=== PATIENT | female | born 1955 | race Caucasian/White ===

== ENCOUNTER → 2017-03-06 | Outpatient (CLI) | payer OTHER ==
--- NOTE | 2017-03-06 10:24 | CT ---
EXAMINATION TYPE: CT abdomen w con DATE OF EXAM: 03/06/2017 HISTORY: elevated liver enzymes CT DLP: 1562.2mGycm Automated Exposure Control for Dose Reduction was Utilized. CONTRAST: CT scan of the abdomen is performed with oral and with IV Contrast, patient injected with 100 mL of V isipaque 320. COMPARISON: CT urogram January 30, 2013. FINDINGS: LUNG BASES: There is right sided pacemaker wire redemonstrated. LIVER/GB: Liver is stable in size and felt within normal limits. Cholecystectomy clips are redemonstr ated. There is subcentimeter low dense lesion anteriorly hepatic dome on axial image 12 that is too s mall to further characterize but stable and presumed benign. No worrisome solid or cystic intrahepati c mass is seen. No suspicious intrahepatic or extrahepatic biliary dilatation is noted. PANCREAS: No significant abnormality is seen. SPLEEN: Scattered calcifications throughout the spleen are redemonstrated. ADRENALS: No significant abnormality is seen. KIDNEYS: No significant abnormality is seen. BOWEL: No significant abnormality is seen. LYMPH NODES: No greater than 1cm abdominal lymph nodes are appreciated. OSSEOUS STRUCTURES: There is multilevel facet arthropathy in the lower lumbar spine. OTHER: There is moderate calcified atherosclerotic change of aorta. IMPRESSION: Liver is normal in size, no worrisome intrahepatic mass or ductal dilatation is seen.
== END | disposition home or self-care (01) ==
LOC: RADCTMAIN 08:14
PROVIDERS: ATTEND Family Medicine
DX: R74.8 Abnormal levels of other serum enzymes (principal)
CPT/HCPCS: 82565; 84520; 74160; 36415; Q9967

== ENCOUNTER → 2017-03-09 | Outpatient (CLI) | payer OTHER ==
--- NOTE | 2017-03-09 11:53 | MM ---
Reason for exam: additional evaluation requested from abnormal screening. Last mammogram was performed less than 1 month ago. History: Family history of breast cancer in grandmother. Benign excisional biopsy of the left breast. Physical Findings: Nurse did not find any significant physical abnormalities on exam. MG Work Up Mamm w CAD LT CC and MLO view(s) were taken of the left breast. Prior study comparison: March 05, 2017, bilateral MG screening mammo w CAD. July 28, 2013, CAD bilateral diagnostic mammogram. The breast tissue is heterogeneously dense. This may lower the sensitivity of mammography. There are grouped pleomorphic calcifications in the upper outer quadrant on left breast spanning over 2.2cm at middle depth in a linear orientation. These results were verbally communicated with the patient and result sheet given to the patient on 03/09/17. ASSESSMENT: Highly suggestive of malignancy, BI-RAD 5 RECOMMENDATION: Stereotactic core biopsy of the left breast. Called Dr. Hanks with mammographic findings and has scheduled an appointment for the patient for 04/04/17 at 3:[address] Garza. Biopsy scheduled for 03/13/17 at 8:00/ PRELIMINARY REPORT CALLED AND FAXED TO DR. GARZA ON 03/09/17.
== END | disposition home or self-care (01) ==
LOC: RADMAMWWP 07:51
PROVIDERS: ATTEND Family Medicine
DX: R92.8 Other abnormal and inconclusive findings on diagnostic imaging of breast (principal)

== ENCOUNTER → 2017-03-13 | Day surgery (SDC) | payer OTHER ==
[2017-03-13 07:51] VITALS: RESP 16; BMI 43.1
--- NOTE | 2017-03-13 09:58 | MM ---
EXAMINATION TYPE: MG stereo VAD BX LT DATE OF EXAM: 03/13/2017 COMPARISON: NONE CLINICAL HISTORY: Left breast calcification TECHNIQUE: Stereotactic guided core biopsy of left breast. FINDINGS: The procedure of stereotactic guided core biopsy was explained to the patient. Benefits, alternatives, and risks were discussed. An informed consent was then obtained. The shortness pathway for biopsy was chosen. Shortness pathway was lateral approach. CT performed by the radiologist. A vacuum assisted biopsy gun was used to obtain multiple core samples. The patient tolerated the procedure well without any immediate complication. The patient was kept in the radiology department for short stay after the procedure and then discharged home in stable condition. Targeted calcifications are identified in specimen mammogram. Post biopsy mammogram shows the clip to appear in satisfactory position relative to the targeted area of concern on the preprocedure images. IMPRESSION: SUCCESSFUL, UNCOMPLICATED STEREOTACTIC GUIDED CORE BIOPSY OF AREA OF CONCERN IN THE left BREAST, FULL PATHOLOGY RESULTS TO FOLLOW. Pathology Results: Malignant BREAST, LEFT, STEREOTACTIC CORE BIOPSY: DUCTAL CARCINOMA, FAVOR DUCT CARCINOMA IN SITU - PENDING IMMUNOHISTOCHEMICAL STAINS. CALCIFICATIONS IDENTIFIED. Recommendation Surgical consult of the left breast. GEENA
[2017-03-13 10:12] VITALS: BP 117/67; PULSE 56; TEMP 97.9
== END ==
LOC: RADMAMWWP 07:32
PROVIDERS: ATTEND Surgery
DX: D05.12 Intraductal carcinoma in situ of left breast (principal); R92.1 Mammographic calcification found on diagnostic imaging of breast
CPT/HCPCS: 19081; 88305; 88342; 88341; A4648; J2001

== ENCOUNTER → 2017-03-19 | Outpatient (CLI) | payer OTHER ==
[2017-03-19 15:48] LABS: Basophils # (A) 0.1 k/uL (0-0.2); Basophils % (A) 1 %; CH 34.3; CHCM 33.7; Eosinophils # (A) 0.5 k/uL (0-0.7); Eosinophils % (A) 7 %; HCT 43.5 % (34.0-46.0); HDW 2.57; HGB 14.3 gm/dL (11.4-16.0); Luc # (Auto) 0.13; Luc % (Auto) 2; Lymphocytes % (A) 29 %; MCH 33.6 pg (25.0-35.0); MCV 102.1 fL (80.0-100.0); Macrocytosis Slight; Mean Platelet Volume 8.7; Monocytes # (A) 0.5 k/uL (0-1.0); Monocytes % (A) 8 %; Neutrophils # (A) 3.8 k/uL (1.3-7.7); Neutrophils % (A) 54 %; RBC 4.26 m/uL (3.80-5.40); RDW 15.2 % (11.5-15.5); WBC 7.1 k/uL (3.8-10.6); WBC (Perox) 6.75
[2017-03-19 15:52] LABS: Appearance,Urine Clear (Clear); Bilirubin,Urine Negative (Negative); Glucose,Urine (UA) Negative (Negative); Ketones,Urine Negative (Negative); Leukocyte Esterase,Urine Negative (Negative); Nitrite,Urine Negative (Negative); Protein,Urine Negative (Negative); Specific Gravity,Urine 1.004 (1.001-1.035); UA Billing (MACRO vs. MICRO) CHEM; Urobilinogen,Urine <2.0 mg/dL (<2.0)
[2017-03-19 16:14] LABS: Anion Gap 6 mmol/L; Blood Urea Nitrogen 11 mg/dL (7-17); Calcium 9.4 mg/dL (8.4-10.2); Carbon Dioxide 37 mmol/L (22-30); Chloride 96 mmol/L (98-107); Glucose 110 mg/dL (74-99); Magnesium 1.7 mg/dL (1.6-2.3); Non-African American GFR(MDRD) 54 (>60 ml/min/1.73 sqM); Phosphorus 3.4 mg/dL (2.5-4.5); Potassium 4.4 mmol/L (3.5-5.1); Sodium 139 mmol/L (137-145); Uric Acid 2.1 mg/dL (3.7-7.4)
[2017-03-20 01:15] LABS: Iron Saturation 36.71 (12.00-45.00)
== END | disposition home or self-care (01) ==
LOC: LABWHC1 15:09
PROVIDERS: ATTEND Nurse Practitioner Family
DX: D64.9 Anemia, unspecified (principal); N18.3 Chronic kidney disease, stage 3 (moderate); R82.71 Bacteriuria; N39.0 Urinary tract infection, site not specified; D50.9 Iron deficiency anemia, unspecified; N25.81 Secondary hyperparathyroidism of renal origin; M10.9 Gout, unspecified; E55.9 Vitamin D deficiency, unspecified; E61.1 Iron deficiency
CPT/HCPCS: 36415; 80048; 81003; 82040; 82306; 82728; 83540; 83550; 83735; 83970; 84100; 84550; 85025; 87086

== ENCOUNTER 2017-05-17 10:20 | Day surgery (SDC) | payer OTHER ==
[~2017-05-17 10:20] MED LIST: HYDROmorphone 0.5 MG/0.5 ML SYRINGE IVP PRN; MIDAZOLAM 2 MG/2 ML VIAL IV PRN; Pre Op ABX Message 1 EACH MISC MISCELLANE ONE; SCOPOLAMINE 1.5MG/72HR PATCH TRANSDERM ONE
--- NOTE | 2017-05-17 10:35 | HP ---
HISTORY AND PHYSICAL CHIEF COMPLAINT: Patient is a 61-year-old female who was seen in March of this year. The patient had a recent mammogram performed showing a group of calcifications in the left breast. These were present in the upper outer quadrants spanning an area of 2.2 cm. The biopsies were performed showing ductal carcinoma in situ, high grade with comedonecrosis. She is ER negative, HI positive. She has a family history of breast cancer in her grandmother. She is otherwise asymptomatic. She has a history of previous left-sided pacemaker placement. She has extensive emphysema and is on home oxygen. She has been seen by Pulmonary, Cardiology, Radiation Oncology. Mastectomy was advised as the most ideal surgical option because of the risk of radiation injury to the patient's pacemaker. PAST MEDICAL HISTORY: Anxiety, asthma, left breast cancer, depression, diabetes, obesity, emphysema, GERD, coronary artery disease, hypercholesteremia, hypertension, arthritis, and arrhythmia. PAST SURGICAL HISTORY: Breast biopsy, cholecystectomy. MEDICATIONS: See list. ALLERGIES: PENICILLIN, ASPIRIN. PHYSICAL EXAM: HEENT is normocephalic. Sclerae nonicteric. RIGHT BREAST: Without mass or adenopathy. LEFT BREAST: Without masses or adenopathy. Pacemaker present. ABDOMEN: Soft, nontender, nondistended. No masses. EXTREMITIES: Without edema. IMPRESSION: A 61-year-old female with newly diagnosed left breast cancer. PLAN: After a long discussion with the patient regarding the surgical options, we decided to proceed with a left breast simple mastectomy with sentinel lymph node biopsy. Fluoroscopy will be utilized to identify the location of the pacemaker leads. Reconstruction was offered but the patient declined. Risks of bleeding, infection, ischemia, seroma formation, nerve injury, potential need for additional surgery, scarring, numbness, and recurrence. She understands and wishes to proceed. MMODL / IJN: [id number] /
[2017-05-17] MEDS ORDERED: LIDOCAINE 1% 20 ML VIAL (10MG/ML) FOR IV START INTRADERMA ONE (11:05)
[2017-05-17] MEDS ORDERED: DEXTROSE 50%-WATER 50 ML SYRINGE IVP ONE (11:13)
[2017-05-17] MEDS ORDERED: LACTATED RINGERS 1,000 ML IV ONE (11:27)
[2017-05-17 11:42] LABS: Glucose,Whole Blood 128 mg/dL (75-99)
[2017-05-17 11:42] LABS: Glucose,Whole Blood 46 mg/dL (75-99)
[2017-05-17 11:53] LABS: Anion Gap 5 mmol/L; Blood Urea Nitrogen 13 mg/dL (7-17); Calcium 9.4 mg/dL (8.4-10.2); Carbon Dioxide 29 mmol/L (22-30); Chloride 102 mmol/L (98-107); Potassium 4.5 mmol/L (3.5-5.1); Sodium 136 mmol/L (137-145)
[2017-05-17 12:05] LABS: Glucose 49 mg/dL (74-99)
[2017-05-17] MEDS: ONDANSETRON 4 MG/2 ML VIAL IVP ONE ×2 (12:10→18:08)
[2017-05-17] MEDS: DEXAMETHASONE SOD PHOSPHATE 10 MG/ML 1 ML VIAL IV ONE ×2 (12:10→18:08)
[2017-05-17] MEDS: HEPARIN SODIUM,PORCINE 5,000 UNIT/ML 1 ML VIAL SQ ONE ×2 (12:10→18:08)
--- NOTE | 2017-05-17 12:31 | NM ---
EXAMINATION TYPE: NM sentinel node injection DATE OF EXAM: 05/17/2017 COMPARISON: Stereotactic biopsy dated 03/13/2017 HISTORY: Left-sided breast ductal carcinoma with pathology favoring ductal carcinoma in situ. Request for sentinel node injection. TECHNIQUE AND FINDINGS: The procedure of sentinel lymph node injection was explained to the patient. The benefits, alternatives, and risks were discussed. An informed consent was then obtained. Overlying skin is cleaned with sterile alcohol. Lidocaine buffered with bicarbonate was used as anes thetic into the skin and subcutaneous tissue surrounding the nipple. Following this, 550 uCi Tc 99m Filtered Sulfur Colloid was injected into 4 equivalent doses at 12, 3, 6, and 9:00 position surroundi ng the left nipple intradermally. The injection sites were massaged by nuclear physician for 10 minutes after injection. T he patient tolerated the procedure well without any immediate complication. The patient was kept in the radiology department for short stay after the procedure and then taken to surgery for surgical pr ocedure what is presumed intraoperative gamma probe will be used for sentinel lymph node detection. IMPRESSION: Left breast radiotracer injection for sentinel node localization as above.
[2017-05-17] MEDS ORDERED: ceFAZolin 2,000 MG in DEXTROSE/WATER 1 50ML.BAG IVPB STA (12:45)
[2017-05-17] MEDS ORDERED: CLINDAMYCIN 900 MG in DEXTROSE 5% IN WATER 50 ML IVPB STA ×2 (12:52)
[2017-05-17] MEDS ORDERED: fentaNYL (PF) 50 MCG/ML 2 ML AMP ONE (13:05)
[2017-05-17] MEDS ORDERED: PROPOFOL 10 MG/ML 20 ML VIAL IV ONE (13:05)
[2017-05-17] MEDS ORDERED: LIDOCAINE 1% INJ 10MG/ML (20 ML MDV) ONE (13:05)
[2017-05-17] MEDS ORDERED: DEXTROSE 5% IN WATER 500 ML BAG ONE (13:05)
[2017-05-17] MEDS ORDERED: ePHEDrine SULFATE/0.9% NACL/PF 50 MG/5 ML SYRINGE IV ONE (13:05)
[2017-05-17] MEDS ORDERED: SUCCINYLCHOLINE CHLORIDE 100 MG/5 ML SYR IV ONE (13:05)
[2017-05-17] MEDS ORDERED: PHENYLEPHRINE-0.9% NACL SYG 1 MG/10 ML SYRINGE ONE (13:05)
[2017-05-17] MEDS ORDERED: KETAMINE 10 MG/ML 20 ML VIAL ONE (13:05)
[2017-05-17] MEDS ORDERED: METHYLENE BLUE 10 MG/ML (10 ML VIAL) INJ ONE (13:36)
[2017-05-17] MEDS: DEXTROSE 50%-WATER 50 ML SYRINGE IVP STA ×2 (13:38→18:09)
[2017-05-17 13:59] LABS: Glucose,Whole Blood 49 mg/dL (75-99)
[2017-05-17 14:25] LABS: Glucose,Whole Blood 97 mg/dL (75-99)
[2017-05-17 15:18] LABS: Glucose,Whole Blood 69 mg/dL (75-99)
[2017-05-17] MEDS ORDERED: NALOXONE 0.4 MG/ML 1 ML VIAL IV PRN (15:18)
[2017-05-17] MEDS ORDERED: ONDANSETRON 4 MG/2 ML VIAL IVP PRN (15:31)
[2017-05-17] MEDS ORDERED: HYDROcodone/APAP 5-325MG 1 EACH TAB PO PRN (15:31)
[2017-05-17] MEDS ORDERED: METOCLOPRAMIDE 5 MG/ML 2 ML VIAL IVP PRN (15:31)
[2017-05-17] MEDS ORDERED: HYDROmorphone 1 MG/ML 1 ML SYRINGE IVP PRN (15:31)
[2017-05-17 15:41] LABS: Glucose,Whole Blood 106 mg/dL (75-99)
--- NOTE | 2017-05-17 15:41 | P.OP ---
Date of Procedure: 05/17/17 Procedure(s) Performed: PREOPERATIVE DIAGNOSIS: Left breast cancer POSTOPERATIVE DIAGNOSIS: Same PROCEDURE: Left breast mastectomy with sentinel lymph node biopsy SURGEON: Olivia EBL: Minimal ANESTHESIA: General COMPLICATIONS: None OPERATIVE PROCEDURE: Patient was placed on the operating room table in the supine position. 2 mL of methylene blue was injected into the subareolar space. The breast was then massaged for 5 minutes. Using the skin marker the proposed incision sites were drawn out on the chest wall. The superior incision was first created. The incision was elliptical in nature encompassing the nipple areolar complex. Flaps were raised superiorly until the chest wall was reached. The axilla was then addressed. Blunt dissection surprisingly did reveal immediately 2 hot and blue lymph nodes along with the feeding blue colored lymphatic vessel. Both of these lymph nodes were removed and sent to pathology for close examination labeled sentinel lymph node 1 and 2. Both nodes thankfully were negative for metastatic disease by frozen section. The mastectomy incision was then created inferiorly and flaps were again raised until the chest wall was reached. The breast was removed from the chest wall using electrocautery. Multiple vessels were divided using either electrocautery or the clip public health microbiologist. Harmonic scalpel was also utilized to control portions of our dissection that appeared vascular. The area was irrigated. No bleeding was seen. A drain was placed beneath the flaps of the mastectomy incision. The subcutaneous tissues were then closed using 3-0 Vicryl sutures and the skin was closed using shaylee. Sterile dressing was used along the entire length of the incision with Dermabond. The drain was sutured in place using a 3-0 silk stitch. DISPOSITION: Stable to recovery room
--- NOTE | 2017-05-17 15:55 | FL ---
EXAMINATION TYPE: FL guidance operating room DATE OF EXAM: 05/17/2017 CLINICAL HISTORY: Left-sided breast cancer TECHNIQUE: Fluoroscopy. COMPARISON: None. FINDINGS: Fluoroscopic guidance was provided during treatment for left breast cancer probable lumpec lucille performed by Dr. Baker. A total of 17 seconds of fluoroscopic time was utilized during the proc edure and one spot image is acquired. Image acquired shows left pacemaker to help in surgical plannin g. IMPRESSION: As Above.
[2017-05-17] MEDS ORDERED: HYDROmorphone 1 MG/ML 1 ML SYRINGE IVP ONE (16:15)
[2017-05-17 17:26] LABS: Glucose,Whole Blood 102 mg/dL (75-99)
[2017-05-17] MEDS: LACTATED RINGERS 1,000 ML IV SCH (18:09)
[2017-05-17] MEDS: D5-0.45% NACL WITH KCL 20MEQ/L 1,000 ML IV SCH (20:08)
[2017-05-17 21:01] LABS: Glucose,Whole Blood 97 mg/dL (75-99)
[2017-05-17] MEDS: HEPARIN SODIUM,PORCINE 5,000 UNIT/ML 1 ML VIAL SQ SCH (22:24)
[2017-05-18] MEDS: LACTATED RINGERS 1,000 ML IV SCH (04:40)
[2017-05-18] MEDS: D5-0.45% NACL WITH KCL 20MEQ/L 1,000 ML IV SCH ×2 (05:40→11:00)
[2017-05-18 05:41] LABS: Glucose,Whole Blood 86 mg/dL (75-99)
[2017-05-18 05:58] LABS: Basophils % (A) 0 %; Eosinophils % (A) 0 %; HCT 36.3 % (34.0-46.0); HGB 11.8 gm/dL (11.4-16.0); Lymphocytes # (A) 1.3 k/uL (1.0-4.8); Lymphocytes % (A) 12 %; MCH 32.2 pg (25.0-35.0); MCHC 32.4 g/dL (31.0-37.0); MCV 99.3 fL (80.0-100.0); Mean Platelet Volume 8.3; Monocytes # (A) 0.8 k/uL (0-1.0); Monocytes % (A) 8 %; Neutrophils # (A) 8.8 k/uL (1.3-7.7); Neutrophils % (A) 79 %; Platelet Count 141 k/uL (150-450); RBC 3.66 m/uL (3.80-5.40); RDW 14.1 % (11.5-15.5); WBC 11.1 k/uL (3.8-10.6)
[2017-05-18 06:12] LABS: Anion Gap 6 mmol/L; Blood Urea Nitrogen 10 mg/dL (7-17); Carbon Dioxide 31 mmol/L (22-30); Chloride 102 mmol/L (98-107); Glucose 86 mg/dL (74-99); Magnesium 1.7 mg/dL (1.6-2.3); Phosphorus 4.6 mg/dL (2.5-4.5); Potassium 4.6 mmol/L (3.5-5.1); Sodium 139 mmol/L (137-145)
[2017-05-18] MEDS: HEPARIN SODIUM,PORCINE 5,000 UNIT/ML 1 ML VIAL SQ SCH ×3 (08:22→22:54)
[2017-05-18] MEDS: PANTOPRAZOLE 40 MG/10 ML VIAL IV SCH (08:22)
--- NOTE | 2017-05-18 11:35 | P.CRDCN ---
History of Present Illness History of present illness: Patient interviewed and examined. Please see full dictation by nurse practitioner. She underwent mastectomy yesterday. She has complete heart block as a permanent pacemaker implanted in the past. Pacemaker was interrogated today and impedances are stable thresholds are stable. Plan is to resume home medications and she may get discharged home when okay with surgery. She will follow-up with me as scheduled. I recently performed a stress test which did not show any evidence for ischemia Past Medical History Past Medical History: Coronary Artery Disease (CAD), Heart Failure, COPD, Diabetes Mellitus, Hyperlipidemia, Hypertension, Sleep Apnea/CPAP/BIPAP, Thyroid Disorder Additional Past Medical History / Comment(s): PATIENT HAS NO LEFTDiverticulitis. CPAP. O2 @ 2 L. GOUT. History of Any Multi-Drug Resistant Organisms: None Reported Past Surgical History: Breast Surgery, Cholecystectomy, Hysterectomy, Pacemaker Additional Past Surgical History / Comment(s): Benign excisional biopsy left breast. Past Anesthesia/Blood Transfusion Reactions: Previous Problems w/ Anesthesia Additional Past Anesthesia/Blood Transfusion Reaction / Comment(s): Hard time coming out of general Type of Cardiac Device: Permanent Pacemaker Device Placement Date:: Smoking Status: Former smoker - Past Family History Mother Family Medical History: Cancer Medications and Allergies Home Medications Medication Instructions Recorded Confirmed Type Albuterol Inhaler [Ventolin Hfa 1 - 2 puff INHALATION RT-QID PRN 09/15/15 History Inhaler] Allopurinol [Zyloprim] 300 mg PO QAM 09/15/15 05/17/17 History Biotin 5 mg PO DAILY 09/15/15 05/17/17 History Carvedilol [Coreg] 1.56 mg PO BID 09/15/15 05/17/17 History Colchicine 0.6 mg PO TID 09/15/15 05/17/17 History Docusate Sodium [Dok] 100 mg PO DAILY PRN 09/15/15 05/17/17 History Furosemide [Lasix] 80 mg PO QAM 09/15/15 05/17/17 History Indomethacin [Indocin] 50 mg PO TID PRN 09/15/15 05/17/17 History LORazepam [Ativan] 0.5 mg PO BID 09/15/15 05/17/17 History Levothyroxine Sodium [Synthroid] 25 mcg PO QAM 09/15/15 05/17/17 History Lisinopril [Zestril] 2.5 mg PO PC-LUNCH 09/15/15 05/17/17 History Ranitidine HCl [Zantac] 150 mg PO BID 09/15/15 05/17/17 History Sertraline [Zoloft] 50 mg PO QAM 09/15/15 05/17/17 History traZODone HCL [Desyrel] 100 mg PO HS PRN 09/15/15 05/17/17 History Beclomethasone Dipropionate [Qvar 1 inhalation PO RT-BID 09/16/15 05/17/17 History 80 mcg/puff] Ipratropium [place] 0.2 mg INHALATION RT-QID 09/16/15 05/17/17 History Albuterol Nebulized [Ventolin 1 inhalation INHALATION QID 03/09/17 05/17/17 History Nebulized] Atorvastatin Calcium [Lipitor] 20 mg PO HS 03/09/17 05/17/17 History Febuxostat [Uloric] 80 mg PO QAM 03/09/17 05/17/17 History Ferrous Sulfate [Iron] 325 mg PO HS 03/09/17 05/17/17 History HYDROcodone/APAP 5-325MG [[place] 1 tab PO Q6HR PRN 03/09/17 05/17/17 History 5-325] Insulin Lispro Protamin/Lispro 80 unit SQ QA 03/09/17 05/17/17 History [Humalog Mix 75-25 Kwikpen] Montelukast [Singulair] 10 mg PO QAM 03/09/17 05/17/17 History Perphenazine [Trilafon] 4 mg PO HS 03/09/17 05/17/17 History Fluocinonide 0.05% [Lidex 0.05% 1 applic TOPICAL HS 05/15/17 05/17/17 History cream] Insulin NPL/Insulin Lispro 40 unit SQ HS 05/15/17 05/17/17 History [humaLOG MIX 75-25 VIAL] Allergies Allergy/AdvReac Type Severity Reaction Status Date / Time aspirin Allergy Nausea & Verified 05/17/17 11:04 Vomiting Penicillins Allergy Rash/Hives Verified 05/17/17 11:04 Physical Exam Vitals: Vital Signs Temp Pulse Resp BP Pulse Ox 05/18/17 04:00 97.1 F L 53 L 16 115/55 97 05/18/17 00:00 98.5 F 53 L 16 109/55 97 05/17/17 20:36 98.3 F 50 L 16 113/55 96 05/17/17 19:48 97.2 F L 50 L 16 126/57 95 05/17/17 18:40 53 L 20 129/60 97 05/17/17 18:10 50 L 20 132/59 95 05/17/17 17:40 51 L 20 132/65 96 05/17/17 17:25 50 L 20 123/62 95 05/17/17 17:10 50 L 20 128/67 95 05/17/17 16:55 96.8 F L 51 L 20 126/58 95 05/17/17 16:30 49 L 16 134/65 99 05/17/17 16:15 49 L 18 146/65 99 05/17/17 16:00 49 L 16 129/60 98 05/17/17 15:45 52 L 16 126/61 97 05/17/17 15:30 97.3 F L 60 12 117/59 95 Intake and Output 05/17/17 05/18/17 05/18/17 22:59 06:59 14:59 Intake Total 840 600 Output Total 120 50 Balance 720 550 Intake: IV 600 600 D5-0.45% NaCl with KCl 600 600 20Meq/l 1,000 ml @ 75 mls /hr IV .[id number] [facility] Rx#: [id number] Oral 240 Output: Drainage 70 50 Left Breast 70 50 Estimated Blood Loss 50 Other: Voiding Method Toilet # Voids 0 1 1 Weight 123.5 kg Results 05/18/17 05:36 05/18/17 05:36 CBC 05/18/17 Range/Units 05:36 WBC 11.1 H (3.8-10.6) k/uL RBC 3.66 L (3.80-5.40) m/uL Hgb 11.8 (11.4-16.0) gm/dL Hct 36.3 (34.0-46.0) % Plt Count 141 L (150-450) k/uL Comprehensive Metabolic Panel 05/17/17 05/18/17 Range/Units 11:10 05:36 Sodium 136 L 139 (137-145) mmol/L Potassium 4.5 4.6 (3.5-5.1) mmol/L Chloride 102 102 (98-107) mmol/L Carbon Dioxide 29 31 H (22-30) mmol/L BUN 13 10 (7-17) mg/dL Creatinine 0.80 0.84 (0.52-1.04) mg/dL Glucose 49 L* 86 (74-99) mg/dL Calcium 9.4 9.0 (8.4-10.2) mg/dL Current Medications Generic Name Dose Route Start Last Admin Trade Name Freq PRN Reason Stop Dose Admin Hydrocodone Bitart/Acetaminophen 1 each 05/17/17 15:31 [place] 5-325 PO Q4HR PRN Mild Pain Heparin Sodium (Porcine) 5,000 unit 05/18/17 00:00 05/18/17 08:22 Heparin SQ 5,000 unit Q8HR JAMES Administration Hydromorphone HCl 0.5 mg 05/17/17 15:31 05/18/17 08:20 Dilaudid IVP 0.5 mg Q3HR PRN Administration Moderate to Severe Pain Lactated Ringer's 1,000 mls @ 20 mls/hr 05/17/17 06:05 05/18/17 04:40 Lactated Ringers IV Not Given .Q24H JAMES Potassium Chloride/Dextrose/Sod Cl 1,000 mls @ 75 mls/hr 05/17/17 15:45 05/18 05:40 D5%-1/2ns-Kcl 20 Meq/L Iv Solution IV 75 mls/hr .[id number] JAMES Administration Metoclopramide HCl 10 mg 05/17/17 15:31 Reglan IVP Q6H PRN Nausea And Vomiting Naloxone HCl 0.2 mg 05/17/17 15:18 Narcan IV Q2M PRN Opioid Reversal Ondansetron HCl 4 mg 05/17/17 15:31 Zofran IVP Q8HR PRN Nausea And Vomiting Pantoprazole Sodium 40 mg 05/18/17 09:00 05/18/17 08:22 Protonix IV 40 mg DAILY JAMES Administration Intake and Output 05/17/17 05/18/17 05/18/17 22:59 06:59 14:59 Intake Total 840 600 Output Total 120 50 Balance 720 550 Intake: IV 600 600 D5-0.45% NaCl with KCl 600 600 20Meq/l 1,000 ml @ 75 mls /hr IV .[id number] [facility] Rx#: [id number] Oral 240 Output: Drainage 70 50 Left Breast 70 50 Estimated Blood Loss 50 Other: Voiding Method Toilet # Voids 0 1 1 Weight 123.5 kg 05/18/17 05:36 05/18/17 05:36
[2017-05-18 11:39] VITALS: RESP 18
[2017-05-18 11:55] LABS: Glucose,Whole Blood 93 mg/dL (75-99)
--- NOTE | 2017-05-18 14:14 | P.CRDCN ---
History of Present Illness Consult date: 05/18/17 Requesting physician: Sim Baker Reason for Consult (text): Street of Pacemaker Chief complaint: Status post left breast mastectomy History of present illness: His is a 61-year-old female who follows with Dr. Stack in the office. She has known history of diabetes, hyperlipidemia, COPD with home O2 use, hypothyroidism, hypertension, prior pacemaker implantation. Patient was admitted to the hospital and underwent left breast mastectomy with sentinel lymph node biopsy by Dr. More. Cardiology consultation was requested because of history of a permanent pacemaker. Blood pressure 118/50 heart rate in the 50s, respirations 18. Device was interrogated this morning and is functioning appropriately. White blood cell count 11.1, hemoglobin 11.8, platelet count 141. Sodium 139, potassium 4.6, BUN 10, creatinine 0.8. Magnesium 1.7. Patient's home medications include Lipitor 20 mg daily, Coreg 3.125 mg twice a day, Lasix 80 mg daily, lisinopril 5 mg daily, Aldactone 50 mg daily which we will resume. Past Medical History Past Medical History: Coronary Artery Disease (CAD), Heart Failure, COPD, Diabetes Mellitus, Hyperlipidemia, Hypertension, Sleep Apnea/CPAP/BIPAP, Thyroid Disorder Additional Past Medical History / Comment(s): PATIENT HAS NO LEFTDiverticulitis. CPAP. O2 @ 2 L. GOUT. History of Any Multi-Drug Resistant Organisms: None Reported Past Surgical History: Breast Surgery, Cholecystectomy, Hysterectomy, Pacemaker Additional Past Surgical History / Comment(s): Benign excisional biopsy left breast. Past Anesthesia/Blood Transfusion Reactions: Previous Problems w/ Anesthesia Additional Past Anesthesia/Blood Transfusion Reaction / Comment(s): Hard time coming out of general Type of Cardiac Device: Permanent Pacemaker Device Placement Date:: Smoking Status: Former smoker - Past Family History Mother Family Medical History: Cancer Medications and Allergies Home Medications Medication Instructions Recorded Confirmed Type Albuterol Inhaler [Ventolin Hfa 1 - 2 puff INHALATION RT-QID PRN 09/15/15 History Inhaler] Allopurinol [Zyloprim] 300 mg PO QAM 09/15/15 05/17/17 History Biotin 5 mg PO DAILY 09/15/15 05/17/17 History Carvedilol [Coreg] 1.56 mg PO BID 09/15/15 05/17/17 History Colchicine 0.6 mg PO TID 09/15/15 05/17/17 History Docusate Sodium [Dok] 100 mg PO DAILY PRN 09/15/15 05/17/17 History Furosemide [Lasix] 80 mg PO QAM 09/15/15 05/17/17 History Indomethacin [Indocin] 50 mg PO TID PRN 09/15/15 05/17/17 History LORazepam [Ativan] 0.5 mg PO BID 09/15/15 05/17/17 History Levothyroxine Sodium [Synthroid] 25 mcg PO QAM 09/15/15 05/17/17 History Lisinopril [Zestril] 2.5 mg PO PC-LUNCH 09/15/15 05/17/17 History Ranitidine HCl [Zantac] 150 mg PO BID 09/15/15 05/17/17 History Sertraline [Zoloft] 50 mg PO QAM 09/15/15 05/17/17 History traZODone HCL [Desyrel] 100 mg PO HS PRN 09/15/15 05/17/17 History Beclomethasone Dipropionate [Qvar 1 inhalation PO RT-BID 09/16/15 05/17/17 History 80 mcg/puff] Ipratropium [place] 0.2 mg INHALATION RT-QID 09/16/15 05/17/17 History Albuterol Nebulized [Ventolin 1 inhalation INHALATION QID 03/09/17 05/17/17 History Nebulized] Atorvastatin Calcium [Lipitor] 20 mg PO HS 03/09/17 05/17/17 History Febuxostat [Uloric] 80 mg PO QAM 03/09/17 05/17/17 History Ferrous Sulfate [Iron] 325 mg PO HS 03/09/17 05/17/17 History HYDROcodone/APAP 5-325MG [[place] 1 tab PO Q6HR PRN 03/09/17 05/17/17 History 5-325] Insulin Lispro Protamin/Lispro 80 unit SQ QAM 03/09/17 05/17/17 History [Humalog Mix 75-25 Kwikpen] Montelukast [Singulair] 10 mg PO QAM 03/09/17 05/17/17 History Perphenazine [Trilafon] 4 mg PO HS 03/09/17 05/17/17 History Fluocinonide 0.05% [Lidex 0.05% 1 applic TOPICAL HS 05/15/17 05/17/17 History cream] Insulin NPL/Insulin Lispro 40 unit SQ HS 05/15/17 05/17/17 History [humaLOG MIX 75-25 VIAL] Allergies Allergy/AdvReac Type Severity Reaction Status Date / Time aspirin Allergy Nausea & Verified 05/17/17 11:04 Vomiting Penicillins Allergy Rash/Hives Verified 05/17/17 11:04 Physical Exam Vitals: Vital Signs Temp Pulse Resp BP Pulse Ox 05/18/17 08:00 96.6 F L 50 L 18 118/54 96 05/18/17 04:00 97.1 F L 53 L 16 115/55 97 05/18/17 00:00 98.5 F 53 L 16 109/55 97 05/17/17 20:36 98.3 F 50 L 16 113/55 96 05/17/17 19:48 97.2 F L 50 L 16 126/57 95 05/17/17 18:40 53 L 20 129/60 97 05/17/17 18:10 50 L 20 132/59 95 05/17/17 17:40 51 L 20 132/65 96 05/17/17 17:25 50 L 20 123/62 95 05/17/17 17:10 50 L 20 128/67 95 05/17/17 16:55 96.8 F L 51 L 20 126/58 95 05/17/17 16:30 49 L 16 134/65 99 05/17/17 16:15 49 L 18 146/65 99 05/17/17 16:00 49 L 16 129/60 98 05/17/17 15:45 52 L 16 126/61 97 05/17/17 15:30 97.3 F L 60 12 117/59 95 Intake and Output 05/17/17 05/18/17 05/18/17 22:59 06:59 14:59 Intake Total 840 600 Output Total 120 50 30 Balance 720 550 -30 Intake: IV 600 600 D5-0.45% NaCl with KCl 600 600 20Meq/l 1,000 ml @ 75 mls /hr IV .[id number] [facility] Rx#: [id number] Oral 240 Output: Drainage 70 50 30 Left Breast 70 50 30 Estimated Blood Loss 50 Other: Voiding Method Toilet Toilet # Voids 0 1 1 Weight 123.5 kg PHYSICAL EXAMINATION: HEENT: Head is atraumatic, normocephalic. Pupils equal, round. Neck is supple. There is no elevated jugular venous pressure. HEART EXAMINATION: Heart S1, S2 normal. No murmur or gallop heard.] CHEST EXAMINATION:[ Lungs are clear to auscultation and precussion. No chest wall tenderness is noted on palpation or with deep breathing.] ABDOMEN: [ Soft, nontender. Bowel sounds are heard. No organomegaly noted]. EXTREMITIES:[ 2+ peripheral pulses with no evidence of peripheral edema and no calf tenderness noted]. NEUROLOGIC [patient is awake, alert and oriented -3.] . Results 05/18/17 05:36 05/18/17 05:36 CBC 05/18/17 Range/Units 05:36 WBC 11.1 H (3.8-10.6) k/uL RBC 3.66 L (3.80-5.40) m/uL Hgb 11.8 (11.4-16.0) gm/dL Hct 36.3 (34.0-46.0) % Plt Count 141 L (150-450) k/uL Comprehensive Metabolic Panel 05/18/17 Range/Units 05:36 Sodium 139 (137-145) mmol/L Potassium 4.6 (3.5-5.1) mmol/L Chloride 102 (98-107) mmol/L Carbon Dioxide 31 H (22-30) mmol/L BUN 10 (7-17) mg/dL Creatinine 0.84 (0.52-1.04) mg/dL Glucose 86 (74-99) mg/dL Calcium 9.0 (8.4-10.2) mg/dL Current Medications Generic Name Dose Route Start Last Admin Trade Name Freq PRN Reason Stop Dose Admin Hydrocodone Bitart/Acetaminophen 1 each 05/17/17 15:31 [place] 5-325 PO Q4HR PRN Mild Pain Heparin Sodium (Porcine) 5,000 unit 05/18/17 00:00 05/18/17 08:22 Heparin SQ 5,000 unit Q8HR JAMES Administration Hydromorphone HCl 0.5 mg 05/17/17 15:31 05/18/17 08:20 Dilaudid IVP 0.5 mg Q3HR PRN Administration Moderate to Severe Pain Lactated Ringer's 1,000 mls @ 20 mls/hr 05/17/17 06:05 05/18/17 04:40 Lactated Ringers IV Not Given .Q24H JAMES Potassium Chloride/Dextrose/Sod Cl 1,000 mls @ 75 mls/hr 05/17/17 15:45 05/18 11:00 D5%-1/2ns-Kcl 20 Meq/L Iv Solution IV Not Given .[id number] JAMES Metoclopramide HCl 10 mg 05/17/17 15:31 Reglan IVP Q6H PRN Nausea And Vomiting Naloxone HCl 0.2 mg 05/17/17 15:18 Narcan IV Q2M PRN Opioid Reversal Ondansetron HCl 4 mg 05/17/17 15:31 Zofran IVP Q8HR PRN Nausea And Vomiting Pantoprazole Sodium 40 mg 05/18/17 09:00 05/18/17 08:22 Protonix IV 40 mg DAILY JAMES Administration Intake and Output 05/17/17 05/18/17 05/18/17 22:59 06:59 14:59 Intake Total 840 600 Output Total 120 50 30 Balance 720 550 -30 Intake: IV 600 600 D5-0.45% NaCl with KCl 600 600 20Meq/l 1,000 ml @ 75 mls /hr IV .[id number] [facility] Rx#: [id number] Oral 240 Output: Drainage 70 50 30 Left Breast 70 50 30 Estimated Blood Loss 50 Other: Voiding Method Toilet Toilet # Voids 0 1 1 Weight 123.5 kg 05/18/17 05:36 05/18/17 05:36 EKG Interpretations (text) Rythm strips show paced rhythm. Assessment and Plan Plan: Assessment and plan #1 status post left breast mastectomy with sentinel lymph node biopsy #2 history of pacemaker implantation for complete heart #3 hyperlipidemia #4 hypertension #5 diabetes #6 COPD #7 history of smoking Plan Pacemaker was interrogated and is functioning appropriately. The patient's home cardiac medications. From cardiology's perspective she may be discharged to follow-up in the office. DNP note has been reviewed, I agree with a documented findings and plan of care. Patient was seen and examined.
[2017-05-18] MEDS ORDERED: DOCUSATE 100 MG CAP PO PRN (16:27)
[2017-05-18 16:34] LABS: Glucose,Whole Blood 100 mg/dL (75-99)
[2017-05-18] MEDS: CARVEDILOL 1.563 MG TAB PO SCH (16:56)
--- NOTE | 2017-05-18 17:05 | P.PN ---
Subjective Progress Note Date: 05/18/17 Principal diagnosis: Left breast cancer Patient doing well today. Only mild discomfort. Drainage appropriate. Hemodynamically stable. Objective - Vital Signs Vital signs: Vital Signs Temp 97.2 F L 05/18/17 12:00 Pulse 69 05/18/17 12:00 Resp 18 05/18/17 12:00 BP 118/54 05/18/17 08:00 Pulse Ox 97 05/18/17 12:00 Intake & Output 05/17/17 05/18/17 05/18/17 18:59 06:59 18:59 Intake Total 1040 1200 500 Output Total 120 50 90 Balance 920 1150 410 Weight 123.5 kg Intake: IV 800 1200 D5-0.45% NaCl with KCl 1200 20Meq/l 1,000 ml @ 75 mls /hr IV .[id number] [facility] Rx#: [id number] Oral 240 500 Output: Drainage 70 50 90 Left Breast 70 50 90 Estimated Blood Loss 50 Other: Voiding Method Toilet Toilet # Voids 0 1 1 - Exam Left chest wall incision clean and dry without ischemia or significant tenderness, no hematoma palpable - Labs CBC & Chem 7: 05/18/17 05:36 05/18/17 05:36 Labs: Abnormal Lab Results - Last 24 Hours (Table) 05/17/17 05/18/17 05/18/17 Range/Units 17:22 05:36 05:36 WBC 11.1 H (3.8-10.6) k/uL RBC 3.66 L (3.80-5.40) m/uL Plt Count 141 L (150-450) k/uL Neutrophils # 8.8 H (1.3-7.7) k/uL Carbon Dioxide 31 H (22-30) mmol/L POC Glucose (mg/dL) 102 H (75-99) mg/dL Phosphorus 4.6 H (2.5-4.5) mg/dL 05/18/17 Range/Units 16:33 WBC (3.8-10.6) k/uL RBC (3.80-5.40) m/uL Plt Count (150-450) k/uL Neutrophils # (1.3-7.7) k/uL Carbon Dioxide (22-30) mmol/L POC Glucose (mg/dL) 100 H (75-99) mg/dL Phosphorus (2.5-4.5) mg/dL Assessment and Plan (1) Cancer of left breast Narrative/Plan: Patient doing well today. Anticipate discharge tomorrow. Follow-up in the office 1 week. Current Visit: Yes Status: Acute Code(s): C50.912 - MALIGNANT NEOPLASM OF UNSPECIFIED SITE OF LEFT FEMALE BREAST SNOMED Code(s): 042567939
[2017-05-18] MEDS ORDERED: HYDROmorphone 4 MG/ML 1 ML SYRINGE IVP PRN (20:12)
[2017-05-18] MEDS: ALBUTEROL NEBULIZED 2.5 MG/3 ML INHALATION SCH (20:28)
[2017-05-18] MEDS: BUDESONIDE 1 MG/2 ML NEBU INHALATION SCH (20:28)
[2017-05-18] MEDS ORDERED: traZODone HCL 100 MG TAB PO PRN (21:00)
[2017-05-18] MEDS ORDERED: FERROUS SULFATE 325 MG TAB PO SCH (21:00)
[2017-05-18] MEDS ORDERED: PERPHENAZINE 4 MG TAB PO SCH (21:00)
[2017-05-18] MEDS ORDERED: ATORVASTATIN 20 MG TAB PO SCH (21:00)
[2017-05-18] MEDS ORDERED: INSULN ASP PRT/INSULIN ASPART 100 UNIT/ML 10 ML VIAL SQ SCH (21:00)
[2017-05-18 21:09] LABS: Glucose,Whole Blood 130 mg/dL (75-99)
[2017-05-18] MEDS: COLCHICINE 0.6 MG TAB PO SCH (21:35)
[2017-05-18] MEDS: FAMOTIDINE 20 MG TAB PO SCH (21:35)
[2017-05-19] MEDS ORDERED: LEVOTHYROXINE 25 MCG TAB PO SCH (06:30)
[2017-05-19 06:56] LABS: Glucose,Whole Blood 85 mg/dL (75-99)
[2017-05-19] MEDS: CARVEDILOL 1.563 MG TAB PO SCH (06:59)
[2017-05-19] MEDS ORDERED: IPRATROPIUM 0.5 MG/2.5 ML NEBU INHALATION SCH (08:00)
[2017-05-19] MEDS: FAMOTIDINE 20 MG TAB PO SCH (08:08)
[2017-05-19] MEDS: COLCHICINE 0.6 MG TAB PO SCH (08:08)
[2017-05-19] MEDS: HEPARIN SODIUM,PORCINE 5,000 UNIT/ML 1 ML VIAL SQ SCH (08:09)
[2017-05-19] MEDS: PANTOPRAZOLE 40 MG/10 ML VIAL IV SCH (08:12)
[2017-05-19 08:22] VITALS: BP 131/60; PULSE 57; TEMP 96.7
[2017-05-19] MEDS ORDERED: ALLOPURINOL 300 MG TAB PO SCH (09:00)
[2017-05-19] MEDS ORDERED: MONTELUKAST 10 MG TAB PO SCH (09:00)
[2017-05-19] MEDS ORDERED: INSULN ASP PRT/INSULIN ASPART 100 UNIT/ML 10 ML VIAL SQ SCH (09:00)
[2017-05-19] MEDS ORDERED: SERTRALINE 50 MG TAB PO SCH (09:00)
[2017-05-19] MEDS ORDERED: FUROSEMIDE 80 MG TAB PO SCH (09:00)
[2017-05-19] MEDS ORDERED: NON-FORMULARY DRUG (Biotin [Biotin] 5 MG) PO SCH (09:00)
--- NOTE | 2017-05-19 09:21 | P.PN ---
Progress Note - Text Progress Note Date: 05/19/17 A she feels well. She has minimal postoperative pain. She's been cleared by cardiology. Her incision site is clean and intact. Her BRI drain is functioning. Patient will be discharged home today. She'll follow-up Dr. Baker next week
--- NOTE | 2017-05-19 10:03 | P.PN ---
Subjective Progress Note Date: 05/19/17 Principal diagnosis: Status post left mastectomy This is a 61-year-old female who follows with Dr. Low in the office. She has known history of diabetes, hyperlipidemia, COPD with home O2 use, hypothyroidism, hypertension, prior pacemaker implantation. Patient was admitted to the hospital and underwent left breast mastectomy with sentinel lymph node biopsy by Dr. More. Cardiology consultation was requested because of history of a permanent pacemaker. Blood pressure 118/50 heart rate in the 50s, respirations 18. Device was interrogated this morning and is functioning appropriately. White blood cell count 11.1, hemoglobin 11.8, platelet count 141. Sodium 139, potassium 4.6, BUN 10, creatinine 0.8. Magnesium 1.7. Patient's home medications include Lipitor 20 mg daily, Coreg 3.125 mg twice a day, Lasix 80 mg daily, lisinopril 5 mg daily, Aldactone 50 mg daily which we will resume. 05/19/2017 Patient seen and examined this morning, pacemaker continues to function appropriately. Blood pressure 130/60 with a heart rate 58, 98% on 2 L of oxygen. Once the patient is cleared from a surgical perspective, she may be able to be discharged home from our standpoint as well. She does have a follow- up appointment with Dr. Low in the office post discharge. Objective - Vital Signs Vital signs: Vital Signs Temp 96.7 F L 05/19/17 08:00 Pulse 57 L 05/19/17 08:00 Resp 18 05/19/17 08:00 BP 131/60 05/19/17 08:00 Pulse Ox 98 05/19/17 08:00 Intake & Output 05/18/17 05/19/17 05/19/17 18:59 06:59 18:59 Intake Total 740 50 Output Total 130 720 Balance 610 -670 Weight 123.2 kg Intake: Oral 740 50 Output: Drainage 130 20 Left Breast 130 20 Urine 700 Other: Voiding Method Toilet Toilet # Voids 2 1 - Exam PHYSICAL EXAMINATION: HEENT: Head is atraumatic, normocephalic. Pupils equal, round. Neck is supple. There is no elevated jugular venous pressure. HEART EXAMINATION: Heart S1, S2 normal. No murmur or gallop heard. CHEST EXAMINATION: Lungs are clear to auscultation and precussion. No chest wall tenderness is noted on palpation or with deep breathing. Left chest incision clean and intact, BRI drain functioning. ABDOMEN: Soft, nontender. Bowel sounds are heard. No organomegaly noted. EXTREMITIES: 2+ peripheral pulses with no evidence of peripheral edema and no calf tenderness noted. NEUROLOGIC patient is awake, alert and oriented -3. . - Labs CBC & Chem 7: 05/18/17 05:36 05/18/17 05:36 Labs: Abnormal Lab Results - Last 24 Hours (Table) 05/18/17 05/18/17 Range/Units 16:33 20:59 POC Glucose (mg/dL) 100 H 130 H (75-99) mg/dL Assessment and Plan Plan: Assessment and plan #1 status post left breast mastectomy with sentinel lymph node biopsy #2 history of pacemaker implantation for complete heart #3 hyperlipidemia #4 hypertension #5 diabetes #6 COPD #7 history of smoking Plan Pacemaker was interrogated and is functioning appropriately. The patient's home cardiac medications have been resumed. From cardiology's perspective she may be discharged to follow-up in the office. DNP note has been reviewed, I agree with a documented findings and plan of care. Patient was seen and examined.
[2017-05-19] MEDS: ALBUTEROL NEBULIZED 2.5 MG/3 ML INHALATION SCH (12:16)
[2017-05-19] MEDS: BUDESONIDE 1 MG/2 ML NEBU INHALATION SCH (12:16)
[2017-05-19] MEDS ORDERED: LISINOPRIL 2.5 MG TAB PO SCH (13:30)
--- NOTE | 2017-05-19 14:22 | PN ---
PROGRESS NOTE DATE OF SERVICE: 05/18/17 CHIEF COMPLAINT: Status post mastectomy. HISTORY OF PRESENT ILLNESS: This lady is doing fairly well. She is not having a lot of discomfort. PHYSICAL EXAM: Drains in place. Cardiac exam is normal. Chest is clear. IMPRESSION: Status post left mastectomy. PLAN: Increase activity and probably home tomorrow. MMODL / IJN: [id number] /
--- NOTE | 2017-05-19 14:30 | PN ---
PROGRESS NOTE DATE OF SERVICE: 05/19/17 CHIEF COMPLAINT: Status post left mastectomy. HISTORY OF PRESENT ILLNESS: This lady is doing well. Expects to go home today. PHYSICAL EXAM: CHEST: Clear. Cardiac exam is normal. IMPRESSION: Status post left mastectomy. PLAN: Home today. MMODL / IJN: [id number] /
--- NOTE | 2017-05-19 14:37 | CONS ---
CONSULTATION CHIEF COMPLAINT: CA left breast. HISTORY OF PRESENT ILLNESS: This lady is admitted for an elective left simple mastectomy. She has a history of COPD and hypertension. REVIEW OF SYSTEMS: She denies any headaches, change in vision or hearing. She is blind in left eye. She has had no chest pain, cough, hemoptysis, abdominal pain, vomiting, diarrhea, urinary complaints, etc. Past medical history, family history, personal and social histories can all be found in her admitting note. PHYSICAL EXAMINATION: Blood pressure 143/87 with a pulse of 70, respirations of 32 and she is afebrile. In general, she appeared to be slightly overweight and in no acute distress. Skin color is normal. Skin is warm, dry. Lymph nodes not enlarged. Head, ears, eyes, nose, mouth, and throat normal except for the absence of the left eye. Neck veins not distended. Chest is clear. Cardiac exam is normal. The abdomen is soft, nontender. EXTREMITIES: Normal. IMPRESSION: 1. Carcinoma of the breast. 2. Chronic obstructive pulmonary disease. 3. Hypertension. PLAN: Proceed with surgical procedure and management. MMODL / IJN: [id number] /
--- NOTE | 2017-05-24 04:56 | CDI ---
Date: 06/13/17 CDS/Adjunct Business Instructor Name: Ashley Pedor Phone: If you have question, contact Eunice Daniel, Golf Cart Repairer at [phone] M-F 8:30 am to 6pm. Patient Name: Olga Berumen Admit Date: 05/17/17 Discharge Date: 05/19/17 ATTENTION: The Clinical Documentation Specialists (CDI) and [facility] Coding Staff appreciate your assistance in clarifying documentation. Please respond to the clarification below the line at the bottom and electronically sign. The CDI & [facility] Coding staff will review the response and follow-up if needed. Please note: Queries are made part of the Legal Health Record. If you have any questions, please contact the author of this message via ITS or call the Golf Cart Repairer. Dr. Baker, Please provide clarification as to whether the lymph node dissection performed was deep or superficial. Thank you for your assistance, Location for sentinel lymph node is deep. GEENA
--- NOTE | 2017-07-17 09:28 | CDI ---
Date: 07/17/17 CDS/Call Center Support Consultant Name: Ashley Pedro Phone: If you have question, contact Eunice Daniel Telegrapher Agent at M-F 8:30 am to 6pm. Patient Name: Olga Berumen Admit Date: 05/17/17 Discharge Date: 05/17/17 ATTENTION: The Clinical Documentation Specialists (CDI) and [facility] Coding Staff appreciate your assistance in clarifying documentation. Please respond to the clarification below the line at the bottom and electronically sign. The CDI & [facility] Coding staff will review the response and follow-up if needed. Please note: Queries are made part of the Legal Health Record. If you have any questions, please contact the author of this message via ITS or call the Telegrapher Agent. Dr. Baker Please provide clarificaiton on the lymph node biopsy performed. Please See below To assist in ascertaining which lymph node excision code to report, the axillary lymph nodes are divided into Levels I through III. Levels II and III would always be deep (code 75896). Level I may be deep (code 82811) or superficial (code 58679), depending on the patient's body habitus. Superficial nodes at most sites would be easily palpable. Since Level I axillary lymph nodes may be deep or superficial, it is important that the depth (ie, deep or superficial) be documented in the medical record to ensure correct coding. Thank you for your assistance. MTDD
== END 2017-05-19 12:26 | disposition home or self-care (01) ==
LOC: OR 10:20 → 6SEL 15:15 → OR 05-19 12:26
PROVIDERS: ATTEND Surgery
DX: D05.12 Intraductal carcinoma in situ of left breast (principal); I25.10 Atherosclerotic heart disease of native coronary artery without angina pectoris; I11.0 Hypertensive heart disease with heart failure; I50.9 Heart failure, unspecified; Z87.891 Personal history of nicotine dependence; E11.9 Type 2 diabetes mellitus without complications; Z79.4 Long term (current) use of insulin; E78.00 Pure hypercholesterolemia, unspecified; J44.9 Chronic obstructive pulmonary disease, unspecified; G47.33 Obstructive sleep apnea (adult) (pediatric); Z99.89 Dependence on other enabling machines and devices; Z95.0 Presence of cardiac pacemaker; E03.9 Hypothyroidism, unspecified; E66.9 Obesity, unspecified; Z68.42 Body mass index [BMI] 45.0-49.9, adult; K21.9 Gastro-esophageal reflux disease without esophagitis; F90.9 Attention-deficit hyperactivity disorder, unspecified type; F31.9 Bipolar disorder, unspecified; Z99.81 Dependence on supplemental oxygen; Z79.891 Long term (current) use of opiate analgesic; Z79.899 Other long term (current) drug therapy; Z79.52 Long term (current) use of systemic steroids; Z88.6 Allergy status to analgesic agent; Z88.0 Allergy status to penicillin
CPT/HCPCS: 19303; 94640; 80048 ×2; 83735; 84100; 85025; 88342; 88331; 88307; 88309; 88341; 38792; 38525; A9541; Q0175; J1644 ×3; J1100; J2405; J2001; Q9968; J3010; J1170 ×2; J0690; J2370; J0330; J2704; C9113

== ENCOUNTER → 2017-08-02 | Outpatient (CLI) | payer OTHER ==
[2017-08-02 15:18] LABS: Blood Urea Nitrogen 18 mg/dL (7-17)
--- NOTE | 2017-08-02 16:00 | CT ---
EXAMINATION TYPE: CT abdomen pelvis w con DATE OF EXAM: 08/02/2017 COMPARISON: 03/06/2017 INDICATION: Elevated liver laboratory results DLP: 2447.9 mGycm, Automated exposure control for dose reduction was used. CONTRAST: 100 mL of Omnipaque 300. Study performed with Oral Contrast TECHNIQUE: Axial images were obtained from above the diaphragm to the pubic rami in the axial plane a t 5 mm thick sections. Reconstructed images are reviewed on the computer in the coronal plane. FINDINGS: Limited CT sections are obtained the lung bases. The lung bases are clear. CT ABDOMEN: Liver: There is mild fatty infiltration liver. There is a small hypodensity in the superior right lob e liver measuring 0.8 cm may be a tiny hepatic cyst. Spleen: Couple of calcified granuloma are within the spleen. Pancreas: There is some fatty infiltration of the pancreas Adrenal glands: The adrenal glands are normal. Gallbladder: Surgically absent Kidneys: No masses are evident. No hydronephrosis is present. No cysts are present. Delayed images were obtained through the kidneys, which remain unremarkable. Aorta: Vascular calcification is within the aorta. Inferior vena cava: Normal. CT PELVIS: Loops of bowel within the abdomen and pelvis are normal. There are loops of bowel which are incom pletely distended or lack oral contrast limiting their evaluation. Appendix: Not identified Urinary bladder: Normal. Genitourinary structures: Uterus and ovaries are not identified. Osseous structures: No suspicious lytic or sclerotic lesions. IMPRESSIONS: 1. Mild fatty infiltration of the liver.
== END | disposition home or self-care (01) ==
LOC: RADCTMAIN 14:43
PROVIDERS: ATTEND Internal Medicine Hematology & Oncology
DX: K76.0 Fatty (change of) liver, not elsewhere classified (principal)
CPT/HCPCS: 82565; 84520; 74177; 36415; Q9967

== ENCOUNTER → 2017-08-09 | Outpatient (CLI) | payer OTHER ==
[2017-08-09 18:00] LABS: HCT 49.5 % (34.0-46.0); HGB 16.1 gm/dL (11.4-16.0); MCH 31.7 pg (25.0-35.0); MCHC 32.5 g/dL (31.0-37.0); MCV 97.6 fL (80.0-100.0); Mean Platelet Volume 9.4; Platelet Count 191 k/uL (150-450); Potassium 3.7 mmol/L (3.5-5.1); RBC 5.08 m/uL (3.80-5.40); RDW 14.2 % (11.5-15.5)
[2017-08-09 18:03] LABS: WBC 31.7 k/uL (3.8-10.6)
[2017-08-09 18:10] LABS: Band Neutrophils % 13 %; Monocytes # (M) 0.32 k/uL (0-1.0); Neutrophils % (M) 80 %; Nucleated Red Blood Cells 0 /100 WBC (0-0); Total Cells Counted 100
== END | disposition home or self-care (01) ==
LOC: LABPAT 17:06
PROVIDERS: ATTEND Surgery
DX: Z01.812 Encounter for preprocedural laboratory examination (principal)
CPT/HCPCS: 36415; 80051; 85025

== ENCOUNTER 2017-08-10 07:26 | Day surgery (SDC) | payer OTHER ==
[2017-08-08 11:48] VITALS: BMI 42.2
--- NOTE | 2017-08-10 07:10 | P.GSHP ---
History of Present Illness H&P Date: 08/10/17 Chief Complaint: Left breast cancer Patient presents today for Port-A-Cath placement. He has a diagnosis of left breast cancer underwent left modified simple mastectomy. Postoperatively she developed a area of skin ischemia medially and the wound is healing nicely. She actually already initiated her chemotherapy. She has very poor IV access. Her white blood cell count was noted be significantly elevated on yesterday's labs. She apparently was provided Neulasta during her last chemo treatment. I spoke with oncology who cleared her for the procedure. Past Medical History Past Medical History: Cancer, Heart Failure, COPD, Diabetes Mellitus, Hyperlipidemia, Hypertension, Myocardial Infarction ([place]), Osteoarthritis (OA), Pneumonia, Renal Disease, Skin Disorder, Sleep Apnea/CPAP/BIPAP, Thyroid Disorder Additional Past Medical History / Comment(s): O2 @ 2 L. ,gout, edema lower legs, varicose veins, psoriasis, anemia, stage III kidney disease, breast cancer - currently getting chemo Last Myocardial Infarction Date:: 03/2012 History of Any Multi-Drug Resistant Organisms: None Reported Past Surgical History: Breast Surgery, Cholecystectomy, Hysterectomy, Pacemaker Additional Past Surgical History / Comment(s): left breast biopsy, left mastectomy, rt cataract, Past Anesthesia/Blood Transfusion Reactions: Motion Sickness Additional Past Anesthesia/Blood Transfusion Reaction / Comment(s): denies problems with anesthesia Type of Cardiac Device: Permanent Pacemaker Device Placement Date:: Smoking Status: Former smoker - Past Family History Mother Family Medical History: Cancer Additional Family Medical History / Comment(s): stomach Medications and Allergies Home Medications Medication Instructions Recorded Confirmed Type Albuterol Inhaler [Ventolin Hfa 1 - 2 puff INHALATION QID PRN 09/15/15 08/08/17 History Inhaler] Allopurinol [Zyloprim] 300 mg PO QAM 09/15/15 08/08/17 History Biotin 5 mg PO DAILY 09/15/15 08/08/17 History Carvedilol [Coreg] 3.125 mg PO BID 09/15/15 08/08/17 History Colchicine 0.6 mg PO TID 09/15/15 08/08/17 History Docusate Sodium [Dok] 100 mg PO DAILY PRN 09/15/15 08/08/17 History Furosemide [Lasix] 80 mg PO QAM 09/15/15 08/08/17 History Indomethacin [Indocin] 50 mg PO TID PRN 09/15/15 08/08/17 History LORazepam [Ativan] 0.5 mg PO BID 09/15/15 08/08/17 History Levothyroxine Sodium [Synthroid] 25 mcg PO QAM 09/15/15 08/08/17 History Lisinopril [Zestril] 2.5 mg PO PC-LUNCH 09/15/15 08/08/17 History Ranitidine HCl [Zantac] 150 mg PO BID 09/15/15 08/08/17 History Sertraline [Zoloft] 50 mg PO QAM 09/15/15 08/08/17 History traZODone HCL [Desyrel] 100 mg PO HS 09/15/15 08/08/17 History Beclomethasone Dipropionate [Qvar 1 inhalation PO BID 09/16/15 08/08/17 History 80 mcg/puff] Ipratropium [place] 0.2 mg INHALATION QID 09/16/15 08/08/17 History Albuterol Nebulized [Ventolin 2.5 mg INHALATION QID PRN 03/09/17 08/08/17 History Nebulized] Atorvastatin Calcium [Lipitor] 20 mg PO HS 03/09/17 08/08/17 History Febuxostat [Uloric] 80 mg PO QAM 03/09/17 08/08/17 History Ferrous Sulfate [Iron] 325 mg PO HS 03/09/17 08/08/17 History Insulin Lispro Protamin/Lispro 80 unit SQ QAM 03/09/17 08/08/17 History [Humalog Mix 75-25 Kwikpen] Montelukast [Singulair] 10 mg PO HS 03/09/17 08/08/17 History Perphenazine [Trilafon] 4 mg PO HS 03/09/17 08/08/17 History Fluocinonide 0.05% [Lidex 0.05% 1 applic TOPICAL HS 05/15/17 08/08/17 History cream] Insulin NPL/Insulin Lispro 40 unit SQ HS 05/15/17 08/08/17 History [humaLOG MIX 75-25 VIAL] Hydrocodone/Acetaminophen [[place] 1 - 2 each PO Q4HR PRN #30 tab 05/18/17 Rx 5-325] Allergies Allergy/AdvReac Type Severity Reaction Status Date / Time aspirin Allergy Nausea & Verified 08/08/17 11:29 Vomiting Penicillins Allergy Rash/Hives Verified 08/08/17 11:29 Surgical - Exam Physical exam: General: Well-developed, well-nourished HEENT: Normocephalic, sclerae nonicteric Abdomen: Nontender, nondistended Extremities: No edema Neuro: Alert and oriented Assessment and Plan (1) Cancer of left breast Narrative/Plan: Will proceed with Port-A-Cath placement today. Risks of bleeding, infection, DVT , pneumothorax, catheter malfunction, anesthesia related complications were discussed. The patient understands and wishes to proceed. Status: Acute Code(s): C50.912 - MALIGNANT NEOPLASM OF UNSPECIFIED SITE OF LEFT FEMALE BREAST SNOMED Code(s): 355850450
[~2017-08-10 07:26] MED LIST changes: +DEXAMETHASONE SOD PHOSPHATE 10 MG/ML 1 ML VIAL IV ONE; +HEPARIN SODIUM,PORCINE 5,000 UNIT/ML 1 ML VIAL SQ ONE; -HYDROmorphone 0.5 MG/0.5 ML SYRINGE IVP PRN; +LACTATED RINGERS 1,000 ML IV SCH; +LIDOCAINE 1% 20 ML VIAL (10MG/ML) FOR IV START INTRADERMA PRN; -MIDAZOLAM 2 MG/2 ML VIAL IV PRN; -SCOPOLAMINE 1.5MG/72HR PATCH TRANSDERM ONE
[2017-08-10 11:24] LABS: Glucose,Whole Blood 161 mg/dL (75-99)
[2017-08-10] MEDS ORDERED: LIDOCAINE 1% INJ 10MG/ML (20 ML MDV) ONE (13:38)
[2017-08-10] MEDS ORDERED: PROPOFOL 10 MG/ML 20 ML VIAL IV ONE (13:38)
[2017-08-10] MEDS ORDERED: fentaNYL (PF) 50 MCG/ML 2 ML AMP ONE (13:38)
[2017-08-10] MEDS ORDERED: ePHEDrine SULFATE/0.9% NACL/PF 50 MG/5 ML SYRINGE IV ONE (13:38)
[2017-08-10] MEDS ORDERED: MIDAZOLAM 2 MG/2 ML VIAL ONE (13:38)
[2017-08-10] MEDS ORDERED: SUCCINYLCHOLINE CHLORIDE 100 MG/5 ML SYR IV ONE (13:38)
[2017-08-10] MEDS ORDERED: KETAMINE 10 MG/ML 20 ML VIAL ONE (13:38)
[2017-08-10] MEDS ORDERED: LIDOCAINE 1% INJ 10MG/ML (10 ML MDV) SQ ONE (13:38)
[2017-08-10] MEDS ORDERED: SODIUM CHLORIDE 0.9% 100 ML with CLINDAMYCIN 900 MG IV ONE ×2 (14:04)
[2017-08-10] MEDS ORDERED: NALOXONE 0.4 MG/ML 1 ML VIAL IV PRN (14:27)
[2017-08-10] MEDS ORDERED: HYDROcodone/APAP 5-325MG 1 EACH TAB PO PRN (14:27)
[2017-08-10 15:07] VITALS: TEMP 98
[2017-08-10 15:18] LABS: Glucose,Whole Blood 183 mg/dL (75-99)
--- NOTE | 2017-08-10 15:19 | XR ---
EXAMINATION TYPE: XR chest 1V confirm line [facility] DATE OF EXAM: 08/10/2017 COMPARISON: 09/15/2015 INDICATION: Line placement check TECHNIQUE: Single frontal view of the chest is obtained. FINDINGS: The heart size is prominent. The pulmonary vasculature is normal. Mild infiltrate may be present at the right base. There is a catheter which is been placed on the right. The tip is in the distal superior vena cava re gion. No pneumothorax is evident. Pacemaker overlies left chest. Surgical clips are in the left upper quadrant abdomen region. IMPRESSION: 1. No pneumothorax post line placement. Tip is in the superior vena cava region.
[2017-08-10 15:57] VITALS: RESP 16
[2017-08-10 16:10] VITALS: BP 115/58; PULSE 57
--- NOTE | 2017-08-11 08:26 | FL ---
Fluoroscopy INDICATION: Pain FINDINGS: Fluoroscopy time: 5 seconds. Images obtained: 1. IMPRESSIONS: 1. Documentation of fluoroscopy.
--- NOTE | 2017-08-21 06:09 | P.OP ---
Date of Procedure: 08/21/17 Procedure(s) Performed: PREOPERATIVE DIAGNOSIS: Breast cancer POSTOPERATIVE DIAGNOSIS: Same PROCEDURE: Port-A-Cath placement SURGEON: Olivia EBL: Minimal ANESTHESIA: Sedation COMPLICATIONS: None OPERATIVE PROCEDURE: Patient was brought and placed on the operative table in the supine position. The patient was sedated per anesthesia that time. The chest and neck were prepped and draped in usual sterile fashion. The ultrasound probe was used to identify the location of the right internal jugular vein. The skin was localized with lidocaine. The Seldinger needle was advanced into the IJ under ultrasound guidance. The wire was advanced through the needle under fluoroscopic guidance into the superior vena cava. A port pocket was created in the right infraclavicular location. The catheter was tunneled from the wire entrance site to the port pocket. The port was then connected to the catheter. The dilator introducer was threaded over the guidewire. The guidewire and dilator were then removed. The catheter was advanced through the introducer and introducer was then removed. The tip was seen to be in the right atrial junction. Port was flushed with both saline and a Hep-Lock solution. There was good flow both in and out of the port. The port was sutured in underlying tissues using 3-0 silk sutures. The subcutaneous tissues were reapproximated using 3-0 Vicryl sutures and the skin at both locations using 4-0 Monocryl sutures. Steri-Strips and sterile dressings then applied. DISPOSITION: Stable to recovery room
== END 2017-08-10 16:17 | disposition home or self-care (01) ==
LOC: OR 07:26
PROVIDERS: ATTEND Surgery
DX: C50.912 Malignant neoplasm of unspecified site of left female breast (principal); J44.9 Chronic obstructive pulmonary disease, unspecified; E78.5 Hyperlipidemia, unspecified; I25.2 Old myocardial infarction; M19.90 Unspecified osteoarthritis, unspecified site; L40.9 Psoriasis, unspecified; E07.9 Disorder of thyroid, unspecified; M10.9 Gout, unspecified; E11.22 Type 2 diabetes mellitus with diabetic chronic kidney disease; I50.9 Heart failure, unspecified; I13.0 Hypertensive heart and chronic kidney disease with heart failure and stage 1 through stage 4 chronic kidney disease, or unspecified chronic kidney disease; N18.3 Chronic kidney disease, stage 3 (moderate); K21.9 Gastro-esophageal reflux disease without esophagitis; F98.8 Other specified behavioral and emotional disorders with onset usually occurring in childhood and adolescence; F31.9 Bipolar disorder, unspecified; Z90.12 Acquired absence of left breast and nipple; Z95.0 Presence of cardiac pacemaker; Z99.81 Dependence on supplemental oxygen; Z90.49 Acquired absence of other specified parts of digestive tract; Z79.4 Long term (current) use of insulin; Z88.6 Allergy status to analgesic agent; Z87.891 Personal history of nicotine dependence; Z88.0 Allergy status to penicillin; Z87.01 Personal history of pneumonia (recurrent); Z79.899 Other long term (current) drug therapy; Z79.891 Long term (current) use of opiate analgesic; Z91.14 Patient's other noncompliance with medication regimen
CPT/HCPCS: 36561; 77001; C1788; J2250; J1644; J1100; J2001 ×2; J3010; J1642; J0330; J2704

== ENCOUNTER 2017-12-10 18:40 | Inpatient (IN) | payer OTHER ==
[2017-12-10] MEDS ORDERED: SODIUM CHLORIDE 0.9% 500 ML IV STA (19:01)
--- NOTE | 2017-12-10 19:14 | ED ---
General Adult HPI - General Chief complaint: Nausea/Vomiting/Diarrhea Stated complaint: Diarrhea Time Seen by Provider: 12/10/17 18:45 Source: patient, EMS, RN notes reviewed, old records reviewed Mode of arrival: EMS Limitations: physical limitation - History of Present Illness Initial comments: 62-year-old female presents for evaluation of diarrhea and generalized weakness. Patient states that she has had intermittent diarrhea over the past 3 weeks. Patient has history of breast cancer, she completed chemotherapy approximately one month ago. She has had worsening diarrhea over this time. Describes it as watery. She also complains of some mild periumbilical abdominal pain. She's had several episodes of vomiting but none in the past several days. No fever or chills. She does have generalized weakness. She is unable to ambulate secondary to this weakness. She is uncertain if she's been on recent antibiotics. - Related Data Home Medications Medication Instructions Recorded Confirmed Allopurinol [Zyloprim] 300 mg PO QAM 09/15/15 12/10/17 Biotin 5 mg PO DAILY 09/15/15 12/10/17 Carvedilol [Coreg] 1.5625 mg PO BID 09/15/15 12/10/17 Colchicine 0.6 mg PO TID 09/15/15 12/10/17 LORazepam [Ativan] 0.5 mg PO BID PRN 09/15/15 12/10/17 Levothyroxine Sodium [Synthroid] 25 mcg PO QAM 09/15/15 12/10/17 Lisinopril [Zestril] 2.5 mg PO DAILY 09/15/15 12/10/17 Ranitidine HCl [Zantac] 150 mg PO BID 09/15/15 12/10/17 Sertraline [Zoloft] 50 mg PO QAM 09/15/15 12/10/17 Insulin Lispro Protamin/Lispro 80 unit SQ QAM 03/09/17 12/10/17 [Humalog Mix 75-25 Kwikpen] Atorvastatin [Lipitor] 80 mg PO DAILY 12/10/17 12/10/17 Colchicine [Colcrys] 0.6 mg PO TID 12/10/17 12/10/17 Diphenox-Atrop 2.5-0.025 mg 1 tab PO QID PRN 12/10/17 12/10/17 [Lomotil] Ergocalciferol [Vitamin D2] 50,000 unit PO Q30D 12/10/17 12/10/17 Febuxostat [Uloric] 80 mg PO DAILY 12/10/17 12/10/17 Furosemide [Lasix] 80 mg PO DAILY 12/10/17 12/10/17 Indomethacin [Indocin] 50 mg PO TID PRN 12/10/17 12/10/17 Insulin Lispro Protamin/Lispro 40 unit SQ HS 12/10/17 12/10/17 [Humalog Mix 75-25 Kwikpen] Ipratropium-Albuterol Nebulize 3 ml INHALATION RT-QID 12/10/17 12/10/17 [Duoneb 0.5 mg-3 mg/3 ml Soln] Montelukast [Singulair] 10 mg PO DAILY 12/10/17 12/10/17 Perphenazine [Trilafon] 8 mg PO HS 12/10/17 12/10/17 Vitamin A 8,000 unit PO DAILY 12/10/17 12/10/17 Allergies Allergy/AdvReac Type Severity Reaction Status Date / Time aspirin Allergy Nausea & Verified 12/10/17 19:10 Vomiting oxybutynin Allergy Rash/Hives Verified 12/10/17 19:10 Penicillins Allergy Rash/Hives Verified 12/10/17 19:10 Review of Systems ROS Statement: Those systems with pertinent positive or pertinent negative responses have been documented in the HPI. ROS Other: All systems not noted in ROS Statement are negative. Past Medical History Past Medical History: Cancer, Heart Failure, COPD, Diabetes Mellitus, Hyperlipidemia, Hypertension, Myocardial Infarction (MD), Osteoarthritis (OA), Pneumonia, Renal Disease, Skin Disorder, Sleep Apnea/CPAP/BIPAP, Thyroid Disorder Additional Past Medical History / Comment(s): O2 @ 2 L. ,gout, edema lower legs, varicose veins, psoriasis, anemia, stage III kidney disease, breast cancer - currently getting chemo Last Myocardial Infarction Date:: 03/2012 History of Any Multi-Drug Resistant Organisms: None Reported Past Surgical History: Breast Surgery, Cholecystectomy, Hysterectomy, Pacemaker Additional Past Surgical History / Comment(s): left breast biopsy, left mastectomy, rt cataract, Past Anesthesia/Blood Transfusion Reactions: Motion Sickness Additional Past Anesthesia/Blood Transfusion Reaction / Comment(s): denies problems with anesthesia Type of Cardiac Device: Permanent Pacemaker Device Placement Date:: Past Psychological History: ADD/ADHD, Bipolar, Depression Smoking Status: Former smoker Past Alcohol Use History: None Reported Past Drug Use History: None Reported - Past Family History Mother Family Medical History: Cancer Additional Family Medical History / Comment(s): stomach General Exam Limitations: physical limitation General appearance: alert, in no apparent distress Head exam: Present: atraumatic, normocephalic ENT exam: Present: mucous membranes dry Neck exam: Present: normal inspection. Absent: tenderness, meningismus Respiratory exam: Present: normal lung sounds bilaterally. Absent: respiratory distress, wheezes Cardiovascular Exam: Present: normal rhythm, bradycardia GI/Abdominal exam: Present: soft, tenderness (Mild periumbilical tenderness). Absent: distended Extremities exam: Present: normal inspection. Absent: tenderness Back exam: Present: normal inspection, full ROM Neurological exam: Present: alert, oriented X3. Absent: motor sensory deficit Psychiatric exam: Present: normal affect, normal mood Skin exam: Present: warm, dry Course Vital Signs 12/10/17 12/10/17 12/10/17 18:42 19:14 19:21 Temperature 97.4 F L 97.9 F 97.3 F L Pulse Rate 53 L 57 L 51 L Respiratory 20 16 16 Rate Blood Pressure 145/58 135/69 119/61 O2 Sat by Pulse 97 95 98 Oximetry 12/10/17 21:00 Temperature Pulse Rate 53 L Respiratory 16 Rate Blood Pressure 106/53 O2 Sat by Pulse 100 Oximetry Medical Decision Making - Medical Decision Making 60-year-old female with 3 weeks of diarrhea. Patient is one month status post her last treatment of chemotherapy. Patient appears dehydrated on exam. Laboratory studies obtained, mild leukocytosis 11.8, hemoglobin 11.5, sodium is low 132, creatinine and BUN are significantly elevated with acute kidney injury. Creatinine is 3.5 from baseline of 0.9. C. difficile toxin is ordered as patient has had persistent diarrhea for 3 weeks. This is negative. Abdominal x-ray is negative for any acute process. Patient will be admitted for IV hydration, repeat laboratory studies obtained in the morning. Case discussed with Dr. Hanks who will accepted admission - Lab Data Result diagrams: 12/10/17 18:50 12/10/17 18:50 Lab Results 12/10/17 12/10/17 12/10/17 Range/Units 18:50 18:50 20:55 WBC 11.8 H (3.8-10.6) k/uL RBC 3.36 L (3.80-5.40) m/uL Hgb 11.5 (11.4-16.0) gm/dL Hct 34.1 (34.0-46.0) % MCV 101.4 H (80.0-100.0) fL MCH 34.2 (25.0-35.0) pg MCHC 33.7 (31.0-37.0) g/dL RDW 16.8 H (11.5-15.5) % Plt Count 152 (150-450) k/uL Neutrophils % (Manual) 80 % Lymphocytes % (Manual) 10 % Monocytes % (Manual) 9 % Eosinophils % (Manual) 1 % Neutrophils # (Manual) 9.44 H (1.3-7.7) k/uL Lymphocytes # (Manual) 1.18 (1.0-4.8) k/uL Monocytes # (Manual) 1.06 H (0-1.0) k/uL Eosinophils # (Manual) 0.12 (0-0.7) k/uL Nucleated RBCs 0 (0-0) /100 WBC Manual Slide Review Performed Toxic Vacuolation Present Large Platelets Present Polychromasia Present Poikilocytosis (manual Present Anisocytosis Slight Macrocytosis Slight Sodium 132 L (137-145) mmol/L Potassium 3.8 (3.5-5.1) mmol/L Chloride 100 (98-107) mmol/L Carbon Dioxide 17 L (22-30) mmol/L Anion Gap 15 mmol/L BUN 75 H (7-17) mg/dL Creatinine 3.55 H (0.52-1.04) mg/dL Est GFR (CKD-EPI)AfAm 15 (>60 ml/min/1.73 sqM) Est GFR (CKD-EPI)NonAf 13 (>60 ml/min/1.73 sqM) Glucose 105 H (74-99) mg/dL Calcium 7.6 L (8.4-10.2) mg/dL Total Bilirubin 0.7 (0.2-1.3) mg/dL AST 83 H (14-36) U/L ALT 50 (9-52) U/L Alkaline Phosphatase 252 H (38-126) U/L Total Protein 5.9 L (6.3-8.2) g/dL Albumin 2.5 L (3.5-5.0) g/dL Lipase 342 H (23-300) U/L Urine Color Urine Appearance (Clear) Urine pH (5.0-8.0) Ur Specific [place] (1.001-1.035) Urine Protein (Negative) Urine Glucose (UA) (Negative) Urine Ketones (Negative) Urine Blood (Negative) Urine Nitrite (Negative) Urine Bilirubin (Negative) Urine Urobilinogen (<2.0) mg/dL Ur Leukocyte Esterase (Negative) Ur Squamous Epith Cells (0-4) /hpf Hyaline Casts (0-2) /lpf Urine Mucus (None) /hpf C. difficile (EIA) Intrp Negative (Negative) 12/10/17 Range/Units 21:27 WBC (3.8-10.6) k/uL RBC (3.80-5.40) m/uL Hgb (11.4-16.0) gm/dL Hct (34.0-46.0) % MCV (80.0-100.0) fL MCH (25.0-35.0) pg MCHC (31.0-37.0) g/dL RDW (11.5-15.5) % Plt Count (150-450) k/uL Neutrophils % (Manual) % Lymphocytes % (Manual) % Monocytes % (Manual) % Eosinophils % (Manual) % Neutrophils # (Manual) (1.3-7.7) k/uL Lymphocytes # (Manual) (1.0-4.8) k/uL Monocytes # (Manual) (0-1.0) k/uL Eosinophils # (Manual) (0-0.7) k/uL Nucleated RBCs (0-0) /100 WBC Manual Slide Review Toxic Vacuolation Large Platelets Polychromasia Poikilocytosis (manual Anisocytosis Macrocytosis Sodium (137-145) mmol/L Potassium (3.5-5.1) mmol/L Chloride (98-107) mmol/L Carbon Dioxide (22-30) mmol/L Anion Gap mmol/L BUN (7-17) mg/dL Creatinine (0.52-1.04) mg/dL Est GFR (CKD-EPI)AfAm (>60 ml/min/1.73 sqM) Est GFR (CKD-EPI)NonAf (>60 ml/min/1.73 sqM) Glucose (74-99) mg/dL Calcium (8.4-10.2) mg/dL Total Bilirubin (0.2-1.3) mg/dL AST (14-36) U/L ALT (9-52) U/L Alkaline Phosphatase (38-126) U/L Total Protein (6.3-8.2) g/dL Albumin (3.5-5.0) g/dL Lipase (23-300) U/L Urine Color Yellow Urine Appearance Clear (Clear) Urine pH 5.0 (5.0-8.0) Ur Specific [place] 1.008 (1.001-1.035) Urine Protein Negative (Negative) Urine Glucose (UA) Negative (Negative) Urine Ketones Negative (Negative) Urine Blood Trace H (Negative) Urine Nitrite Negative (Negative) Urine Bilirubin Negative (Negative) Urine Urobilinogen <2.0 (<2.0) mg/dL Ur Leukocyte Esterase Negative (Negative) Ur Squamous Epith Cells <1 (0-4) /hpf Hyaline Casts 8 H (0-2) /lpf Urine Mucus Rare H (None) /hpf C. difficile (EIA) Intrp (Negative) Disposition Clinical Impression: Dehydration, CARLOS (acute kidney injury) Disposition: ADMITTED IP TO THIS HOSP Condition: Stable Is patient prescribed a controlled substance at d/c from ED?: No Referrals: Paul Hanks MD [Primary Care Provider] - 1-2 days Time of Disposition: 22:20 Decision to Admit Reason: Admit from EC Decision Date: 12/10/17 Decision Time: 22:20
[2017-12-10 19:21] LABS: Anisocytosis Slight; HCT 34.1 % (34.0-46.0); HGB 11.5 gm/dL (11.4-16.0); MCH 34.2 pg (25.0-35.0); MCHC 33.7 g/dL (31.0-37.0); MCV 101.4 fL (80.0-100.0); Macrocytosis Slight; Mean Platelet Volume 8.6; Platelet Count 152 k/uL (150-450); RBC 3.36 m/uL (3.80-5.40); RDW 16.8 % (11.5-15.5); WBC 11.8 k/uL (3.8-10.6)
[2017-12-10 19:27] LABS: Albumin 2.5 g/dL (3.5-5.0); Calcium 7.6 mg/dL (8.4-10.2); Potassium 3.8 mmol/L (3.5-5.1); Total Bilirubin 0.7 mg/dL (0.2-1.3); Total Protein 5.9 g/dL (6.3-8.2)
[2017-12-10 19:55] LABS: Eosinophils # (M) 0.12 k/uL (0-0.7); Lymphocytes # (M) 1.18 k/uL (1.0-4.8); Monocytes # (M) 1.06 k/uL (0-1.0); Neutrophils # (M) 9.44 k/uL (1.3-7.7); Neutrophils % (M) 80 %; Nucleated Red Blood Cells 0 /100 WBC (0-0); Poikilocytosis (M) Present; Polychromasia Present; Total Cells Counted 100; Toxic Vacuolation Present
[2017-12-10 19:56] LABS: Large Platelets Present
--- NOTE | 2017-12-10 21:20 | XR ---
EXAMINATION TYPE: XR KUB DATE OF EXAM: 12/10/2017 COMPARISON: NONE HISTORY: Nausea and vomiting TECHNIQUE: 2 views FINDINGS: 2 supine views were obtained and show no sign of intestinal obstruction or pneumoperitoneum . Fecal pattern is normal. There is no evidence of a mass. There are no pathologic calcifications ove r the kidneys. There are clips from cholecystectomy. Lung bases are clear. IMPRESSION: Nonacute abdomen.
[2017-12-10 21:50] LABS: Appearance,Urine Clear (Clear); Bilirubin,Urine Negative (Negative); Blood,Urine Trace (Negative); Color,Urine Yellow; Glucose,Urine (UA) Negative (Negative); Hyaline Casts,Urine 8 /lpf (0-2); Ketones,Urine Negative (Negative); Leukocyte Esterase,Urine Negative (Negative); Mucus,Urine Rare /hpf; Nitrite,Urine Negative (Negative); Protein,Urine Negative (Negative); Specific Gravity,Urine 1.008 (1.001-1.035); Squamous Epithelial Cell,Urine <1 /hpf (0-4); Urobilinogen,Urine <2.0 mg/dL (<2.0)
[2017-12-10] MEDS ORDERED: NALOXONE 0.4 MG/ML 1 ML VIAL IV PRN (22:17)
[2017-12-10] MEDS ORDERED: LORazepam 0.5 MG TAB PO PRN (22:18)
[2017-12-10] MEDS: SODIUM CHLORIDE 0.9% 1,000 ML IV SCH (23:30)
[2017-12-11 03:40] VITALS: BMI 43.9
[2017-12-11] MEDS: LEVOTHYROXINE 25 MCG TAB PO SCH (05:56)
[2017-12-11 07:55] LABS: Albumin 2.2 g/dL (3.5-5.0); Calcium 7.5 mg/dL (8.4-10.2); Magnesium 1.1 mg/dL (1.6-2.3); Potassium 3.4 mmol/L (3.5-5.1); Total Bilirubin 0.5 mg/dL (0.2-1.3); Total Protein 5.1 g/dL (6.3-8.2)
[2017-12-11 08:21] LABS: Anisocytosis Slight; HCT 30.7 % (34.0-46.0); HGB 10.1 gm/dL (11.4-16.0); MCH 33.6 pg (25.0-35.0); MCV 101.9 fL (80.0-100.0); Macrocytosis Moderate; Platelet Count 125 k/uL (150-450); RBC 3.01 m/uL (3.80-5.40); RDW 16.8 % (11.5-15.5)
[2017-12-11] MEDS: CARVEDILOL 3.125 MG TAB PO SCH ×2 (08:37→21:17)
[2017-12-11 11:42] LABS: Eosinophils # (M) 0.27 k/uL (0-0.7); Lymphocytes # (M) 1.35 k/uL (1.0-4.8); Monocytes # (M) 0.54 k/uL (0-1.0); Neutrophils # (M) 6.84 k/uL (1.3-7.7); Neutrophils % (M) 76 %; Nucleated Red Blood Cells 0 /100 WBC (0-0); Total Cells Counted 100
[2017-12-11] MEDS: SODIUM CHLORIDE 0.9% 1,000 ML IV SCH ×3 (12:22→20:32)
[2017-12-11] MEDS ORDERED: DIPHENOX-ATROP 2.5-0.025 MG 1 EACH TAB PO PRN (14:24)
[2017-12-11] MEDS ORDERED: FEBUXOSTAT 80 MG PO SCH (14:30)
[2017-12-11] MEDS ORDERED: SODIUM CHLORIDE 0.9% 500 ML IV ONE (14:30)
[2017-12-11] MEDS: ALLOPURINOL 300 MG TAB PO SCH (18:53)
[2017-12-11] MEDS: SERTRALINE 50 MG TAB PO SCH (18:53)
[2017-12-11] MEDS: COLCHICINE 0.6 MG EACH PO SCH ×2 (18:54→21:18)
[2017-12-11 20:29] LABS: Glucose,Whole Blood 153 mg/dL (75-99)
[2017-12-11] MEDS: IPRATROPIUM-ALBUTEROL 3 ML NEB INHALATION SCH ×2 (20:38→20:41)
[2017-12-11] MEDS ORDERED: INSULN ASP PRT/INSULIN ASPART 100 UNIT/ML 10 ML VIAL SQ SCH (21:00)
[2017-12-11] MEDS: FAMOTIDINE 20 MG TAB PO SCH (21:17)
[2017-12-11] MEDS: PERPHENAZINE 4 MG TAB PO SCH (21:18)
[2017-12-12 01:19] LABS: Hemoglobin A1C 5.3 % (4.0-6.0)
[2017-12-12] MEDS: SODIUM CHLORIDE 0.9% 1,000 ML IV SCH ×5 (01:19→21:34)
[2017-12-12] MEDS: LEVOTHYROXINE 25 MCG TAB PO SCH (05:55)
[2017-12-12 07:09] LABS: Glucose,Whole Blood 101 mg/dL (75-99)
[2017-12-12 07:26] LABS: Calcium 7.8 mg/dL (8.4-10.2); Potassium 3.4 mmol/L (3.5-5.1)
[2017-12-12] MEDS: FAMOTIDINE 20 MG TAB PO SCH ×2 (08:23→21:31)
[2017-12-12] MEDS: ALLOPURINOL 300 MG TAB PO SCH (08:24)
[2017-12-12] MEDS: COLCHICINE 0.6 MG EACH PO SCH ×3 (08:24→21:31)
[2017-12-12] MEDS: MONTELUKAST 10 MG TAB PO SCH (08:25)
[2017-12-12] MEDS: SERTRALINE 50 MG TAB PO SCH (08:25)
[2017-12-12] MEDS: CARVEDILOL 3.125 MG TAB PO SCH ×2 (08:25→21:30)
[2017-12-12] MEDS ORDERED: INSULN ASP PRT/INSULIN ASPART 100 UNIT/ML 10 ML VIAL SQ SCH (09:00)
[2017-12-12] MEDS: IPRATROPIUM-ALBUTEROL 3 ML NEB INHALATION SCH ×4 (09:24→20:49)
--- NOTE | 2017-12-12 10:28 | PN ---
PROGRESS NOTE DATE OF SERVICE: 12/11/2017 CHIEF COMPLAINT: Renal failure. HISTORY OF PRESENT ILLNESS: This lady is feeling a little bit better. C diff was negative. PHYSICAL EXAM: Chest is clear. Cardiac exam is normal. Abdomen is soft, nontender. IMPRESSION: 1. Chronic renal failure. 2. Acute prerenal azotemia. 3. Dehydration. 4. Carcinoma of the breast. 5. Diarrhea. PLAN: Increase IV fluids and continue to monitor renal function. MMODL / IJN: [id number] /
--- NOTE | 2017-12-12 10:31 | HP ---
HISTORY AND PHYSICAL CHIEF COMPLAINT: Diarrhea, dehydration and prerenal azotemia. HISTORY OF PRESENT ILLNESS: This is another recent admission for this 62-year-old white female who is receiving chemotherapy for carcinoma of the breast. She has had persistent diarrhea for 2 or 3 weeks and became progressively more weak. She presented to the emergency room where she was dehydrated and BUN and creatinine were markedly elevated over her baseline. She is admitted for IV fluids, control of diarrhea and management of her renal failure. REVIEW OF SYSTEMS: She has had no headaches, seizures, or syncope, change in vision in her right eye, chest pain, shortness of breath, abdominal pain, nausea, vomiting, melena, hematochezia, dysuria, frequency, urgency, etc. PAST MEDICAL HISTORY, FAMILY HISTORY, PERSONAL AND SOCIAL HISTORIES: Reveal that she also has COPD and diabetes mellitus. Surgically she had hysterectomy, cholecystectomy, pacemaker and a left mastectomy. She used to smoke but does no longer. ALLERGIES: She is ALLERGIC TO OXYBUTYNIN, PENICILLIN AND ASPIRIN. CURRENT MEDICATIONS: Allopurinol 300 mg once a day, Atorvastatin 80 mg at bedtime, levothyroxine 0.025 mg a day, Uloric 80 mg once a day, furosemide 80 mg once a day, colchicine 0.6 three times a day, vitamin D 50,000 units a month, lisinopril 2.5 mg once a day, Humalog 75/25 80 units in the morning and 40 at night, trazodone 100 mg 1 or 2 at bedtime, perphenazine 4 mg 2 tablets at night, sertraline 50 mg once a day, Ativan 0.5 twice a day p.r.n., 325 mg of iron once a day, Indocin 50 mg t.i.d. p.r.n. gout attack, Vicodin 5/3.25 q.8h p.r.n., carvedilol 3.125 mg once a day, stool softener, Ventolin HFA, QVAR 81 puff twice a day, updrafts with ipratropium bromide and albuterol. PHYSICAL EXAM: Blood pressure is 106/62 with a pulse of 60, respirations of 18. She is afebrile. She is afebrile. In general, she appeared to be pale and dehydrated. Head, ears, eyes, nose, mouth and throat were unchanged. Left eye is absent. Neck veins are not distended. Chest is clear. Cardiac exam demonstrates sinus rhythm and the abdomen is soft, nontender. Extremities are normal and neurologically she is intact. IMPRESSION: 1. Diarrhea, probably secondary to chemotherapy. 2. History of breast cancer with left mastectomy. 3. Type 2 insulin dependent diabetes mellitus. 4. Dehydration. 5. Prerenal azotemia. 6. Renal failure. 7. Chronic obstructive pulmonary disease. PLAN: 1. Bed rest. 2. IV fluids. 3. Control diarrhea. 4. Monitor renal function. MMODL / IJN: [id number] /
[2017-12-12 11:58] LABS: Glucose,Whole Blood 129 mg/dL (75-99)
[2017-12-12 17:11] LABS: Glucose,Whole Blood 114 mg/dL (75-99)
[2017-12-12] MEDS: INSULIN ASPART 100 UNIT/ML 1 ML 10 ML VIAL SQ SCH ×2 (17:17→21:31)
--- NOTE | 2017-12-12 18:34 | PN ---
PROGRESS NOTE DATE OF SERVICE: 12/12/2017 CHIEF COMPLAINT: Dehydration, prerenal azotemia, CA of the breast. HISTORY OF PRESENT ILLNESS: This lady is doing much better. She is much more awake and alert and stronger. BUN and creatinine are coming down. The diarrhea is slowing. PHYSICAL EXAM: Hydration is better. Chest is clear. The cardiac is normal. Abdomen is soft and nontender. IMPRESSION: 1. Diarrhea secondary to chemotherapy. 2. Carcinoma of the breast. 3. Renal failure. 4. Prerenal azotemia. PLAN: Hold insulin for now and use sliding scale because sugars are low and the amount of insulin that she is supposed to be taking at home is way too high. MMODL / IJN: [id number] /
[2017-12-12 20:32] LABS: Glucose,Whole Blood 133 mg/dL (75-99)
[2017-12-12] MEDS: PERPHENAZINE 4 MG TAB PO SCH (21:31)
[2017-12-13] MEDS: SODIUM CHLORIDE 0.9% 1,000 ML IV SCH ×4 (04:45→12:22)
[2017-12-13] MEDS: LEVOTHYROXINE 25 MCG TAB PO SCH (06:15)
[2017-12-13 07:37] LABS: Glucose,Whole Blood 82 mg/dL (75-99)
[2017-12-13] MEDS: IPRATROPIUM-ALBUTEROL 3 ML NEB INHALATION SCH ×4 (08:33→19:17)
[2017-12-13] MEDS: INSULIN ASPART 100 UNIT/ML 1 ML 10 ML VIAL SQ SCH ×4 (08:36→21:17)
[2017-12-13] MEDS: CARVEDILOL 3.125 MG TAB PO SCH ×2 (08:52→21:23)
[2017-12-13] MEDS: MONTELUKAST 10 MG TAB PO SCH (08:53)
[2017-12-13] MEDS: ALLOPURINOL 300 MG TAB PO SCH (08:53)
[2017-12-13] MEDS: FAMOTIDINE 20 MG TAB PO SCH (08:53)
[2017-12-13] MEDS: SERTRALINE 50 MG TAB PO SCH (08:54)
[2017-12-13 10:46] LABS: Calcium 7.5 mg/dL (8.4-10.2); Potassium 3.2 mmol/L (3.5-5.1); Total Bilirubin 0.2 mg/dL (0.2-1.3); Total Protein 4.9 g/dL (6.3-8.2)
[2017-12-13] MEDS ORDERED: Potassium Replacement Protocol 1 EACH MISC MISCELLANE PRN ×2 (11:00→13:07)
[2017-12-13] MEDS ORDERED: CALCIUM CARBONATE 500 MG CHEWABLE PO PRN (11:02)
[2017-12-13 11:14] LABS: Anisocytosis Slight; Basophils % (A) 1 %; Eosinophils # (A) 0.2 k/uL (0-0.7); Eosinophils % (A) 2 %; HCT 32.1 % (34.0-46.0); Hypochromasia Slight; Lymphocytes # (A) 0.8 k/uL (1.0-4.8); Lymphocytes % (A) 11 %; MCH 33.5 pg (25.0-35.0); MCHC 31.2 g/dL (31.0-37.0); Macrocytosis Marked; Mean Platelet Volume 8.9; Monocytes # (A) 0.3 k/uL (0-1.0); Monocytes % (A) 4 %; Neutrophils # (A) 6.2 k/uL (1.3-7.7); Neutrophils % (A) 82 %; Platelet Count 102 k/uL (150-450); RBC 2.99 m/uL (3.80-5.40); RDW 17.2 % (11.5-15.5); WBC 7.6 k/uL (3.8-10.6)
[2017-12-13 11:17] LABS: MCV 107.3 fL (80.0-100.0)
[2017-12-13 11:35] LABS: Glucose,Whole Blood 103 mg/dL (75-99)
[2017-12-13] MEDS: COLCHICINE 0.6 MG EACH PO SCH ×3 (12:20→21:23)
[2017-12-13] MEDS: POTASSIUM CHLORIDE ER 20 MEQ TAB.ER PO SCH ×2 (14:32→15:31)
[2017-12-13 17:18] LABS: Glucose,Whole Blood 119 mg/dL (75-99)
[2017-12-13 21:16] LABS: Glucose,Whole Blood 99 mg/dL (75-99)
[2017-12-13] MEDS: PERPHENAZINE 4 MG TAB PO SCH (21:23)
[2017-12-13 23:45] VITALS: TEMP 97.8
[2017-12-14] MEDS: SODIUM CHLORIDE 0.9% 1,000 ML IV SCH ×2 (04:00→07:54)
[2017-12-14] MEDS: LEVOTHYROXINE 25 MCG TAB PO SCH (06:14)
[2017-12-14 07:41] LABS: Glucose,Whole Blood 74 mg/dL (75-99)
[2017-12-14] MEDS: INSULIN ASPART 100 UNIT/ML 1 ML 10 ML VIAL SQ SCH ×2 (07:54→12:11)
[2017-12-14 08:00] VITALS: BP 112/56; RESP 18
[2017-12-14] MEDS ORDERED: FAMOTIDINE 20 MG TAB PO SCH (09:00)
[2017-12-14] MEDS: IPRATROPIUM-ALBUTEROL 3 ML NEB INHALATION SCH ×3 (09:11→14:55)
[2017-12-14] MEDS: MONTELUKAST 10 MG TAB PO SCH (09:55)
[2017-12-14] MEDS: SERTRALINE 50 MG TAB PO SCH (09:55)
[2017-12-14] MEDS: COLCHICINE 0.6 MG EACH PO SCH (09:56)
[2017-12-14] MEDS: ALLOPURINOL 300 MG TAB PO SCH (09:56)
[2017-12-14] MEDS: CARVEDILOL 3.125 MG TAB PO SCH (09:56)
[2017-12-14 11:38] LABS: Glucose,Whole Blood 105 mg/dL (75-99)
[2017-12-14 12:31] VITALS: PULSE 52
--- NOTE | 2017-12-14 15:12 | PN ---
PROGRESS NOTE DATE OF SERVICE: 12/13/2016 . CHIEF COMPLAINT: Renal failure and prerenal azotemia. HISTORY OF PRESENT ILLNESS: This lady is doing better. She is much more awake and alert, and much stronger. BUN and creatinine are falling toward normal. PHYSICAL EXAM: She is sitting up, eating and doing well. Dehydration is improved. Chest is clear. Cardiac exam is normal. Abdomen is soft, nontender. IMPRESSION: 1. Azotemia with acute renal failure. 2. Chronic renal failure. 3. Diabetes. 4. Carcinoma of the breast. 5. Iatrogenic diarrhea. PLAN: Continue on current management and probably home tomorrow if numbers continue to improve. MMODL / IJN: [id number] /
--- NOTE | 2017-12-14 15:30 | DS ---
DISCHARGE SUMMARY CHIEF COMPLAINT: Chronic diarrhea, dehydration and renal failure. HISTORY OF PRESENT ILLNESS AND PHYSICAL EXAM: Details of this lady's history and physical can be found in the initial workup. LABORATORY STUDIES: While she was in a hospital she had laboratory studies, details which can be found laboratory section of chart. COURSE IN HOSPITAL: After admission she was placed on bedrest, started on intravenous fluids and rehydrated. Renal function came down quickly and returned almost near normal. Diarrhea stopped. She is doing well enough it was felt she could go home on the sixth and she will follow up in the office. She will go home without any insulin. We will watch blood sugars at home. FINAL DIAGNOSES: 1. 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 2. Carcinoma of the breast. 3. Dehydration. 4. Prerenal azotemia. 5. Diabetes mellitus. OPERATIONS: None. CONSULTATION: None. She is improved. MMSUNGL / ADELA: [id number] /
--- NOTE | 2017-12-20 17:22 | CDI ---
Last Revision, May 2017 Documentation Clarification Form Date: 12/20/17 From: Caroline Zamora Phone: If you have a question regarding this query, please contact Zane Daniel at [phone] between 8am and 5pm. Admit Date: 12/10/2017 10:18:00 PM Patient Name: Olga Berumen Visit Number: [id number] Discharge Date: 12/19/17 ATTENTION: The Clinical Documentation Specialists (CDI) and [facility] Coding Staff appreciate your assistance in clarifying documentation. Please respond to the clarification below the line at the bottom and electronically sign. The CDI & [facility] Coding staff will review the response and follow-up if needed. Please note: Queries are made part of the Legal Health Record. If you have any questions, please contact the author of this message via ITS. Dr. Paul Hanks Patient has been described as obese in the nutritional assessment.. History/Risk Factors: Patient was admitted for acute renal failure and also has CKD stage 3, hypertension, hypothyroidism, CHF, COPD and sleep apnea. Clinical Indicators: elevated BMI Patients weight is 108.862 kg Patients height is 5 ft. 2 in. Calculated BMI is 43.9 In order to capture the severity of condition associated with patient BMI of 43.9, a clinical diagnoses needs to be documented by the physician. Please clarify: Obese Morbidly obese Other, please specify ____ Unable to determine MTDD
--- NOTE | 2017-12-20 17:36 | CDI ---
Last Revision, May 2017 Documentation Clarification Form Date: 12/20/17 From: Caroline Zamora Phone: If you have a question regarding this query, please contact Zane Daniel at [phone] between 8am and 5pm. Admit Date: 12/10/2017 10:18:00 PM Patient Name: Olga Berumen Visit Number: [id number] Discharge Date: 12/19/17 ATTENTION: The Clinical Documentation Specialists (CDI) and [facility] Coding Staff appreciate your assistance in clarifying documentation. Please respond to the clarification below the line at the bottom and electronically sign. The CDI & [facility] Coding staff will review the response and follow-up if needed. Please note: Queries are made part of the Legal Health Record. If you have any questions, please contact the author of this message via ITS. Dr. Paul Hanks Multiple areas of open sores of the right and left hip and the coccyx is documented in the nursing documentation.. History/Risk Factors: Patient was admitted for acute renal failure and also has CKD stage 3, hypertension, hypothyroidism, CHF, COPD and sleep apnea Location: Right medial thigh, left medial thigh, right hip and coccyx Wound description: Distinct wound margins, tenderness to palpation and no drainage Treatment: The right hip and coccyx were teated with foam with border. In your professional opinion, can you please clarify the diagnosis, location, laterality and whether present on admission (POA): Stage 1 Pressure/Decubitus Ulcer (intact skin, non-blanching redness of local area) Stage 2 Pressure/Decubitus Ulcer (Partial thickness, loss of dermis, pink wound bed) Stage 3 Pressure/Decubitus Ulcer (Full thickness tissue loss) Stage 4 Pressure/Decubitus Ulcer (Full thickness tissue loss with exposed bone , tendon, or muscle. May have slough or eschar present) Unstageable Diabetic ulcer Ulcer due to peripheral vascular disease Other condition, please specify Unable to determine MTDD
--- NOTE | 2017-12-24 17:01 | MISC ---
MISCELLANOUS REPORT QUERY: Regarding ulcers; unable to determine. MMODL / IJN: [id number] /
--- NOTE | 2018-01-01 09:52 | CDI ---
Last Revision, May 2017 Documentation Clarification Form Date: 01/01/18 From: Caroline Zamora Phone: If you have a question regarding this query, please contact Eunice Daniel at [phone] between 8am and 5pm. Admit Date: 12/10/2017 10:18:00 PM Patient Name: Olga Berumen Visit Number: [id number] Discharge Date: 12/14/17 ATTENTION: The Clinical Documentation Specialists (CDI) and [facility] Coding Staff appreciate your assistance in clarifying documentation. Please respond to the clarification below the line at the bottom and electronically sign. The CDI & [facility] Coding staff will review the response and follow-up if needed. Please note: Queries are made part of the Legal Health Record. If you have any questions, please contact the author of this message via ITS. Dr. Paul Hanks Thank you for signing your previous query. Please document a response before signing this query. Patient has been described as obese in the nutritional assessment. History/Risk Factors: Patient was admitted for acute renal failure and also has CKD stage 3, hypertension, hypothyroidism, CHF, COPD and sleep apnea. Clinical Indicators: elevated BMI Patients weight is 108.862 kg Patients height is 5 ft. 2 in. Calculated BMI is 43.9 In order to capture the severity of condition associated with patient BMI of 43.9, a clinical diagnoses needs to be documented by the physician. Please clarify: Obese Morbidly obese Other, please specify ____ Unable to determine MTDD
--- NOTE | 2018-01-01 11:46 | MISC ---
MISCELLANOUS REPORT Aortic severity condition, BMI 43.9 and this would be morbidly obese. MMODL / IJN: [id number] /
== END 2017-12-14 15:00 | disposition home health service (06) | DRG 683 ==
LOC: EC 18:40 → 5ONC 22:18
PROVIDERS: ADMIT Family Medicine; ATTEND Family Medicine
DX: N17.9 Acute kidney failure, unspecified (principal); I13.0 Hypertensive heart and chronic kidney disease with heart failure and stage 1 through stage 4 chronic kidney disease, or unspecified chronic kidney disease; K52.1 Toxic gastroenteritis and colitis; Z68.41 Body mass index [BMI] 40.0-44.9, adult; E66.01 Morbid (severe) obesity due to excess calories; E11.22 Type 2 diabetes mellitus with diabetic chronic kidney disease; E78.5 Hyperlipidemia, unspecified; E86.0 Dehydration; F90.9 Attention-deficit hyperactivity disorder, unspecified type; G47.30 Sleep apnea, unspecified; I25.2 Old myocardial infarction; J44.9 Chronic obstructive pulmonary disease, unspecified; T45.1X5A Adverse effect of antineoplastic and immunosuppressive drugs, initial encounter; M10.9 Gout, unspecified; F32.9 Major depressive disorder, single episode, unspecified; I83.90 Asymptomatic varicose veins of unspecified lower extremity; L40.9 Psoriasis, unspecified; M19.90 Unspecified osteoarthritis, unspecified site; R79.89 Other specified abnormal findings of blood chemistry; N18.3 Chronic kidney disease, stage 3 (moderate); E07.9 Disorder of thyroid, unspecified; Z79.890 Hormone replacement therapy; Z79.4 Long term (current) use of insulin; Z79.899 Other long term (current) drug therapy; Z85.3 Personal history of malignant neoplasm of breast; Z87.891 Personal history of nicotine dependence; Z90.12 Acquired absence of left breast and nipple; Z90.710 Acquired absence of both cervix and uterus; Z92.21 Personal history of antineoplastic chemotherapy; Z87.01 Personal history of pneumonia (recurrent); Z88.6 Allergy status to analgesic agent; Z88.0 Allergy status to penicillin; Z88.8 Allergy status to other drugs, medicaments and biological substances; Z98.41 Cataract extraction status, right eye; Z96.1 Presence of intraocular lens; Z95.0 Presence of cardiac pacemaker; Z80.9 Family history of malignant neoplasm, unspecified; I50.9 Heart failure, unspecified; Y92.9 Unspecified place or not applicable
CPT/HCPCS: 36415; 74018; 80048; 80053; 81001; 83036; 83690; 83735; 84132; 85025; 87324; 94640; 94760; 99285

== ENCOUNTER 2018-04-08 06:53 | Day surgery (SDC) | payer OTHER ==
[2018-03-28 14:44] VITALS: BMI 34.4
[~2018-04-08 06:53] MED LIST changes: -DEXAMETHASONE SOD PHOSPHATE 10 MG/ML 1 ML VIAL IV ONE; -HEPARIN SODIUM,PORCINE 5,000 UNIT/ML 1 ML VIAL SQ ONE; -LACTATED RINGERS 1,000 ML IV SCH; -LIDOCAINE 1% 20 ML VIAL (10MG/ML) FOR IV START INTRADERMA PRN; -Pre Op ABX Message 1 EACH MISC MISCELLANE ONE; +SODIUM CHLORIDE 0.9% 1,000 ML IV SCH
[2018-04-08] MEDS ORDERED: SODIUM CHLORIDE 0.9% 500 ML 500 ML IV ONE (07:30)
[2018-04-08 07:32] VITALS: RESP 16; TEMP 98
[2018-04-08 07:59] VITALS: BP 142/64; PULSE 63
--- NOTE | 2018-04-08 08:36 | P.PCN ---
Preoperative Diagnosis: 60-year-old female with complete heart block with 100% RV pacing complaining of shortness of breath Left upper extremity venogram 15 mL of dye was injected in the left upper extremity and she is a patent left subclavian as well as an axillary vein that drains into the subclavian vein rather than the axillary vein Cinefluoroscopy of the leads shows a single ventricular lead in stable position without any fractures or breaks Plan Upgrade to a biventricular device Reassessment of LV function prior to that She will need a dual-chamber device since she is in sinus rhythm
== END 2018-04-08 08:42 | disposition home or self-care (01) ==
LOC: CATHEP 06:53
PROVIDERS: ATTEND Internal Medicine Clinical Cardiac Electrophysiology
DX: I44.2 Atrioventricular block, complete (principal); R06.02 Shortness of breath
CPT/HCPCS: 36005; 75820; 76000

== ENCOUNTER → 2018-04-18 | Outpatient (CLI) | payer OTHER ==
--- NOTE | 2018-04-19 09:48 | MM ---
Reason for exam: additional evaluation requested from prior study. Last mammogram was performed 1 year and 1 month ago. History: Patient has history of breast cancer at age 61. Family history of breast cancer in grandmother. Mastectomy of the left breast, May 17, 2017. Malignant MG stereo VAD BX LT of the left breast, March 13, 2017. Chemotherapy, 2017. Benign excisional biopsy of the left breast. Physical Findings: Nurse did not find any significant physical abnormalities on exam. MG Diagnostic Mammo RT w CAD CC and MLO view(s) were taken of the right breast. Prior study comparison: March 09, 2017, left breast MG work up mamm w CAD LT. March 05, 2017, bilateral MG screening mammo w CAD. The breast tissue is heterogeneously dense. This may lower the sensitivity of mammography. Finding #1: There is a 17 mm circumscribed oval mass in the middle position of the right breast, does not go away on additional views. Finding #2: There are typically benign vascular, round calcifications in the right breast. These results were verbally communicated with the patient and result sheet given to the patient on 04/18/18. ASSESSMENT: Incomplete: need additional imaging evaluation, BI-RAD 0 RECOMMENDATION: Ultrasound of the right breast.
--- NOTE | 2018-04-19 09:52 | USB ---
Reason for exam: additional evaluation requested from abnormal screening. History: Patient has history of breast cancer at age 61. Family history of breast cancer in grandmother. Mastectomy of the left breast, May 17, 2017. Malignant MG stereo VAD BX LT of the left breast, March 13, 2017. Chemotherapy, 2017. Benign excisional biopsy of the left breast. US Breast Limited RT Right limited breast ultrasound including focal area of concern, retroareolar and axilla demonstrates no cystic or solid lesion seen. These results were verbally communicated with the patient and result sheet given to the patient on 04/18/18. ASSESSMENT: Probably benign, BI-RAD 3 RECOMMENDATION: Follow-up diagnostic mammogram of the right breast in 6 months.
== END | disposition home or self-care (01) ==
LOC: RADMAMWWP 14:04
PROVIDERS: ATTEND Family Medicine
DX: R92.8 Other abnormal and inconclusive findings on diagnostic imaging of breast (principal); Z85.3 Personal history of malignant neoplasm of breast; Z90.12 Acquired absence of left breast and nipple
CPT/HCPCS: 77065

== ENCOUNTER → 2018-10-17 | Outpatient (CLI) | payer OTHER ==
--- NOTE | 2018-10-17 11:57 | MM ---
Reason for exam: follow-up at short interval from prior study. Last mammogram was performed 6 months ago. History: Patient has history of breast cancer at age 61. Family history of breast cancer in grandmother. Mastectomy of the left breast, May 17, 2017. Malignant MG stereo VAD BX LT of the left breast, March 13, 2017. Chemotherapy, 2017. Benign excisional biopsy of the left breast. Physical Findings: Nurse did not find any significant physical abnormalities on exam. MG Diagnostic Mammo RT w CAD CC, MLO, and XCCL view(s) were taken of the right breast. Prior study comparison: April 18, 2018, right breast MG diagnostic mammo RT w CAD. March 09, 2017, left breast MG work up mamm w CAD LT. The breast tissue is heterogeneously dense. This may lower the sensitivity of mammography. Finding: There are typically benign dystrophic, round calcifications in the right breast. There is a chronic nodularity in the right axilla. There is no discrete abnormality. These results were verbally communicated with the patient and result sheet given to the patient on 10/17/18. ASSESSMENT: Benign, BI-RAD 2 RECOMMENDATION: Follow-up diagnostic mammogram of the right breast in 1 year.
== END | disposition home or self-care (01) ==
LOC: RADMAMWWP 10:46
PROVIDERS: ATTEND Family Medicine
DX: R92.8 Other abnormal and inconclusive findings on diagnostic imaging of breast (principal); Z85.3 Personal history of malignant neoplasm of breast
CPT/HCPCS: 77065

== ENCOUNTER → 2018-12-27 | Outpatient (CLI) | payer OTHER | END | disposition home or self-care (01) | LOC: LABWHC1 10:29 | PROVIDERS: ATTEND Physician Assistant | DX: A49.02 Methicillin resistant Staphylococcus aureus infection, unspecified site (principal) | CPT/HCPCS: 87070 ==

== ENCOUNTER → 2018-12-27 | Outpatient (CLI) | payer OTHER ==
--- NOTE | 2018-12-27 11:14 | CT ---
EXAMINATION TYPE: CT abdomen w con DATE OF EXAM: 12/27/2018 COMPARISON: 08/02/2017 HISTORY: Elevated LFTs CT DLP: 1294.7 mGycm Automated exposure control for dose reduction was used. TECHNIQUE: Helical acquisition of images was performed from the lung bases through the top of iliac crest to include entire abdomen. CONTRAST: Performed with Oral Contrast and with IV Contrast, patient injected with 100 mL of Isovue 300. FINDINGS: LUNG BASES: No significant abnormality is appreciated. LIVER/GB: There is evidence of hepatic steatosis. Stable cyst dome of the liver. Cholecystectomy clip s noted. PANCREAS: No significant abnormality is seen. SPLEEN: No significant abnormality is seen. ADRENALS: No significant abnormality is seen. KIDNEYS: No significant abnormality is seen. BOWEL: There is a wall thickening involving the region of the hepatic colonic flexure. This may refl ect underlying colitis. Correlate clinically. Remainder of the colon is of normal caliber as visualiz ed. No evidence for free air or abscess. Small bowel is of normal caliber. LYMPH NODES: No significant abnormality is seen. OSSEOUS STRUCTURES: No significant abnormality is seen. FREE AIR: No free air is visualized. OTHER: IMPRESSION: 1. Hepatomegaly with underlying hepatic steatosis. 2. Correlate for colitis involving the hepatic flexure.
== END | disposition home or self-care (01) ==
LOC: RADCTMAIN 08:27
PROVIDERS: ATTEND Family Medicine
DX: K76.0 Fatty (change of) liver, not elsewhere classified (principal); R94.5 Abnormal results of liver function studies; Z88.0 Allergy status to penicillin; Z88.6 Allergy status to analgesic agent; Z88.8 Allergy status to other drugs, medicaments and biological substances
CPT/HCPCS: 82565; 84520; 74160; J1642; Q9967

== ENCOUNTER 2019-01-07 18:04 | Emergency (ER) | payer OTHER ==
[2019-01-07 18:13] VITALS: RESP 18
[2019-01-07] MEDS ORDERED: SODIUM CHLORIDE 0.9% 1,000 ML IV STA (18:48)
--- NOTE | 2019-01-07 19:11 | XR ---
EXAMINATION TYPE: XR KUB DATE OF EXAM: 01/07/2019 COMPARISON: NONE HISTORY: Pain and diarrhea TECHNIQUE: One view abdominal series FINDINGS: The osseous structures are intact. The bowel gas pattern is nonspecific. There are dilated small bow el loops in the mid and left abdomen. Calcifications the pelvis are likely vascular. Arthropathy of t he hips and degenerative change the spine. Surgical clips in the abdomen. IMPRESSION: 1. Nonspecific abdomen. Dilated small bowel loops in the abdomen particularly on the lower left abdo men. Differential diagnosis includes enteritis or ileus. Partial obstruction not excluded.
--- NOTE | 2019-01-07 19:16 | ED ---
General Adult HPI - General Chief complaint: Weakness Stated complaint: unable to walk Time Seen by Provider: 01/07/19 18:48 Source: patient Mode of arrival: EMS Limitations: no limitations - History of Present Illness Initial comments: Dictation was produced using [employer] dictation software. please excuse any grammatical, word or spelling errors. Chief Complaint: 63-year-old female with multiple comorbidities presents with chief complaint of diarrhea. History of Present Illness: 23-year-old female she has multiple comorbidities including heart failure COPD diabetes coronary artery disease, chronic lower extremity wounds. She states she's been having diarrhea for the last 1-2 weeks. Patient states her diarrhea was initially watery however return to black may be red. Patient states she does not have any abdominal pain. No nausea or vomiting. Denies any fever, chills or night sweats. No changes in medications recently. Recently she had a CT of her abdomen pelvis is performed showing colitis involving the hepatic flexure. Patient reports that she takes care of herself and her . The ROS documented in this emergency department record has been reviewed and confirmed by me. Those systems with pertinent positive or negative responses have been documented in the HPI. All other systems are other negative and/or noncontributory. 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, crusting at the right eyelashes Cardiovascular: Heart regular rate and rhythm, S1&S2 audible, no murmurs, rubs or gallops Chest: Lungs clear to auscultation bilaterally, no rhonchi, no wheeze, no rales Abdomen: Bowel sounds present, abdomen soft, non-tender, non-distended, no organomegaly Musculoskeletal: Pulses present and equal in all extremities, no peripheral edema Motor: no focal deficits noted Neurological: CN II-XII grossly intact, no focal motor or sensory deficits noted Skin: Hyperpigmentation scaling to bilateral lower extremities Psych: Normal affect and mood ED course: 63-year-old female presents chief complaint diarrhea. She appears very unkempt. She is extremely soiled with dried stool about both lower extremities. She has a chronic wound to the right anterior breast. Vital signs upon arrival shows blood pressure 90/84, rest of vital signs within acceptable limits. She is very malodorous.Laboratory evaluation obtained. CBC, metabolic panel is unremarkable. She is positive for stool occult blood. She however has a normal hemoglobin. KUB x-ray was obtained showing enteritis. Patient observed in emergency department. She is given intravenous fluids. Patient has no complaints at this time. She has not had any diarrhea episodes while in the emergency department today. No consent for C. diff at this time given patient's clinical presentation. Since given antidiarrheal medications. She is asked if she feels like she has a safe living situation at home. She reports that yesterday she believes she can take care of it. She is told that she is very malodorous and is soiled from her knees down. She states that she will go home and take a shower. Patient does have follow-up with primary care physician. She has these chronic wounds that are being addressed by PCP. Patient is clear for discharge. Return parameters discussed. EKG interpretation: Ventricular rate 51, paced rhythm, QS 150, QTc 494. No TN prolongation, no QTC prolongation, no ST or T-wave changes noted Overall, this EKG is unremarkable - Related Data Home Medications Medication Instructions Recorded Confirmed Levothyroxine Sodium [Synthroid] 25 mcg PO QAM 09/15/15 01/07/19 Ranitidine HCl [Zantac] 150 mg PO BID 09/15/15 01/07/19 Sertraline [Zoloft] 50 mg PO QAM 09/15/15 01/07/19 Atorvastatin [Lipitor] 80 mg PO DAILY 12/10/17 01/07/19 Febuxostat [Uloric] 80 mg PO DAILY 12/10/17 01/07/19 Montelukast [Singulair] 10 mg PO DAILY 12/10/17 01/07/19 Perphenazine [Trilafon] 8 mg PO HS 12/10/17 01/07/19 Colchicine [Colcrys] 0.6 mg PO TID 01/07/19 01/07/19 Furosemide [Lasix] 30 mg PO BID 01/07/19 01/07/19 Lisinopril [Zestril] 2.5 mg PO DAILY 01/07/19 01/07/19 Nystatin 100,000 Unit/gm Powd 1 applic TOPICAL QID PRN 01/07/19 01/07/19 [Mycostatin Powder] Previous Rx's Medication Instructions Recorded Loperamide HCl [Loperamide] 2 mg PO TID PRN #20 capsule 01/07/19 Allergies Allergy/AdvReac Type Severity Reaction Status Date / Time aspirin Allergy Nausea & Verified 01/07/19 18:33 Vomiting oxybutynin Allergy Rash/Hives Verified 01/07/19 18:33 Penicillins Allergy Rash/Hives Verified 01/07/19 18:33 Review of Systems ROS Statement: Those systems with pertinent positive or pertinent negative responses have been documented in the HPI. ROS Other: All systems not noted in ROS Statement are negative. Past Medical History Past Medical History: Cancer, Heart Failure, COPD, Diabetes Mellitus, Hyp erlipidemia, Hypertension, Myocardial Infarction ([place]), Osteoarthritis (OA), Pneumonia, Renal Disease, Skin Disorder, Sleep Apnea/CPAP/BIPAP, Thyroid Disorder Additional Past Medical History / Comment(s): O2 @ 2 L., gout, edema lower legs, varicose veins, psoriasis, anemia, stage III kidney disease, breast cancer- last chemo Feb 2018. Last Myocardial Infarction Date:: 03/2012 History of Any Multi-Drug Resistant Organisms: None Reported Past Surgical History: Breast Surgery, Cholecystectomy, Hysterectomy, Pacemaker Additional Past Surgical History / Comment(s): Left breast biopsy, left mastectomy, right cataract removed. Past Anesthesia/Blood Transfusion Reactions: Motion Sickness Additional Past Anesthesia/Blood Transfusion Reaction / Comment(s): denies problems with anesthesia Type of Cardiac Device: Permanent Pacemaker Device Placement Date:: Past Psychological History: ADD/ADHD, Bipolar, Depression Smoking Status: Former smoker Past Alcohol Use History: None Reported Past Drug Use History: None Reported - Past Family History Mother Family Medical History: Cancer Additional Family Medical History / Comment(s): stomach General Exam Limitations: no limitations Course Vital Signs 01/07/19 18:08 Temperature 98.2 F Pulse Rate 54 L Respiratory 18 Rate Blood Pressure 98/84 O2 Sat by Pulse 95 Oximetry Medical Decision Making - Lab Data Result diagrams: 01/07/19 20:20 01/07/19 20:20 Lab Results 01/07/19 01/07/19 01/07/19 Range/Units 20:20 20:20 20:20 WBC 8.8 (3.8-10.6) k/uL RBC 4.15 (3.80-5.40) m/uL Hgb 13.6 (11.4-16.0) gm/dL Hct 41.6 (34.0-46.0) % MCV 100.1 H (80.0-100.0) fL MCH 32.8 (25.0-35.0) pg MCHC 32.8 (31.0-37.0) g/dL RDW 15.1 (11.5-15.5) % Plt Count 154 (150-450) k/uL Neutrophils % 81 % Lymphocytes % 9 % Monocytes % 6 % Eosinophils % 2 % Basophils % 0 % Neutrophils # 7.2 (1.3-7.7) k/uL Lymphocytes # 0.8 L (1.0-4.8) k/uL Monocytes # 0.5 (0-1.0) k/uL Eosinophils # 0.2 (0-0.7) k/uL Basophils # 0.0 (0-0.2) k/uL Macrocytosis Slight Sodium 138 (137-145) mmol/L Potassium 3.7 (3.5-5.1) mmol/L Chloride 104 (98-107) mmol/L Carbon Dioxide 27 (22-30) mmol/L Anion Gap 7 mmol/L BUN 17 (7-17) mg/dL Creatinine 1.09 H (0.52-1.04) mg/dL Est GFR (CKD-EPI)AfAm 63 (>60 ml/min/1.73 sqM) Est GFR (CKD-EPI)NonAf 54 (>60 ml/min/1.73 sqM) Glucose 90 (74-99) mg/dL Plasma Lactic Acid Gaudencio 1.7 (0.7-2.0) mmol/L Calcium 8.4 (8.4-10.2) mg/dL Magnesium 2.0 (1.6-2.3) mg/dL Total Bilirubin 0.8 (0.2-1.3) mg/dL AST 57 H (14-36) U/L ALT 26 (9-52) U/L Alkaline Phosphatase 349 H (38-126) U/L Total Protein 6.6 (6.3-8.2) g/dL Albumin 2.8 L (3.5-5.0) g/dL Stool Occult Blood (Negative) 01/07/19 Range/Units 20:55 WBC (3.8-10.6) k/uL RBC (3.80-5.40) m/uL Hgb (11.4-16.0) gm/dL Hct (34.0-46.0) % MCV (80.0-100.0) fL MCH (25.0-35.0) pg MCHC (31.0-37.0) g/dL RDW (11.5-15.5) % Plt Count (150-450) k/uL Neutrophils % % Lymphocytes % % Monocytes % % Eosinophils % % Basophils % % Neutrophils # (1.3-7.7) k/uL Lymphocytes # (1.0-4.8) k/uL Monocytes # (0-1.0) k/uL Eosinophils # (0-0.7) k/uL Basophils # (0-0.2) k/uL Macrocytosis Sodium (137-145) mmol/L Potassium (3.5-5.1) mmol/L Chloride (98-107) mmol/L Carbon Dioxide (22-30) mmol/L Anion Gap mmol/L BUN (7-17) mg/dL Creatinine (0.52-1.04) mg/dL Est GFR (CKD-EPI)AfAm (>60 ml/min/1.73 sqM) Est GFR (CKD-EPI)NonAf (>60 ml/min/1.73 sqM) Glucose (74-99) mg/dL Plasma Lactic Acid Gaudencio (0.7-2.0) mmol/L Calcium (8.4-10.2) mg/dL Magnesium (1.6-2.3) mg/dL Total Bilirubin (0.2-1.3) mg/dL AST (14-36) U/L ALT (9-52) U/L Alkaline Phosphatase (38-126) U/L Total Protein (6.3-8.2) g/dL Albumin (3.5-5.0) g/dL Stool Occult Blood Positive H (Negative) Disposition Clinical Impression: Diarrhea Disposition: HOME SELF-CARE Condition: Good Instructions (If sedation given, give patient instructions): Loperamide (By mouth) Prescriptions: Loperamide HCl [Loperamide] 2 mg PO TID PRN #20 capsule PRN Reason: Diarrhea Is patient prescribed a controlled substance at d/c from ED?: No Referrals: Paul Hanks MD [Primary Care Provider] - 1-2 days Time of Disposition: 22:00
[2019-01-07 20:50] LABS: Basophils % (A) 0 %; Eosinophils # (A) 0.2 k/uL (0-0.7); Eosinophils % (A) 2 %; HCT 41.6 % (34.0-46.0); HGB 13.6 gm/dL (11.4-16.0); Lymphocytes # (A) 0.8 k/uL (1.0-4.8); Lymphocytes % (A) 9 %; MCH 32.8 pg (25.0-35.0); MCHC 32.8 g/dL (31.0-37.0); MCV 100.1 fL (80.0-100.0); Macrocytosis Slight; Mean Platelet Volume 7.6; Monocytes # (A) 0.5 k/uL (0-1.0); Monocytes % (A) 6 %; Neutrophils # (A) 7.2 k/uL (1.3-7.7); Neutrophils % (A) 81 %; Platelet Count 154 k/uL (150-450); RBC 4.15 m/uL (3.80-5.40); RDW 15.1 % (11.5-15.5); WBC 8.8 k/uL (3.8-10.6)
[2019-01-07 21:10] LABS: Albumin 2.8 g/dL (3.5-5.0); Calcium 8.4 mg/dL (8.4-10.2); Potassium 3.7 mmol/L (3.5-5.1); Total Bilirubin 0.8 mg/dL (0.2-1.3); Total Protein 6.6 g/dL (6.3-8.2)
[2019-01-07 23:23] VITALS: BP 103/48; PULSE 56; TEMP 98.7
== END 2019-01-08 00:52 | disposition home or self-care (01) ==
LOC: EC 18:04
DX: R19.7 Diarrhea, unspecified (principal); I11.0 Hypertensive heart disease with heart failure; I50.9 Heart failure, unspecified; I25.2 Old myocardial infarction; G47.30 Sleep apnea, unspecified; J44.9 Chronic obstructive pulmonary disease, unspecified; E78.5 Hyperlipidemia, unspecified; F31.9 Bipolar disorder, unspecified; E07.9 Disorder of thyroid, unspecified; Z79.890 Hormone replacement therapy; Z79.899 Other long term (current) drug therapy; Z88.0 Allergy status to penicillin; Z88.6 Allergy status to analgesic agent; Z88.8 Allergy status to other drugs, medicaments and biological substances; Z95.0 Presence of cardiac pacemaker; Z87.891 Personal history of nicotine dependence; Z85.3 Personal history of malignant neoplasm of breast; Z90.12 Acquired absence of left breast and nipple
CPT/HCPCS: 36415; 74018; 80053; 82272; 83605; 83735; 85025; 93005; 96360; 96361; 99284

== ENCOUNTER 2019-01-23 01:12 | Inpatient (IN) | payer OTHER ==
[2019-01-23 03:15] LABS: Anisocytosis Slight; Basophils % (A) 0 %; Eosinophils # (A) 0.1 k/uL (0-0.7); Eosinophils % (A) 1 %; HCT 38.6 % (34.0-46.0); HGB 12.9 gm/dL (11.4-16.0); Lymphocytes # (A) 0.8 k/uL (1.0-4.8); Lymphocytes % (A) 6 %; MCH 32.4 pg (25.0-35.0); MCHC 33.5 g/dL (31.0-37.0); MCV 96.5 fL (80.0-100.0); Mean Platelet Volume 7.9; Monocytes # (A) 0.7 k/uL (0-1.0); Monocytes % (A) 5 %; Neutrophils # (A) 11.9 k/uL (1.3-7.7); Neutrophils % (A) 88 %; Platelet Count 120 k/uL (150-450); RDW 16.2 % (11.5-15.5); WBC 13.6 k/uL (3.8-10.6)
--- NOTE | 2019-01-23 03:39 | CT ---
EXAM: CT Head Without Intravenous Contrast CLINICAL HISTORY: ITS.REASON CT Reason: fall TECHNIQUE: Axial computed tomography images of the head/brain without intravenous contrast. This CT exam was performed using one or more of the following dose reduction techniques: automated exposure control, adjustment of the mA and/or kV according to patient size, and/or use of iterative reconstruction technique. COMPARISON: No relevant prior studies available. FINDINGS: Brain: No hemorrhage. No edema. Ventricles: Unremarkable. No ventriculomegaly. Bones/joints: No acute fracture. Soft tissues: Right-sided soft tissue injury. Sinuses: No fluid levels. Mastoid air cells: Unremarkable as visualized. No mastoid effusion. Orbits: Shrunken left globe IMPRESSION: Right-sided soft tissue injury. EXAM: CT Cervical Spine Without Intravenous Contrast CLINICAL HISTORY: ITS.REASON CT Reason: fall TECHNIQUE: Axial computed tomography images of the cervical spine without intravenous contrast. This CT exam was performed using one or more of the following dose reduction techniques: automated exposure control, adjustment of the mA and/or kV according to patient size, and/or use of iterative reconstruction technique. COMPARISON: No relevant prior studies available. FINDINGS: Vertebrae: No acute fracture. Discs/spinal canal/neural foramina: No suspicious findings. Soft tissues: Unremarkable. IMPRESSION: No acute findings.
[2019-01-23 03:42] LABS: ALT 26 U/L (9-52); AST 45 U/L (14-36); African American GFR (CKD) >90 (>60 ml/min/1.73 sqM); Albumin 2.6 g/dL (3.5-5.0); Alkaline Phosphatase 383 U/L (38-126); Anion Gap 2 mmol/L; Blood Urea Nitrogen 23 mg/dL (7-17); Calcium 8.2 mg/dL (8.4-10.2); Carbon Dioxide 30 mmol/L (22-30); Chloride 101 mmol/L (98-107); Glucose 116 mg/dL (74-99); Magnesium 1.8 mg/dL (1.6-2.3); Potassium 3.7 mmol/L (3.5-5.1); Sodium 133 mmol/L (137-145); Total Bilirubin 0.6 mg/dL (0.2-1.3); Total Protein 6.4 g/dL (6.3-8.2)
[2019-01-23 03:44] LABS: Appearance,Urine Cloudy (Clear); Bilirubin,Urine Negative (Negative); Blood,Urine Negative (Negative); Color,Urine Yellow; Glucose,Urine (UA) Negative (Negative); Ketones,Urine Negative (Negative); Leukocyte Esterase,Urine Negative (Negative); Mucus,Urine Rare /hpf; Nitrite,Urine Negative (Negative); PH, Urine 5.5 (5.0-8.0); Protein,Urine Trace (Negative); RBC,Urine 1 /hpf (0-5); Specific Gravity,Urine 1.019 (1.001-1.035); Squamous Epithelial Cell,Urine 4 /hpf (0-4); WBC,Urine 1 /hpf (0-5)
[2019-01-23] MEDS ORDERED: SODIUM CHLORIDE 0.9% 1,000 ML IV ONE ×2 (05:00→07:10)
[2019-01-23] MEDS ORDERED: NALOXONE 0.4 MG/ML 1 ML VIAL IV PRN (05:49)
[2019-01-23] MEDS ORDERED: ONDANSETRON 4 MG/2 ML VIAL IVP PRN (06:24)
--- NOTE | 2019-01-23 06:28 | ED ---
General Adult HPI - General Chief complaint: Extremity Problem,Nontraumatic Stated complaint: Weakness Time Seen by Provider: 01/23/19 01:21 Source: family, EMS Mode of arrival: EMS Limitations: no limitations - History of Present Illness Initial comments: This patient is 63-year-old woman who is brought for evaluation after she had a fall last night and was then not able to get up and ambulate. The patient also has had a couple of preceding falls over the week, becoming more more fatigued and having generalized weakness. Family also notes that her oral intake has been very poor. In tonight's fall she did strike the right side of her head. There is no loss consciousness. She complains of some localized scalp tenderness. No neck, back, chest pain. The patient does complain of some aching bilateral hip area. -: days(s) Location: head Quality: aching Consistency: constant Improves with: none Worsens with: none Associated Symptoms: loss of appetite, malaise, weakness - Related Data Home Medications Medication Instructions Recorded Confirmed Levothyroxine Sodium [Synthroid] 25 mcg PO QAM 09/15/15 01/07/19 Ranitidine HCl [Zantac] 150 mg PO BID 09/15/15 01/07/19 Sertraline [Zoloft] 50 mg PO QAM 09/15/15 01/07/19 Atorvastatin [Lipitor] 80 mg PO DAILY 12/10/17 01/07/19 Febuxostat [Uloric] 80 mg PO DAILY 12/10/17 01/07/19 Montelukast [Singulair] 10 mg PO DAILY 12/10/17 01/07/19 Perphenazine [Trilafon] 8 mg PO HS 12/10/17 01/07/19 Colchicine [Colcrys] 0.6 mg PO TID 01/07/19 01/07/19 Furosemide [Lasix] 30 mg PO BID 01/07/19 01/07/19 Lisinopril [Zestril] 2.5 mg PO DAILY 01/07/19 01/07/19 Nystatin 100,000 Unit/gm Powd 1 applic TOPICAL QID PRN 01/07/19 01/07/19 [Mycostatin Powder] Previous Rx's Medication Instructions Recorded Loperamide HCl [Loperamide] 2 mg PO TID PRN #20 capsule 01/07/19 Allergies Allergy/AdvReac Type Severity Reaction Status Date / Time aspirin Allergy Nausea & Verified 01/23/19 01:20 Vomiting oxybutynin Allergy Rash/Hives Verified 01/23/19 01:20 Penicillins Allergy Rash/Hives Verified 01/23/19 01:20 Review of Systems ROS Statement: Those systems with pertinent positive or pertinent negative responses have been documented in the HPI. ROS Other: All systems not noted in ROS Statement are negative. Constitutional: Reports: weakness. Denies: fever, chills Respiratory: Denies: cough, dyspnea Cardiovascular: Denies: chest pain, palpitations, edema, syncope Gastrointestinal: Denies: abdominal pain, nausea, vomiting Genitourinary: Denies: dysuria, hematuria Musculoskeletal: Reports: arthralgia. Denies: back pain Skin: Denies: rash Neurological: Reports: as per HPI, headache. Denies: weakness, numbness, paresthesias Past Medical History Past Medical History: Cancer, Heart Failure, COPD, Diabetes Mellitus, Hyperlipidemia, Hypertension, Myocardial Infarction ([place]), Osteoarthritis (OA), Pneumonia, Renal Disease, Skin Disorder, Sleep Apnea/CPAP/BIPAP, Thyroid Disorder Additional Past Medical History / Comment(s): O2 @ 2 L., gout, edema lower le gs, varicose veins, psoriasis, anemia, stage III kidney disease, breast cancer- last chemo Feb 2018. Last Myocardial Infarction Date:: 03/2012 History of Any Multi-Drug Resistant Organisms: None Reported Past Surgical History: Breast Surgery, Cholecystectomy, Hysterectomy, Pacemaker Additional Past Surgical History / Comment(s): Left breast biopsy, left mastectomy, right cataract removed. Past Anesthesia/Blood Transfusion Reactions: Motion Sickness Additional Past Anesthesia/Blood Transfusion Reaction / Comment(s): denies problems with anesthesia Type of Cardiac Device: Permanent Pacemaker Device Placement Date:: Past Psychological History: ADD/ADHD, Bipolar, Depression Smoking Status: Former smoker Past Alcohol Use History: None Reported Past Drug Use History: None Reported - Past Family History Mother Family Medical History: Cancer Additional Family Medical History / Comment(s): stomach General Exam Limitations: no limitations General appearance: alert, in no apparent distress Head exam: Present: normocephalic, other (Patient does have approximately 3 cm diameter hematoma to the right parietal scalp) Eye exam: Present: normal appearance, other (Left eye enucleation) ENT exam: Present: mucous membranes dry Neck exam: Present: normal inspection, full ROM Respiratory exam: Present: normal lung sounds bilaterally. Absent: respiratory distress, wheezes, rales, rhonchi, stridor Cardiovascular Exam: Present: normal rhythm, bradycardia, normal heart sounds. Absent: systolic murmur, diastolic murmur, rubs, gallop GI/Abdominal exam: Present: soft. Absent: distended, tenderness, guarding, rebound, rigid, mass Extremities exam: Present: normal inspection, normal capillary refill. Absent: pedal edema, calf tenderness Back exam: Present: normal inspection Neurological exam: Present: alert Skin exam: Present: warm, dry, intact. Absent: rash Course Vital Signs 01/23/19 01/23/19 04:08 06:30 Temperature 97.5 F L 97.9 F Pulse Rate 53 L 53 L Respiratory 20 20 Rate Blood Pressure 103/56 102/50 O2 Sat by Pulse 95 97 Oximetry Medical Decision Making - Lab Data Result diagrams: 01/23/19 02:59 01/23/19 02:59 Lab Results 01/23/19 01/23/19 01/23/19 Range/Units 02:59 02:59 02:59 WBC 13.6 H (3.8-10.6) k/uL RBC 4.00 (3.80-5.40) m/uL Hgb 12.9 (11.4-16.0) gm/dL Hct 38.6 (34.0-46.0) % MCV 96.5 (80.0-100.0) fL MCH 32.4 (25.0-35.0) pg MCHC 33.5 (31.0-37.0) g/dL RDW 16.2 H (11.5-15.5) % Plt Count 120 L (150-450) k/uL Neutrophils % 88 % Lymphocytes % 6 % Monocytes % 5 % Eosinophils % 1 % Basophils % 0 % Neutrophils # 11.9 H (1.3-7.7) k/uL Lymphocytes # 0.8 L (1.0-4.8) k/uL Monocytes # 0.7 (0-1.0) k/uL Eosinophils # 0.1 (0-0.7) k/uL Basophils # 0.0 (0-0.2) k/uL Anisocytosis Slight Sodium 133 L (137-145) mmol/L Potassium 3.7 (3.5-5.1) mmol/L Chloride 101 (98-107) mmol/L Carbon Dioxide 30 (22-30) mmol/L Anion Gap 2 mmol/L BUN 23 H (7-17) mg/dL Creatinine 0.74 (0.52-1.04) mg/dL Est GFR (CKD-EPI)AfAm >90 (>60 ml/min/1.73 sqM) Est GFR (CKD-EPI)NonAf 87 (>60 ml/min/1.73 sqM) Glucose 116 H (74-99) mg/dL Lactic Ac Sepsis Rflx Plasma Lactic Acid Gaudencio 2.8 H* (0.7-2.0) mmol/L Calcium 8.2 L (8.4-10.2) mg/dL Magnesium 1.8 (1.6-2.3) mg/dL Total Bilirubin 0.6 (0.2-1.3) mg/dL AST 45 H (14-36) U/L ALT 26 (9-52) U/L Alkaline Phosphatase 383 H (38-126) U/L Troponin I (0.000-0.034) ng/mL Total Protein 6.4 (6.3-8.2) g/dL Albumin 2.6 L (3.5-5.0) g/dL Urine Color Urine Appearance (Clear) Urine pH (5.0-8.0) Ur Specific [place] (1.001-1.035) Urine Protein (Negative) Urine Glucose (UA) (Negative) Urine Ketones (Negative) Urine Blood (Negative) Urine Nitrite (Negative) Urine Bilirubin (Negative) Urine Urobilinogen (<2.0) mg/dL Ur Leukocyte Esterase (Negative) Urine RBC (0-5) /hpf Urine WBC (0-5) /hpf Ur Squamous Epith Cells (0-4) /hpf Urine Mucus (None) /hpf 01/23/19 01/23/19 01/23/19 Range/Units 02:59 03:22 03:52 WBC (3.8-10.6) k/uL RBC (3.80-5.40) m/uL Hgb (11.4-16.0) gm/dL Hct (34.0-46.0) % MCV (80.0-100.0) fL MCH (25.0-35.0) pg MCHC (31.0-37.0) g/dL RDW (11.5-15.5) % Plt Count (150-450) k/uL Neutrophils % % Lymphocytes % % Monocytes % % Eosinophils % % Basophils % % Neutrophils # (1.3-7.7) k/uL Lymphocytes # (1.0-4.8) k/uL Monocytes # (0-1.0) k/uL Eosinophils # (0-0.7) k/uL Basophils # (0-0.2) k/uL Anisocytosis Sodium (137-145) mmol/L Potassium (3.5-5.1) mmol/L Chloride (98-107) mmol/L Carbon Dioxide (22-30) mmol/L Anion Gap mmol/L BUN (7-17) mg/dL Creatinine (0.52-1.04) mg/dL Est GFR (CKD-EPI)AfAm (>60 ml/min/1.73 sqM) Est GFR (CKD-EPI)NonAf (>60 ml/min/1.73 sqM) Glucose (74-99) mg/dL Lactic Ac Sepsis Rflx Y Plasma Lactic Acid Gaudencio (0.7-2.0) mmol/L Calcium (8.4-10.2) mg/dL Magnesium (1.6-2.3) mg/dL Total Bilirubin (0.2-1.3) mg/dL AST (14-36) U/L ALT (9-52) U/L Alkaline Phosphatase (38-126) U/L Troponin I <0.012 (0.000-0.034) ng/mL Total Protein (6.3-8.2) g/dL Albumin (3.5-5.0) g/dL Urine Color Yellow Urine Appearance Cloudy H (Clear) Urine pH 5.5 (5.0-8.0) Ur Specific [place] 1.019 (1.001-1.035) Urine Protein Trace H (Negative) Urine Glucose (UA) Negative (Negative) Urine Ketones Negative (Negative) Urine Blood Negative (Negative) Urine Nitrite Negative (Negative) Urine Bilirubin Negative (Negative) Urine Urobilinogen 3.0 (<2.0) mg/dL Ur Leukocyte Esterase Negative (Negative) Urine RBC 1 (0-5) /hpf Urine WBC 1 (0-5) /hpf Ur Squamous Epith Cells 4 (0-4) /hpf Urine Mucus Rare H (None) /hpf Disposition Clinical Impression: Dehydration, Head injury, Unable to ambulate, Lactic acidosis Disposition: ADMITTED IP TO THIS HOSP Condition: Poor Is patient prescribed a controlled substance at d/c from ED?: No
[2019-01-23] MEDS: SODIUM CHLORIDE 0.9% 1,000 ML IV SCH ×2 (06:44→20:58)
[2019-01-23] MEDS ORDERED: NYSTATIN 100,000 UNIT/GM POWD 15 GM TOPICAL PRN (07:11)
[2019-01-23] MEDS ORDERED: LOPERAMIDE 2 MG CAP PO PRN (07:11)
--- NOTE | 2019-01-23 07:26 | XR ---
EXAMINATION TYPE: XR chest 1V portable DATE OF EXAM: 01/23/2019 COMPARISON: 08/10/2017 HISTORY: Weakness and headache TECHNIQUE: Single frontal view of the chest is obtained. FINDINGS: There is an enlarged cardiomediastinal silhouette with single lead left-sided cardiac regan ce. Surgical clips overlie the lower left hemithorax. MediPort is stable. Strand-like bibasilar airsp lane disease is seen, likely atelectasis. No focal consolidation, pleural effusion or pneumothorax. Th ere is diffuse osseous demineralization seen. IMPRESSION: Strand-like bibasilar atelectasis, right greater than left, likely relates to atelectasi s.
--- NOTE | 2019-01-23 07:26 | XR ---
EXAMINATION TYPE: XR pelvis AP view DATE OF EXAM: 01/23/2019 CLINICAL HISTORY: Pelvic pain. No stated trauma. TECHNIQUE: A single AP view of the pelvis is obtained. COMPARISON: None. FINDINGS: Diffuse osseous demineralization is seen. There is no acute fracture/dislocation evident in the pelvis. The hip and sacroiliac joints appear symmetric and display mild degenerative change. T he overlying soft tissue appears unremarkable. IMPRESSION: There is no acute fracture or dislocation in the pelvis.
[2019-01-23] MEDS ORDERED: PERMETHRIN 1% CREME RINSE 59 ML LIQUID TOPICAL ONE (08:45)
[2019-01-23] MEDS ORDERED: LISINOPRIL 2.5 MG TAB PO SCH (09:00)
[2019-01-23] MEDS ORDERED: COLCHICINE 0.6 MG EACH PO SCH (09:00)
[2019-01-23] MEDS: ATORVASTATIN 80 MG TAB PO SCH (10:14)
[2019-01-23] MEDS: MONTELUKAST 10 MG TAB PO SCH (10:14)
[2019-01-23] MEDS: ALLOPURINOL 100 MG TAB PO SCH (10:14)
[2019-01-23] MEDS: FAMOTIDINE 20 MG TAB PO SCH ×2 (10:15→20:58)
[2019-01-23] MEDS: SERTRALINE 50 MG TAB PO SCH (10:15)
[2019-01-23] MEDS: LEVOTHYROXINE 25 MCG TAB PO SCH (12:31)
--- NOTE | 2019-01-23 16:03 | P.HPIM ---
History of Present Illness 63-year-old the female came in after a fall. Patient doesn't look like is being taken care of very well. Patient lives with her does have bed bugs and lice. Patient is found to have saline does of the left lower extremity patient has not been eating well when questioned about it patient cannot really answer my although patient is alert oriented 3 patient lives with her her daughter takes care of her patient has significant intertrigo may be cellulitis under the breast area extremely poorly cared for. Adult Protective Services were made aware because of her breast situation. Patient does have acute renal failure dehydration and intravascular volume depletion. Patient has generalized weakness denied any back pain and radicular symptoms but does have significant pain in both legs unable to ambulate take care of herself at home patient did didn't shower for many days and her daughter goes to her place and clean set up. Patient has bilateral lower leg weakness which appears to be chronic although she states it's been going on for 2 weeks as there is some my muscle atrophy physical therapy and occupational therapy was consulted. Review of Systems REVIEW OF SYSTEMS: CONSTITUTIONAL: No fever, no malaise, no fatigue. HEENT: No recent visual problems or hearing problems. Denied any sore throat. CARDIOVASCULAR: No chest pain, orthopnea, PND, no palpitations, no syncope. PULMONARY: No shortness of breath, no cough, no hemoptysis. GASTROINTESTINAL: No diarrhea, no nausea, no vomiting, no abdominal pain. NEUROLOGICAL: As mentioned in HPI HEMATOLOGICAL: Denies any bleeding or petechiae. GENITOURINARY: Denies any burning micturition, frequency, or urgency. MUSCULOSKELETAL/RHEUMATOLOGICAL: Denies any joint pain, swelling, or any muscle pain. ENDOCRINE: Denies any polyuria or polydipsia. The rest of the 14-point review of systems is negative. Past Medical History Past Medical History: Cancer, Heart Failure, COPD, Diabetes Mellitus, Hyperlipidemia, Hypertension, Myocardial Infarction ([place]), Osteoarthritis ([place]), Pneumonia, Renal Disease, Skin Disorder, Sleep Apnea/CPAP/BIPAP, Thyroid Disorder Additional Past Medical History / Comment(s): O2 @ 2 L., gout, edema lower legs, varicose veins, psoriasis, anemia, stage III kidney disease, breast cancer- last chemo Feb 2018. Last Myocardial Infarction Date:: 03/2012 History of Any Multi-Drug Resistant Organisms: None Reported Past Surgical History: Breast Surgery, Cholecystectomy, Hysterectomy, Pacemaker Additional Past Surgical History / Comment(s): Left breast biopsy, left mastectomy, right cataract removed. Past Anesthesia/Blood Transfusion Reactions: Motion Sickness Additional Past Anesthesia/Blood Transfusion Reaction / Comment(s): denies problems with anesthesia Type of Cardiac Device: Permanent Pacemaker Device Placement Date:: Past Psychological History: ADD/ADHD, Bipolar, Depression Smoking Status: Former smoker Past Alcohol Use History: None Reported Past Drug Use History: None Reported - Past Family History Mother Family Medical History: Cancer Additional Family Medical History / Comment(s): stomach Medications and Allergies Home Medications Medication Instructions Recorded Confirmed Type Levothyroxine Sodium [Synthroid] 25 mcg PO QAM 09/15/15 01/23/19 History Ranitidine HCl [Zantac] 150 mg PO BID 09/15/15 01/23/19 History Sertraline [Zoloft] 50 mg PO QAM 09/15/15 01/23/19 History Atorvastatin [Lipitor] 80 mg PO DAILY 12/10/17 01/23/19 History Montelukast [Singulair] 10 mg PO DAILY 12/10/17 01/23/19 History Perphenazine [Trilafon] 8 mg PO HS 12/10/17 01/23/19 History Colchicine [Colcrys] 0.6 mg PO TID 01/07/19 01/23/19 History Lisinopril [Zestril] 2.5 mg PO DAILY 01/07/19 01/23/19 History Nystatin 100,000 Unit/gm Powd 1 applic TOPICAL QID PRN 01/07/19 01/23/19 History [Mycostatin Powder] Carvedilol [Coreg] 3.125 mg PO BID 01/23/19 01/23/19 History Ergocalciferol [Vitamin D2] 50,000 unit PO QMONTH 01/23/19 01/23/19 History Febuxostat [Uloric] 80 mg PO DAILY 01/23/19 01/23/19 History Furosemide [Lasix] 80 mg PO DAILY 01/23/19 01/23/19 History Loperamide [Imodium] 2 mg PO TID PRN 01/23/19 01/23/19 History Allergies Allergy/AdvReac Type Severity Reaction Status Date / Time aspirin Allergy Nausea & Verified 01/23/19 09:09 Vomiting oxybutynin Allergy Rash/Hives Verified 01/23/19 09:09 Penicillins Allergy Rash/Hives Verified 01/23/19 09:09 Physical Exam Vitals: Vital Signs Temp Pulse Pulse Resp BP BP Pulse Ox 01/23/19 11:05 97.1 F L 54 L 16 120/54 97 01/23/19 07:08 97.7 F 50 L 20 96/50 98 01/23/19 06:30 97.9 F 53 L 20 102/50 97 01/23/19 04:08 97.5 F L 53 L 20 103/56 95 Intake and Output 01/23/19 01/23/19 01/23/19 06:59 14:59 22:59 Other: Weight 90.718 kg PHYSICAL EXAMINATION: GENERAL: The patient is alert and oriented x3, not in any acute distress. Well developed, well nourished. HEENT: Pupils are round and equally reacting to light. EOMI. No scleral icterus. No conjunctival pallor. Normocephalic, atraumatic. No pharyngeal erythema. No thyromegaly. Patient appears to have visual loss in the left eye along with muscle weakness in the left eye CARDIOVASCULAR: S1 and S2 present. No murmurs, rubs, or gallops. PULMONARY: Chest is clear to auscultation, no wheezing or crackles. ABDOMEN: Soft, nontender, nondistended, normoactive bowel sounds. No palpable organomegaly. MUSCULOSKELETAL: No joint swelling or deformity. EXTREMITIES: No cyanosis, clubbing, or pedal edema. NEUROLOGICAL: Patient has weakness in both legs. SKIN: Patient does have significant intertrigo still probably secondary cellulitis patient has cellulitis in the right leg circumferential before below the knee in the midshin area. Results CBC & Chem 7: 01/23/19 02:59 01/23/19 02:59 Labs: Abnormal Lab Results - Last 24 Hours (Table) 01/23/19 01/23/19 01/23/19 Range/Units 02:59 02:59 02:59 WBC 13.6 H (3.8-10.6) k/uL RDW 16.2 H (11.5-15.5) % Plt Count 120 L (150-450) k/uL Neutrophils # 11.9 H (1.3-7.7) k/uL Lymphocytes # 0.8 L (1.0-4.8) k/uL Sodium 133 L (137-145) mmol/L BUN 23 H (7-17) mg/dL Glucose 116 H (74-99) mg/dL Plasma Lactic Acid Gaudencio 2.8 H* (0.7-2.0) mmol/L Calcium 8.2 L (8.4-10.2) mg/dL AST 45 H (14-36) U/L Alkaline Phosphatase 383 H (38-126) U/L Albumin 2.6 L (3.5-5.0) g/dL Urine Appearance (Clear) Urine Protein (Negative) Urine Mucus (None) /hpf 01/23/19 Range/Units 03:22 WBC (3.8-10.6) k/uL RDW (11.5-15.5) % Plt Count (150-450) k/uL Neutrophils # (1.3-7.7) k/uL Lymphocytes # (1.0-4.8) k/uL Sodium (137-145) mmol/L BUN (7-17) mg/dL Glucose (74-99) mg/dL Plasma Lactic Acid Gaudencio (0.7-2.0) mmol/L Calcium (8.4-10.2) mg/dL AST (14-36) U/L Alkaline Phosphatase (38-126) U/L Albumin (3.5-5.0) g/dL Urine Appearance Cloudy H (Clear) Urine Protein Trace H (Negative) Urine Mucus Rare H (None) /hpf Thrombosis Risk Factor Assmnt - Choose All That Apply Any of the Below Risk Factors Present?: Yes Each Factor Represents 1 point: Medical pt on bed rest Other Risk Factors: Yes Each Risk Factor Represents 2 Points: Age 61-74 years Thrombosis Risk Factor Assessment Total Risk Factor Score: 3 Thrombosis Risk Factor Assessment Level: Moderate Risk Assessment and Plan Plan: Possible sepsis from cellulitis under the breast as well as right leg: Patient will be started on ceftezole infectious disease was consulted -lactic acidosis secondary to above -Generalized deconditioning and poorly well cared of patient may need placement PT and OT was consulted -Dehydration: IV fluids -I hyponatremia hypovolemic hyponatremia, lisinopril will be held and patient will be continued on IV fluids -Bilateral lower limb weakness secondary to generalized deconditioning no evidence of radicular pain and radiculopathy. No clinical evidence of stroke --Hyperlipidemia -Hypertension holding of antidepressant medications actually patient is hypotensive but --COPD without any acute exacerbation patient denied any other drug use -Hypothyroidism -History of gout patient is on very high-dose of maintenance colchicine which we'll cut down daily patient doesn't have any acute gout -Intertrigo fungal infection of the skin folds, nystatin powder -Depression DVT prophylaxis with subcutaneous heparin
[2019-01-23] MEDS: PERPHENAZINE 4 MG TAB PO SCH (21:33)
[2019-01-23] MEDS: HEPARIN SODIUM,PORCINE 5,000 UNIT/ML 1 ML VIAL SQ SCH (23:49)
[2019-01-24] MEDS: LEVOTHYROXINE 25 MCG TAB PO SCH (05:30)
--- NOTE | 2019-01-24 05:52 | CONS ---
CONSULTATION DATE OF SERVICE: 01/23/2019 REASON FOR CONSULTATION: Multiple wounds and cellulitis. HISTORY OF PRESENT ILLNESS: The patient is a 63-year-old female who has been brought into the ER at [facility] right after midnight for a fall last night and the patient was not able to get up and ambulate. Apparently the patient did have a couple of preceding falls over the week and the patient becoming more fatigued and having generalized weakness. Oral intake has been very poor as well. With these symptoms, the patient has been evaluated by the ER physician. On presentation, the patient did have a head and cervical spine CT which did not show any bleed or any acute fracture. The patient did have a chest x-ray showed some strand-like bibasilar atelectasis. The patient has been afebrile. White count was slightly elevated at 13.6. Lactic acid was elevated to 2.8. UA was negative. The patient noticed to have multiple wounds to the sacrum as well as to the right breast and some scratch duncan for which I was asked to see the patient for further recommendation and concern for possible cellulitis of the lower extremity. The patient is currently sleepy, lethargic though responds to her name, but when asked for any specific questions she did answer any making the history to be limited at this point. REVIEW OF SYSTEMS: Could not be reliably obtained, but the positive points have been mentioned in HPI. PAST MEDICAL HISTORY: Diabetes mellitus, hypertension, hyperlipidemia, [place], osteoarthritis, pneumonia, hypothyroidism, and history of breast cancer, last chemo February of 2018. PAST SURGICAL HISTORY: Back surgery, cholecystectomy, hysterectomy, pacemaker placement, left breast biopsy and left mastectomy. PAST PSYCHOLOGICAL HISTORY: ADHD, bipolar, depression. SOCIAL HISTORY: Remote history of smoking. No drinking or drug use. FAMILY HISTORY: Mother with history of stomach cancer. ALLERGIES: Allergies to PENICILLIN, OXYBUTYNIN and ASPIRIN. MEDICATIONS: Medications currently Include the patient is on Zyloprim, Lipitor, cefazolin 2 grams q.8 hours. She is on colchicine, Pepcid, heparin, Synthroid, Singulair, Narcan, nystatin powder, Zofran, Trilafon, Zoloft. PHYSICAL EXAMINATION: On examination, her blood pressure is 120/54 with a pulse of 54, temperature 97.1. She is 97% on room air. General description is a middle-aged female lying in bed in no distress. No tachypnea or accessory muscle of respiration use. HEENT examination shows no pallor or scleral icterus. Oral mucous membrane is dry. NECK: Trachea central. No thyromegaly. LUNGS: Unlabored breathing, clear to auscultation anteriorly. No wheeze or crackle. HEART: S1, S2. Regular rate and rhythm. ABDOMEN: Soft, no tenderness. No guarding or rigidity. EXTREMITIES: Some chronic swelling in the legs with some minimal erythema on the left leg, slightly warm to touch. No skin breakdown. EXAMINATION OF THE SACRAL AREA: The patient did have an unstageable ulcer on the left gluteal area with a black eschar and a stage III on the right gluteal area with some slough tissue. EXAMINATION OF THE BREAST: In the presence of an RN did show wound on the lateral side with minimal slough tissue, some surrounding erythema. No foul smelling drainage. NEUROLOGIC: The patient is currently sleepy, would not answer any questions. Orientation could not be determined. LABS: Hemoglobin is 12.9, white count 13.6, BUN of 23, creatinine 0.74. Lactic acid 2.8; repeat is 1.4. Urine is negative. DIAGNOSTIC IMPRESSION AND PLAN: 1. Patient with wounds to the bilateral gluteal area. The patient did have significant slough and necrotic tissue that will need surgical debridement. No definite evidence of cellulitis on the sacral wound area. 2. Bilateral leg swelling and a component of cellulitis of left leg likely from gram- positive skin dayanna. 3. Right breast wound possible traumatic however in view of her history of left breast cancer, underlying malignant lesion need to be ruled out and may benefit from biopsy. 4. Patient with PENICILLIN allergy limits the number of antibiotics safe to use. PLAN: 1. Cefazolin 2 g q.8 hours to continue. 2. We will apply Aquacel Silver dressing to the right breast wound area to be changed daily. 3. Put a dressing to the sacral wound and recommend surgical evaluation for surgical debridement. 4. We will follow on clinical condition and culture to further adjust medication if needed. Thank you for this consultation. Will follow this patient along with you. MMODL / IJN: [id number] /
[2019-01-24] MEDS: SODIUM CHLORIDE 0.9% 1,000 ML IV SCH (09:23)
[2019-01-24] MEDS: FAMOTIDINE 20 MG TAB PO SCH ×2 (09:24→23:13)
[2019-01-24] MEDS: SERTRALINE 50 MG TAB PO SCH (09:24)
[2019-01-24] MEDS: ATORVASTATIN 80 MG TAB PO SCH (09:24)
[2019-01-24] MEDS: ALLOPURINOL 100 MG TAB PO SCH (09:24)
[2019-01-24] MEDS: MONTELUKAST 10 MG TAB PO SCH (09:24)
[2019-01-24] MEDS: HEPARIN SODIUM,PORCINE 5,000 UNIT/ML 1 ML VIAL SQ SCH ×3 (09:24→23:13)
[2019-01-24] MEDS: COLCHICINE 0.6 MG EACH PO SCH (09:24)
--- NOTE | 2019-01-24 14:20 | PN ---
PROGRESS NOTE DATE OF SERVICE: 01/24/2019 REASON FOR FOLLOWUP: 1. Bilateral extremity cellulitis. 2. Bilateral gluteal pressure ulcer and right breast wound. INTERVAL HISTORY: The patient is currently afebrile. Patient is more awake, alert. Her main symptom has been pain in the bilateral gluteal wound area. No chest pain, shortness of breath or cough. No abdominal pain and no diarrhea. PHYSICAL EXAMINATION: On examination, blood pressure 98/50 with a pulse of 50, temperature 97.9. She is 95% on room air. General description is a middle aged female lying in bed in no distress. RESPIRATORY SYSTEM: Unlabored breathing, clear to auscultation anteriorly. HEART: S1, S2. Regular rate and rhythm. ABDOMEN: Soft, no tenderness. Lower extremity swelling and redness slightly decreased. LABS: No new labs have been obtained today. DIAGNOSTIC IMPRESSION AND PLAN: 1. Patient with bilateral gluteal pressure ulcer with necrotic on the left side that will need surgical debridement for which Surgery has been consulted. 2. Right breast wound. Local wound care to continue with Aquacel silver dressing. However, will benefit from possible biopsy with history of breast cancer on the left side. 3. Bilateral lower extremity cellulitis responding to cefazolin, to be continued. Monitor clinical course closely. MMODL / IJN: [id number] /
--- NOTE | 2019-01-24 17:05 | P.GSCN ---
History of Present Illness Consult date: 01/24/19 Reason for Consult: Multiple wounds History of present illness: 63-year-old female known to our service from previous left mastectomy. Patient admitted through the ER with multiple wounds and overall poor care. Patient was found to have bedbugs and lyse. She has wounds on the right breast, right arm, right thigh, and extensive decubitus ulcers involving the sacrum. She was quite weak and confused as well. CAT scan of the brain showed no acute changes. Patient was seen by infectious disease was consulted for the wound and cellulitis. We were then consulted for debridement of the sacral wound. Patient states she has been treating a breast wound for the last several weeks. Review of Systems The patient denies any acute changes in vision or hearing, no dysphagia or odynophagia, no chest pain or shortness of breath, no dysuria or hematuria, no headache, no runny nose, no rectal bleeding or melena, no unexplained weight loss Past Medical History Past Medical History: Cancer, Heart Failure, COPD, Diabetes Mellitus, Hyperlipidemia, Hypertension, Myocardial Infarction ([place]), Osteoarthritis (OA), Pneumonia, Renal Disease, Skin Disorder, Sleep Apnea/CPAP/BIPAP, Thyroid Disorder Additional Past Medical History / Comment(s): O2 @ 2 L., gout, edema lower legs, varicose veins, psoriasis, anemia, stage III kidney disease, breast cancer - last chemo Feb 2018. Last Myocardial Infarction Date:: 03/2012 History of Any Multi-Drug Resistant Organisms: None Reported Past Surgical History: Breast Surgery, Cholecystectomy, Hysterectomy, Pacemaker Additional Past Surgical History / Comment(s): Left breast biopsy, left mastectomy, right cataract removed. Past Anesthesia/Blood Transfusion Reactions: Motion Sickness Additional Past Anesthesia/Blood Transfusion Reaction / Comm: denies problems with anesthesia Type of Cardiac Device: Permanent Pacemaker Device Placement Date:: Past Psychological History: ADD/ADHD, Bipolar, Depression Smoking Status: Former smoker Past Alcohol Use History: None Reported Past Drug Use History: None Reported - Past Family History Mother Family Medical History: Cancer Additional Family Medical History / Comment(s): stomach Medications and Allergies Home Medications Medication Instructions Recorded Confirmed Type Levothyroxine Sodium [Synthroid] 25 mcg PO QAM 09/15/15 01/23/19 History Ranitidine HCl [Zantac] 150 mg PO BID 09/15/15 01/23/19 History Sertraline [Zoloft] 50 mg PO QAM 09/15/15 01/23/19 History Atorvastatin [Lipitor] 80 mg PO DAILY 12/10/17 01/23/19 History Montelukast [Singulair] 10 mg PO DAILY 12/10/17 01/23/19 History Perphenazine [Trilafon] 8 mg PO HS 12/10/17 01/23/19 History Colchicine [Colcrys] 0.6 mg PO TID 01/07/19 01/23/19 History Lisinopril [Zestril] 2.5 mg PO DAILY 01/07/19 01/23/19 History Nystatin 100,000 Unit/gm Powd 1 applic TOPICAL QID PRN 01/07/19 01/23/19 History [Mycostatin Powder] Carvedilol [Coreg] 3.125 mg PO BID 01/23/19 01/23/19 History Ergocalciferol [Vitamin D2] 50,000 unit PO QMONTH 01/23/19 01/23/19 History Febuxostat [Uloric] 80 mg PO DAILY 01/23/19 01/23/19 History Furosemide [Lasix] 80 mg PO DAILY 01/23/19 01/23/19 History Loperamide [Imodium] 2 mg PO TID PRN 01/23/19 01/23/19 History Allergies Allergy/AdvReac Type Severity Reaction Status Date / Time aspirin Allergy Nausea & Verified 01/23/19 09:09 Vomiting oxybutynin Allergy Rash/Hives Verified 01/23/19 09:09 Penicillins Allergy Rash/Hives Verified 01/23/19 09:09 Surgical - Exam Vital Signs Temp Pulse Resp BP Pulse Ox 97.5 F L 53 L 20 103/56 95 01/23/19 04:08 01/23/19 04:08 01/23/19 04:08 01/23/19 04:08 01/23/19 04:08 Physical exam: General: Well-developed, well-nourished HEENT: Normocephalic, previous left I removal Abdomen: Nontender, nondistended Extremities: mild edema bilaterally, mild redness left lower ag with blister formation, right medial thigh with patch of dry slightly erythematous skin, right forearm with dry skin as well, sacrococcygeal region with extensive irritation and eschar formation that is soft and slightly malodorous in the left position, no fluctuance, no significant drainage Left chest wall well-healed, right breast with dry scaly skin with some wound formation laterally no fluctuance Neuro: Alert Results - Labs 01/23/19 02:59 01/23/19 02:59 Assessment and Plan (1) Sacral decubitus ulcer Narrative/Plan: Patient with sacral decubitus ulcer and various wounds. We will proceed with debridement sacral decubitus with right breast skin biopsy on Sunday. Risks of bleeding, infection, poor healing reviewed. She understands and wishes to proce ed. Current Visit: Yes Status: Acute Code(s): L89.159 - PRESSURE ULCER OF SACRAL REGION, UNSPECIFIED STAGE SNOMED Code(s): 988394321
--- NOTE | 2019-01-24 17:35 | P.PN ---
Subjective 63-year-old the female was admitted with severe deconditioning sacral decubitus ulcer right leg cellulitis, intertrigo of the breast area with secondary cellulitis in the right side with significant lesions on the breast, for which underlying malignancy need to be ruled out general surgery evaluated the patient for debridement of the sacral decubitus ulcer and patient is on IV antibiotics and infectious disease following the patient and patient is on ceftezole and at this time patient is on IV fluids. Constitutional: Denied any fatigue denied any fever. Cardio vascular: denied any chest pain, palpitations Gastrointestinal denied any nausea vomiting Pulmonary: Denied any shortness of breath cough Neurologic denied any new focal deficits All inpatient medications were reviewed and appropriate changes in these medications as dictated in the interval history and assessment and plan. Objective - Vital Signs Vital signs: Vital Signs Temp 98.4 F 01/24/19 13:00 Pulse 56 L 01/24/19 13:00 Resp 17 01/24/19 13:00 BP 117/45 01/24/19 13:00 Pulse Ox 96 01/24/19 13:00 Intake & Output 01/23/19 01/24/19 01/24/19 18:59 06:59 18:59 Intake Total 2270 1860 620 Balance 2270 1860 620 Weight 90.718 kg Intake: Intake, IV Titration 1650 900 620 Amount Sodium Chloride 0.9% 1, 600 900 570 000 ml @ 75 mls/hr IV . [id number] [facility] Rx#:[id number] Sodium Chloride 0.9% 1, 1000 000 ml @ 999 mls/hr IV . Q1H1M [facility] Rx#:[id number] ceFAZolin 2 gm In Sodium 50 50 Chloride 0.9% 50 ml @ 100 mls/hr IVPB Q8HR [facility] Rx# :[id number] Oral 620 960 Other: Voiding Method Bedpan Bedpan Bedpan Diaper Diaper # Voids 2 3 - Exam PHYSICAL EXAMINATION: GENERAL: The patient is alert and oriented x3, not in any acute distress. Well developed, well nourished. HEENT: Pupils are round and equally reacting to light. EOMI. No scleral icterus. No conjunctival pallor. Normocephalic, atraumatic. No pharyngeal erythema. No thyromegaly. Patient appears to have visual loss in the left eye along with muscle weakness in the left eye CARDIOVASCULAR: S1 and S2 present. No murmurs, rubs, or gallops. PULMONARY: Chest is clear to auscultation, no wheezing or crackles. ABDOMEN: Soft, nontender, nondistended, normoactive bowel sounds. No palpable organomegaly. MUSCULOSKELETAL: No joint swelling or deformity. EXTREMITIES: No cyanosis, clubbing, or pedal edema. NEUROLOGICAL: Patient has weakness in both legs. SKIN: Patient does have significant intertrigo still probably secondary cellulitis patient has cellulitis in the right leg circumferential before below the knee in the midshin area. His sacral decubitus ulcer please refer to infectious disease documentation for further details - Labs CBC & Chem 7: 01/23/19 02:59 01/23/19 02:59 Assessment and Plan Plan: Possible sepsis from cellulitis under the breast as well as right leg: Patient will be started on ceftezole infectious disease evaluate and the patient -Sacral decubitus ulcer for which need to bride meant -Multiple lesions on the breast underlying malignancy need to be ruled out -lactic acidosis secondary to above. Improved now -Generalized deconditioning and poorly well cared of patient may need placement PT and OT was consulted -Dehydration: IV fluids -I hyponatremia hypovolemic hyponatremia, lisinopril will be held and patient will be continued on IV fluids -Bilateral lower limb weakness secondary to generalized deconditioning no evidence of radicular pain and radiculopathy. No clinical evidence of stroke --Hyperlipidemia -Hypertension holding of antidepressant medications actually patient is hypotensive but --COPD without any acute exacerbation patient denied any other drug use -Hypothyroidism -History of gout patient is on very high-dose of maintenance colchicine which we'll cut down daily patient doesn't have any acute gout -Intertrigo fungal infection of the skin folds, nystatin powder -Depression DVT prophylaxis with subcutaneous heparin
[2019-01-24] MEDS: PERPHENAZINE 4 MG TAB PO SCH (23:13)
[2019-01-25] MEDS: SODIUM CHLORIDE 0.9% 1,000 ML IV SCH ×2 (01:30→15:18)
[2019-01-25] MEDS ORDERED: PERMETHRIN 1% CREME RINSE 59 ML LIQUID TOPICAL ONE (01:41)
[2019-01-25 05:21] LABS: Amphetamine Screen,Urine Not Detected (NotDetected); Barbiturate Screen,Urine Not Detected (NotDetected); Benzodiazepines Screen,Urine Not Detected (NotDetected); Cocaine Screen,Urine Not Detected (NotDetected); Methadone Screen, Urine Not Detected (NotDetected); Opiate Screen,Urine Not Detected (NotDetected); Oxycodone Screen, Urine Not Detected (NotDetected); Phencyclidine Screen,Urine Not Detected (NotDetected); Tricyclic Antidepressant,Urine Not Detected (NotDetected); Urn Cannabinoid Scrn Not Detected (NotDetected)
[2019-01-25] MEDS: HEPARIN SODIUM,PORCINE 5,000 UNIT/ML 1 ML VIAL SQ SCH ×3 (09:28→23:10)
[2019-01-25] MEDS: LEVOTHYROXINE 25 MCG TAB PO SCH (09:28)
[2019-01-25] MEDS: ALLOPURINOL 100 MG TAB PO SCH (09:29)
[2019-01-25] MEDS: FAMOTIDINE 20 MG TAB PO SCH ×2 (09:30→23:10)
[2019-01-25] MEDS: ATORVASTATIN 80 MG TAB PO SCH (09:30)
[2019-01-25] MEDS: MONTELUKAST 10 MG TAB PO SCH (09:31)
[2019-01-25] MEDS: SERTRALINE 50 MG TAB PO SCH (09:31)
[2019-01-25] MEDS: COLCHICINE 0.6 MG EACH PO SCH (09:31)
--- NOTE | 2019-01-25 14:14 | P.PN ---
Subjective Progress Note Date: 01/25/19 CHIEF COMPLAINT: Complicated right breast wound HISTORY OF PRESENT ILLNESS: The patient is a 63-year-old female who presents with multiple complicated wounds including right mastectomy and decubiti ulcer. No reports of pain. She is tolerating diet. Patient currently being treated for lice and bed bugs. ROS: No reports of nausea and vomiting. No fevers or chills. No new chest pain. PHYSICAL EXAM: VITAL SIGNS: Reviewed CONSTITUTIONAL: Well developed and in no acute distress. EYES: Conjuctivae without sclera icterus. Extraocular movements grossly intact. HEAD, EARS, NOSE, THROAT: Dry buccal mucosa. Head is atraumatic, normocephalic. Hears conversational speech. No nasal drainage. RESPIRATORY: Non-labored respirations and equal bilateral excursions. CARDIOVASCULAR: Palpable 2+ radial pulses. ABDOMEN: Soft. No peritonitis. MUSCULOSKELETAL: No gross deformity of the lower extremities noted. No clubbing. No cyanosis. SKIN: Poor skin turgor. Well perfused. NEUROLOGIC: Cranial nerves I through XII grossly intact. No focal or lateralizing signs. PSYCH: Appropriate affect. Alert and oriented to person, place and time. CHEST: Dressing along right chest intact CLINCAL LABS: White blood cell count improved from 13,600 to 11,300 ASSESSMENT: 1. Complicated right breast wound 2. History of right mastectomy PLAN: 1. Debridement of wounds advised 2. Continue decontamination policy per hospital protocol Objective - Vital Signs Vital signs: Vital Signs Temp 97.4 F L 01/25/19 12:50 Pulse 50 L 01/25/19 12:50 Resp 16 01/25/19 12:50 BP 122/58 01/25/19 12:50 Pulse Ox 97 01/25/19 12:50 Intake & Output 01/24/19 01/25/19 01/25/19 18:59 06:59 18:59 Intake Total 620 700 Output Total 300 Balance 620 700 -300 Weight 90.718 kg Intake: Intake, IV Titration 620 700 Amount Sodium Chloride 0.9% 1, 570 650 000 ml @ 75 mls/hr IV . [id number] [facility] Rx#:[id number] ceFAZolin 2 gm In Sodium 50 50 Chloride 0.9% 50 ml @ 100 mls/hr IVPB Q8HR [facility] Rx# :[id number] Output: Urine 300 Other: Voiding Method Bedpan Diaper Indwelling Catheter Diaper Incontinent # Voids 3 1 - Labs CBC & Chem 7: 01/25/19 15:00 01/25/19 15:00
[2019-01-25] MEDS: CIPROFLOXACIN 0.3% OPHTH SOLN 5 ML BTL BOTH EYES SCH ×4 (14:36→23:27)
--- NOTE | 2019-01-25 14:37 | P.PN ---
Subjective 63-year-old the female was admitted with severe deconditioning sacral decubitus ulcer right leg cellulitis, intertrigo of the breast area with secondary cellulitis in the right side with significant lesions on the breast, for which underlying malignancy need to be ruled out general surgery evaluated the patient for debridement of the sacral decubitus ulcer and patient is on IV antibiotics and infectious disease following the patient and patient is on ceftezole and at this time patient is on IV fluids. 01/25/2019 Patient is feeling much better today patient is undergoing decontamination for him lysin bedbugs. Patient will undergo debridement of the wound on Sunday. Constitutional: Denied any fatigue denied any fever. Cardio vascular: denied any chest pain, palpitations Gastrointestinal denied any nausea vomiting Pulmonary: Denied any shortness of breath cough Neurologic denied any new focal deficits All inpatient medications were reviewed and appropriate changes in these medications as dictated in the interval history and assessment and plan. Objective - Vital Signs Vital signs: Vital Signs Temp 97.4 F L 01/25/19 12:50 Pulse 50 L 01/25/19 12:50 Resp 16 01/25/19 12:50 BP 122/58 01/25/19 12:50 Pulse Ox 97 01/25/19 12:50 Intake & Output 01/24/19 01/25/19 01/25/19 18:59 06:59 18:59 Intake Total 620 700 Output Total 300 Balance 620 700 -300 Weight 90.718 kg Intake: Intake, IV Titration 620 700 Amount Sodium Chloride 0.9% 1, 570 650 000 ml @ 75 mls/hr IV . [id number] [facility] Rx#:[id number] ceFAZolin 2 gm In Sodium 50 50 Chloride 0.9% 50 ml @ 100 mls/hr IVPB Q8HR [facility] Rx# :[id number] Output: Urine 300 Other: Voiding Method Bedpan Diaper Indwelling Catheter Diaper Incontinent # Voids 3 1 - Exam PHYSICAL EXAMINATION: GENERAL: The patient is alert and oriented x3, not in any acute distress. Well developed, well nourished. HEENT: Pupils are round and equally reacting to light. EOMI. No scleral icterus. No conjunctival pallor. Normocephalic, atraumatic. No pharyngeal erythema. No thyromegaly. Patient appears to have visual loss in the left eye along with muscle weakness in the left eye CARDIOVASCULAR: S1 and S2 present. No murmurs, rubs, or gallops. PULMONARY: Chest is clear to auscultation, no wheezing or crackles. ABDOMEN: Soft, nontender, nondistended, normoactive bowel sounds. No palpable organomegaly. MUSCULOSKELETAL: No joint swelling or deformity. EXTREMITIES: No cyanosis, clubbing, or pedal edema. NEUROLOGICAL: Patient has weakness in both legs. SKIN: Patient does have significant intertrigo still probably secondary cellulitis patient has cellulitis in the right leg circumferential before below the knee in the midshin area. His sacral decubitus ulcer please refer to infectious disease documentation for further details - Labs CBC & Chem 7: 01/23/19 02:59 01/23/19 02:59 Assessment and Plan Plan: Possible sepsis from cellulitis under the breast as well as right leg: Patient will be started on ceftezole infectious disease evaluated the patient -Sacral decubitus ulcer for which need to bride meant -Multiple lesions on the breast underlying malignancy need to be ruled out -lactic acidosis secondary to above. Improved now -Generalized deconditioning and poorly well cared of patient may need placement PT and OT was consulted -Dehydration: IV fluids -I hyponatremia hypovolemic hyponatremia, lisinopril will be held and patient will be continued on IV fluids -Bilateral lower limb weakness secondary to generalized deconditioning no evidence of radicular pain and radiculopathy. No clinical evidence of stroke --Hyperlipidemia -Hypertension holding of antidepressant medications actually patient is hypotensive but --COPD without any acute exacerbation patient denied any other drug use -Hypothyroidism -History of gout patient is on very high-dose of maintenance colchicine which we'll cut down daily patient doesn't have any acute gout -Intertrigo fungal infection of the skin folds, nystatin powder -Depression DVT prophylaxis with subcutaneous heparin
[2019-01-25 15:26] LABS: HCT 36.1 % (34.0-46.0); MCH 32.7 pg (25.0-35.0); MCHC 33.2 g/dL (31.0-37.0); MCV 98.2 fL (80.0-100.0); Macrocytosis Slight; Mean Platelet Volume 8.4; Platelet Count 84 k/uL (150-450); RBC 3.67 m/uL (3.80-5.40); RDW 15.8 % (11.5-15.5); WBC 11.3 k/uL (3.8-10.6)
[2019-01-25 15:33] LABS: Calcium 7.6 mg/dL (8.4-10.2); Potassium 3.9 mmol/L (3.5-5.1)
--- NOTE | 2019-01-25 17:59 | PN ---
PROGRESS NOTE DATE OF SERVICE: 01/25/2019. REASON FOR FOLLOWUP: Bilateral gluteal pressure ulcer with left lower extremity cellulitis and right breast wound. INTERVAL HISTORY: The patient is currently afebrile. Patient has been breathing comfortably. The patient denies having any chest pain or shortness of breath. Occasional cough. No abdominal pain. Pain to the gluteal area and buttocks, no worsening. No diarrhea. PHYSICAL EXAMINATION: Blood pressure 120/58 with a pulse of 80, temperature 97.4, she is 97% on room air. General description is a middle aged female lying in bed in no distress. Respiratory system: Unlabored breathing. Clear to auscultation anteriorly. Heart S1, S2. Regular rate and rhythm. Abdomen was soft, no tenderness. Wounds currently dressed up. No obvious drainage on the dressing. Left leg redness improved. DIAGNOSTIC IMPRESSION/PLAN: 1. Patient with bilateral lower extremity cellulitis, left greater than the right, continue with cefazolin. 2. Bilateral gluteal wound with pressure ulcer, Medihoney with moist dressing to keep the area off the pressure. 3. Right breast wound. Local care with Aquacel Silver dressing, await biopsy on Sunday. MMODL / IJN: [id number] /
[2019-01-25] MEDS: PERPHENAZINE 4 MG TAB PO SCH (23:10)
[2019-01-26] MEDS: SODIUM CHLORIDE 0.9% 1,000 ML IV SCH (04:18)
[2019-01-26] MEDS: CIPROFLOXACIN 0.3% OPHTH SOLN 5 ML BTL BOTH EYES SCH ×6 (04:18→22:18)
[2019-01-26] MEDS: LEVOTHYROXINE 25 MCG TAB PO SCH (06:15)
[2019-01-26 06:38] LABS: HCT 32.1 % (34.0-46.0); HGB 10.7 gm/dL (11.4-16.0); MCH 32.4 pg (25.0-35.0); MCHC 33.4 g/dL (31.0-37.0); MCV 97.1 fL (80.0-100.0); Mean Platelet Volume 8.4; RBC 3.31 m/uL (3.80-5.40); RDW 15.9 % (11.5-15.5)
[2019-01-26 06:43] LABS: Platelet Count 78 k/uL (150-450)
[2019-01-26 06:51] LABS: African American GFR (CKD) >90 (>60 ml/min/1.73 sqM); Anion Gap 3 mmol/L; Blood Urea Nitrogen 15 mg/dL (7-17); Calcium 7.4 mg/dL (8.4-10.2); Carbon Dioxide 29 mmol/L (22-30); Chloride 106 mmol/L (98-107); Glucose 79 mg/dL (74-99); Potassium 3.5 mmol/L (3.5-5.1); Sodium 138 mmol/L (137-145)
[2019-01-26] MEDS: HEPARIN SODIUM,PORCINE 5,000 UNIT/ML 1 ML VIAL SQ SCH ×3 (10:19→22:16)
[2019-01-26] MEDS: SERTRALINE 50 MG TAB PO SCH (10:21)
[2019-01-26] MEDS: ATORVASTATIN 80 MG TAB PO SCH (10:21)
[2019-01-26] MEDS: FAMOTIDINE 20 MG TAB PO SCH ×2 (10:21→22:16)
[2019-01-26] MEDS: ALLOPURINOL 100 MG TAB PO SCH (10:21)
[2019-01-26] MEDS: MONTELUKAST 10 MG TAB PO SCH (10:21)
[2019-01-26] MEDS: COLCHICINE 0.6 MG EACH PO SCH (10:21)
--- NOTE | 2019-01-26 11:54 | P.PN ---
Subjective Progress Note Date: 01/26/19 CHIEF COMPLAINT: Complicated sacral ulcer HISTORY OF PRESENT ILLNESS: The patient is a 63-year-old female who presents with multiple complicated wounds including decubiti ulcer. She is still under lice and bed bug decontamination. ROS: No reports of nausea and vomiting. No fevers or chills. No new chest pain. PHYSICAL EXAM: VITAL SIGNS: Reviewed CONSTITUTIONAL: Well developed and in no acute distress. EYES: Conjuctivae without sclera icterus. Extraocular movements grossly intact. HEAD, EARS, NOSE, THROAT: Dry buccal mucosa. Head is atraumatic, normocephalic. Hears conversational speech. No nasal drainage. RESPIRATORY: Non-labored respirations and equal bilateral excursions. CARDIOVASCULAR: Palpable 2+ radial pulses. ABDOMEN: Soft. No peritonitis. MUSCULOSKELETAL: No gross deformity of the lower extremities noted. No clubbing. No cyanosis. SKIN: Well perfused. Improved skin turgor. NEUROLOGIC: Cranial nerves I through XII grossly intact. No focal or lateralizing signs. PSYCH: Appropriate affect. Alert and oriented to person, place and time. CHEST: Dressing along right chest intact CLINCAL LABS: White blood cell count improved from 13,600 to 11,300 to normal to day. Hgb drop over 1 g/dL from 12.0. ASSESSMENT: 1. Sacral decubit ulcer 2. Multiple complicated wounds PLAN: 1. Debridement of sacral decubitis ulcer tomorrow. 2. NPO after midnight 3. Decontamination for lice and bed bugs. Objective - Vital Signs Vital signs: Vital Signs Temp 98 F 01/26/19 11:49 Pulse 51 L 01/26/19 11:49 Resp 16 01/26/19 11:49 BP 110/58 01/26/19 11:49 Pulse Ox 98 01/26/19 11:49 Intake & Output 01/25/19 01/26/19 01/26/19 18:59 06:59 18:59 Intake Total 700 Output Total 600 600 Balance -600 100 Intake: Intake, IV Titration 700 Amount Sodium Chloride 0.9% 1, 650 000 ml @ 75 mls/hr IV . [id number] [facility] Rx#:[id number] ceFAZolin 2 gm In Sodium 50 Chloride 0.9% 50 ml @ 100 mls/hr IVPB Q8HR [facility] Rx# :[id number] Output: Urine 600 600 Uretheral (Hall) 600 Other: Voiding Method Indwelling Catheter Indwelling Catheter # Voids 1 # Bowel Movements 1 1 - Labs CBC & Chem 7: 01/26/19 06:27 01/26/19 06:27 Labs: Abnormal Lab Results - Last 24 Hours (Table) 01/25/19 01/25/19 01/26/19 Range/Units 15:00 15:00 06:27 WBC 11.3 H (3.8-10.6) k/uL RBC 3.67 L 3.31 L (3.80-5.40) m/uL Hgb 10.7 L (11.4-16.0) gm/dL Hct 32.1 L (34.0-46.0) % RDW 15.8 H 15.9 H (11.5-15.5) % Plt Count 84 L 78 L (150-450) k/uL Glucose 108 H (74-99) mg/dL Calcium 7.6 L (8.4-10.2) mg/dL 01/26/19 Range/Units 06:27 WBC (3.8-10.6) k/uL RBC (3.80-5.40) m/uL Hgb (11.4-16.0) gm/dL Hct (34.0-46.0) % RDW (11.5-15.5) % Plt Count (150-450) k/uL Glucose (74-99) mg/dL Calcium 7.4 L (8.4-10.2) mg/dL Assessment and Plan (1) Decubital ulcer Current Visit: Yes Status: Acute Code(s): L89.90 - PRESSURE ULCER OF UNSPECIFIED SITE, UNSPECIFIED STAGE SNOMED Code(s): 784214232 (2) Lice infestation Current Visit: Yes Status: Acute Code(s): B85.2 - PEDICULOSIS, UNSPECIFIED SNOMED Code(s): 465272053 (3) Infestation by bed bug Current Visit: Yes Status: Acute Code(s): B88.8 - OTHER SPECIFIED INFESTATIONS SNOMED Code(s): 82787385 (4) Cellulitis Current Visit: Yes Status: Acute Code(s): L03.90 - CELLULITIS, UNSPECIFIED SNOMED Code(s): 078369466
--- NOTE | 2019-01-26 12:34 | P.PN ---
Subjective 63-year-old the female was admitted with severe deconditioning sacral decubitus ulcer right leg cellulitis, intertrigo of the breast area with secondary cellulitis in the right side with significant lesions on the breast, for which underlying malignancy need to be ruled out general surgery evaluated the patient for debridement of the sacral decubitus ulcer and patient is on IV antibiotics and infectious disease following the patient and patient is on ceftezole and at this time patient is on IV fluids. 01/25/2019 Patient is feeling much better today patient is undergoing decontamination for him lysin bedbugs. Patient will undergo debridement of the wound on Sunday. 01/26/2019 No overnight events, overall patient is bit better. Patient's dehydration improved will increase her by mouth intake and the this can you IV fluids patient is getting Cipro eyedrops for him conjunctivitis . Constitutional: Denied any fatigue denied any fever. Cardio vascular: denied any chest pain, palpitations Gastrointestinal denied any nausea vomiting Pulmonary: Denied any shortness of breath cough Neurologic denied any new focal deficits All inpatient medications were reviewed and appropriate changes in these medications as dictated in the interval history and assessment and plan. Objective - Vital Signs Vital signs: Vital Signs Temp 98 F 01/26/19 11:49 Pulse 51 L 01/26/19 11:49 Resp 16 01/26/19 11:49 BP 110/58 01/26/19 11:49 Pulse Ox 98 01/26/19 11:49 Intake & Output 01/25/19 01/26/19 01/26/19 18:59 06:59 18:59 Intake Total 700 Output Total 600 600 700 Balance -600 100 -700 Intake: Intake, IV Titration 700 Amount Sodium Chloride 0.9% 1, 650 000 ml @ 75 mls/hr IV . [id number] [facility] Rx#:[id number] ceFAZolin 2 gm In Sodium 50 Chloride 0.9% 50 ml @ 100 mls/hr IVPB Q8HR [facility] Rx# :[id number] Output: Urine 600 600 700 Uretheral (Hall) 600 Other: Voiding Method Indwelling Catheter Indwelling Catheter Indwelling Catheter # Voids 1 # Bowel Movements 1 1 - Exam PHYSICAL EXAMINATION: GENERAL: The patient is alert and oriented x3, not in any acute distress. Well developed, well nourished. HEENT: Pupils are round and equally reacting to light. EOMI. No scleral icterus. No conjunctival pallor. Normocephalic, atraumatic. No pharyngeal erythema. No thyromegaly. Patient appears to have visual loss in the left eye along with muscle weakness in the left eye CARDIOVASCULAR: S1 and S2 present. No murmurs, rubs, or gallops. PULMONARY: Chest is clear to auscultation, no wheezing or crackles. ABDOMEN: Soft, nontender, nondistended, normoactive bowel sounds. No palpable organomegaly. MUSCULOSKELETAL: No joint swelling or deformity. EXTREMITIES: No cyanosis, clubbing, or pedal edema. NEUROLOGICAL: Patient has weakness in both legs. SKIN: Patient does have significant intertrigo still probably secondary cellulitis patient has cellulitis in the right leg circumferential before below the knee in the midshin area. His sacral decubitus ulcer please refer to infectious disease documentation for further details - Labs CBC & Chem 7: 01/26/19 06:27 01/26/19 06:27 Labs: Abnormal Lab Results - Last 24 Hours (Table) 01/25/19 01/25/19 01/26/19 Range/Units 15:00 15:00 06:27 WBC 11.3 H (3.8-10.6) k/uL RBC 3.67 L 3.31 L (3.80-5.40) m/uL Hgb 10.7 L (11.4-16.0) gm/dL Hct 32.1 L (34.0-46.0) % RDW 15.8 H 15.9 H (11.5-15.5) % Plt Count 84 L 78 L (150-450) k/uL Glucose 108 H (74-99) mg/dL Calcium 7.6 L (8.4-10.2) mg/dL 01/26/19 Range/Units 06:27 WBC (3.8-10.6) k/uL RBC (3.80-5.40) m/uL Hgb (11.4-16.0) gm/dL Hct (34.0-46.0) % RDW (11.5-15.5) % Plt Count (150-450) k/uL Glucose (74-99) mg/dL Calcium 7.4 L (8.4-10.2) mg/dL Assessment and Plan Plan: Possible sepsis from cellulitis under the breast as well as right leg: Patient is on ceftezolin infectious disease evaluated the patient -Sacral decubitus ulcer for which need to bride meant -Multiple lesions on the breast underlying malignancy need to be ruled out, but is flaccid tomorrow -lactic acidosis secondary to above. Improved now -Generalized deconditioning and poorly well cared of patient may need placement PT and OT was consulted -Dehydration: Improved and IV fluids will be discontinued -I hyponatremia hypovolemic hyponatremia, lisinopril was held and IV fluids will be discontinued -Bilateral lower limb weakness secondary to generalized deconditioning no evidence of radicular pain and radiculopathy. No clinical evidence of stroke --Hyperlipidemia -Hypertension continue to hold off on antihypertensive medications --COPD without any acute exacerbation patient denied any other drug use -Hypothyroidism -History of gout patient is on very high-dose of maintenance colchicine which we'll cut down daily patient doesn't have any acute gout -Intertrigo fungal infection of the skin folds, nystatin powder -Depression DVT prophylaxis with subcutaneous heparin
--- NOTE | 2019-01-26 20:41 | PN ---
PROGRESS NOTE DATE OF SERVICE: 01/26/2019. REASON FOR FOLLOWUP: 1. Right breast and bilateral gluteal wound. 2. Left lower extremity cellulitis. INTERVAL HISTORY: The patient is currently afebrile. Patient is breathing comfortably. The patient denies having any chest pain or shortness of breath or cough. No abdominal pain. Her main symptom has been pain in the bilateral gluteal wound area and no diarrhea. PHYSICAL EXAMINATION: Blood pressure 110/58 with a pulse of 51, temperature 98. She is 98% on room air. General description is a middle aged female lying in bed in no distress. Respiratory system: Unlabored breathing. Clear to auscultation anteriorly. Heart S1, S2. Regular rate and rhythm. Abdomen soft. No tenderness. Extremities: No edema of the feet. LABS: Hemoglobin is 7, white count 8, BUN of 15, creatinine 0.77. DIAGNOSTIC IMPRESSION/PLAN: 1. Patient with bilateral gluteal pressure ulcer for surgical debridement in the morning. Local care to continue with Medihoney to keep the area off pressure. 2. Right breast wound. Local care with Aquacel Silver dressing. For biopsy tomorrow. 3. Left lower extremity cellulitis. Clinically responding to Cefazolin, to continue. 4. Continue to monitor clinical course closely. MMODL / IJN: [id number] /
[2019-01-26] MEDS: PERPHENAZINE 4 MG TAB PO SCH (22:15)
[2019-01-27] MEDS: CIPROFLOXACIN 0.3% OPHTH SOLN 5 ML BTL BOTH EYES SCH ×2 (03:50→09:33)
[2019-01-27] MEDS: LEVOTHYROXINE 25 MCG TAB PO SCH (05:50)
[2019-01-27] MEDS: ALLOPURINOL 100 MG TAB PO SCH (09:30)
[2019-01-27] MEDS: HEPARIN SODIUM,PORCINE 5,000 UNIT/ML 1 ML VIAL SQ SCH ×3 (09:30→21:06)
[2019-01-27] MEDS: FAMOTIDINE 20 MG TAB PO SCH ×2 (09:30→21:06)
[2019-01-27] MEDS: MONTELUKAST 10 MG TAB PO SCH (09:30)
[2019-01-27] MEDS: ATORVASTATIN 80 MG TAB PO SCH (09:31)
[2019-01-27] MEDS: COLCHICINE 0.6 MG EACH PO SCH (09:34)
[2019-01-27] MEDS: SERTRALINE 50 MG TAB PO SCH (09:34)
--- NOTE | 2019-01-27 13:16 | P.PN ---
<Priscila Austin - Last Filed: 01/27/19 13:14> Progress Note - Text Progress Note Date: 01/27/19 Debridement of sacral decubitis ulcer and punch biopsy of right breast cancelled today due to continued lice infestation. Patient has received treatment over the weekend without much improvement. Patient did agree to have her hair shaved off today. Surgery rescheduled for tomorrow per Dr. Baker. Diet resumed today. NPO after midnight. <Sim Baker - Last Filed: 01/27/19 15:07> Progress Note - Text As above. Patient with ongoing lice infestation. Surgery postponed until tomorrow.
[2019-01-27] MEDS: PERPHENAZINE 4 MG TAB PO SCH (21:06)
--- NOTE | 2019-01-27 23:21 | PN ---
PROGRESS NOTE DATE OF SERVICE: 01/27/2019 REASON FOR FOLLOWUP: 1. Bilateral gluteal pressure ulcers. 2. Right breast wound. 3. Left lower extremity cellulitis. INTERVAL HISTORY: The patient is currently afebrile. The patient has been breathing comfortably. No chest pain or any cough. No abdominal pain. Main symptom remains to be pain in her gluteal area, scheduled for debridement tomorrow. PHYSICAL EXAMINATION: Blood pressure is 113/53 with a pulse of 55, temperature 98.1. She is 96% on room air. General description is a middle-aged female lying in bed in no distress. RESPIRATORY SYSTEM: Unlabored breathing. Clear to auscultation anteriorly. HEART: S1, S2. Regular rate and rhythm. ABDOMEN: Soft. No tenderness. Wounds are currently dressed up. No obvious drainage on the dressing. Left leg redness has improved. LABS: Hemoglobin is 10.7, white count 8.0. DIAGNOSTIC IMPRESSION AND PLAN: 1. Patient with bilateral gluteal pressure ulcers for debridement tomorrow. Local wound care with Medihoney. 2. Right breast wound for biopsy tomorrow. Local care with the Aquacel Silver dressing. 3. Left leg cellulitis. Continue with cefazolin. Overall improvement in the redness. Continue with supportive care. MMODL / IJN: [id number] /
[2019-01-28] MEDS: LEVOTHYROXINE 25 MCG TAB PO SCH (06:50)
[2019-01-28 07:08] LABS: Glucose,Whole Blood 102 mg/dL (75-99)
[2019-01-28] MEDS: HEPARIN SODIUM,PORCINE 5,000 UNIT/ML 1 ML VIAL SQ SCH ×4 (08:41→23:38)
[2019-01-28] MEDS ORDERED: LOPERAMIDE 2 MG CAP PO PRN (10:29)
[2019-01-28 11:24] LABS: Glucose,Whole Blood 92 mg/dL (75-99)
--- NOTE | 2019-01-28 13:48 | CDI ---
Documentation Clarification Form Date: 01/28/2019 1:39:19 PM From: Alexandra Doherty RN CCDS Admit Date: 01/24/2019 1:23:00 PM Patient Name: Olga Berumen Visit Number: [id number] Discharge Date: ATTENTION: The Clinical Documentation Specialists (CDI) and [facility] Coding Staff appreciate your assistance in clarifying documentation. Please respond to the clarification below the line at the bottom and electronically sign. The CDI & [facility] Coding staff will review the response and follow-up if needed. Please note: Queries are made part of the Legal Health Record. If you have any questions, please contact the author of this message via ITS. Dr. Paul Hanks Heart Failure is documented in the Past Medical History in the H & P History/Risk Factors: 63 year old female presents to the ED after a fall . Medical history Breast Cancer, CHF , COPD DM CO 2011 Clinical Indicators: VS/Pulse OX: 103/56 53 97.5 20 95% ra Chest X Ray: Stranded like bibasilar atelectasis , right greater than left likely relates to atelectasis Treatment: Lasix 80mg po daily; Coreg In your professional opinion, can you please clarify the acuity and type of CHF if known? * Chronic Systolic Heart Failure * Chronic Diastolic Heart Failure * Chronic Systolic & Diastolic Heart Failure * Unable to Determine * Other, please specify (Last Revision: September 2017) MTDD
[2019-01-28] MEDS: ALLOPURINOL 100 MG TAB PO SCH (14:26)
[2019-01-28] MEDS: ATORVASTATIN 80 MG TAB PO SCH (14:26)
[2019-01-28] MEDS: COLCHICINE 0.6 MG EACH PO SCH (14:26)
[2019-01-28] MEDS: MONTELUKAST 10 MG TAB PO SCH (14:27)
[2019-01-28] MEDS: SERTRALINE 50 MG TAB PO SCH (14:27)
[2019-01-28] MEDS: FAMOTIDINE 20 MG TAB PO SCH ×2 (14:27→21:34)
--- NOTE | 2019-01-28 16:02 | PN ---
PROGRESS NOTE DATE OF SERVICE: 01/28/2019 REASON FOR FOLLOWUP: Bilateral gluteal pressure ulcers, right breast wound and lower extremity cellulitis. INTERVAL HISTORY: The patient is currently afebrile. The patient is breathing comfortably. No chest pain or cough. No abdominal pain. Still having some pain in the low back. Patient is for debridement this afternoon. PHYSICAL EXAMINATION: Blood pressure is 116/55 with a pulse of 54, temperature of 98.3. She is 95% on room air. General description is a middle-aged female lying in bed in no distress. RESPIRATORY SYSTEM: Unlabored breathing. Clear to auscultation anteriorly. HEART: S1, S2. Regular rate and rhythm. ABDOMEN: Soft. No tenderness. LABS: No new labs have been obtained today. DIAGNOSTIC IMPRESSION AND PLAN: 1. Patient with bilateral gluteal pressure ulcers, for surgical debridement this afternoon. 2. Right breast wound, for biopsy this afternoon. 3. Left lower extremity cellulitis. Continue cefazolin. MMODL / IJN: [id number] /
[2019-01-28] MEDS: CARVEDILOL 3.125 MG TAB PO SCH (16:12)
--- NOTE | 2019-01-28 16:50 | PN ---
PROGRESS NOTE DATE OF SERVICE: 01/27/2019 CHIEF COMPLAINT: Frequent falling, general debility, sacral decubitus, lesions in the right breast. HISTORY OF PRESENT ILLNESS: This lady is continuing on IV fluids and seems to be awake and alert without a great deal of complaint. She is being evaluated for debridement of sacral decubitus as well as studies on her right breast to rule out another neoplasm. PHYSICAL EXAMINATION: She is awake and alert. Head, ears, eyes, nose, mouth and throat are unchanged. Neck veins are not distended. Chest is clear. Cardiac exam is normal. The abdomen is soft and there are no masses. Extremities are normal. IMPRESSION: 1. Frequent falling. 2. General debility. 3. Sacral decubitus. 4. Possible carcinoma of the right breast. PLAN: She awaits surgical procedures for her sacral decubitus and right breast and will continue to consider discharge plan. MMODL / IJN: [id number] /
[2019-01-28] MEDS ORDERED: LACTATED RINGERS 1,000 ML IV ONE (17:13)
[2019-01-28 17:38] LABS: Glucose,Whole Blood 79 mg/dL (75-99)
--- NOTE | 2019-01-28 17:47 | PN ---
PROGRESS NOTE DATE OF SERVICE: 01/28/2019 CHIEF COMPLAINT: Sacral decubitus. HISTORY OF PRESENT ILLNESS: There has been no change in this lady's condition. Her going to the operating room is being delayed because of her issue of bedbugs and scabies. She feels fine otherwise. PHYSICAL EXAMINATION: Head, ears, eyes, nose, mouth and throat were normal except for the left eye and the hematoma on the top of the head. Chest is clear. Cardiac exam is normal. Abdomen is soft, nontender. IMPRESSION: 1. Sacral decubitus. 2. Frequent falling. 3. History of carcinoma of the left breast and possible disease in the right breast now. PLAN: Await surgical interventions, and then after that she will require prison placement. MMODL / IJN: [id number] /
[2019-01-28] MEDS ORDERED: NEOSTIGMINE 1 MG/ML 10 ML VIAL ONE (18:16)
[2019-01-28] MEDS ORDERED: LIDOCAINE 1% INJ 10MG/ML (20 ML MDV) ONE (18:16)
[2019-01-28] MEDS ORDERED: GLYCOPYRROLATE 0.2 MG/ML 2 ML VIAL ONE (18:16)
[2019-01-28] MEDS ORDERED: fentaNYL (PF) 50 MCG/ML 2 ML AMP ONE (18:16)
[2019-01-28] MEDS ORDERED: ePHEDrine SULFATE/0.9% NACL/PF 50 MG/5 ML SYRINGE IV ONE (18:16)
[2019-01-28] MEDS ORDERED: ROCURONIUM BROMIDE 10 MG/ML 10 ML VIAL IV ONE (18:16)
[2019-01-28] MEDS ORDERED: PROPOFOL 10 MG/ML 20 ML VIAL IV ONE (18:16)
--- NOTE | 2019-01-28 19:15 | P.OP ---
Date of Procedure: 01/28/19 Procedure(s) Performed: PREOPERATIVE DIAGNOSIS: Right breast wound, sacral decubitus ulcer POSTOPERATIVE DIAGNOSIS: Same PROCEDURE: Debridement sacral decubitus ulcer, punch biopsy right breast wound 2 SURGEON: Olivia EBL: 10 mL ANESTHESIA: Gen. COMPLICATIONS: None OPERATIVE PROCEDURE: Patient placed in the operative table in the left cubitus position after general anesthesia achieved. Right breast and sacral region prepped and draped sterilely. 2 punch biopsies right breast wound took place approximately 6-7 cm apart. These were 4 mm punch biopsies. Skin closed at both locations using a single 4-0 Monocryl stitch. Sterile dressings were applied. Sick region then addressed. Necrotic skin and subcutaneous fat and muscle sharply debrided in excisional manner using a scalpel and a curet. Overall size 6 x 7 x [address] down to healthy tissue. Small areas of bleeding controlled using electrocautery. Sterile dressings applied. DISPOSITION: Stable to recovery room
[2019-01-28 20:01] LABS: Glucose,Whole Blood 120 mg/dL (75-99)
[2019-01-28 21:10] LABS: Glucose,Whole Blood 125 mg/dL (75-99)
[2019-01-28] MEDS: PERPHENAZINE 4 MG TAB PO SCH (21:34)
[2019-01-28] MEDS ORDERED: MORPHINE SULFATE 4 MG/ML SYRINGE IVP PRN (23:14)
[2019-01-29] MEDS: LEVOTHYROXINE 25 MCG TAB PO SCH (05:55)
[2019-01-29 07:09] LABS: Glucose,Whole Blood 115 mg/dL (75-99)
[2019-01-29] MEDS: CARVEDILOL 3.125 MG TAB PO SCH ×2 (08:21→16:54)
[2019-01-29] MEDS: HEPARIN SODIUM,PORCINE 5,000 UNIT/ML 1 ML VIAL SQ SCH ×3 (08:35→23:18)
[2019-01-29] MEDS: ALLOPURINOL 100 MG TAB PO SCH (08:35)
[2019-01-29] MEDS: ATORVASTATIN 80 MG TAB PO SCH (08:35)
[2019-01-29] MEDS: MONTELUKAST 10 MG TAB PO SCH (08:35)
[2019-01-29] MEDS: FAMOTIDINE 20 MG TAB PO SCH ×2 (08:36→20:59)
[2019-01-29] MEDS: SERTRALINE 50 MG TAB PO SCH (08:37)
[2019-01-29] MEDS: FUROSEMIDE 80 MG TAB PO SCH (08:37)
[2019-01-29] MEDS: COLCHICINE 0.6 MG EACH PO SCH (08:37)
[2019-01-29] MEDS ORDERED: FEBUXOSTAT 80 MG PO SCH (09:00)
[2019-01-29 11:22] LABS: Glucose,Whole Blood 133 mg/dL (75-99)
[2019-01-29 14:28] LABS: HCT 25.1 % (34.0-46.0); MCH 32.5 pg (25.0-35.0); MCHC 32.4 g/dL (31.0-37.0); MCV 100.2 fL (80.0-100.0); Macrocytosis Slight; RBC 2.51 m/uL (3.80-5.40); RDW 15.4 % (11.5-15.5); WBC 8.2 k/uL (3.8-10.6)
[2019-01-29 14:30] LABS: HGB 8.1 gm/dL (11.4-16.0)
[2019-01-29 14:36] LABS: ALT 16 U/L (9-52); AST 19 U/L (14-36); African American GFR (CKD) >90 (>60 ml/min/1.73 sqM); Albumin 1.4 g/dL (3.5-5.0); Alkaline Phosphatase 163 U/L (38-126); Anion Gap 4 mmol/L; Blood Urea Nitrogen 12 mg/dL (7-17); Carbon Dioxide 19 mmol/L (22-30); Chloride 117 mmol/L (98-107); Glucose 94 mg/dL (74-99); Sodium 140 mmol/L (137-145); Total Bilirubin 0.1 mg/dL (0.2-1.3); Total Protein 3.8 g/dL (6.3-8.2)
[2019-01-29 14:50] LABS: Calcium 5.1 mg/dL (8.4-10.2); Potassium 2.7 mmol/L (3.5-5.1)
[2019-01-29 15:13] LABS: Platelet Count 96 k/uL (150-450)
[2019-01-29 15:16] LABS: Eosinophils # (M) 0.16 k/uL (0-0.7); Lymphocytes # (M) 0.57 k/uL (1.0-4.8); Metamyelocytes # (M) 0.08 k/uL (0); Metamyelocytes % 1 %; Monocytes # (M) 0.49 k/uL (0-1.0); Neutrophils % (M) 84 %; Nucleated Red Blood Cells 0 /100 WBC (0-0); Total Cells Counted 100
[2019-01-29] MEDS ORDERED: Potassium Replacement Protocol 1 EACH MISC MISCELLANE PRN (15:35)
--- NOTE | 2019-01-29 16:48 | PN ---
PROGRESS NOTE DATE OF SERVICE: 01/29/2019 REASON FOR FOLLOWUP: Bilateral gluteal pressure ulcers, right breast wound and left leg cellulitis. INTERVAL HISTORY: The patient is afebrile. The patient was taken to the OR yesterday and is status post debridement of the sacral pressure ulcers and punch biopsy from the right breast wound, which the patient has tolerated. Patient currently denies having any chest pain or shortness of breath or cough. No abdominal pain or worsening pain to the wound area. PHYSICAL EXAMINATION: Blood pressure is 100/51 with a pulse of 52, temperature 98. She is 98% on 4 L nasal cannula. General description is a middle-aged female lying in bed in no distress. RESPIRATORY SYSTEM: Unlabored breathing. Clear to auscultation anteriorly. HEART: S1, S2. Regular rate and rhythm. ABDOMEN: Soft. No tenderness. Left leg redness improved. LABS: Hemoglobin 8.1, white count 8.2. Blood culture obtained currently pending. DIAGNOSTIC IMPRESSION AND PLAN: 1. Patient with bilateral gluteal pressure ulcers, status post debridement and culture. Will follow the cultures. Continue local wound care as ordered. 2. Patient with right breast wound, status post biopsy. Local wound care to continue with Aquacel Silver dressing. 3. Left leg cellulitis. Continue with cefazolin. Monitor clinical course closely. MMODL / IJN: [id number] /
[2019-01-29 16:51] LABS: Glucose,Whole Blood 172 mg/dL (75-99)
[2019-01-29] MEDS: POTASSIUM CHLORIDE 20 MEQ in WATER FOR INJECTION 1 100ML.BAG IVPB SCH ×3 (16:52→23:15)
--- NOTE | 2019-01-29 17:09 | PN ---
PROGRESS NOTE DATE OF SERVICE: 01/29/2019 CHIEF COMPLAINT: Failure to thrive, COPD, sacral decubitus and right breast lesion. HISTORY OF PRESENT ILLNESS: This lady remains comfortable and is doing well. Apparently the sacral decubitus was debrided and a core biopsy was obtained of the right breast. PHYSICAL EXAMINATION: Chest is clear. Cardiac exam is normal. Abdomen is soft, nontender. Extremities are normal. IMPRESSION: 1. Sacral decubitus. 2. Status post carcinoma of the left breast. 3. Possible underlying malignancy to the right breast. PLAN: 1. Await results of biopsy. 2. Start to consider discharge plan. MMODL / IJN: [id number] /
--- NOTE | 2019-01-29 19:10 | P.PN ---
Subjective Progress Note Date: 01/29/19 Principal diagnosis: Sacral wound Patient more alert today. Seems to be comfortable. Dressing was changed earlier today at the coccyx. Final pathology from breast biopsy pending. Objective - Vital Signs Vital signs: Vital Signs Temp 98 F 01/29/19 11:48 Pulse 52 L 01/29/19 15:01 Resp 16 01/29/19 15:01 BP 100/51 01/29/19 11:48 Pulse Ox 98 01/29/19 11:48 Intake & Output 01/29/19 01/29/19 01/30/19 06:59 18:59 06:59 Intake Total 25 Output Total 410 700 Balance -385 -700 Weight 90.718 kg Intake: IV 25 Output: Urine 400 700 Uretheral (Hall) 300 200 Estimated Blood Loss 10 Other: Voiding Method Indwelling Catheter Indwelling Catheter - Exam Sacral wound dressing clean without active drainage, breast incisions clean and dry - Labs CBC & Chem 7: 01/29/19 14:00 01/29/19 14:00 Labs: Abnormal Lab Results - Last 24 Hours (Table) 01/28/19 01/28/19 01/29/19 Range/Units 19:58 21:09 07:08 RBC (3.80-5.40) m/uL Hgb (11.4-16.0) gm/dL Hct (34.0-46.0) % MCV (80.0-100.0) fL Plt Count (150-450) k/uL Lymphocytes # (Manual) (1.0-4.8) k/uL Metamyelocytes # (Man) (0) k/uL Potassium (3.5-5.1) mmol/L Chloride (98-107) mmol/L Carbon Dioxide (22-30) mmol/L POC Glucose (mg/dL) 120 H 125 H 115 H (75-99) mg/dL Calcium (8.4-10.2) mg/dL Total Bilirubin (0.2-1.3) mg/dL Alkaline Phosphatase (38-126) U/L Total Protein (6.3-8.2) g/dL Albumin (3.5-5.0) g/dL 01/29/19 01/29/19 01/29/19 Range/Units 11:22 14:00 14:00 RBC 2.51 L (3.80-5.40) m/uL Hgb 8.1 L D (11.4-16.0) gm/dL Hct 25.1 L (34.0-46.0) % MCV 100.2 H (80.0-100.0) fL Plt Count 96 L (150-450) k/uL Lymphocytes # (Manual) 0.57 L (1.0-4.8) k/uL Metamyelocytes # (Man) 0.08 H (0) k/uL Potassium 2.7 L* (3.5-5.1) mmol/L Chloride 117 H (98-107) mmol/L Carbon Dioxide 19 L (22-30) mmol/L POC Glucose (mg/dL) 133 H (75-99) mg/dL Calcium 5.1 L* (8.4-10.2) mg/dL Total Bilirubin 0.1 L (0.2-1.3) mg/dL Alkaline Phosphatase 163 H (38-126) U/L Total Protein 3.8 L (6.3-8.2) g/dL Albumin 1.4 L (3.5-5.0) g/dL 01/29/19 Range/Units 16:50 RBC (3.80-5.40) m/uL Hgb (11.4-16.0) gm/dL Hct (34.0-46.0) % MCV (80.0-100.0) fL Plt Count (150-450) k/uL Lymphocytes # (Manual) (1.0-4.8) k/uL Metamyelocytes # (Man) (0) k/uL Potassium (3.5-5.1) mmol/L Chloride (98-107) mmol/L Carbon Dioxide (22-30) mmol/L POC Glucose (mg/dL) 172 H (75-99) mg/dL Calcium (8.4-10.2) mg/dL Total Bilirubin (0.2-1.3) mg/dL Alkaline Phosphatase (38-126) U/L Total Protein (6.3-8.2) g/dL Albumin (3.5-5.0) g/dL Microbiology - Last 24 Hours (Table) 01/28/19 19:00 Gram Stain - Preliminary Other - Other Wound Culture - Preliminary 01/28/19 19:00 Anaerobic Culture - Preliminary Other - Other Assessment and Plan (1) Sacral decubitus ulcer Narrative/Plan: Continue local wound care. Await biopsy from the breast. ECF planned. Current Visit: Yes Status: Acute Code(s): L89.159 - PRESSURE ULCER OF SACRAL REGION, UNSPECIFIED STAGE SNOMED Code(s): 635722081
[2019-01-29] MEDS ORDERED: CALCIUM GLUCONATE 1 GM in SODIUM CHLORIDE 0.9% 100 ML IVPB ONE (20:00)
[2019-01-29 20:45] LABS: Glucose,Whole Blood 122 mg/dL (75-99)
[2019-01-29] MEDS: CALCIUM CARBONATE 500 MG CHEWABLE PO SCH (20:59)
[2019-01-29] MEDS: PERPHENAZINE 4 MG TAB PO SCH (20:59)
[2019-01-29 22:22] LABS: Hemoglobin A1C 5.5 % (4.0-6.0)
[2019-01-30] MEDS: LEVOTHYROXINE 25 MCG TAB PO SCH (06:23)
[2019-01-30 07:17] LABS: Glucose,Whole Blood 89 mg/dL (75-99)
[2019-01-30] MEDS: CALCIUM CARBONATE 500 MG CHEWABLE PO SCH ×2 (09:24→20:26)
[2019-01-30] MEDS: CARVEDILOL 3.125 MG TAB PO SCH ×2 (09:24→16:18)
[2019-01-30] MEDS: HEPARIN SODIUM,PORCINE 5,000 UNIT/ML 1 ML VIAL SQ SCH ×2 (09:24→16:18)
[2019-01-30] MEDS: ALLOPURINOL 100 MG TAB PO SCH (09:24)
[2019-01-30] MEDS: FAMOTIDINE 20 MG TAB PO SCH ×2 (09:24→20:26)
[2019-01-30] MEDS: ATORVASTATIN 80 MG TAB PO SCH (09:24)
[2019-01-30] MEDS: MONTELUKAST 10 MG TAB PO SCH (09:24)
[2019-01-30] MEDS: COLCHICINE 0.6 MG EACH PO SCH (09:25)
--- NOTE | 2019-01-30 09:25 | CDI ---
Documentation Clarification Form Date: 01/30/2019 8:56:58 AM From: Alexandra Doherty RN CCDS Admit Date: 01/24/2019 1:23:00 PM Patient Name: Olga Berumen Visit Number: [id number] Discharge Date: ATTENTION: The Clinical Documentation Specialists (CDI) and [facility] Coding Staff appreciate your assistance in clarifying documentation. Please respond to the clarification below the line at the bottom and electronically sign. The CDI & [facility] Coding staff will review the response and follow-up if needed. Please note: Queries are made part of the Legal Health Record. If you have any questions, please contact the author of this message via ITS. Dr. Ángela Miranda Pressure ulcers are documented in the Nursing Assessment History/Risk Factors: 63-year-old female presents to the ED via EMS after a fall at home. Medical History Left Breast Cancer; Chronic bilateral lower leg weakness; DM; HTN; Clinical Indicators: Location: Right Lower Buttock Wound description: Pressure Injury Stage 2; Length 8cm; Width 3cm; Treatment: Optifoam Location: Left Upper Posterior Thigh Wound description: Pressure injury Unstagable; Necrosis 76-100%; dry and intact on 01/30 documentation states stage 2; small amount of serous drainage Please clarify the above Pressure Injuries. Elements for accurate and compliant documentation of an ulcer: *The location/laterality of the ulcer *Etiology (decubitus/pressure, diabetic, PVD) *Stage I-IV, Unstageable, Suspected Deep Tissue Injury (To the deepest stage) *If the ulcer was present at admission (POA) or occurred after admission In your professional opinion, can you please clarify the diagnosis, location, laterality and whether present on admission (POA): Stage 1 Pressure/Decubitus Ulcer (intact skin, non-blanching redness of local area) Stage 2 Pressure/Decubitus Ulcer (Partial thickness, loss of dermis, pink wound bed) Stage 3 Pressure/Decubitus Ulcer (Full thickness tissue loss) Stage 4 Pressure/Decubitus Ulcer (Full thickness tissue loss with exposed bone, tendon, or muscle. May have slough or eschar present) Unstageable Other condition, please specify Unable to determine Please indicate etiology of pressure ulcer (if known). (Last Revision: March 2017) Stage 3 Bilateral gluteal pressure ulcers MTDD
[2019-01-30] MEDS: FUROSEMIDE 80 MG TAB PO SCH (09:26)
[2019-01-30] MEDS: SERTRALINE 50 MG TAB PO SCH (09:26)
--- NOTE | 2019-01-30 09:27 | CDI ---
Documentation Clarification Form Date: 01/30/2019 7:57:50 AM From: Alexandra Doherty RN CCDS Admit Date: 01/24/2019 1:23:00 PM Patient Name: Olga Berumen Visit Number: [id number] Discharge Date: ATTENTION: The Clinical Documentation Specialists (CDI) and [facility] Coding Staff appreciate your assistance in clarifying documentation. Please respond to the clarification below the line at the bottom and electronically sign. The CDI & [facility] Coding staff will review the response and follow-up if needed. Please note: Queries are made part of the Legal Health Record. If you have any questions, please contact the author of this message via ITS. Dr. Motta Ruben Conflicting documentation has been found in the medical record please clarify the documented wounds and staging. Your Progress Note 01/[address] Baker Surgical Procedure Note Sacral decubitus ulcer size [id number] Nursing Wound Assessment Sacrum Pressure Injury Unstagable Surgical debridement 01/28 Bilateral Medial Buttock Unstagable dry intact and then noted 01/30 surgical debridement 01/28 Left Buttock Unstagable surgical debridement 01/28 History/Risk Factors: 63 year old female presents to the ED via EMS after a fall at home. Medical History Left Breast Cancer; Chronic bilateral lower leg weakness; DM; HTN, Oxygen 2L Clinical Indicators: Treatment: Surgical Debridement then wet to dry dressings. In your opinion, what is the most clinically appropriate diagnosis or diagnoses for this patient? Bilateral gluteal Pressure ulcers Sacral decubitus Sacrum pressure Injury Bilateral Medial Buttock Ulceration Left Buttock Ulcer Other explanation of clinical findings Unable to determine (no explanation for clinical findings) (Last Revision: September 2017) bilateral gluteal stage 3 pressure ulcers MTDD
[2019-01-30 10:01] LABS: Calcium 8.2 mg/dL (8.4-10.2)
--- NOTE | 2019-01-30 10:23 | CDI ---
Documentation Clarification Form Date: 01/30/2019 CDS: Alexandra Doherty RN, CCDS Admit Date: 01/24/2019 Patient Name: Olga Berumen ATTENTION: The Clinical Documentation Specialists (CDI) and [facility] Coding Staff appreciate your assistance in clarifying documentation. Please respond to the clarification below the line at the bottom and electronically sign. The CDI & [facility] Coding staff will review the response and follow-up if needed. Please note: Queries are made part of the Legal Health Record. If you have any questions, please contact the author of this message via ITS. Dr Hanks The diagnosis Sepsis was documented in the H & P and in the Internal Medicine progress notes 8111/2018, 01/25/2019, 01/26/2019(indicate location), but is not consistently noted in subsequent documentation. History/Risk Factors: 63 y/o female presents to the ED via EMS after a fall at home. Medical History Left breast cancer, chronic bilateral lower leg weakness, DM, HTN Clinical Indicators: Wbc 13.6 , Neutrophils 11.9, Lactic acid 2.8, Debridement of unstageable sacral ulcer. Left Leg cellulitis also noted to have bedbugs and scabies. Treatment: Cefazolin ivpb q 8 hr ; 2L ivfl bolus Please clarify if the above diagnosis was: [ ] Sepsis Present/active this admission [ ] Sepsis Treated and resolved this admission [ ] Sepsis Ruled out [ ] Other, please specify [ ] Clinically unable to determine (Last Revision: September 2017) MTDD
--- NOTE | 2019-01-30 16:52 | PN ---
PROGRESS NOTE CHIEF COMPLAINT: Sacral decubitus, lesions in the right breast, COPD, hypertension, renal failure. HISTORY OF PRESENT ILLNESS: This lady is stable and we are awaiting results of the biopsy of the right breast. Her potassium was quite low yesterday and this has been corrected. REVIEW OF SYSTEMS: She denies any headaches, neurologic problems, chest pain, shortness of breath, abdominal pain, nausea, etc. PHYSICAL EXAMINATION: Head ears, eyes, nose, mouth and throat are normal except for the absence of the left eye. Chest is clear and cardiac exam is normal. Abdomen is soft and nontender. Hall catheter is still in place. IMPRESSION: 1. Failure to thrive. 2. Sacral decubitus. 3. Lesions in the right breast. 4. History of carcinoma of the left breast. 5. Chronic obstructive pulmonary disease. 6. Hypertension. 7. Renal failure. PLAN: Follow up potassium, and in the meantime we are working on discharge plans for a penitentiary. MMODL / IJN: [id number] /
[2019-01-30] MEDS: HYDROcodone/APAP 5-325MG 1 EACH TAB PO PRN (17:29)
--- NOTE | 2019-01-30 18:37 | P.PN ---
Subjective Progress Note Date: 01/30/19 Principal diagnosis: Sacral wound Patient doing well today. Denies pain in the breast. Mild sacral discomfort. Culture showing gram-negative bacilli. No fevers. Objective - Vital Signs Vital signs: Vital Signs Temp 96.9 F L 01/30/19 12:46 Pulse 57 L 01/30/19 12:46 Resp 18 01/30/19 12:46 BP 103/54 01/30/19 12:46 Pulse Ox 97 01/30/19 12:46 Intake & Output 01/29/19 01/30/19 01/30/19 18:59 06:59 18:59 Intake Total 600 690 Output Total 687 143 9344 Balance -700 -100 -1710 Weight 90.718 kg 90 kg Intake: Intake, IV Titration 250 50 Amount Calcium Gluconate 1 gm In 100 Sodium Chloride 0.9% 100 ml @ 100 mls/hr IVPB ONCE ONE Rx#:[id number] Potassium Chloride 20 meq 100 In Water For Injection 1 100ml.bag @ 50 mls/hr IVPB Q2H [facility] Rx#: [id number] ceFAZolin 2 gm In Sodium 50 50 Chloride 0.9% 50 ml @ 100 mls/hr IVPB Q8HR [facility] Rx# :[id number] Oral 350 640 Output: Urine [phone] Uretheral (Hall) [phone] Other: Voiding Method Indwelling Catheter Indwelling Catheter Indwelling Catheter - Exam Right breast incision sites clean and dry Sacral wound clean with minimal serosanguineous drainage - Labs CBC & Chem 7: 01/29/19 14:00 01/30/19 09:40 Labs: Abnormal Lab Results - Last 24 Hours (Table) 01/29/19 01/30/19 Range/Units 20:44 09:40 POC Glucose (mg/dL) 122 H (75-99) mg/dL Calcium 8.2 L (8.4-10.2) mg/dL Microbiology - Last 24 Hours (Table) 01/28/19 19:00 Gram Stain - Final Other - Other Wound Culture - Final Morganella morganii Assessment and Plan (1) Sacral decubitus ulcer Narrative/Plan: Continue local wound care. Await biopsy results. Continue antibiotics. Current Visit: Yes Status: Acute Code(s): L89.159 - PRESSURE ULCER OF SACRAL REGION, UNSPECIFIED STAGE SNOMED Code(s): 011463694
[2019-01-30] MEDS: CEFEPIME 2 GM in SODIUM CHLORIDE 0.9% 100 ML IVPB SCH (20:27)
[2019-01-30] MEDS: PERPHENAZINE 4 MG TAB PO SCH (20:27)
--- NOTE | 2019-01-30 21:07 | PN ---
PROGRESS NOTE DATE OF SERVICE: 01/30/2019. REASON FOR FOLLOWUP: 1. Bilateral gluteal pressure ulcers. 2. Right breast wound. 3. Left lower extremity cellulitis. INTERVAL HISTORY: The patient is currently afebrile. The patient has been breathing comfortably. Pain to the bilateral gluteal area is the main symptom, currently controlled with pain medication. No chest pain, shortness of breath or cough. No abdominal pain or diarrhea. PHYSICAL EXAMINATION: Blood pressure is 103/54 with a pulse of 57, temperature 96.9. She is 97% on room air. General description is a middle-aged female lying in bed in no distress. RESPIRATORY SYSTEM: Unlabored breathing. Clear to auscultation anteriorly. HEART: S1, S2. Regular rate and rhythm. ABDOMEN: Soft. No tenderness. Left leg swelling and redness have improved. LABS: No new labs have been obtained today. Cultures obtained from the wound V.A.C. is currently showing gram-negative bacilli. DIAGNOSTIC IMPRESSION AND PLAN: 1. Patient with bilateral gluteal pressure ulcers, status post debridement. Cultures now showing gram-negative bacilli. Antibiotic will be adjusted to cefepime 2 grams q.12 while waiting for the final ID of that pathogen. Local care to continue per Surgery. 2. Right breast wound, status post biopsy. Waiting for the results. Local wound care with an Aquacel Silver dressing. MMODL / IJN: [id number] /
[2019-01-31] MEDS: HEPARIN SODIUM,PORCINE 5,000 UNIT/ML 1 ML VIAL SQ SCH ×4 (00:55→23:09)
[2019-01-31] MEDS: LEVOTHYROXINE 25 MCG TAB PO SCH (05:25)
[2019-01-31] MEDS: HYDROcodone/APAP 5-325MG 1 EACH TAB PO PRN ×2 (09:11→20:34)
[2019-01-31] MEDS: CEFEPIME 2 GM in SODIUM CHLORIDE 0.9% 100 ML IVPB SCH ×2 (09:12→20:30)
[2019-01-31] MEDS: ATORVASTATIN 80 MG TAB PO SCH (09:13)
[2019-01-31] MEDS: CARVEDILOL 3.125 MG TAB PO SCH ×2 (09:13→18:08)
[2019-01-31] MEDS: ALLOPURINOL 100 MG TAB PO SCH (09:13)
[2019-01-31] MEDS: FAMOTIDINE 20 MG TAB PO SCH ×2 (09:13→20:30)
[2019-01-31] MEDS: FUROSEMIDE 80 MG TAB PO SCH (09:13)
[2019-01-31] MEDS: SERTRALINE 50 MG TAB PO SCH (09:13)
[2019-01-31] MEDS: COLCHICINE 0.6 MG EACH PO SCH (09:13)
[2019-01-31] MEDS: MONTELUKAST 10 MG TAB PO SCH (09:13)
[2019-01-31] MEDS: CALCIUM CARBONATE 500 MG CHEWABLE PO SCH ×2 (09:13→20:30)
[2019-01-31] MEDS: CALCIUM ACETATE 667 MG CAP PO SCH ×2 (12:12→18:11)
--- NOTE | 2019-01-31 14:03 | PN ---
PROGRESS NOTE CHIEF COMPLAINT: Failure to thrive, sacral decubitus, possible CA of the right breast, diabetes, hypocalcemia. HISTORY OF PRESENT ILLNESS: This lady is stable and awaits results of the biopsy. Calcium was quite low and this is being corrected as well. REVIEW OF SYSTEMS: She is denying any neurologic problems, headaches, problems with the right eye, chest pain, shortness of breath, abdominal pain, etc. PHYSICAL EXAMINATION: Head, ears, eyes, nose, mouth, and throat are unremarkable. Hematoma on the top of the scalp is stable. Right eye is normal. Chest is clear. Cardiac exam is normal. Abdomen is soft, nontender. IMPRESSION: 1. Sacral decubitus. 2. Lesion in the right breast. 3. Status post carcinoma in the left breast. 4. Chronic obstructive pulmonary disease. 5. Congestive heart failure. 6. Diabetes. 7. Renal failure. 8. Hypocalcemia. PLAN: Repeat labs and await for breast biopsy results after which she may be going to a custodial. MMODL / IJN: [id number] /
--- NOTE | 2019-01-31 17:37 | P.PN ---
Subjective Progress Note Date: 01/31/19 Principal diagnosis: Sacral wound Patient doing better today. Biopsies from breast and wound are benign with no evidence of malignancy. Pain is controlled. Objective - Vital Signs Vital signs: Vital Signs Temp 97.6 F 01/31/19 12:26 Pulse 54 L 01/31/19 12:26 Resp 16 01/31/19 12:26 BP 110/54 01/31/19 12:26 Pulse Ox 99 01/31/19 12:26 Intake & Output 01/30/19 01/31/19 01/31/19 18:59 06:59 18:59 Intake Total 690 1040 100 Output Total 2400 2200 Balance -1710 -1160 100 Weight 87.5 kg Intake: Intake, IV Titration 50 100 100 Amount Cefepime 2 gm In Sodium 100 100 Chloride 0.9% 100 ml @ 200 mls/hr IVPB Q12HR [facility] Rx#:[id number] ceFAZolin 2 gm In Sodium 50 Chloride 0.9% 50 ml @ 100 mls/hr IVPB Q8HR [facility] Rx# :[id number] Oral 640 940 Output: Urine 2400 2200 Uretheral (Hall) 2400 2200 Other: Voiding Method Indwelling Catheter Indwelling Catheter Indwelling Catheter # Bowel Movements 1 - Exam Right breast incisions clean and dry Sacral wound clean - Labs CBC & Chem 7: 01/29/19 14:00 01/30/19 09:40 Labs: Microbiology - Last 24 Hours (Table) 01/28/19 19:00 Gram Stain - Final Other - Other Wound Culture - Final Morganella morganii Assessment and Plan (1) Sacral decubitus ulcer Narrative/Plan: Continue local wound care. We'll sign off at this point. Please call if needed. Current Visit: Yes Status: Acute Code(s): L89.159 - PRESSURE ULCER OF SACRAL REGION, UNSPECIFIED STAGE SNOMED Code(s): 493811835
--- NOTE | 2019-01-31 19:30 | PN ---
PROGRESS NOTE DATE OF SERVICE: 01/31/2019. REASON FOR FOLLOWUP: 1. Bilateral gluteal stage III pressure ulcers. 2. Right breast wound. 3. Left leg cellulitis. INTERVAL HISTORY: The patient is currently afebrile. The patient has been breathing comfortably. Denies having any chest pain or cough. Pain to the gluteal ulcers has improved. No nausea, vomiting and no diarrhea. PHYSICAL EXAMINATION: Blood pressure 110/54 with a pulse of 54, temperature 97.6. He is 99% on room air. General description is a middle-aged female lying in bed in no distress. RESPIRATORY SYSTEM: Unlabored breathing. Clear to auscultation anteriorly. HEART: S1, S2. Regular rate and rhythm. ABDOMEN: Soft. No tenderness. BILATERAL GLUTEAL PRESSURE ULCERS: No significant slough tissue. Some maceration was noted, but no foul-smelling drainage. Left leg redness has improved. LABS: Wound culture with morganella. DIAGNOSTIC IMPRESSION AND PLAN: 1. Patient with bilateral gluteal stage III pressure ulcers with mild cellulitis. Wound culture of debridement did show morganella. Currently covered with cefepime; to continue. Local wound care with Aquacel Silver dressing. Keep the area off pressure. 2. Right breast wound, status post biopsy. Local care with Aquacel Silver dressing. MMODL / IJN: [id number] /
[2019-01-31] MEDS: PERPHENAZINE 4 MG TAB PO SCH (20:30)
--- NOTE | 2019-01-31 21:51 | MISC ---
MISCELLANOUS REPORT QUERY: Regarding heart failure: Unable to determine. Sepsis ruled out. MMODL / IJN: [id number] /
[2019-02-01] MEDS: HYDROcodone/APAP 5-325MG 1 EACH TAB PO PRN ×2 (06:13→16:47)
[2019-02-01] MEDS: LEVOTHYROXINE 25 MCG TAB PO SCH (06:13)
[2019-02-01] MEDS: ATORVASTATIN 80 MG TAB PO SCH (09:56)
[2019-02-01] MEDS: CALCIUM ACETATE 667 MG CAP PO SCH ×3 (09:56→16:47)
[2019-02-01] MEDS: ALLOPURINOL 100 MG TAB PO SCH (09:56)
[2019-02-01] MEDS: CEFEPIME 2 GM in SODIUM CHLORIDE 0.9% 100 ML IVPB SCH ×2 (09:56→20:56)
[2019-02-01] MEDS: CARVEDILOL 3.125 MG TAB PO SCH ×2 (09:57→16:48)
[2019-02-01] MEDS: CALCIUM CARBONATE 500 MG CHEWABLE PO SCH ×2 (09:57→20:56)
[2019-02-01] MEDS: FUROSEMIDE 80 MG TAB PO SCH (09:57)
[2019-02-01] MEDS: SERTRALINE 50 MG TAB PO SCH (09:57)
[2019-02-01] MEDS: FAMOTIDINE 20 MG TAB PO SCH ×2 (09:57→20:56)
[2019-02-01] MEDS: HEPARIN SODIUM,PORCINE 5,000 UNIT/ML 1 ML VIAL SQ SCH ×3 (09:57→23:49)
[2019-02-01] MEDS: MONTELUKAST 10 MG TAB PO SCH (09:57)
[2019-02-01] MEDS: COLCHICINE 0.6 MG EACH PO SCH (09:58)
[2019-02-01] MEDS: PERPHENAZINE 4 MG TAB PO SCH (20:56)
[2019-02-02] MEDS: LEVOTHYROXINE 25 MCG TAB PO SCH (05:48)
[2019-02-02] MEDS: CEFEPIME 2 GM in SODIUM CHLORIDE 0.9% 100 ML IVPB SCH ×2 (09:51→22:01)
[2019-02-02] MEDS: CALCIUM ACETATE 667 MG CAP PO SCH ×3 (09:52→17:40)
[2019-02-02] MEDS: COLCHICINE 0.6 MG EACH PO SCH (09:52)
[2019-02-02] MEDS: HEPARIN SODIUM,PORCINE 5,000 UNIT/ML 1 ML VIAL SQ SCH ×2 (09:52→17:39)
[2019-02-02] MEDS: FAMOTIDINE 20 MG TAB PO SCH ×2 (09:52→22:01)
[2019-02-02] MEDS: ALLOPURINOL 100 MG TAB PO SCH (09:52)
[2019-02-02] MEDS: CALCIUM CARBONATE 500 MG CHEWABLE PO SCH ×2 (09:52→22:00)
[2019-02-02] MEDS: CARVEDILOL 3.125 MG TAB PO SCH ×2 (09:52→17:37)
[2019-02-02] MEDS: ATORVASTATIN 80 MG TAB PO SCH (09:52)
[2019-02-02] MEDS: SERTRALINE 50 MG TAB PO SCH (09:52)
[2019-02-02] MEDS: MONTELUKAST 10 MG TAB PO SCH (09:52)
[2019-02-02] MEDS: FUROSEMIDE 80 MG TAB PO SCH (09:53)
[2019-02-02] MEDS: HYDROcodone/APAP 5-325MG 1 EACH TAB PO PRN (22:00)
[2019-02-02] MEDS: PERPHENAZINE 4 MG TAB PO SCH (22:00)
[2019-02-03] MEDS: HEPARIN SODIUM,PORCINE 5,000 UNIT/ML 1 ML VIAL SQ SCH ×4 (00:21→23:22)
--- NOTE | 2019-02-03 01:33 | PN ---
PROGRESS NOTE DATE OF SERVICE: 02/02/2019. REASON FOR FOLLOWUP: Bilateral stage III pressure ulcer and concern for cellulitis. INTERVAL HISTORY: The patient is currently afebrile. Patient has been breathing comfortably. The patient denies having any chest pain or cough, no abdominal pain or worsening pain in the sacral wound area. PHYSICAL EXAMINATION: Blood pressure is 130/60 with a BUN of 54, temperature 98.1. She is 95% on room air. General description is a middle-aged female lying in bed in no distress. Respiratory system: Unlabored breathing. Clear to auscultation anteriorly. Heart S1, S2. Regular rate and rhythm. ABDOMEN: Soft, no tenderness. The sacral wound is currently dressed up. No obvious drainage on the dressing. LABS: Wound culture finalized with Morganella as well as the multiple anaerobes. DIAGNOSTIC IMPRESSION AND PLAN: Patient with bilateral stage III pressure ulcer status post debridement. Local wound culture multiple pathogen. Current covered with Cefepime. We will add oral Flagyl. Local wound care with Aquacel Silver dressing. Keep the area off the pressure. Hopefully finish therapy with oral antibiotics. Continue supportive care. MMODL / IJN: [id number] /
[2019-02-03] MEDS: LEVOTHYROXINE 25 MCG TAB PO SCH (06:08)
[2019-02-03] MEDS: CALCIUM CARBONATE 500 MG CHEWABLE PO SCH ×2 (08:33→20:31)
[2019-02-03] MEDS: FAMOTIDINE 20 MG TAB PO SCH ×2 (08:33→20:31)
[2019-02-03] MEDS: ALLOPURINOL 100 MG TAB PO SCH (08:33)
[2019-02-03] MEDS: CARVEDILOL 3.125 MG TAB PO SCH ×2 (08:33→17:41)
[2019-02-03] MEDS: CEFEPIME 2 GM in SODIUM CHLORIDE 0.9% 100 ML IVPB SCH ×2 (08:33→20:31)
[2019-02-03] MEDS: metroNIDAZOLE 500 MG TAB PO SCH ×3 (08:33→23:22)
[2019-02-03] MEDS: MONTELUKAST 10 MG TAB PO SCH (08:33)
[2019-02-03] MEDS: ATORVASTATIN 80 MG TAB PO SCH (08:33)
[2019-02-03] MEDS: FUROSEMIDE 80 MG TAB PO SCH (08:34)
[2019-02-03] MEDS: HYDROcodone/APAP 5-325MG 1 EACH TAB PO PRN (08:35)
[2019-02-03] MEDS: CALCIUM ACETATE 667 MG CAP PO SCH ×3 (08:35→17:41)
[2019-02-03] MEDS: COLCHICINE 0.6 MG EACH PO SCH (08:35)
[2019-02-03] MEDS: SERTRALINE 50 MG TAB PO SCH (08:35)
[2019-02-03 14:10] VITALS: BMI 32.8
--- NOTE | 2019-02-03 16:22 | PN ---
PROGRESS NOTE DATE OF SERVICE: 02/01/2019 CHIEF COMPLAINT: General debility, history of carcinoma of the breast, diabetes, COPD, absence of the left eye, sacral decubitus and lesion in the right breast. HISTORY OF PRESENT ILLNESS: This lady has been stable and there has been no interval change. Biopsy report came back not showing any malignancy of the breast. We are now waiting for a discharge plan. PHYSICAL EXAMINATION: Chest is clear. Cardiac exam is normal. Abdomen is soft, nontender. Extremities are the same. The sacral decubitus is clean. IMPRESSION: 1. General debility. 2. Dehydration. 3. Lesion in the right breast. 4. Sacral decubitus. 5. History of pediculosis and bedbugs. PLAN: No change in program. MMODL / IJN: [id number] /
--- NOTE | 2019-02-03 16:46 | PN ---
PROGRESS NOTE DATE OF SERVICE: 02/02/2019 CHIEF COMPLAINT: General debility, sacral decubitus, COPD, CHF, history of carcinoma of the breast. HISTORY OF PRESENT ILLNESS: This lady is stable and comfortable and doing well. She is awake and alert and we are only waiting for a discharge plan. PHYSICAL EXAMINATION: Chest is clear. Cardiac exam is normal. Abdomen is soft, nontender. Extremities are normal. IMPRESSION: 1. Status post biopsy of the right breast -- benign. 2. Sacral decubitus. 3. General debility and weakness. PLAN: Discharge is pending either to a assisted or home. MMODL / IJN: [id number] /
--- NOTE | 2019-02-03 16:52 | PN ---
PROGRESS NOTE DATE OF SERVICE: 02/03/2019 CHIEF COMPLAINT: General debility and weakness. HISTORY OF PRESENT ILLNESS: This lady is stable and biopsy did not reveal neoplasm of the breast. She is currently able to be discharged. It is not clear if she is going to go to a rehab facility or home. Exam is unchanged. IMPRESSION: 1. General debility and weakness. 2. Congestive heart failure. 3. Chronic obstructive pulmonary disease. 4. Diabetes. 5. History of carcinoma of the breast. 6. Sacral decubitus. PLAN: Await discharge decision and plan. MMODL / IJN: [id number] /
[2019-02-03] MEDS: PERPHENAZINE 4 MG TAB PO SCH (20:31)
--- NOTE | 2019-02-03 22:40 | PN ---
PROGRESS NOTE DATE OF SERVICE: 02/03/2019. REASON FOR FOLLOWUP: Bilateral gluteal stage III pressure ulcers with cellulitis. INTERVAL HISTORY: The patient is currently afebrile. The patient has been breathing comfortably. Patient denies having any chest pain or any cough. No abdominal pain or any worsening pain to the bilateral gluteal wound area. PHYSICAL EXAMINATION: Blood pressure 109/55 with a pulse of 83, temperature of 96.9. She is 96% on room air. General description is a middle-aged female lying in bed in no distress. RESPIRATORY SYSTEM: Unlabored breathing. Clear to auscultation anteriorly. HEART: S1, S2. Regular rate and rhythm. ABDOMEN: Soft. No tenderness. EXTREMITIES: No edema of the feet. LABS: No new labs have been obtained today. DIAGNOSTIC IMPRESSION AND PLAN: Patient with bilateral gluteal pressure ulcers, status post debridement. Culture did show morganella and anaerobes. Currently on cefepime and Flagyl. Local care with an Aquacel Silver dressing. Keep the area off pressure. Plan to finish therapy with oral antibiotics and local wound care as ordered. Continue with supportive care. MMODL / IJN: [id number] /
[2019-02-04] MEDS: LEVOTHYROXINE 25 MCG TAB PO SCH (05:53)
[2019-02-04] MEDS: CEFEPIME 2 GM in SODIUM CHLORIDE 0.9% 100 ML IVPB SCH (08:19)
[2019-02-04] MEDS: HEPARIN SODIUM,PORCINE 5,000 UNIT/ML 1 ML VIAL SQ SCH ×3 (08:20→23:38)
[2019-02-04] MEDS: ALLOPURINOL 100 MG TAB PO SCH (08:20)
[2019-02-04] MEDS: FAMOTIDINE 20 MG TAB PO SCH ×2 (08:20→22:17)
[2019-02-04] MEDS: CARVEDILOL 3.125 MG TAB PO SCH ×2 (08:20→16:59)
[2019-02-04] MEDS: CALCIUM CARBONATE 500 MG CHEWABLE PO SCH ×2 (08:20→22:18)
[2019-02-04] MEDS: MONTELUKAST 10 MG TAB PO SCH (08:20)
[2019-02-04] MEDS: ATORVASTATIN 80 MG TAB PO SCH (08:20)
[2019-02-04] MEDS: COLCHICINE 0.6 MG EACH PO SCH (08:20)
[2019-02-04] MEDS: CALCIUM ACETATE 667 MG CAP PO SCH ×3 (08:21→16:59)
[2019-02-04] MEDS: FUROSEMIDE 80 MG TAB PO SCH (08:21)
[2019-02-04] MEDS: metroNIDAZOLE 500 MG TAB PO SCH ×3 (08:21→22:18)
[2019-02-04] MEDS: SERTRALINE 50 MG TAB PO SCH (08:21)
[2019-02-04] MEDS: HYDROcodone/APAP 5-325MG 1 EACH TAB PO PRN (09:31)
[2019-02-04] MEDS: CHOLESTYRAMINE (WITH SUGAR) 4 GM PACKET PO SCH (16:59)
[2019-02-04] MEDS: VANCOMYCIN ORAL SOLUTION 250 MG/5 ML BOTTLE PO SCH ×2 (16:59→23:38)
[2019-02-04] MEDS: CHERRY FLAVOR 60 ML BOTTLE PO PRN (17:00)
--- NOTE | 2019-02-04 21:36 | DS ---
DISCHARGE SUMMARY CHIEF COMPLAINT: General debility, sacral decubitus, lesion of the right breast, COPD, CHF. HISTORY OF PRESENT ILLNESS AND PHYSICAL EXAM: Details of this lady's history and physical can be found in the initial workup. LABORATORY STUDIES: While she was in the hospital, she had laboratory studies, details of which can be found in the laboratory section of her chart. COURSE IN HOSPITAL: After admission, she was placed on bedrest, started on intravenous fluids and she was seen by Surgery and taken for debridement of the sacral decubitus. She also had biopsies of the right breast, which came back not showing neoplasm. She is on antibiotics and in the hospital, received physical therapy and did begin to regain quite a bit of her strength and balance. It was thought she would probably have to go to a correction, but they are having difficulty getting her in because of the history of pediculosis and bedbugs. She is doing well enough that it was felt that she could go home on the and she will go home on activity as tolerated. She will receive home care for physical therapy and wound care to the sacrum. She will be seen in the office in several days. FINAL DIAGNOSES: 1. General debility and failure to thrive. 2. Sacral decubitus. 3. Lesions in the right breast. 4. History of breast cancer. 5. Chronic obstructive pulmonary disease. 6. Hypertension. 7. Insulin dependent diabetes mellitus. OPERATIONS: Debridement of sacrum and biopsy of right breast. CONSULTATIONS: General surgery, physical therapy and Infectious Disease. She is improved. MMODL / IJN: [id number] /
[2019-02-04] MEDS: PERPHENAZINE 4 MG TAB PO SCH (22:18)
--- NOTE | 2019-02-05 05:33 | PN ---
PROGRESS NOTE DATE OF SERVICE: 02/04/2019. REASON FOR FOLLOWUP: 1. Bilateral gluteal pressure ulcer. 2. Diarrhea and C difficile colitis. INTERVAL HISTORY: The patient is currently afebrile. Patient has been breathing comfortably. Denies having any worsening pain to the bilateral gluteal pressure ulcer area. No nausea, vomiting, or abdominal pain. However, the patient has significant diarrhea per the nursing staff with multiple loose stools. PHYSICAL EXAMINATION: On examination, blood pressure 115/57 with a pulse of 52, temperature 96.8. She is 93% on room air. General description is a middle-aged female lying in bed in no distress. RESPIRATORY SYSTEM: Unlabored breathing, clear to auscultation anteriorly. HEART: S1, S2. Regular rate and rhythm. ABDOMEN: Soft, no tenderness. EXTREMITIES: No edema of the feet. LABS: Hemoglobin 8.1, white count 8.2. BUN of 12 creatinine 0.71. DIAGNOSTIC IMPRESSION AND PLAN: 1. Patient with bilateral gluteal pressure ulcer with secondary cellulitis . To continue with Flagyl course with anaerobes grown from those cultures. Discontinue cefepime in view of the development of Clostridium difficile colitis. 2. Clostridium difficile colitis. We will add Questran for symptomatic relief. Discontinue the Lomotil. Add vancomycin 250 p.o. q.6 hours and monitor clinical course closely. Continue with supportive care. MMODL / IJN: [id number] /
[2019-02-05] MEDS: CHERRY FLAVOR 60 ML BOTTLE PO PRN ×2 (07:50→11:23)
[2019-02-05] MEDS: COLCHICINE 0.6 MG EACH PO SCH (07:51)
[2019-02-05] MEDS: CALCIUM CARBONATE 500 MG CHEWABLE PO SCH ×2 (07:51→22:40)
[2019-02-05] MEDS: FUROSEMIDE 80 MG TAB PO SCH (07:51)
[2019-02-05] MEDS: metroNIDAZOLE 500 MG TAB PO SCH ×3 (07:51→22:38)
[2019-02-05] MEDS: FAMOTIDINE 20 MG TAB PO SCH ×2 (07:51→22:38)
[2019-02-05] MEDS: VANCOMYCIN ORAL SOLUTION 250 MG/5 ML BOTTLE PO SCH ×3 (07:51→17:57)
[2019-02-05] MEDS: ATORVASTATIN 80 MG TAB PO SCH (07:52)
[2019-02-05] MEDS: HEPARIN SODIUM,PORCINE 5,000 UNIT/ML 1 ML VIAL SQ SCH ×2 (07:52→17:57)
[2019-02-05] MEDS: CALCIUM ACETATE 667 MG CAP PO SCH ×3 (07:52→17:56)
[2019-02-05] MEDS: ALLOPURINOL 100 MG TAB PO SCH (07:52)
[2019-02-05] MEDS: CHOLESTYRAMINE (WITH SUGAR) 4 GM PACKET PO SCH ×2 (07:52→15:44)
[2019-02-05] MEDS: MONTELUKAST 10 MG TAB PO SCH (07:52)
[2019-02-05] MEDS: CARVEDILOL 3.125 MG TAB PO SCH ×2 (07:52→17:57)
[2019-02-05] MEDS: SERTRALINE 50 MG TAB PO SCH (07:52)
[2019-02-05] MEDS: LEVOTHYROXINE 25 MCG TAB PO SCH (07:55)
[2019-02-05] MEDS: HYDROcodone/APAP 5-325MG 1 EACH TAB PO PRN (11:20)
--- NOTE | 2019-02-05 18:01 | PN ---
PROGRESS NOTE DATE OF SERVICE: 02/05/2019 CHIEF COMPLAINT: General debility, sacral decubitus, lesion in the right breast, COPD and history of carcinoma of the breast. HISTORY OF PRESENT ILLNESS: This lady was discharged yesterday but apparently has not been able to leave the hospital. Physical exam is unchanged. IMPRESSION: 1. Sacral decubitus. 2. Lesions in the right breast. 3. General debility. 4. Chronic obstructive pulmonary disease. 5. History of carcinoma of the left breast. 6. Pediculosis capitis and bedbugs. PLAN: Await discharge, which should be today. MMODL / IJN: [id number] /
[2019-02-05] MEDS: PERPHENAZINE 4 MG TAB PO SCH (22:40)
[2019-02-06] MEDS: HEPARIN SODIUM,PORCINE 5,000 UNIT/ML 1 ML VIAL SQ SCH ×2 (00:44→08:20)
[2019-02-06 05:12] VITALS: BP 118/56; PULSE 58; RESP 18; TEMP 98.3
[2019-02-06] MEDS: LEVOTHYROXINE 25 MCG TAB PO SCH (05:41)
--- NOTE | 2019-02-06 06:38 | PN ---
PROGRESS NOTE DATE OF SERVICE: 02/05/2019. REASON FOR FOLLOWUP: 1. Bilateral gluteal pressure ulcer with secondary cellulitis. 2. Diarrhea. INTERVAL HISTORY: The patient is currently afebrile. Patient has been breathing comfortably. Pain to the bilateral gluteal area still persists, but no worsening. No chest pain, shortness of breath or cough. The patient's diarrhea has resolved and did have a soft bowel movement. PHYSICAL EXAMINATION: On examination, blood pressure is 106/59 with a pulse of 50, temperature 96.9. She is 96% on room air. General description is a middle-aged female lying in bed in no distress. RESPIRATORY SYSTEM: Unlabored breathing, clear to auscultation anteriorly. HEART: S1, S2. Regular rate and rhythm. ABDOMEN: Soft, no tenderness. Examination of the bilateral gluteal wound: The left one is deeper and did have slough tissue. Right one is not as deep with less slough tissue. LABS: Stool for C diff toxin is negative. DIAGNOSTIC IMPRESSION AND PLAN: 1. Patient with bilateral gluteal pressure ulcer with concern for some secondary cellulitis. The cultures did show multiple pathogen, especially the anaerobic gram- negative and to continue with Flagyl for now only. Local wound care to the left gluteal wound with Medihoney and to the right with Aquacel Silver. Keep the area dry and pressure off. 2. The patient with diarrhea x1 yesterday with a PCR positive though toxin is negative likely representing a colonization and not a Clostridium difficile colitis as the patient was noticed today to have a soft/formed bowel movement which will be unlikely in case of Clostridium difficile colitis. Discontinue vancomycin. MMODL / IJN: [id number] /
[2019-02-06] MEDS: FAMOTIDINE 20 MG TAB PO SCH (08:19)
[2019-02-06] MEDS: CHOLESTYRAMINE (WITH SUGAR) 4 GM PACKET PO SCH ×2 (08:19→12:07)
[2019-02-06] MEDS: CARVEDILOL 3.125 MG TAB PO SCH (08:19)
[2019-02-06] MEDS: ALLOPURINOL 100 MG TAB PO SCH (08:19)
[2019-02-06] MEDS: CALCIUM ACETATE 667 MG CAP PO SCH ×2 (08:19→12:13)
[2019-02-06] MEDS: MONTELUKAST 10 MG TAB PO SCH (08:19)
[2019-02-06] MEDS: metroNIDAZOLE 500 MG TAB PO SCH (08:20)
[2019-02-06] MEDS: FUROSEMIDE 80 MG TAB PO SCH (08:20)
[2019-02-06] MEDS: COLCHICINE 0.6 MG EACH PO SCH (08:20)
[2019-02-06] MEDS: SERTRALINE 50 MG TAB PO SCH (08:20)
[2019-02-06] MEDS: CALCIUM CARBONATE 500 MG CHEWABLE PO SCH (08:20)
[2019-02-06] MEDS: ATORVASTATIN 80 MG TAB PO SCH (08:20)
--- NOTE | 2019-02-06 15:14 | PN ---
PROGRESS NOTE DATE OF SERVICE: 02/06/2019 REASON FOR FOLLOWUP: Bilateral gluteal pressure ulcer. INTERVAL HISTORY: The patient is currently afebrile. Patient has been breathing comfortably. Patient denies having any chest pain or any cough. No nausea, no vomiting. No abdominal pain or any diarrhea. PHYSICAL EXAMINATION: Blood pressure is 119/56, pulse of 58, temperature 98.3, she is 93% on room air. General description is a middle-aged female, lying in bed in no distress. RESPIRATORY SYSTEM: Unlabored breathing, clear to auscultation anteriorly. HEART: S1, S2. Regular rate and rhythm. ABDOMEN: Soft, nontender. Bilateral gluteal pressure ulcer dressed up, no obvious drainage on the dressing. LABS: No new labs have been obtained today. DIAGNOSTIC IMPRESSION AND PLAN: 1. Patient with gluteal pressure ulcer stage III, status post primary local wound. Continue with Medihoney and Aquacel Silver as ordered. A short course of oral Flagyl. Follow up in the [facility] next week. 2. Positive stool PCR with Clostridium difficile, likely colonization. Toxin was negative. No need for any treatment for the same. MMODL / IJN: [id number] /
--- NOTE | 2019-02-06 22:32 | PN ---
PROGRESS NOTE CHIEF COMPLAINT: Infected sacral decubitus, history of carcinoma of the breast. HISTORY OF PRESENT ILLNESS: This lady was to have gone home several days ago but apparently was found to have Clostridium difficile. She has now been cleared by Infectious Disease to go home today. MMODL / IJN: [id number] /
== END 2019-02-06 14:00 | disposition home health service (06) | DRG 580 ==
LOC: EC 01:12 → 3NMEDONC 06:28 → OBSVTOIN 01-24 13:23 → 3NMEDONC 01-24 14:54
PROVIDERS: ADMIT Family Medicine; ATTEND Family Medicine
PROC: 0HBT3ZX Excision of Right Breast, Percutaneous Approach, Diagnostic (ICD-10-PCS; 2019-01-28)
PROC: 0KBP0ZZ Excision of Left Hip Muscle, Open Approach (ICD-10-PCS; principal; 2019-01-28 08:30)
PROC: 0KBN0ZZ Excision of Right Hip Muscle, Open Approach (ICD-10-PCS; 2019-01-28 08:30)
DX: L89.153 Pressure ulcer of sacral region, stage 3 (principal); I13.0 Hypertensive heart and chronic kidney disease with heart failure and stage 1 through stage 4 chronic kidney disease, or unspecified chronic kidney disease; N17.9 Acute kidney failure, unspecified; E87.2 Acidosis; E87.1 Hypo-osmolality and hyponatremia; J98.11 Atelectasis; L03.115 Cellulitis of right lower limb; L03.116 Cellulitis of left lower limb; A04.72 Enterocolitis due to Clostridium difficile, not specified as recurrent; I95.9 Hypotension, unspecified; E11.22 Type 2 diabetes mellitus with diabetic chronic kidney disease; I50.9 Heart failure, unspecified; N18.3 Chronic kidney disease, stage 3 (moderate); E83.51 Hypocalcemia; S09.90XA Unspecified injury of head, initial encounter; B36.9 Superficial mycosis, unspecified; B85.0 Pediculosis due to Pediculus humanus capitis; B88.8 Other specified infestations; B86 Scabies; M62.50 Muscle wasting and atrophy, not elsewhere classified, unspecified site; R62.7 Adult failure to thrive; M54.5 Low back pain; J44.9 Chronic obstructive pulmonary disease, unspecified; D64.9 Anemia, unspecified; E86.1 Hypovolemia; E86.0 Dehydration; H10.9 Unspecified conjunctivitis; L30.4 Erythema intertrigo; E78.5 Hyperlipidemia, unspecified; M10.9 Gout, unspecified; G47.30 Sleep apnea, unspecified; E03.9 Hypothyroidism, unspecified; I83.90 Asymptomatic varicose veins of unspecified lower extremity; F90.9 Attention-deficit hyperactivity disorder, unspecified type; F31.9 Bipolar disorder, unspecified; L40.9 Psoriasis, unspecified; M19.90 Unspecified osteoarthritis, unspecified site; I25.2 Old myocardial infarction; Z79.890 Hormone replacement therapy; Z79.899 Other long term (current) drug therapy; Z87.01 Personal history of pneumonia (recurrent); Z85.3 Personal history of malignant neoplasm of breast; Z90.12 Acquired absence of left breast and nipple; Z95.0 Presence of cardiac pacemaker; Z90.49 Acquired absence of other specified parts of digestive tract; Z90.710 Acquired absence of both cervix and uterus; Z90.01 Acquired absence of eye; Z87.891 Personal history of nicotine dependence; Z99.89 Dependence on other enabling machines and devices; Z98.41 Cataract extraction status, right eye; Z88.6 Allergy status to analgesic agent; Z88.0 Allergy status to penicillin; Z88.8 Allergy status to other drugs, medicaments and biological substances; W19.XXXA Unspecified fall, initial encounter; Z80.0 Family history of malignant neoplasm of digestive organs
CPT/HCPCS: 36415; 70450; 71045; 72125; 72170; 80048; 80053; 80306; 81001; 82310; 83036; 83605; 83735; 84132; 84484; 85025; 85027; 87070; 87075; 87077; 87186; 87205; 87324; 87493; 88304; 88305; 88312; 94660; 96360; 99285

== ENCOUNTER 2019-02-21 19:45 | Emergency (ER) | payer OTHER ==
[2019-02-21 20:01] VITALS: TEMP 97.2
[2019-02-21 22:26] LABS: Anisocytosis Slight; Basophils # (A) 0.1 k/uL (0-0.2); Basophils % (A) 1 %; Eosinophils # (A) 0.1 k/uL (0-0.7); Eosinophils % (A) 1 %; HCT 41.7 % (34.0-46.0); Lymphocytes # (A) 1.6 k/uL (1.0-4.8); Lymphocytes % (A) 18 %; MCH 32.7 pg (25.0-35.0); MCHC 32.7 g/dL (31.0-37.0); MCV 100.1 fL (80.0-100.0); Macrocytosis Slight; Mean Platelet Volume 7.6; Monocytes # (A) 0.6 k/uL (0-1.0); Monocytes % (A) 7 %; Neutrophils # (A) 6.3 k/uL (1.3-7.7); Neutrophils % (A) 71 %; RBC 4.17 m/uL (3.80-5.40); RDW 18.4 % (11.5-15.5); WBC 8.8 k/uL (3.8-10.6)
[2019-02-21 22:36] LABS: ALT 21 U/L (9-52); AST 44 U/L (14-36); African American GFR (CKD) >90 (>60 ml/min/1.73 sqM); Albumin 2.9 g/dL (3.5-5.0); Alkaline Phosphatase 243 U/L (38-126); Anion Gap 5 mmol/L; Blood Urea Nitrogen 20 mg/dL (7-17); Calcium 8.7 mg/dL (8.4-10.2); Carbon Dioxide 30 mmol/L (22-30); Chloride 105 mmol/L (98-107); Glucose 121 mg/dL (74-99); Non-African American GFR(CKD) 81 (>60 ml/min/1.73 sqM); Potassium 4.7 mmol/L (3.5-5.1); Sodium 140 mmol/L (137-145); Total Bilirubin 0.3 mg/dL (0.2-1.3); Total Protein 6.7 g/dL (6.3-8.2)
[2019-02-21 22:43] LABS: HGB 13.6 gm/dL (11.4-16.0); Platelet Count 160 k/uL (150-450)
[2019-02-21 23:58] VITALS: BP 102/43; PULSE 50; RESP 20
--- NOTE | 2019-02-22 00:16 | ED ---
General Adult HPI - General Chief complaint: Recheck/Abnormal Lab/Rx Stated complaint: wound concerns Time Seen by Provider: 02/21/19 20:41 Source: patient, EMS Mode of arrival: EMS - History of Present Illness Initial comments: 63-year-old female patient presents to the emergency department today for evaluation of a pressure ulcer to her buttocks. Patient recently underwent english rgical debridement of the wound. She does have home care who evaluated the wound today and was concerned because it does not appear to be healing. Patient denies any increased pain to the area. She denies any fever or chills. Patient is incontinent of stool and wears a brief. She missed her appointment with the wound care physician after discharge from the hospital. Patient denies any recent rash, shortness breath, chest pain, abdominal pain, nausea, vomiting, diarrhea, constipation, back pain, numbness, tingling, dizziness, weakness, hematuria, dysuria, urinary urgency, urinary frequency, headache, visual changes, or any other complaints. - Related Data Home Medications Medication Instructions Recorded Confirmed Levothyroxine Sodium [Synthroid] 25 mcg PO QAM 09/15/15 02/21/19 Ranitidine HCl [Zantac] 150 mg PO BID 09/15/15 02/21/19 Sertraline [Zoloft] 50 mg PO QAM 09/15/15 02/21/19 Atorvastatin [Lipitor] 80 mg PO DAILY 12/10/17 02/21/19 Montelukast [Singulair] 10 mg PO DAILY 12/10/17 02/21/19 Perphenazine [Trilafon] 8 mg PO HS 12/10/17 02/21/19 Lisinopril [Zestril] 2.5 mg PO DAILY 01/07/19 02/21/19 Nystatin 100,000 Unit/gm Powd 1 applic TOPICAL QID PRN 01/07/19 02/21/19 [Mycostatin Powder] Carvedilol [Coreg] 3.125 mg PO BID 01/23/19 02/21/19 Ergocalciferol [Vitamin D2 50,000 unit PO Q30D 01/23/19 02/21/19 (DRISDOL)] Febuxostat [Uloric] 80 mg PO DAILY 01/23/19 02/21/19 Furosemide [Lasix] 80 mg PO DAILY 01/23/19 02/21/19 Loperamide [Imodium] 2 mg PO TID PRN 01/23/19 02/21/19 Allopurinol [Zyloprim] 100 mg PO QID 02/21/19 02/21/19 Previous Rx's Medication Instructions Recorded Calcium Acetate [PhosLo] 667 mg PO TID-W/MEALS #90 cap 02/04/19 Calcium Carbonate [Tums] 500 mg PO BID #60 chew 02/04/19 metroNIDAZOLE [Flagyl] 500 mg PO Q8HR #30 tab 02/06/19 Allergies Allergy/AdvReac Type Severity Reaction Status Date / Time oxybutynin Allergy Rash/Hives Verified 02/21/19 20:32 Penicillins Allergy Rash/Hives Verified 02/21/19 20:32 aspirin AdvReac Nausea & Verified 02/21/19 20:32 Vomiting Review of Systems ROS Statement: Those systems with pertinent positive or pertinent negative responses have been documented in the HPI. ROS Other: All systems not noted in ROS Statement are negative. Past Medical History Past Medical History: Cancer, Heart Failure, COPD, Diabetes Mellitus, Hyperlipidemia, Hypertension, Myocardial Infarction ([place]), Osteoarthritis (OA), Pneumonia, Renal Disease, Skin Disorder, Sleep Apnea/CPAP/BIPAP, Thyroid Disorder Additional Past Medical History / Comment(s): O2 @ 2 L., gout, edema lower legs, varicose veins, psoriasis, anemia, stage III kidney disease, breast cancer- last chemo Feb 2018. Last Myocardial Infarction Date:: 03/2012 History of Any Multi-Drug Resistant Organisms: None Reported Date of last positivie culture/infection: None C.diff toxin test negative MDRO Source:: None Past Surgical History: Breast Surgery, Cholecystectomy, Hysterectomy, Pacemaker Additional Past Surgical History / Comment(s): Left breast biopsy, left mastectomy, right cataract removed. Past Anesthesia/Blood Transfusion Reactions: Motion Sickness Additional Past Anesthesia/Blood Transfusion Reaction / Comment(s): denies problems with anesthesia Type of Cardiac Device: Permanent Pacemaker Device Placement Date:: Past Psychological History: ADD/ADHD, Bipolar, Depression Smoking Status: Former smoker Past Alcohol Use History: None Reported Past Drug Use History: None Reported - Past Family History Mother Family Medical History: Cancer Additional Family Medical History / Comment(s): stomach General Exam General appearance: alert, in no apparent distress, other (This is a well- developed, well-nourished adult female patient in no acute distress. Vital signs upon presentation are temperature 97.2F, pulse 57, respirations 18, blood pressure 108/40, pulse ox 97% on room air.) Respiratory exam: Present: normal lung sounds bilaterally. Absent: respiratory distress, wheezes, rales, rhonchi, stridor Cardiovascular Exam: Present: regular rate, normal rhythm, normal heart sounds. Absent: systolic murmur, diastolic murmur, rubs, gallop, clicks GI/Abdominal exam: Present: soft, normal bowel sounds. Absent: distended, tenderness, guarding, rebound, rigid Neurological exam: Present: alert, oriented X3, CN II-XII intact Psychiatric exam: Present: normal affect, normal mood Skin exam: Present: warm, dry, intact, normal color. Absent: rash Expanded 1 - Large stage 3 pressure ulcer to the buttocks. Yellow drainage noted. Contaminated with stool. Course Vital Signs 02/21/19 02/21/19 02/21/19 19:49 22:10 23:56 Temperature 97.2 F L Pulse Rate 57 L 49 L 50 L Respiratory 18 18 20 Rate Blood Pressure 108/40 106/49 102/43 O2 Sat by Pulse 97 95 96 Oximetry Medical Decision Making - Medical Decision Making 63-year-old female patient presents to the emergency department today for evaluation of a wound to her buttocks. Patient underwent surgical debridement of the pressure ulcer at the end of January with Dr. Baker. Her home care nurse is concerned because the wound doesn't appear to be healing. Patient denied any fever or chills. No increased pain to the area. Physical examination did reveal a large stage III pressure ulcer to the buttocks. There does appear to be yellow drainage and stool contamination. Nursing staff did cleanse the wound and applied a dressing. Labs reviewed and revealed normal white blood cell count. Vital signs are stable with no sign of fever. Patient will be discharged with strict instructions to follow-up with wound care she has been directed. Return parameters were discussed in detail. She verbalizes understanding and agrees with this plan. - Lab Data Result diagrams: 02/21/19 22:10 02/21/19 22:10 Lab Results 02/21/19 02/21/19 Range/Units 22:10 22:10 WBC 8.8 (3.8-10.6) k/uL RBC 4.17 (3.80-5.40) m/uL Hgb 13.6 D (11.4-16.0) gm/dL Hct 41.7 (34.0-46.0) % MCV 100.1 H (80.0-100.0) fL MCH 32.7 (25.0-35.0) pg MCHC 32.7 (31.0-37.0) g/dL RDW 18.4 H (11.5-15.5) % Plt Count 160 D (150-450) k/uL Neutrophils % 71 % Lymphocytes % 18 % Monocytes % 7 % Eosinophils % 1 % Basophils % 1 % Neutrophils # 6.3 (1.3-7.7) k/uL Lymphocytes # 1.6 (1.0-4.8) k/uL Monocytes # 0.6 (0-1.0) k/uL Eosinophils # 0.1 (0-0.7) k/uL Basophils # 0.1 (0-0.2) k/uL Anisocytosis Slight Macrocytosis Slight Sodium 140 (137-145) mmol/L Potassium 4.7 (3.5-5.1) mmol/L Chloride 105 (98-107) mmol/L Carbon Dioxide 30 (22-30) mmol/L Anion Gap 5 mmol/L BUN 20 H (7-17) mg/dL Creatinine 0.79 (0.52-1.04) mg/dL Est GFR (CKD-EPI)AfAm >90 (>60 ml/min/1.73 sqM) Est GFR (CKD-EPI)NonAf 81 (>60 ml/min/1.73 sqM) Glucose 121 H (74-99) mg/dL Calcium 8.7 (8.4-10.2) mg/dL Total Bilirubin 0.3 (0.2-1.3) mg/dL AST 44 H (14-36) U/L ALT 21 (9-52) U/L Alkaline Phosphatase 243 H (38-126) U/L Total Protein 6.7 (6.3-8.2) g/dL Albumin 2.9 L (3.5-5.0) g/dL Disposition Clinical Impression: Decubitus ulcer Disposition: HOME SELF-CARE Condition: Good Instructions (If sedation given, give patient instructions): How to Prevent Pressure Injuries (ED), Chronic Wounds (ED) Additional Instructions: Follow-up with wound care outpatient. Follow-up with your primary care physician for recheck in 1-2 days. Return to the emergency department immediately for any new, worsening, or concerning symptoms. Is patient prescribed a controlled substance at d/c from ED?: No Referrals: Paul Hanks MD [Primary Care Provider] - 1-2 days Ángela Miranda MD [STAFF PHYSICIAN] - 1-2 days [facility] [NON-STAFF] - 1-2 days Time of Disposition: 00:16
== END 2019-02-22 00:31 | disposition home or self-care (01) ==
LOC: EC 19:45
DX: L89.323 Pressure ulcer of left buttock, stage 3 (principal); L89.313 Pressure ulcer of right buttock, stage 3; I13.0 Hypertensive heart and chronic kidney disease with heart failure and stage 1 through stage 4 chronic kidney disease, or unspecified chronic kidney disease; N18.3 Chronic kidney disease, stage 3 (moderate); I50.9 Heart failure, unspecified; E11.22 Type 2 diabetes mellitus with diabetic chronic kidney disease; J44.9 Chronic obstructive pulmonary disease, unspecified; E78.5 Hyperlipidemia, unspecified; I25.2 Old myocardial infarction; M10.9 Gout, unspecified; E07.9 Disorder of thyroid, unspecified; F32.9 Major depressive disorder, single episode, unspecified; G47.30 Sleep apnea, unspecified; Z99.89 Dependence on other enabling machines and devices; Z85.3 Personal history of malignant neoplasm of breast; Z92.21 Personal history of antineoplastic chemotherapy; Z87.891 Personal history of nicotine dependence; Z79.890 Hormone replacement therapy; Z79.899 Other long term (current) drug therapy; Z88.8 Allergy status to other drugs, medicaments and biological substances; Z88.0 Allergy status to penicillin; Z88.6 Allergy status to analgesic agent
CPT/HCPCS: 36415; 80053; 85025; 87070; 87077; 87186; 87205; 99283

== ENCOUNTER 2019-02-22 11:51 | Observation (INO) | payer OTHER ==
[2019-02-22] MEDS ORDERED: IPRATROPIUM-ALBUTEROL 3 ML NEB INHALATION PRN (13:37)
--- NOTE | 2019-02-22 14:04 | HP ---
HISTORY AND PHYSICAL CHIEF COMPLAINT: Stage IV purulent sacral decubitus, general debility and failure to thrive. HISTORY OF PRESENT ILLNESS: This lady was returned back to the hospital. She was discharged recently. She was receiving poor care at home prior to her last admission and came in with deep, infected stage IV sacral decubitus. She also had lesions of the right breast where biopsies were obtained and she was not found to have malignancy. She went home and was to be followed by home care to help her regain strength and ambulate, but she was found to be in a deplorable state, sitting alone at home in her own feces and urine with nobody around. She apparently has a granddaughter who tries to be there 12 hours a day. Her lives with her, but she will not let him attend to changing her dressings or Depends. All this was reported to us at the office and visiting nurses filed an Adult Protective Services complaint. was told to take her to the hospital where she would be admitted. Apparently, she went to the emergency room was treated and released. They came into the office on the day of admission and the situation was discussed with the family and they agreed as did the patient that she would go back into the hospital for wound care and eventual placement until this decubitus was healed and she could become more ambulatory. REVIEW OF SYSTEMS: She has had no mental changes, seizures, confusion, etc. She is very depressed. She denies any headaches, chest pain, cough, hemoptysis, abdominal pain, vomiting. She does have some diarrhea. Past medical history, family history and personal and social histories are all essentially unchanged. She is ALLERGIC to PENICILLIN and ASPIRIN. She is on Zantac, sertraline, lisinopril, levothyroxine, atorvastatin, Uloric, trazodone, furosemide, colchicine, Singulair and carvedilol as well as oxygen. She used to smoke but she does not any longer. PHYSICAL EXAMINATION: Blood pressure is 95/60 with a pulse of 71 and regular, respirations are 32 and temperature is 99. GENERAL: She appeared to be dehydrated, pale and weak and sitting in a wheelchair. 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 She was dehydrated. Mucous membranes were dry. Neck veins not distended. Chest demonstrated clear breath sounds bilaterally. Cardiac exam demonstrated sinus rhythm and no murmurs. Abdomen was nontender and soft. She had a deep purulent, large sacral decubitus measuring about 5 inches long and 4 inches wide and 2 or 3 inches deep. Extremities were unremarkable. Neurologically, she was intact, but very weak. IMPRESSION: 1. Purulent stage IV sacral decubitus-deteriorating. 2. General debility. 3. Failure to thrive. 4. Chronic obstructive pulmonary disease. 5. History of breast cancer. 6. Dehydration. 7. Hypothyroidism. PLAN: 1. Bed rest. 2. IV fluids. 3. Wound care. 4. Consult with Surgery and Infectious Disease. 5. Filtering Machine Tender consult for placement. MMODL / IJN: [id number] /
[2019-02-22 14:26] VITALS: BMI 29.6
[2019-02-22] MEDS: IPRATROPIUM-ALBUTEROL 3 ML NEB INHALATION SCH ×2 (16:07→19:10)
[2019-02-22] MEDS: CARVEDILOL 3.125 MG TAB PO SCH (17:33)
[2019-02-22] MEDS: traZODone HCL 100 MG TAB PO SCH (20:12)
[2019-02-22] MEDS: MONTELUKAST 10 MG TAB PO SCH (20:12)
[2019-02-23] MEDS: LEVOTHYROXINE 25 MCG TAB PO SCH (06:09)
[2019-02-23] MEDS: CARVEDILOL 3.125 MG TAB PO SCH ×2 (07:03→16:11)
[2019-02-23] MEDS: SERTRALINE 50 MG TAB PO SCH (08:20)
[2019-02-23] MEDS: FUROSEMIDE 40 MG TAB PO SCH (08:20)
[2019-02-23] MEDS: LISINOPRIL 2.5 MG TAB PO SCH (08:20)
--- NOTE | 2019-02-23 08:50 | P.CONS ---
History of Present Illness - Reason for Consult Consult date: 02/22/19 Sacral pressure ulcer nonhealing , antibiotic recommendation Requesting physician: Paul Hanks - Chief Complaint Left gluteal wound 2 weeks - History of Present Illness Patient is a 63-year-old female who was recently admitted at this facility the patient had did have bilateral gluteal wound that was surgically debrided by Dr. shen and the culture data to anaerobic gram-negative bacilli patient was advised local wound care to with the Santyl and oral Flagyl she was supposed to follow up in the wound care center however the patient could not be brought in because of her diarrhea patient has been evaluated by her primary care physician in the office this morning and with concern for nonhealing of her wound she has been admitted directly to the hospital infectious disease and surgery has been consulted for further management of this wound Patient is currently afebrile and denies any rigors or chills, patient did have mild dull aching pain to the left gluteal wound area but no worsening is no surrounding swelling redness or any foul-smelling drainage patient right gluteal wound is currently healed, patient is also complaining of diarrhea since she left the hospital and did have multiple loose stools no bloody mucus in the stool and denies having any abdominal pain no nausea no vomiting Review of Systems Positive points has been mentioned in HPI rest of the systems are negative Past Medical History Past Medical History: Cancer, Heart Failure, COPD, Diabetes Mellitus, Hyperlipidemia, Hypertension, Myocardial Infarction ([place]), Osteoarthritis (OA), Pneumonia, Renal Disease, Skin Disorder, Sleep Apnea/CPAP/BIPAP, Thyroid Disorder Additional Past Medical History / Comment(s): O2 @ 2 L., gout, edema lower legs, varicose veins, psoriasis, anemia, stage III kidney disease, breast cancer- last chemo Feb 2018. Last Myocardial Infarction Date:: 03/2012 History of Any Multi-Drug Resistant Organisms: None Reported Year Discovered:: None C.diff toxin test negative MDRO Source:: None Past Surgical History: Breast Surgery, Cholecystectomy, Hysterectomy, Pacemaker Additional Past Surgical History / Comment(s): Left breast biopsy, left mastectomy, right cataract removed. Past Anesthesia/Blood Transfusion Reactions: Motion Sickness Additional Past Anesthesia/Blood Transfusion Reaction / Comm: denies problems with anesthesia Type of Cardiac Device: Permanent Pacemaker Device Placement Date:: Past Psychological History: ADD/ADHD, Bipolar, Depression Smoking Status: Current every day smoker Past Alcohol Use History: None Reported Additional Past Alcohol Use History / Comment(s): States that she smokes 4 cigarettes daily. Past Drug Use History: None Reported - Past Family History Mother Family Medical History: Cancer Additional Family Medical History / Comment(s): stomach Medications and Allergies Home Medications Medication Instructions Recorded Confirmed Type Levothyroxine Sodium [Synthroid] 25 mcg PO QAM 09/15/15 02/22/19 History Ranitidine HCl [Zantac] 150 mg PO BID 09/15/15 02/22/19 History Sertraline [Zoloft] 50 mg PO QAM 09/15/15 02/22/19 History Atorvastatin [Lipitor] 80 mg PO DAILY 12/10/17 02/22/19 History Montelukast [Singulair] 10 mg PO DAILY 12/10/17 02/22/19 History Perphenazine [Trilafon] 8 mg PO HS 12/10/17 02/22/19 History Lisinopril [Zestril] 2.5 mg PO DAILY 01/07/19 02/22/19 History Nystatin 100,000 Unit/gm Powd 1 applic TOPICAL QID PRN 01/07/19 02/22/19 History [Mycostatin Powder] Carvedilol [Coreg] 3.125 mg PO BID 01/23/19 02/22/19 History Ergocalciferol [Vitamin D2 50,000 unit PO Q30D 01/23/19 02/22/19 History (DRISDOL)] Febuxostat [Uloric] 80 mg PO DAILY 01/23/19 02/22/19 History Furosemide [Lasix] 80 mg PO DAILY 01/23/19 02/22/19 History Loperamide [Imodium] 2 mg PO TID PRN 01/23/19 02/22/19 History Calcium Acetate [PhosLo] 667 mg PO TID-W/MEALS #90 cap 02/04/19 02/22/19 Rx Calcium Carbonate [Tums] 500 mg PO BID #60 chew 02/04/19 02/22/19 Rx metroNIDAZOLE [Flagyl] 500 mg PO Q8HR #30 tab 02/06/19 02/22/19 Rx Allopurinol [Zyloprim] 100 mg PO QID 02/21/19 02/22/19 History Allergies Allergy/AdvReac Type Severity Reaction Status Date / Time oxybutynin Allergy Rash/Hives Verified 02/22/19 15:09 Penicillins Allergy Rash/Hives Verified 02/22/19 15:09 aspirin AdvReac Nausea & Verified 02/22/19 15:09 Vomiting Physical Exam Vitals: Vital Signs Temp Pulse Resp BP Pulse Ox 02/22/19 14:55 97.9 F 45 L 16 99/66 98 02/22/19 12:34 97.5 F L 51 L 16 124/52 99 Intake and Output 02/22/19 02/22/19 02/22/19 06:59 14:59 22:59 Other: # Voids 1 Weight 73.5 kg GENERAL DESCRIPTION: Middle-aged female lying in bed, no distress. No tachypnea or accessory muscle of respiration use. HEENT: Shows Pallor , no scleral icterus. Oral mucous membrane is dry. No pharyngeal erythema or thrush NECK: Trachea central, no thyromegaly. LUNGS: Unlabored breathing. Clear to auscultation anteriorly. No wheeze or crackle. HEART: S1, S2, regular rate and rhythm. No loud murmur ABDOMEN: Soft, no tenderness , guarding or rigidity, no organomegaly Patient with left gluteal wound which has shown improvement compared to her last hospital visit wound base with no slough tissue no surrounding swelling redness or any foul-smelling drainage EXTREMITIES: No edema of feet. SKIN: No rash, no masses palpable. NEUROLOGICAL: The patient is awake, alert, oriented x3, mood and affect normal. Assessment and Plan Assessment: 1-patient with a left gluteal stage III pressure ulcer that was debrided on last hospital visit the patient currently has been admitted hospital for non-healing of this wound however currently with no evidence of any secondary cellulitis will be recommended local wound care only 2-patient with diarrhea with antibiotic exposure we'll check a stool for C. diff and treat if positive (1) Diarrhea Current Visit: Yes Status: Acute Code(s): R19.7 - DIARRHEA, UNSPECIFIED SNOMED Code(s): 76628578 (2) Decubital ulcer Current Visit: No Status: Acute Code(s): L89.90 - PRESSURE ULCER OF UNSPECIFIED SITE, UNSPECIFIED STAGE SNOMED Code(s): 679100182 Plan: 1-local wound care to the left total wound with wound VAC will apply black foam continuous pressure 1 25 mmHg to be changed Sunday 2-check a stool for C. diff we will follow on clinical condition and culture to further adjust medication if needed Thank you for this consultation will follow this patient along with you Time with Patient: Greater than 30
[2019-02-23] MEDS: IPRATROPIUM-ALBUTEROL 3 ML NEB INHALATION SCH ×4 (09:32→21:10)
[2019-02-23 10:15] LABS: Anisocytosis Slight; Basophils # (A) 0.1 k/uL (0-0.2); Basophils % (A) 1 %; Eosinophils # (A) 0.2 k/uL (0-0.7); Eosinophils % (A) 3 %; HCT 42.8 % (34.0-46.0); HGB 13.8 gm/dL (11.4-16.0); Lymphocytes # (A) 1.5 k/uL (1.0-4.8); Lymphocytes % (A) 22 %; MCH 33.2 pg (25.0-35.0); MCHC 32.3 g/dL (31.0-37.0); MCV 102.7 fL (80.0-100.0); Macrocytosis Moderate; Mean Platelet Volume 7.7; Monocytes # (A) 0.4 k/uL (0-1.0); Monocytes % (A) 5 %; Neutrophils # (A) 4.5 k/uL (1.3-7.7); Neutrophils % (A) 67 %; Platelet Count 152 k/uL (150-450); RBC 4.17 m/uL (3.80-5.40); RDW 18.1 % (11.5-15.5); WBC 6.7 k/uL (3.8-10.6)
[2019-02-23 10:29] LABS: C Reactive Protein 11.1 mg/L (<10.0); Calcium 8.7 mg/dL (8.4-10.2); Potassium 4.5 mmol/L (3.5-5.1)
--- NOTE | 2019-02-23 14:41 | PN ---
PROGRESS NOTE DATE OF SERVICE: 02/23/2019. CHIEF COMPLAINT: Failure to thrive, necrotic and infected stage IV sacral decubitus. HISTORY OF PRESENT ILLNESS: This lady is comfortable and she is receiving wound care with dressing changes. We will the first week start looking for discharge location. PHYSICAL EXAM: Is unchanged otherwise. IMPRESSION: 1. Stage IV infected and necrotic sacral decubitus. 2. Failure to thrive. 3. General debility. 4. Previous carcinoma of the breast. 5. Chronic obstructive pulmonary disease. PLAN: Continue with wound care and look for detention placement. MMODL / IJN: [id number] /
[2019-02-23] MEDS: traZODone HCL 100 MG TAB PO SCH (21:10)
[2019-02-23] MEDS: MONTELUKAST 10 MG TAB PO SCH (21:10)
--- NOTE | 2019-02-23 23:46 | PN ---
PROGRESS NOTE DATE OF SERVICE: 02/23/2019. REASON FOR FOLLOWUP: 1. Left gluteal stage III pressure ulcer. 2. Diarrhea. INTERVAL HISTORY: The patient is currently afebrile. Patient has been breathing comfortably. Overall diarrhea has improved. Stool for C difficile has not been sent. No nausea, no vomiting. No chest pain, shortness of breath or cough. PHYSICAL EXAMINATION: Blood pressure is 114/55 with a pulse of 52, temperature 97. She is 97% on room air. General description is a middle aged female lying in bed in no distress. Respiratory system: Unlabored breathing. Clear to auscultation anteriorly. Heart S1, S2. Regular rate and rhythm. ABDOMEN: Soft, no tenderness. Left foot wound is currently dressed up with wound VAC. LABS: Hemoglobin 13 with a white count 6.7, BUN of 18, creatinine 0.82. DIAGNOSTIC IMPRESSION AND PLAN: 1. Patient with left gluteal stage III pressure ulcer with no cellulitis. Local wound care to continue with wound VAC. Clinically no suspicion for underlying secondary bacterial infection hence no need for systemic antibiotic therapy. 2. Diarrhea. Stool for C difficile is pending. 3. Continue supportive care. MMODL / IJN: [id number] /
[2019-02-24] MEDS: LEVOTHYROXINE 25 MCG TAB PO SCH (06:21)
--- NOTE | 2019-02-24 07:55 | P.GSCN ---
History of Present Illness Consult date: 02/23/19 History of present illness: CHIEF COMPLAINT: Sacral decubiti ulcer HISTORY OF PRESENT ILLNESS: The patient is a 63 year old female admitted secondary to sacral decubiti ulcer including poor living conditions. No reports of fevers or chills. She has history of malignancy. She had previous debridement of the sacral decubiti ulcer 01/28/[address] Baker. Debridement of sacrum was down to muscle consistent with stage III sacral decubiti ulcer. General surgery is requested to reevaluate sacral decubiti ulcer for debridement. PAST MEDICAL HISTORY: See list. PAST SURGICAL HISTORY: See list. MEDICATIONS: See list. ALLERGIES: See list. SOCIAL HISTORY: See list. FAMILY HISTORY: See list. REVIEW OF ORGAN SYSTEMS: CONSTITUTIONAL: No fevers or chills. EYES: Denies any trouble with vision. HEENT: No difficulties with hearing. No nosebleeds. No difficulty swallowing. RESPIRATORY: Has troubles with breathing or dyspnea on exertion. Has COPD. Has sleep apnea. CARDIOVASCULAR: Has congestive heart failure GASTROINTESTINAL: Denies fatty food intolerance. Denies change in bowel habits and gas bloat. GENITOURINARY: Stage III kidney disease NEUROLOGICAL: No seizure disorders or headaches. MUSCULOSKELETAL: Has back pain, stiffness or joint arthritis. Has gout SKIN: Recent history of lysis including bedbugs PSYCHIATRIC: Has depression or suicidal thoughts. Has bipolar disorder including ADD with ADHD ENDOCRINE: Has thyroid disorders. No blood sugar glucose intolerance. HEME/LYMPHATIC: Denies any lumps and bumps around the neck. No recent deep venous thrombosis. ALLERGY/IMMUNOLOGY: Previous chemotherapy for breast cancer BREAST: History of breast cancer PHYSICAL EXAM: VITALS: Reviewed CONSTITUTIONAL: Well developed and in no acute distress. EYES: Conjuctivae without sclera icterus. Pupils are equally round and reactive to light. Extraocular movements grossly intact. HEAD, EARS, NOSE, THROAT: Moist buccal mucosa. Head is atraumatic, normocephalic. Hears conversational speech. No nasal drainage. NECK: Supple. No JV distention. No thyroidomegaly. RESPIRATORY: Non-labored respirations and equal bilateral excursions. No gross wheezes. CARDIOVASCULAR: Regular rate and rhythm. Extremities without edema. Palpable 2+ radial pulses. ABDOMEN: No hepatomegaly. Soft. Non-tender. Nondistended. MUSCULOSKELETAL: Nail and fingers with good capillary refill. SKIN: Warm and well perfused with good skin turgor. Dressing along sacrum clean dry and intact NEUROLOGIC: Cranial nerves I through XII grossly intact. Sensation upper and extremities intact. No focal or lateralizing signs. PSYCH: Appropriate affect. Alert and oriented to person, place and time. Displays appropriate insight. CLINCAL LABS: Reviewed. White blood cell count 8.8 on 02/21/2019 RECORDS: previous old records reviewed. Punch biopsies from sacrum and breasts negative for malignancy 01/28/2019 ASSESSMENT: 1. Stage III decubiti ulcer 2. Generalized poor personal 3. History of breast cancer PLAN: 1. Appreciate infectious disease consultation. Local wound care advised. 2. No current surgical debridement needed at this time. Thank you for this kind consultation. Past Medical History Past Medical History: Cancer, Heart Failure, COPD, Diabetes Mellitus, Hyperlipidemia, Hypertension, Myocardial Infarction ([place]), Osteoarthritis (OA), Pneumonia, Renal Disease, Skin Disorder, Sleep Apnea/CPAP/BIPAP, Thyroid Disorder Additional Past Medical History / Comment(s): O2 @ 2 L., gout, edema lower legs, varicose veins, psoriasis, anemia, stage III kidney disease, breast cancer- last chemo Feb 2018. Last Myocardial Infarction Date:: 03/2012 History of Any Multi-Drug Resistant Organisms: None Reported Year Discovered:: None C.diff toxin test negative MDRO Source:: None Past Surgical History: Breast Surgery, Cholecystectomy, Hysterectomy, Pacemaker Additional Past Surgical History / Comment(s): Left breast biopsy, left mastectomy, right cataract removed. Past Anesthesia/Blood Transfusion Reactions: Motion Sickness Additional Past Anesthesia/Blood Transfusion Reaction / Comm: denies problems with anesthesia Type of Cardiac Device: Permanent Pacemaker Device Placement Date:: Past Psychological History: ADD/ADHD, Bipolar, Depression Smoking Status: Current every day smoker Past Alcohol Use History: None Reported Additional Past Alcohol Use History / Comment(s): States that she smokes 4 cigarettes daily. Past Drug Use History: None Reported - Past Family History Mother Family Medical History: Cancer Additional Family Medical History / Comment(s): stomach Medications and Allergies Home Medications Medication Instructions Recorded Confirmed Type Levothyroxine Sodium [Synthroid] 25 mcg PO QAM 09/15/15 02/22/19 History Ranitidine HCl [Zantac] 150 mg PO BID 09/15/15 02/22/19 History Sertraline [Zoloft] 50 mg PO QAM 09/15/15 02/22/19 History Atorvastatin [Lipitor] 80 mg PO DAILY 12/10/17 02/22/19 History Montelukast [Singulair] 10 mg PO DAILY 12/10/17 02/22/19 History Perphenazine [Trilafon] 8 mg PO HS 12/10/17 02/22/19 History Lisinopril [Zestril] 2.5 mg PO DAILY 01/07/19 02/22/19 History Nystatin 100,000 Unit/gm Powd 1 applic TOPICAL QID PRN 01/07/19 02/22/19 History [Mycostatin Powder] Carvedilol [Coreg] 3.125 mg PO BID 01/23/19 02/22/19 History Ergocalciferol [Vitamin D2 50,000 unit PO Q30D 01/23/19 02/22/19 History (DRISDOL)] Febuxostat [Uloric] 80 mg PO DAILY 01/23/19 02/22/19 History Furosemide [Lasix] 80 mg PO DAILY 01/23/19 02/22/19 History Loperamide [Imodium] 2 mg PO TID PRN 01/23/19 02/22/19 History Calcium Acetate [PhosLo] 667 mg PO TID-W/MEALS #90 cap 02/04/19 02/22/19 Rx Calcium Carbonate [Tums] 500 mg PO BID #60 chew 02/04/19 02/22/19 Rx metroNIDAZOLE [Flagyl] 500 mg PO Q8HR #30 tab 02/06/19 02/22/19 Rx Allopurinol [Zyloprim] 100 mg PO QID 02/21/19 02/22/19 History Allergies Allergy/AdvReac Type Severity Reaction Status Date / Time oxybutynin Allergy Rash/Hives Verified 02/22/19 15:09 Penicillins Allergy Rash/Hives Verified 02/22/19 15:09 aspirin AdvReac Nausea & Verified 02/22/19 15:09 Vomiting Surgical - Exam Vital Signs Temp Pulse Resp BP Pulse Ox 97.5 F L 51 L 16 124/52 99 02/22/19 12:34 02/22/19 12:34 02/22/19 12:34 02/22/19 12:34 02/22/19 12:34 Results - Labs 02/23/19 09:51 02/23/19 09:51 Abnormal Lab Results - Last 24 Hours (Table) 02/23/19 02/23/19 Range/Units 09:51 09:51 MCV 102.7 H (80.0-100.0) fL RDW 18.1 H (11.5-15.5) % BUN 18 H (7-17) mg/dL Glucose 217 H (74-99) mg/dL C-Reactive Protein 11.1 H (<10.0) mg/L Microbiology - Last 24 Hours (Table) 02/22/19 15:30 Gram Stain - Preliminary Buttock Wound Culture - Preliminary 02/22/19 15:30 Anaerobic Culture - Preliminary Buttock Diabetes panel 02/23/19 Range/Units 09:51 Sodium 139 (137-145) mmol/L Potassium 4.5 (3.5-5.1) mmol/L Chloride 104 (98-107) mmol/L Carbon Dioxide 25 (22-30) mmol/L BUN 18 H (7-17) mg/dL Creatinine 0.82 (0.52-1.04) mg/dL Glucose 217 H (74-99) mg/dL Calcium 8.7 (8.4-10.2) mg/dL Calcium panel 02/23/19 Range/Units 09:51 Calcium 8.7 (8.4-10.2) mg/dL Pituitary panel 02/23/19 Range/Units 09:51 Sodium 139 (137-145) mmol/L Potassium 4.5 (3.5-5.1) mmol/L Chloride 104 (98-107) mmol/L Carbon Dioxide 25 (22-30) mmol/L BUN 18 H (7-17) mg/dL Creatinine 0.82 (0.52-1.04) mg/dL Glucose 217 H (74-99) mg/dL Calcium 8.7 (8.4-10.2) mg/dL Adrenal panel 02/23/19 Range/Units 09:51 Sodium 139 (137-145) mmol/L Potassium 4.5 (3.5-5.1) mmol/L Chloride 104 (98-107) mmol/L Carbon Dioxide 25 (22-30) mmol/L BUN 18 H (7-17) mg/dL Creatinine 0.82 (0.52-1.04) mg/dL Glucose 217 H (74-99) mg/dL Calcium 8.7 (8.4-10.2) mg/dL Assessment and Plan (1) COPD (chronic obstructive pulmonary disease) Current Visit: Yes Status: Acute Code(s): J44.9 - CHRONIC OBSTRUCTIVE PULMONARY DISEASE, UNSPECIFIED SNOMED Code(s): 55481932 (2) Congestive heart failure Current Visit: Yes Status: Acute Code(s): I50.9 - HEART FAILURE, UNSPECIFIED SNOMED Code(s): 68731603 (3) Gout Current Visit: Yes Status: Acute Code(s): M10.9 - GOUT, UNSPECIFIED SNOMED Code(s): 69545529 (4) Hypothyroidism Current Visit: Yes Status: Acute Code(s): E03.9 - HYPOTHYROIDISM, UNSPECIFIED SNOMED Code(s): 45374650 (5) Decubitus ulcer, stage III Current Visit: Yes Status: Acute Code(s): L89.93 - PRESSURE ULCER OF UNSPECIFIED SITE, STAGE 3 SNOMED Code(s): 197500611 (6) Sacral decubitus ulcer Current Visit: Yes Status: Acute Code(s): L89.159 - PRESSURE ULCER OF SACRAL REGION, UNSPECIFIED STAGE SNOMED Code(s): 931821801 (7) Cancer of left breast Current Visit: No Status: Acute Code(s): C50.912 - MALIGNANT NEOPLASM OF UNSPECIFIED SITE OF LEFT FEMALE BREAST SNOMED Code(s): 636878183 (8) Infestation by bed bug Current Visit: No Status: Acute Code(s): B88.8 - OTHER SPECIFIED INFESTATIONS SNOMED Code(s): 60160470 (9) Lice infestation Current Visit: No Status: Acute Code(s): B85.2 - PEDICULOSIS, UNSPECIFIED SNOMED Code(s): 782290221 (10) Unable to ambulate Current Visit: No Status: Acute Code(s): R26.2 - DIFFICULTY IN WALKING, NOT ELSEWHERE CLASSIFIED SNOMED Code(s): 505295459
[2019-02-24] MEDS: CARVEDILOL 3.125 MG TAB PO SCH ×2 (08:48→17:21)
[2019-02-24] MEDS: LISINOPRIL 2.5 MG TAB PO SCH (08:48)
[2019-02-24] MEDS: FUROSEMIDE 40 MG TAB PO SCH (09:01)
[2019-02-24] MEDS: SERTRALINE 50 MG TAB PO SCH (09:01)
[2019-02-24] MEDS: IPRATROPIUM-ALBUTEROL 3 ML NEB INHALATION SCH ×4 (09:14→19:38)
--- NOTE | 2019-02-24 13:02 | P.PN ---
<Priscila Austin - Last Filed: 02/24/19 12:56> Subjective Progress Note Date: 02/24/19 CHIEF COMPLAINT: Sacral decub HISTORY OF PRESENT ILLNESS: Patient examined this morning the bedside. She denies abdominal pain. Reports occasional discomfort to her pressure ulcer site. She denies nausea or vomiting. Tolerating diet. Reports loose stool overnight. CDiff ordered and pending collection. PHYSICAL EXAM: VITAL SIGNS: Reviewed. GENERAL: Well-developed in no acute distress. HEENT: No sclera icterus. Extraocular movements grossly intact. Moist buccal m ucosa. Head is atraumatic, normocephalic. ABDOMEN: Soft. Nondistended. Nontender. NEUROLOGIC: Alert and oriented. Cranial nerves II through XII grossly intact. SKIN: Wound vac to left gluteal pressure ulcer ASSESSMENT: 1. Left gluteal pressure ulcer, with history of surgical debridement PLAN: 1. Continue wound vac per infectious disease 2. C-Diff ordered per ID 3. No surgical intervention recommended at this time 4. Discharge planning in place for ECF Nurse practitioner note has been reviewed by physician. Signing provider agrees with the documented findings, assessment, and plan of care. Objective - Vital Signs Vital signs: Vital Signs Temp 96.7 F L 02/24/19 05:00 Pulse 56 L 02/24/19 12:38 Resp 18 02/24/19 05:00 BP 102/56 02/24/19 05:00 Pulse Ox 95 02/24/19 05:00 Intake & Output 02/23/19 02/24/19 02/24/19 18:59 06:59 18:59 Intake Total 450 Balance 450 Weight 73.5 kg Intake: Oral 450 Other: # Voids 2 2 # Bowel Movements 1 - Labs CBC & Chem 7: 02/23/19 09:51 02/23/19 09:51 Labs: Microbiology - Last 24 Hours (Table) 02/22/19 15:30 Gram Stain - Preliminary Buttock Wound Culture - Preliminary Gram Neg Bacilli <Sim Baker - Last Filed: 02/24/19 15:15> Subjective As above. Wound VAC remains in place. No need for surgical debridement at this time. We'll sign off. Please call if needed. Objective - Vital Signs Vital signs: Vital Signs Temp 97.2 F L 02/24/19 12:47 Pulse 45 L 02/24/19 14:58 Resp 16 02/24/19 14:58 BP 121/84 02/24/19 12:47 Pulse Ox 97 02/24/19 12:47 Intake & Output 02/23/19 02/24/19 02/24/19 18:59 06:59 18:59 Intake Total 450 200 Balance 450 200 Weight 73.5 kg Intake: Oral 450 200 Other: # Voids 2 2 2 # Bowel Movements 1 1 - Labs CBC & Chem 7: 02/23/19 09:51 02/23/19 09:51 Labs: Microbiology - Last 24 Hours (Table) 02/22/19 15:30 Gram Stain - Preliminary Buttock Wound Culture - Preliminary Gram Neg Bacilli
--- NOTE | 2019-02-24 18:32 | PN ---
PROGRESS NOTE DATE OF SERVICE: 02/24/2019. REASON FOR FOLLOWUP: 1. Left gluteal stage III pressure ulcer. 2. Diarrhea. INTERVAL HISTORY: The patient is currently afebrile. Patient has been breathing comfortably. The patient admits to being sleepy but no nausea, vomiting, or any worsening diarrhea reported by the nursing staff. PHYSICAL EXAMINATION: Blood pressure 120/84 with a pulse of 80. Temperature 97.2. She is 97% on room air. General description is a middle-aged female lying in bed in no distress. Respiratory system: Unlabored breathing clear to auscultation anteriorly. Heart S1, S2. Regular rate and rhythm. Abdomen soft, no tenderness. Left gluteal wound is currently covered up with a wound VAC. LABS: No new labs have been obtained today. DIAGNOSTIC IMPRESSION AND PLAN: 1. Patient with a left gluteal stage III pressure ulcer. Clinically doubt any significant cellulitis. Recommend local wound care only. Positive culture showing gram-negative more likely colonization and no need for any systemic antibiotics for the same. 2. Diarrhea, stool for C. dif was not checked. Overall improvement with diarrhea. Continue symptomatic treatment. MMODL / IJN: [id number] / GEENA
[2019-02-24] MEDS: traZODone HCL 100 MG TAB PO SCH (21:16)
[2019-02-24] MEDS: MONTELUKAST 10 MG TAB PO SCH (21:16)
[2019-02-25] MEDS: LEVOTHYROXINE 25 MCG TAB PO SCH (05:45)
[2019-02-25] MEDS: CARVEDILOL 3.125 MG TAB PO SCH (07:37)
[2019-02-25 07:49] VITALS: BP 112/55; RESP 16; TEMP 98.9
[2019-02-25] MEDS: IPRATROPIUM-ALBUTEROL 3 ML NEB INHALATION SCH ×2 (08:53→12:11)
[2019-02-25] MEDS: LISINOPRIL 2.5 MG TAB PO SCH (08:54)
[2019-02-25] MEDS: FUROSEMIDE 40 MG TAB PO SCH (09:02)
[2019-02-25] MEDS: SERTRALINE 50 MG TAB PO SCH (09:02)
--- NOTE | 2019-02-25 11:24 | DS ---
DISCHARGE SUMMARY CHIEF COMPLAINT: Failure to thrive, general debility and infected and necrotic stage IV sacral decubitus. HISTORY OF PRESENT ILLNESS AND PHYSICAL EXAM: Details of this lady's history and physical can be found in the initial workup. LABORATORY STUDIES: While she was in a hospital she had laboratory studies, details of which can be found in the laboratory section of her chart. COURSE IN HOSPITAL: After admission, she was placed on bedrest, started on intravenous fluids and local wound care. Because of her untenable situation at home, it was necessary to look for a post hospitalization rehab facility where she could go to regain strength and until her sacral decubitus is healed. Bed was found at [facility] and she will be transferred there. FINAL DIAGNOSES: 1. Necrotic, infected stage IV sacral decubitus. 2. Failure to thrive. 3. General debility. 4. Chronic obstructive pulmonary disease. 5. Congestive heart failure. 6. Carcinoma of the breast. OPERATIONS: None. CONSULTATIONS: None. She is improved. MMODL / IJN: [id number] /
--- NOTE | 2019-02-25 12:31 | CDI ---
Documentation Clarification Form Date: 02/25/2019 12:15:17 PM From: Thais KhanChatmanNIKI, CCDS Admit Date: 02/22/2019 12:00:00 PM Patient Name: Olga Berumen Visit Number: [id number] Discharge Date: ATTENTION: The Clinical Documentation Specialists (CDI) and [facility] Coding Staff appreciate your assistance in clarifying documentation. Please respond to the clarification below the line at the bottom and electronically sign. The CDI & [facility] Coding staff will review the response and follow-up if needed. Please note: Queries are made part of the Legal Health Record. If you have any questions, please contact the author of this message via ITS. Dr. Paul Hanks: Per the History & Physical: "Purulent stage IV sacral decubitus-deteriorating." Per the Infectious Disease Consult: "Patient with a left gluteal stage III pressure ulcer that was debrided on last hospital visit the patient currently has been admitted hospital for non-healing of this wound." Per the General Surgeon Consult: "admitted secondary to sacral decubiti ulcer including poor living conditions." Per the Nursing wound assessment: Wound: Left buttock: Stage III, 6cm x6 cm, Erythema, Serosanguineous drainage. History/Risk Factors: Breast Cancer status post chemo, Heart Failure, COPD, Diabetes Mellitus, Hyperlipidemia, Hypertension, Myocardial Infarction ([place]), Osteoarthritis (OA), Pneumonia, Skin Disorder, Sleep apnea: CPAP/BIPAP, Thyroid Disorder, O2 @ 2 L., Gout, Edema lower legs, Varicose veins, Psoriasis, Anemia, Stage III kidney disease, [place]. Clinical Indicators: Presented with the above, no surgical intervention required per surgery, wound VAC on wound. Lab findings: Gluc 217, CRP 11.1. Vital Signs: P 51 - 45 - 52 - 66 Treatment: INH Albuterol & Duoneb, po Lasix, no antibiotics per ID. In your professional opinion, can you please clarify the location of stage of the patient's ulcer & did the ulcer improve or advance during this admission: Location: o Sacral o Left Buttock Stage: o Stage III o Stage IV Other, please specify Unable to determine (Last Revision: September 2017) MTDD
--- NOTE | 2019-02-25 14:00 | PN ---
PROGRESS NOTE DATE IF SERVICE: 02/25/2019 REASON FOR FOLLOWUP: Left gluteal stage III pressure ulcer with no cellulitis. INTERVAL HISTORY: The patient is currently afebrile. Patient has been breathing comfortably. No chest pain. No cough. No abdominal pain and no evidence of pain to the left gluteal area. PHYSICAL EXAMINATION: Blood pressure is 124/55 with a pulse of 52, temperature 98.1, she is i95% on room air. The patient is a middle-aged female lying in bed, in no distress. RESPIRATORY SYSTEM: Unlaborded breath, clear auscultation anteriorly. HEART: S1, S2. Regular rate and rhythm. ABDOMEN: Soft, no tenderness. Left gluteal wound base with minimal slough tissue. No surrounding redness or any drainage. LABS: Wound culture with Proteus mirabilis. DIAGNOSTIC IMPRESSION AND PLAN: 1. Patient with left gluteal stage III pressure ulcer. Clinically, no evidence of any cellulitis. Positive culture, likely indicating colonization or contamination as the wound is close proximity to the rectal area. Recommend local wound care only with a wound VAC, black foam, continuous pressure wound to, minimal skin change Sunday, Sunday, Sunday, and follow up in [facility] next week. 2. Patient's diarrhea on presentation that has resolved as per discussion with the patient's nurse taking care of the patient. MMODL / IJN: [id number] / MTDD
[2019-02-25 14:08] VITALS: PULSE 66
--- NOTE | 2019-02-28 07:12 | MISC ---
MISCELLANOUS REPORT QUERY Location sacral stage IV. MMODL / IJN: [id number] /
== END 2019-02-25 14:57 ==
LOC: INTOOBSV 12:00 → UNDOADMIN 12:00 → 4MS4W 12:00 → UNDODISIN 02-25 14:57
PROVIDERS: ADMIT Family Medicine; ATTEND Family Medicine
DX: L89.154 Pressure ulcer of sacral region, stage 4 (principal); I13.0 Hypertensive heart and chronic kidney disease with heart failure and stage 1 through stage 4 chronic kidney disease, or unspecified chronic kidney disease; B85.2 Pediculosis, unspecified; B88.8 Other specified infestations; E03.9 Hypothyroidism, unspecified; E11.9 Type 2 diabetes mellitus without complications; E78.5 Hyperlipidemia, unspecified; E86.0 Dehydration; F31.9 Bipolar disorder, unspecified; F90.9 Attention-deficit hyperactivity disorder, unspecified type; G47.30 Sleep apnea, unspecified; Z99.89 Dependence on other enabling machines and devices; I25.2 Old myocardial infarction; I50.9 Heart failure, unspecified; R19.7 Diarrhea, unspecified; R53.81 Other malaise; J44.9 Chronic obstructive pulmonary disease, unspecified; M10.9 Gout, unspecified; R62.7 Adult failure to thrive; Z79.890 Hormone replacement therapy; Z79.2 Long term (current) use of antibiotics; Z79.899 Other long term (current) drug therapy; Z90.12 Acquired absence of left breast and nipple; Z90.710 Acquired absence of both cervix and uterus; L40.9 Psoriasis, unspecified; N18.3 Chronic kidney disease, stage 3 (moderate); I83.90 Asymptomatic varicose veins of unspecified lower extremity; Z92.21 Personal history of antineoplastic chemotherapy; Z85.3 Personal history of malignant neoplasm of breast; M19.90 Unspecified osteoarthritis, unspecified site; Z88.6 Allergy status to analgesic agent; Z88.0 Allergy status to penicillin; Z88.8 Allergy status to other drugs, medicaments and biological substances; Z87.01 Personal history of pneumonia (recurrent); Z95.0 Presence of cardiac pacemaker; Z99.81 Dependence on supplemental oxygen; Z90.49 Acquired absence of other specified parts of digestive tract; F17.210 Nicotine dependence, cigarettes, uncomplicated; Z80.0 Family history of malignant neoplasm of digestive organs
CPT/HCPCS: 94640 ×5; 97530; 97163; 97166; 80048; 85025; 86140; 87070; 87205; 87075; 87077; 87186; G0379; G0378 ×4

== ENCOUNTER → 2019-06-05 | Outpatient (CLI) | payer OTHER ==
[2019-06-05 14:09] LABS: HGB 15.6 gm/dL (11.4-16.0); MCH 31.9 pg (25.0-35.0); MCHC 31.9 g/dL (31.0-37.0); MCV 100.1 fL (80.0-100.0); Mean Platelet Volume 8.6; Platelet Count 104 k/uL (150-450); WBC 6.2 k/uL (3.8-10.6)
[2019-06-05 14:21] LABS: Potassium 4.6 mmol/L (3.5-5.1)
== END | disposition home or self-care (01) ==
LOC: LABPAT 13:34
PROVIDERS: ATTEND Internal Medicine Clinical Cardiac Electrophysiology
DX: Z01.812 Encounter for preprocedural laboratory examination (principal); I42.0 Dilated cardiomyopathy; I50.22 Chronic systolic (congestive) heart failure
CPT/HCPCS: 80051; 82565; 82947; 84520; 85027

== ENCOUNTER 2019-06-19 06:52 | Observation (INO) | payer OTHER ==
[2019-06-17 08:58] VITALS: BMI 32.3
[~2019-06-19 06:52] MED LIST changes: +LACTATED RINGERS 1,000 ML IV SCH; -SODIUM CHLORIDE 0.9% 1,000 ML IV SCH
[2019-06-19] MEDS ORDERED: CLINDAMYCIN 600 MG in SODIUM CHLORIDE 0.9% IRRIGATIO 250 ML IRRIGATION ONE ×2 (07:00→17:00)
[2019-06-19] MEDS ORDERED: CLINDAMYCIN 900 MG in DEXTROSE 5% IN WATER 50 ML IVPB ONE ×4 (07:00→17:00)
[2019-06-19 09:09] LABS: Glucose,Whole Blood 113 mg/dL (75-99)
[2019-06-19] MEDS ORDERED: IPRATROPIUM-ALBUTEROL 3 ML NEB INHALATION PRN (10:47)
[2019-06-19] MEDS ORDERED: IV FLUID CONTINUATION 350 ML IV ONE (16:16)
[2019-06-19] MEDS ORDERED: fentaNYL (PF) 50 MCG/ML 2 ML AMP ONE (16:16)
[2019-06-19] MEDS ORDERED: MIDAZOLAM 2 MG/2 ML VIAL ONE (16:16)
[2019-06-19] MEDS ORDERED: LIDOCAINE 1% INJ 10MG/ML (20 ML MDV) ONE ×2 (16:32)
[2019-06-19] MEDS ORDERED: LIDOCAINE 1% INJ 10MG/ML (20 ML MDV) SQ ONE ×3 (16:48→17:38)
[2019-06-19] MEDS ORDERED: ACETAMINOPHEN TAB 325 MG TAB PO PRN (18:05)
[2019-06-19] MEDS ORDERED: HYDROcodone/APAP 5-325MG 1 EACH TAB PO PRN (18:05)
--- NOTE | 2019-06-19 18:05 | P.PCN ---
Preoperative Diagnosis: Transvenous temporary pacing procedure Indication for the procedure: Complete heart block, device at ANA PAULA Patient was brought to the EP lab in a fasting state. Written informed consent was obtained prior to the procedure. The right groin was prepped and draped as a protocol. A 6-Guyanese sheath was placed in the right femoral vein. Via this, a temporary pacing catheter was placed in the right ventricle. Thresholds were interrogated. Temporary pacing was performed through the rest of the procedure. At the end of the entire procedure, the TVP was removed. The sheath was removed and hemostasis was assured. Patient tolerated the procedure well without any acute complications. Procedure performed Transvenous temporary pacing
[2019-06-19] MEDS ORDERED: ACETAMINOPHEN IV (For NPO) 1,000 MG in EMPTY BAG 1 BAG IVPB ONE (19:00)
[2019-06-19] MEDS ORDERED: traZODone HCL 100 MG TAB PO SCH (21:00)
[2019-06-19] MEDS: SODIUM CHLORIDE 0.9% 1,000 ML IV SCH (21:29)
[2019-06-19] MEDS: CARVEDILOL 3.125 MG TAB PO SCH (21:31)
[2019-06-19] MEDS: CLINDAMYCIN 900 MG in DEXTROSE 5% IN WATER 50 ML IVPB SCH ×2 (23:27)
--- NOTE | 2019-06-20 00:31 | CONS ---
CONSULTATION CHIEF COMPLAINT: Bradycardia. HISTORY OF PRESENT ILLNESS: This lady is brought in for an elective evaluation for bradycardia. She has not been having any chest pain, syncope, shortness of breath, etc. REVIEW OF SYSTEMS: She has had no other complaints. She does have a history of heart disease and COPD. She has had no abdominal pain, nausea, dysuria, frequency, urgency, etc. Past medical history, family history and personal and social histories are found in detail in her prior records and under admission summary. PHYSICAL EXAMINATION: Blood pressure is 122/68 with a pulse 61, respirations of 15 and she is afebrile. In general, she appeared to be well developed, well nourished, in no acute distress. Skin color is normal. 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 Right eye is normal. Neck veins not distended. The chest demonstrates somewhat decreased breath sounds due to her prior history of smoking. Occasional rales and rhonchi. Cardiac exam demonstrates sinus bradycardia. Abdomen is soft, nontender without any masses or visceromegaly. Extremities: Normal. Neurologically: She is intact. IMPRESSION: 1. She is admitted with a diagnosis of cardiac arrhythmia, bradycardia. 2. Chronic obstructive pulmonary disease. RECOMMENDATIONS: None at this time. She seems to be stable, doing well and presents no contraindications for her evaluation. Thank you for this consultation. Respectfully, NICOLE CERDA / ADELA: [id number] /
[2019-06-20] MEDS: SODIUM CHLORIDE 0.9% 1,000 ML IV SCH (01:55)
[2019-06-20] MEDS: CLINDAMYCIN 900 MG in DEXTROSE 5% IN WATER 50 ML IVPB SCH ×6 (04:41→16:15)
[2019-06-20] MEDS ORDERED: LEVOTHYROXINE 25 MCG TAB PO SCH (06:30)
--- NOTE | 2019-06-20 07:57 | PCN ---
PROCEDURE NOTE Olga Berumen is a 63-year-old female who has complete heart block, status post single- chamber pacemaker. She has underlying permanent atrial fibrillation. The device is at ANA PAULA from normal battery depletion. She was brought in for a single-chamber pacemaker generator change. DVP was first placed and is dictated separately. The left pectoral area was prepped and draped as per protocol; 1% lidocaine was used for local anesthesia. IV antibiotics were administered. An incision made directly over the generator and carried down to the level of the generator. The generator was explanted and replaced. The new generator implanted was a Medtronic Assure SMRI model #W3SR01. serial #[id number]. The chronic RV lead was 58 cm Medtronic model #5092, 58 cm in length and serial #[id number]. The pacemaker generator removed was a Medtronic Sensia, serial #[id number]. The chronic pacing threshold was 1.5 V at 1 millisecond with a pacing impedance of 761 ohms. No underlying R-waves. The wound was closed in 3 layers and dressed per protocol. The device was secured to the underlying pectoralis muscle with one nonabsorbable suture. IMPRESSION: Successful single-chamber pacemaker generator change for normal battery depletion in this patient with underlying complete heart block and permanent atrial fibrillation. PLAN: IV antibiotics. Continue current medications. MMODL / IJN: [id number] /
[2019-06-20] MEDS: CARVEDILOL 3.125 MG TAB PO SCH (08:51)
[2019-06-20] MEDS ORDERED: LISINOPRIL 2.5 MG TAB PO SCH (09:00)
[2019-06-20] MEDS ORDERED: MONTELUKAST 10 MG TAB PO SCH (09:00)
[2019-06-20] MEDS ORDERED: FAMOTIDINE 20 MG TAB PO SCH (09:00)
[2019-06-20] MEDS ORDERED: SERTRALINE 50 MG TAB PO SCH (09:00)
[2019-06-20] MEDS ORDERED: FUROSEMIDE 80 MG TAB PO SCH (09:00)
[2019-06-20] MEDS ORDERED: ALLOPURINOL 100 MG TAB PO SCH (09:00)
[2019-06-20 12:33] VITALS: RESP 18
[2019-06-20 15:25] VITALS: BP 115/56; PULSE 50; TEMP 98.1
--- NOTE | 2019-06-20 19:59 | PN ---
PROGRESS NOTE CHIEF COMPLAINT: Pacemaker battery. HISTORY OF PRESENT ILLNESS: This lady is doing well. She is having no problems. She is having no bleeding and she will be going home later today. PHYSICAL EXAMINATION: Color is good. She is awake, alert. Chest is clear. Cardiac exam is normal. Abdomen is soft, nontender. Dressing is dry. IMPRESSION: 1. Cardiac arrhythmia. 2. History of diabetes. 3. Chronic obstructive pulmonary disease. PLAN: Probably home today. MMODL / IJN: [id number] /
--- NOTE | 2019-06-21 19:56 | P.DS ---
Providers Date of admission: 06/19/19 07:04 Attending physician: Riley Low Primary care physician: Paul Blankenshiphven Hospital Course: Patient is doing well. She is resting comfortably in bed but she has walked to the bathroom Her groin is healed well after placement of TVP Her pacemaker generator site is healing well. There is minimal suprapubic no hematoma Breath sounds are clear Normal heart sounds normal S1 normal S2 no murmurs Abdomen soft Extremities warm Groin is healing well no hematoma Impression complete heart block, status post pacemaker Pacemaker generator at [facility] secondary to battery depletion Status post pacemaker generator change TVP Suggest Complete IV antibiotics and discharged home and follow up with the device clinic in 1 week Plan - Discharge Summary Discharge Rx Participant: No New Discharge Prescriptions: No Action Sertraline [Zoloft] 50 mg PO QAM Levothyroxine Sodium [Synthroid] 25 mcg PO QAM Montelukast [Singulair] 10 mg PO DAILY Atorvastatin [Lipitor] 80 mg PO DAILY Lisinopril [Zestril] 2.5 mg PO DAILY Ergocalciferol [Vitamin D2 (DRISDOL)] 50,000 unit PO Q30D Furosemide [Lasix] 80 mg PO DAILY Loperamide [Imodium] 2 mg PO TID PRN PRN Reason: Diarrhea Carvedilol [Coreg] 3.125 mg PO BID Calcium Acetate [PhosLo] 667 mg PO TID-W/MEALS #90 cap Allopurinol [Zyloprim] 100 mg PO QID traZODone HCL [Desyrel] 100 mg PO HS #30 tab Ipratropium-Albuterol Nebulize [Duoneb 0.5 mg-3 mg/3 ml Soln] 3 ml INHALATION RT-QID PRN PRN Reason: Shortness Of Breath Famotidine [Pepcid] 20 mg PO DAILY Discharge Medication List Levothyroxine Sodium [Synthroid] 25 mcg PO QAM 09/15/15 [History] Sertraline [Zoloft] 50 mg PO QAM 09/15/15 [History] Atorvastatin [Lipitor] 80 mg PO DAILY 12/10/17 [History] Montelukast [Singulair] 10 mg PO DAILY 12/10/17 [History] Lisinopril [Zestril] 2.5 mg PO DAILY 01/07/19 [History] Carvedilol [Coreg] 3.125 mg PO BID 01/23/19 [History] Ergocalciferol [Vitamin D2 (DRISDOL)] 50,000 unit PO Q30D 01/23/19 [History] Furosemide [Lasix] 80 mg PO DAILY 01/23/19 [History] Loperamide [Imodium] 2 mg PO TID PRN 01/23/19 [History] Calcium Acetate [PhosLo] 667 mg PO TID-W/MEALS #90 cap 02/04/19 [Rx] Allopurinol [Zyloprim] 100 mg PO QID 02/21/19 [History] traZODone HCL [Desyrel] 100 mg PO HS #30 tab 02/25/19 [Rx] Famotidine [Pepcid] 20 mg PO DAILY 06/17/19 [History] Ipratropium-Albuterol Nebulize [Duoneb 0.5 mg-3 mg/3 ml Soln] 3 ml INHALATION RT-QID PRN 06/17/19 [History] Follow up Appointment(s)/Referral(s): Riley Low MD [STAFF PHYSICIAN] - 06/27/19 9:30 am (Follow-up with the device clinic in one week: June 27, 2019 at 9:30am Follow up with Dr. Low/Rianna Toussaint/Elisabeth Rosales in 3-4 months: October 17, 2019 at 3:45pm) Patient Instructions/Handouts: Pacemaker Generator Change (DC) Activity/Diet/Wound Care/Special Instructions: PATIENT EDUCATION MATERIAL Instructions following a heart rhythm device generator implant. 1. Keep dressing DRY for ONE week. You may cover the area with Saran or Cling Wrap, prior to a shower. 2. The dressing will be removed after one week in the Device Clinic @ [facility]. Absorbable sutures were used to close the wound. 3. Avoid raising the [left] arm above the shoulder level. [1 week restriction] 4. Avoid arm movements, like backscratching, rubbing the head, or pulling on a cord. (1 weeks restriction) 5. Gentle range of motion movements of the shoulder, closest to the incision should be performed to avoid a frozen shoulder. (Pendulum exercises of the shoulder) 6. The opposite arm may be used freely. 7. Avoid driving for 7 days. 8. Avoid activities such as golfing, swimming, weed whacking, lifting more than 10 pounds weight, bowling, gymnastics and weight training/lifting. (2 weeks restriction) 9. Activities such as wood chopping with an axe, pull-ups in the gymnasium, power lifting, arc-welding, being close to home induction cooktops will always be a problem. In case of any problems, please call [facility], Tiffanie Butler, @ [phone], Attention: Device Clinic Discharge Disposition: HOME SELF-CARE
== END 2019-06-20 17:45 | disposition home or self-care (01) ==
LOC: CATHEP 06:52 → 1SOBS 07:04
PROVIDERS: ADMIT Internal Medicine Clinical Cardiac Electrophysiology; ATTEND Internal Medicine Clinical Cardiac Electrophysiology
DX: Z45.010 Encounter for checking and testing of cardiac pacemaker pulse generator [battery] (principal); I44.2 Atrioventricular block, complete; I48.21 Permanent atrial fibrillation; I13.0 Hypertensive heart and chronic kidney disease with heart failure and stage 1 through stage 4 chronic kidney disease, or unspecified chronic kidney disease; I50.22 Chronic systolic (congestive) heart failure; N18.4 Chronic kidney disease, stage 4 (severe); E11.22 Type 2 diabetes mellitus with diabetic chronic kidney disease; F17.210 Nicotine dependence, cigarettes, uncomplicated; E78.5 Hyperlipidemia, unspecified; I42.9 Cardiomyopathy, unspecified; J44.9 Chronic obstructive pulmonary disease, unspecified; E07.9 Disorder of thyroid, unspecified; K21.9 Gastro-esophageal reflux disease without esophagitis; K08.89 Other specified disorders of teeth and supporting structures; Z79.899 Other long term (current) drug therapy; Z79.890 Hormone replacement therapy; Z79.52 Long term (current) use of systemic steroids; Z79.51 Long term (current) use of inhaled steroids; Z88.6 Allergy status to analgesic agent; Z88.8 Allergy status to other drugs, medicaments and biological substances; Z88.0 Allergy status to penicillin; Z82.49 Family history of ischemic heart disease and other diseases of the circulatory system; Z98.890 Other specified postprocedural states
CPT/HCPCS: 94640; 33227; G0378 ×2; C1769 ×2; C1730; C1786; J2250; J2001; J3010

== ENCOUNTER → 2019-11-26 | Outpatient (CLI) | payer OTHER ==
[2019-11-26 18:07] LABS: African American GFR (CKD) 61.4 (60.0-200.0); Anion Gap 8.6 mmol/L (4.00-12.00); BUN/Creat Ratio 10.91 Ratio (12.00-20.00); Calcium 9.2 mg/dL (8.7-10.3); Carbon Dioxide 29.4 mmol/L (21.6-31.8); Potassium 4.3 mmol/L (3.5-5.5)
== END | disposition home or self-care (01) ==
LOC: LABWHC1 13:00
PROVIDERS: ATTEND Physician Assistant
DX: I42.9 Cardiomyopathy, unspecified (principal)
CPT/HCPCS: 36415; 80048

== ENCOUNTER 2020-08-14 15:52 | Inpatient (IN) | payer MEDICARE, OTHER ==
[2020-08-14] MEDS ORDERED: HYDROmorphone 0.5 MG/0.5 ML SYRINGE IVP STA (16:03)
--- NOTE | 2020-08-14 16:39 | ED ---
General Adult HPI - General Chief complaint: Fall Stated complaint: fall, hip pain Time Seen by Provider: 08/14/20 15:59 Source: patient, EMS, RN notes reviewed, old records reviewed Mode of arrival: EMS Limitations: physical limitation - History of Present Illness Initial comments: 65-year-old female presents status post fall with left hip pain. Patient states she tripped over her grandson. No head or neck injury. Only complaint is in her left hip. She denies blood thinners. Patient was transported by EMS. She denies chest pain or abdominal pain. She denies any preceding palpitations. No fever. - Related Data Home Medications Medication Instructions Recorded Confirmed Levothyroxine Sodium [Synthroid] 25 mcg PO QAM 09/15/15 06/19/19 Sertraline [Zoloft] 50 mg PO QAM 09/15/15 06/19/19 Atorvastatin [Lipitor] 80 mg PO DAILY 12/10/17 06/19/19 Montelukast [Singulair] 10 mg PO DAILY 12/10/17 06/19/19 lisinopriL [Zestril] 2.5 mg PO DAILY 01/07/19 06/19/19 Ergocalciferol [Vitamin D2 50,000 unit PO Q30D 01/23/19 06/17/19 (DRISDOL)] Furosemide [Lasix] 80 mg PO DAILY 01/23/19 06/19/19 Loperamide [Imodium] 2 mg PO TID PRN 01/23/19 06/17/19 carvediloL [Coreg] 3.125 mg PO BID 01/23/19 06/19/19 allopurinoL [Zyloprim] 100 mg PO QID 02/21/19 06/19/19 Famotidine [Pepcid] 20 mg PO DAILY 06/17/19 06/19/19 Ipratropium-Albuterol Nebulize 3 ml INHALATION RT-QID PRN 06/17/19 06/17/19 [Duoneb 0.5 mg-3 mg/3 ml Soln] Previous Rx's Medication Instructions Recorded Calcium Acetate [PhosLo] 667 mg PO TID-W/MEALS #90 cap 02/04/19 traZODone HCL [Desyrel] 100 mg PO HS #30 tab 02/25/19 Allergies Allergy/AdvReac Type Severity Reaction Status Date / Time oxybutynin Allergy Rash/Hives Verified 08/14/20 16:04 Penicillins Allergy Rash/Hives Verified 08/14/20 16:04 aspirin AdvReac Nausea & Verified 08/14/20 16:04 Vomiting Review of Systems ROS Statement: Those systems with pertinent positive or pertinent negative responses have been documented in the HPI. ROS Other: All systems not noted in ROS Statement are negative. Past Medical History Past Medical History: Cancer, Heart Failure, COPD, Diabetes Mellitus, Hyperlipidemia, Hypertension, Myocardial Infarction (ID), Osteoarthritis (OA), Pneumonia, Renal Disease, Skin Disorder, Sleep Apnea/CPAP/BIPAP, Thyroid Disorder Additional Past Medical History / Comment(s): gout, varicose veins, psoriasis, anemia, stage III kidney disease, breast cancer- last chemo Feb 2018. SEE DR ARENAS'S HISTORY AND PHYSICAL FOR CARDIAC HISTORY , DIABETIC-DIET CONTROLLED Last Myocardial Infarction Date:: 03/2012 History of Any Multi-Drug Resistant Organisms: None Reported Date of last positivie culture/infection: None C.diff toxin test negative MDRO Source:: None Past Surgical History: Breast Surgery, Cholecystectomy, Hysterectomy, Pacemaker Additional Past Surgical History / Comment(s): Left breast biopsy, left mastectomy, right cataract removed. Past Anesthesia/Blood Transfusion Reactions: Motion Sickness Additional Past Anesthesia/Blood Transfusion Reaction / Comment(s): denies problems with anesthesia Type of Cardiac Device: Permanent Pacemaker Device Placement Date:: Past Psychological History: ADD/ADHD, Bipolar, Depression Past Alcohol Use History: None Reported Past Drug Use History: None Reported - Past Family History Mother Family Medical History: Cancer Additional Family Medical History / Comment(s): stomach cancer General Exam Limitations: physical limitation General appearance: alert, in no apparent distress Head exam: Present: atraumatic, normocephalic Eye exam: Present: normal appearance, PERRL ENT exam: Present: normal exam Neck exam: Present: normal inspection, tenderness Respiratory exam: Present: normal lung sounds bilaterally. Absent: respiratory distress, wheezes Cardiovascular Exam: Present: regular rate, normal rhythm GI/Abdominal exam: Present: soft. Absent: distended, tenderness, guarding Extremities exam: Present: normal capillary refill, other (No rotation or shortening, significant pain with rotation of the left leg.) Neurological exam: Present: alert, oriented X3, CN II-XII intact. Absent: motor sensory deficit Psychiatric exam: Present: normal affect, normal mood Skin exam: Present: warm, dry, intact. Absent: cyanosis, diaphoretic Course Vital Signs 08/14/20 16:00 Temperature 98.2 F Pulse Rate 76 Respiratory 18 Rate Blood Pressure 114/82 O2 Sat by Pulse 95 Oximetry Medical Decision Making - Medical Decision Making 65-year-old female presenting status post fall with left hip pain. X-rays performed, shows a left intertrochanteric fracture. Case discussed with Blaise escalante for orthopedics, will admit, both patient's primary care physician and cardiology are placed for preoperative clearance. I did discuss case with Dr. Hanks who will evaluate. Chest x-ray, EKG, and preoperative lab tests have been ordered. These results are pending. Disposition Clinical Impression: Fall, Fracture, intertrochanteric, left femur Disposition: ADMITTED IP TO THIS [facility] Condition: Stable Is patient prescribed a controlled substance at d/c from ED?: No Referrals: Paul Hanks MD [Primary Care Provider] - 1-2 days Decision to Admit Reason: Admit from EC Decision Date: 08/14/20 Decision Time: 17:59
--- NOTE | 2020-08-14 16:42 | XR ---
EXAMINATION TYPE: XR Hip LT and AP Pelvis DATE OF EXAM: 08/14/2020 COMPARISON: Previous exam 01/23/2019 HISTORY: Trauma and pain TECHNIQUE: A single AP view of the pelvis is obtained. Two views of the left hip are obtained. FINDINGS: Intertrochanteric proximal left femoral fracture is suspected with associated varus deformi ty. No dislocation. Vascular calcification suspected within the pelvis. IMPRESSION: Left hip fracture suspected
--- NOTE | 2020-08-14 16:44 | XR ---
EXAMINATION TYPE: XR chest 1V DATE OF EXAM: 08/14/2020 COMPARISON: Chest x-ray 01/23/2019 HISTORY: Trauma and pain TECHNIQUE: Single frontal view of the chest is obtained. FINDINGS: The heart is enlarged. There is a generator in the left pectoral region, lead in the right ventricle. Port is present in the right pectoral region courses via the internal jugular vein approa ch, distal tip is overlying superior vena cava. There is no evident pneumothorax or pleural effusion. Patient is rotated. Pulmonary vascularity and richard within normal limits. No evident fracture. IMPRESSION: Cardiomegaly.
[2020-08-14] MEDS ORDERED: NALOXONE 0.4 MG/ML 1 ML VIAL IV PRN (17:19)
[2020-08-14] MEDS ORDERED: ACETAMINOPHEN TAB 325 MG TAB PO PRN (17:19)
[2020-08-14 18:39] LABS: Basophils % (A) 0 %; Eosinophils # (A) 0.2 k/uL (0-0.7); Eosinophils % (A) 2 %; HCT 44.6 % (34.0-46.0); HGB 14.8 gm/dL (11.4-16.0); Lymphocytes # (A) 0.9 k/uL (1.0-4.8); Lymphocytes % (A) 12 %; MCHC 33.1 g/dL (31.0-37.0); MCV 96.6 fL (80.0-100.0); Mean Platelet Volume 9.2; Monocytes # (A) 0.4 k/uL (0-1.0); Monocytes % (A) 5 %; Neutrophils # (A) 5.7 k/uL (1.3-7.7); Neutrophils % (A) 79 %; RBC 4.62 m/uL (3.80-5.40); RDW 14.7 % (11.5-15.5); WBC 7.2 k/uL (3.8-10.6)
[2020-08-14 18:52] LABS: Albumin 3.5 g/dL (3.5-5.0); Calcium 8.7 mg/dL (8.4-10.2); Potassium 4.1 mmol/L (3.5-5.1); Total Bilirubin 0.7 mg/dL (0.2-1.3); Total Protein 7.3 g/dL (6.3-8.2)
[2020-08-14 18:58] LABS: Platelet Count 55 k/uL (150-450)
[2020-08-14 19:40] LABS: Partial Thromboplastin Time 25.6 sec (22.0-30.0); Prothrombin Time 10.6 sec (9.0-12.0)
[2020-08-15] MEDS: HYDROmorphone 0.5 MG/0.5 ML SYRINGE IVP PRN ×2 (01:53→11:56)
[2020-08-15] MEDS: SODIUM CHLORIDE 0.9% 1,000 ML IV SCH ×2 (01:55→17:45)
--- NOTE | 2020-08-15 09:19 | CONS ---
CONSULTATION She is in the emergency room in Room 8. CHIEF COMPLAINT: Pain in the left hip. HISTORY OF PRESENT ILLNESS: This is another admission for this lady who apparently tripped over her grandson, landed on the left hip, was brought to the emergency room where she was found to have an intertrochanteric fracture of the left hip. She states it was a pure tripping action and she did not experience any other symptoms before or after such as chest pain, dizziness, lightheadedness, etc. REVIEW OF SYSTEMS: She denies any headaches, change in vision in her 1 eye, shortness of breath, chest pain, cough, orthopnea, PND, abdominal pain, nausea, vomiting, hematemesis, melena, hematochezia, jaundice, dysuria, frequency, urgency, incontinence, etc. Past medical history, family history and personal and social histories reveal that she is ALLERGIC TO ASPIRIN, PENICILLIN, and she can take oxybutynin. MEDICATIONS: Trilafon 8 mg a day, Mitigare 0.6 mg once a day, Lasix 20 mg a day, Uloric 80 mg once a day, Zestril 2.5 once a day, Coreg 3.125 twice a day, Zoloft 50 mg once a day, Singulair 10 mg once a day, Synthroid 0.025 once a day, PhosLo 667 mg once a day, Lipitor 80. She has a history of COPD, and still smokes occasionally. 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 She has was treated for carcinoma of the breast which was on the left. There are no signs of recurrence. Laboratory studies in the emergency room included a sodium 135, and creatinine 1.06. AST was minimally up at 50 and her alkaline phosphatase was elevated at 250. Platelet count was low at 55,000. PHYSICAL EXAMINATION: Blood pressure 112/53 with a pulse 54 and regular sinus rhythm. Respirations 17 and pulse ox is 96. In GENERAL she appeared to be somewhat disheveled and older than her stated age. HEAD, ears, eyes, nose and mouth were normal except for the absence of the left eye. NECK veins are not distended. CHEST is clear to auscultation. CARDIAC exam demonstrated normal sinus rhythm and no murmurs or extra sounds. ABDOMEN is soft, nontender. EXTREMITIES are normal except for slight external rotation of the left hip. Pulses were diminished in the feet, but palpable. NEUROLOGICALLY she is intact. IMPRESSION: She is admitted to the hospital with diagnoses: 1. Left intertrochanteric hip fracture. 2. Chronic obstructive pulmonary disease. 3. Surgical absence of left eye. 4. History of hypertension. 5. History of hyperlipidemia. 6. History of breast cancer. 7. Thrombocytopenia. PLAN: 1. Bed rest. 2. Prepare for surgery. She is cleared for surgery. Her platelet counts will have to be followed closely and may require platelet transfusion. MMODL / IJN: [id number] /
[2020-08-15 10:09] LABS: HCT 43.8 % (34.0-46.0); HGB 14.3 gm/dL (11.4-16.0); MCHC 32.7 g/dL (31.0-37.0); MCV 97.8 fL (80.0-100.0); Mean Platelet Volume 8.3; RBC 4.47 m/uL (3.80-5.40); RDW 14.2 % (11.5-15.5); WBC 7.1 k/uL (3.8-10.6)
[2020-08-15 10:14] LABS: Platelet Count 64 k/uL (150-450)
--- NOTE | 2020-08-15 14:13 | P.HPOR ---
History of Present Illness H&P Date: 08/15/20 Chief Complaint: Left intertrochanteric femur fracture, status post fall Patient is a 65-year-old female who presented to [facility] on 08/14/2020 for evaluation of the left lower extremity injury. Apparently the patient was at home when she tripped over her grandson and fell onto her left side. She was unable to weight-bear after the incidence, she was brought to [facility] for further evaluation. Upon arrival to the hospital, images and lab tests were done. Images demonstrated a displaced left intertrochanteric femur fracture. I was contacted by the emergency room staff able to review the images. Patient was admitted under orthopedic care with plan for surgical intervention. With her history, internal medicine and both car diology work consult for clearances. I was able to discuss the diagnosis along with treatment options with the patient's daughter over the phone last night. Our plan is to proceed with surgical intervention, more specifically an intramedullary nail of the left intertrochanteric femur fracture. The risk and benefits of the procedure were discussed with her, this to include but not exclude infection, blood loss, developmental blood clots, neurovascular injury, and adequate healing of bone, need for further surgery. Patient's daughter was in good understanding and would like to proceed. She was notified that Dr. Aguilera would be available on the preoperative area to answer any further questions regarding the procedure. Patient was evaluated today at bedside, she still is in the emergency room overflow unit, there were no beds available on . she is resting comfortably, she states most of the discomfort is in the upper part of the left leg when she tries to move. She denies any pain of the right lower extremity. She denies any pain in the bilateral upper extremities. She denies any new onset cervical, thoracic or lumbar pain. She denies any numbness or tingling in the bilateral lower extremities. She denies any perineal numbness or tingling. She denies any loss of bowel or bladder function. Pertinent past medical history includes COPD, she is an active smoker. She does have history of a pacemaker, cardiology has been consult for clearances. Internal medicine is also following the patient. Review of Systems Constitutional: Reports as per HPI Past Medical History Past Medical History: Cancer, Heart Failure, COPD, Diabetes Mellitus, Hyperlipidemia, Hypertension, Myocardial Infarction (ME), Osteoarthritis (OA), Pneumonia, Renal Disease, Skin Disorder, Sleep Apnea/CPAP/BIPAP, Thyroid Disorder Additional Past Medical History / Comment(s): gout, varicose veins, psoriasis, anemia, stage III kidney disease, breast cancer- last chemo Feb 2018. SEE DR ARENAS'S HISTORY AND PHYSICAL FOR CARDIAC HISTORY , DIABETIC-DIET CONTROLLED Last Myocardial Infarction Date:: 03/2012 History of Any Multi-Drug Resistant Organisms: None Reported Date of last positivie culture/infection: None C.diff toxin test negative MDRO Source:: None Past Surgical History: Breast Surgery, Cholecystectomy, Hysterectomy, Pacemaker Additional Past Surgical History / Comment(s): Left breast biopsy, left mastectomy, right cataract removed. Past Anesthesia/Blood Transfusion Reactions: Motion Sickness Additional Past Anesthesia/Blood Transfusion Reaction / Comment(s): denies pro blems with anesthesia Type of Cardiac Device: Permanent Pacemaker Device Placement Date:: Past Psychological History: ADD/ADHD, Bipolar, Depression Past Alcohol Use History: None Reported Past Drug Use History: None Reported - Past Family History Mother Family Medical History: Cancer Additional Family Medical History / Comment(s): stomach cancer Medications and Allergies Home Medications Medication Instructions Recorded Confirmed Type Levothyroxine Sodium [Synthroid] 25 mcg PO QAM 09/15/15 08/14/20 History Sertraline [Zoloft] 50 mg PO QAM 09/15/15 08/14/20 History Atorvastatin [Lipitor] 80 mg PO HS 12/10/17 08/14/20 History Montelukast [Singulair] 10 mg PO HS 12/10/17 08/14/20 History lisinopriL [Zestril] 2.5 mg PO DAILY 01/07/19 08/14/20 History carvediloL [Coreg] 3.125 mg PO BID 01/23/19 08/14/20 History Calcium Acetate [PhosLo] 667 mg PO TID-W/MEALS #90 cap 02/04/19 08/14/20 Rx Colchicine [Mitigare] 0.6 mg PO BID 08/14/20 08/14/20 History Febuxostat [Uloric] 80 mg PO DAILY 08/14/20 08/14/20 History Furosemide [Lasix] 20 mg PO BID 08/14/20 08/14/20 History Perphenazine [Trilafon] 8 mg PO HS 08/14/20 08/14/20 History Allergies Allergy/AdvReac Type Severity Reaction Status Date / Time oxybutynin Allergy Rash/Hives Verified 08/14/20 18:33 Penicillins Allergy Rash/Hives Verified 08/14/20 18:33 aspirin AdvReac Nausea & Verified 08/14/20 18:33 Vomiting Physical Examination Left lower extremity: No obvious open lesions or sores of visualized throughout the extremity No significant areas of erythema or ecchymosis present Obvious skin discoloration of the lower leg and foot representing likely peripheral vascular disease, dry skin is noted throughout this area also The leg is shortened and externally rotated when compared to the contralateral side She's tender with palpation over the greater trochanter, logroll maneuver reproduces pain, she is unable to straight leg raise No effusion is present over the knee, there is no generalized tenderness with palpation of the knee She is nontender with palpation of the lower leg, this to include the foot and ankle Plantar flexion, dorsiflexion, EHL, FHL are intact Her sensation to light touch is intact throughout the extremity Calf is soft, no tenderness with palpation Skin is warm to touch General orthopedic exam: She is nontender with palpation throughout the cervical, thoracic or lumbar midline and paraspinal regions, no obvious step-off is appreciated No point tenderness appreciated of the bilateral upper extremities, range of motion is intact in all major muscle groups the bilateral upper extremities No obvious open lesions or sores are present throughout the right lower extremity. Similar skin findings are noted including discoloration and dry skin of the lower part of the leg. She is able to straight leg raise, logroll reproduces no pain. Range of motion with flexion and extension are intact at the knee, foot and ankle. No point tenderness is appreciated on exam of the lower extremity. Plantar flexion, dorsiflexion, EHL, FHL are intact. Her sensory exam to light touch is intact throughout the extremity. Calf is soft, no tenderness with palpation. Skin is warm to touch. Results - Labs Labs: Abnormal Lab Results - Last 24 Hours (Table) 08/14/20 08/14/20 08/15/20 Range/Units 16:41 16:41 08:59 Plt Count 55 L 64 L (150-450) k/uL Lymphocytes # 0.9 L (1.0-4.8) k/uL Sodium 135 L (137-145) mmol/L Creatinine 1.06 H (0.52-1.04) mg/dL Glucose 147 H (74-99) mg/dL AST 50 H (14-36) U/L Alkaline Phosphatase 250 H (38-126) U/L H & H 08/14/20 08/15/20 Range/Units 16:41 08:59 Hgb 14.8 14.3 (11.4-16.0) gm/dL Hct 44.6 43.8 (34.0-46.0) % Coagulation 08/14/20 Range/Units 16:41 INR 1.0 (<1.2) Result Diagrams: 08/15/20 08:59 08/14/20 16:41 - Diagnostic results Hip x-ray: report reviewed, image reviewed (Images along with reports were reviewed of the left hip. Images demonstrated a displaced left intertrochanteric femur fracture. The hip joint remains preserved at this time. No other osseous abnormalities are appreciated) Assessment and Plan Assessment: Left intertrochanteric femur fracture, closed, displaced Status post fall from standing Other current medical comorbidities Plan: I was able to discuss the case, including the physical exam findings and imaging studies my attending Dr. Aguilera. Our initial plan was to proceed with surgery on 08/15/2020. With clearances recommended for both internal medicine and cardiology along with OR schedule we decided to postpone the surgery until 08/16/2020 Obtain consent Nothing by mouth after midnight Pain control, low-dose oral medication, IV pain medication for breakthrough Nonweightbearing left lower extremity Urinary catheter has been placed by ER staff, plan for discontinuation after surgery DVT prophylaxis, patient will receive heparin, we'll discontinue the night before surgery and likely begin after surgery Cardiac and internal medicine clearance and recommendations PT/OT evaluation after surgery Discharge planning: Anticipate patient will need subacute rehab at discharge Time with Patient: Less than 30
[2020-08-15] MEDS ORDERED: traMADol 50 MG TAB PO PRN (14:14)
--- NOTE | 2020-08-15 19:21 | P.CRDCN ---
History of Present Illness History of present illness: HISTORY OF PRESENTING ILLNESS This is a pleasant 65 year old female with history of COPD, DM, HLD, HTN, arthrtitis, CKD, CONSTANCE, tobacco abuse, breast cancer, gout, mild cardiomyopathy with EF 40%, complete heart block s/p dual chamber PPM who presents secondary to mechanical fall. She states she tripped on her grandchild walking in front of her. Denies any chest pain, SOB, or lightheadedness. Patient follows with Dr Low with last visit in 04/2020. She states she can walk up a flight of stairs without any SOB or chest pain. Last echo from 04/2018 showed EF 40% with global hypokinesis. She was found to have a left hip fracture and cardiology was consulted for cardiac clearance. DIAGNOSTICS EKG reveals, P waves however V paced rhythm. Chest xray reveals cardiomegaly and no other acute process. Laboratory reviewed: Platelet count 55, 64 Current cardiac medications include Heparin SQ. Home Lasix 20mg bid, lisinopril 2.5mg daily and coreg 3.125 mg bid have been on hold. REVIEW OF SYSTEMS At the time of my exam: CONSTITUTIONAL: Denies fever or chills. CARDIOVASCULAR: +chest pain, +shortness of breath, no orthopnea, PND or palpitations. RESPIRATORY: Denies cough. GASTROINTESTINAL: Denies abdominal pain, diarrhea, constipation, nausea or vomiting. MUSCULOSKELETAL: Denies myalgias. NEUROLOGIC: Denies numbness, tingling or weakness. ENDOCRINE: Denies fatigue, weight change, polydipsia or polyurina. GENITOURINARY: Denies burning, hematuria or urgency with micturation. HEMATOLOGIC: Denies history of anemia or bleeding. PHYSICAL EXAMINATION Vitals reviewed CONSTITUTIONAL: Patient in no acute distress. +left eye deformity HEENT: Head is normocephalic. Pupils are equal, round. Sclerae anicteric. Mucous membranes of the mouth are moist. No JVD. No carotid bruit. CHEST EXAMINATION: Lungs are clear to auscultation. No chest wall tenderness is noted on palpation or with deep breathing. HEART EXAMINATION: Regular rate and rhythm. S1, S2 heard. No murmurs, gallops or rub. ABDOMEN: Soft, nontender. Positive bowel sounds. EXTREMITIES: 2+ peripheral pulses, no lower extremity edema and no calf tenderness. NEUROLOGIC EXAMINATION: Patient is awake, alert and oriented x3. ASSESSMENT 1. Preoperative cardiovascular exam 2. Hypertension 3. Tobacco abuse 4. COPD 5. Complete heart block s/p permanent pacemaker 6. Mild cardiomyopathy with EF 40% 7. Chronic systolic heart failure with EF 40%, currently appears euvolemic 8. Mechanical fall/ trip PLAN We will restart her home heart failure regimen. Patient with fair exercise tolerance, able to perform 4 METs of activity without angina or SOB and is a reasonable candidate for proposed hip surgery. Continue with supportive care. Past Medical History Past Medical History: Cancer, Heart Failure, COPD, Diabetes Mellitus, Hyperlipidemia, Hypertension, Myocardial Infarction (LA), Osteoarthritis (OA), Pneumonia, Renal Disease, Skin Disorder, Sleep Apnea/CPAP/BIPAP, Thyroid Disorder Additional Past Medical History / Comment(s): gout, varicose veins, psoriasis, anemia, stage III kidney disease, breast cancer- last chemo Feb 2018. SEE DR LOW'S HISTORY AND PHYSICAL FOR CARDIAC HISTORY , DIABETIC-DIET CONTROLLED. Healed/scarred sacral decub that had wound vac Last Myocardial Infarction Date:: 03/2012 History of Any Multi-Drug Resistant Organisms: None Reported Date of last positivie culture/infection: None C.diff toxin test negative MDRO Source:: None Past Surgical History: Breast Surgery, Cholecystectomy, Hysterectomy, Pacemaker Additional Past Surgical History / Comment(s): Left breast biopsy, left mastectomy, right cataract removed. Past Anesthesia/Blood Transfusion Reactions: Motion Sickness Additional Past Anesthesia/Blood Transfusion Reaction / Comment(s): denies problems with anesthesia Type of Cardiac Device: Permanent Pacemaker Device Placement Date:: Past Psychological History: ADD/ADHD, Bipolar, Depression Additional Psychological History / Comment(s): Lives with and dtr. [facility]. States uses no assistive devices. Uses bus to get to dr fish. Smoking Status: Current every day smoker Past Alcohol Use History: None Reported Past Drug Use History: None Reported - Past Family History Mother Family Medical History: Cancer Additional Family Medical History / Comment(s): stomach cancer Medications and Allergies Home Medications Medication Instructions Recorded Confirmed Type Levothyroxine Sodium [Synthroid] 25 mcg PO QAM 09/15/15 08/14/20 History Sertraline [Zoloft] 50 mg PO QAM 09/15/15 08/14/20 History Atorvastatin [Lipitor] 80 mg PO HS 12/10/17 08/14/20 History Montelukast [Singulair] 10 mg PO HS 12/10/17 08/14/20 History lisinopriL [Zestril] 2.5 mg PO DAILY 01/07/19 08/14/20 History carvediloL [Coreg] 3.125 mg PO BID 01/23/19 08/14/20 History Calcium Acetate [PhosLo] 667 mg PO TID-W/MEALS #90 cap 02/04/19 08/14/20 Rx Colchicine [Mitigare] 0.6 mg PO BID 08/14/20 08/14/20 History Febuxostat [Uloric] 80 mg PO DAILY 08/14/20 08/14/20 History Furosemide [Lasix] 20 mg PO BID 08/14/20 08/14/20 History Perphenazine [Trilafon] 8 mg PO HS 08/14/20 08/14/20 History Allergies Allergy/AdvReac Type Severity Reaction Status Date / Time oxybutynin Allergy Rash/Hives Verified 08/14/20 18:33 Penicillins Allergy Rash/Hives Verified 08/14/20 18:33 aspirin AdvReac Nausea & Verified 08/14/20 18:33 Vomiting Physical Exam Vitals: Vital Signs Temp Pulse Pulse Resp BP BP Pulse Ox 08/15/20 14:30 99.3 F 45 L 18 114/69 90 L 08/15/20 14:04 98.7 F 61 18 122/58 95 08/15/20 12:37 99.2 F 08/15/20 11:31 100 F H 52 L 18 124/67 95 08/15/20 09:14 98.1 F 55 L 16 124/54 94 L 08/15/20 06:51 54 L 17 112/53 96 08/15/20 01:55 55 L 19 123/60 96 08/14/20 21:00 80 14 95 08/14/20 20:00 50 L 16 128/63 95 Intake and Output 08/15/20 08/15/20 08/15/20 06:59 14:59 22:59 Intake Total 160 Output Total 250 Balance -250 160 Intake: IV 160 Sodium Chloride 0.9% 1, 160 000 ml @ 20 mls/hr IV . Q24H [facility] Rx#:[id number] Output: Urine 250 Other: Voiding Method Indwelling Catheter Weight 79.832 kg Results 08/15/20 08:59 08/14/20 16:41 Coagulation 08/14/20 Range/Units 16:41 PT 10.6 (9.0-12.0) sec APTT 25.6 (22.0-30.0) sec CBC 08/15/20 Range/Units 08:59 WBC 7.1 (3.8-10.6) k/uL RBC 4.47 (3.80-5.40) m/uL Hgb 14.3 (11.4-16.0) gm/dL Hct 43.8 (34.0-46.0) % Plt Count 64 L (150-450) k/uL Current Medications Generic Name Dose Route Start Last Admin Trade Name Freq PRN Reason Stop Dose Admin Acetaminophen 650 mg 08/14/20 17:19 Acetaminophen Tab 325 Mg Tab PO 08/15/20 23:59 Q6HR PRN Mild Pain or Fever > 100.5 Hydrocodone Bitart/Acetaminophen 1 each 08/15/20 14:14 Hydrocodone/Apap 5-325mg 1 Each Tab PO Q6HR PRN Pain Heparin Sodium (Porcine) 5,000 unit 08/15/20 21:00 Heparin Sodium,Porcine 5,000 Unit/Ml 1 Ml Vial SQ Q12HR JAMES Hydromorphone HCl 0.5 mg 08/14/20 17:19 08/15/20 11:56 Hydromorphone 0.5 Mg/0.5 Ml Syringe IVP 0.5 mg Q3HR PRN Administration Moderate Pain Sodium Chloride 1,000 mls @ 20 mls/hr 08/14/20 17:30 08/15/20 17:45 Saline 0.9% IV 20 mls/hr .Q24H JAMES Administration Naloxone HCl 0.2 mg 08/14/20 17:19 Naloxone 0.4 Mg/Ml 1 Ml Vial IV Q2M PRN Opioid Reversal Tramadol HCl 50 mg 08/15/20 14:14 Tramadol 50 Mg Tab PO TID PRN Pain Intake and Output 08/15/20 08/15/20 08/15/20 06:59 14:59 22:59 Intake Total 160 Output Total 250 Balance -250 160 Intake: IV 160 Sodium Chloride 0.9% 1, 160 000 ml @ 20 mls/hr IV . Q24H [facility] Rx#:[id number] Output: Urine 250 Other: Voiding Method Indwelling Catheter Weight 79.832 kg Patient Weight 08/16/20 06:59 Weight 79.832 kg 08/15/20 08:59 08/14/20 16:41
[2020-08-15] MEDS: carvediloL 3.125 MG TAB PO SCH (20:41)
[2020-08-15] MEDS: HEPARIN SODIUM,PORCINE 5,000 UNIT/ML 1 ML VIAL SQ SCH (20:41)
[2020-08-16] MEDS: HYDROmorphone 0.5 MG/0.5 ML SYRINGE IVP PRN ×2 (05:19→09:59)
[2020-08-16] MEDS: HEPARIN SODIUM,PORCINE 5,000 UNIT/ML 1 ML VIAL SQ SCH ×2 (09:50→19:50)
[2020-08-16] MEDS: carvediloL 3.125 MG TAB PO SCH ×2 (09:59→18:28)
--- NOTE | 2020-08-16 10:26 | ECHOF ---
Referral Reason:LV function MEASUREMENTS -------- HEIGHT: 157.5 cm WEIGHT: 79.8 kg BP: 109/68 RVIDd: 3.0 cm (< 3.3) IVSd: 1.0 cm (0.6 - 1.1) LVIDd: 5.0 cm (3.9 - 5.3) LVPWd: 1.0 cm (0.6 - 1.1) IVSs: 1.3 cm LVIDs: 3.9 cm LVPWs: 1.2 cm LA Diam: 4.0 cm (2.7 - 3.8) LAESV Index (A-L): 26.56 ml/m Ao Diam: 2.7 cm (2.0 - 3.7) AV Cusp: 1.8 cm (1.5 - 2.6) LA Diam: 4.9 cm (2.7 - 3.8) MV EXCURSION: 16.312 mm (> 18.000) MV EF SLOPE: 96 mm/s (70 - 150) EPSS: 0.5 cm MV E Blue: 0.92 m/s MV DecT: 156 ms MV A Blue: 0.37 m/s MV E/A Ratio: 2.46 RAP: 5.00 mmHg RVSP: 24.94 mmHg FINDINGS -------- Pacerwire seen in RV and RA. This was a technically adequate study. The left ventricular size is normal. Left ventricular wall thickness is normal. Overall left vent ricular systolic function is mild-moderately impaired with, an EF between 40 - 45 %. Basal inferior LV wall motion is hypokinetic. Mid inferior LV wall motion is hypokinetic. The right ventricle is normal in size. Normal LA size by volume 22+/-6 ml/m2. The right atrial size is normal. There is mild aortic valve sclerosis. There is no evidence of aortic regurgitation. Mild mitral annular calcification present. [id number] mitral regurgitation is present. The tricuspid valve appears structurally normal. Mild tricuspid regurgitation present. Right vent ricular systolic pressure is normal at < 35 mmHg. The pulmonic valve was not well visualized. There is no pulmonic regurgitation present. The aortic root size is normal. There is no pericardial effusion. CONCLUSIONS -------- 1. Pacerwire seen in RV and RA. 2. Left ventricular wall thickness is normal. 3. Overall left ventricular systolic function is mild-moderately impaired with, an EF between 40 - 45 %. 4. Mid inferior LV wall motion is hypokinetic. 5. Normal LA size by volume 22+/-6 ml/m2. 6. There is mild aortic valve sclerosis. 7. [id number] mitral regurgitation is present. 8. Mild tricuspid regurgitation present. 9. There is no pericardial effusion. FARM WORKER: Hanh Parr RDCS
[2020-08-16 14:02] LABS: Glucose,Whole Blood 106 mg/dL (75-99)
[2020-08-16] MEDS ORDERED: LACTATED RINGERS 1,000 ML IV ONE ×2 (14:13)
[2020-08-16] MEDS ORDERED: ONDANSETRON 4 MG/2 ML VIAL ONE (14:23)
[2020-08-16] MEDS ORDERED: DEXAMETHASONE SOD PHOSPHATE 4 MG/ML 1 ML VIAL IVP ONE (14:25)
--- NOTE | 2020-08-16 14:33 | P.PN ---
Subjective This is a pleasant 65 year old female with history of COPD, DM, HLD, HTN, arthrtitis, CKD, CONSTANCE, tobacco abuse, breast cancer, gout, mild cardiomyopathy with EF 40%, complete heart block s/p dual chamber PPM who presents secondary to mechanical fall. Patient follows with Dr Low with last visit in 04/2020. She states she tripped on her grandchild walking in front of her. Denies any chest pain, SOB, or lightheadedness. She states she can walk up a flight of stairs without any SOB or chest pain. Last echo from 04/2018 showed EF 40% with global hypokinesis. She was found to have a left hip fracture and cardiology was consulted for cardiac clearance. She is currently being maintained on Heparin SQ prophylaxis, Lisinopril 2.5mg daily and coreg 3.125 mg BID. Patient is resting comfortably in bed, lying flat, no acute distress. Denies chest pain, palpitations, shortness of breath, abdominal pain, nausea, or emesis. Laboratory data reviewed, from 08/15/20 WBC 7.1, Hgb 14.3, Platelets 64. BP 136/59 HR 50, afebrile, 98% on room air. 2D Echo 08/16/20- left ventricular systolic function is mild impaired EF 40-45%, left ventricular wall thickness is normal, mid inferior LV wall motion is hypokinetic, mild aortic valve sclerosis, mild to moderate mitral regurgitation is present, mild tricuspid regurgitation present PHYSICAL EXAMINATION CONSTITUTIONAL: Patient in no acute distress. +left eye deformity HEENT: Head is normocephalic. Pupils are equal, round. Sclerae anicteric. Mucous membranes of the mouth are moist. No JVD. No carotid bruit. CHEST EXAMINATION: Lungs are clear to auscultation. No chest wall tenderness is noted on palpation or with deep breathing. HEART EXAMINATION: Regular rate and rhythm. S1, S2 heard. No murmurs, gallops or rub. ABDOMEN: Soft, nontender. Positive bowel sounds. EXTREMITIES: 2+ peripheral pulses, no lower extremity edema and no calf tenderness. NEUROLOGIC EXAMINATION: Patient is awake, alert and oriented x3. ASSESSMENT Preoperative cardiovascular exam Hypertension Tobacco abuse COPD Complete heart block s/p permanent pacemaker Mild cardiomyopathy with EF 40% Chronic systolic heart failure with EF 40%, currently appears euvolemic Mechanical fall/ trip PLAN -Patient with fair exercise tolerance, no acute cardiac indication to not undergo hip surgery. Patient is able to perform 4 METs of activity without angina or shortness of breath. -Continue Lisinopril 2.5mg daily and coreg 3.125 mg BID Objective - Vital Signs Vital signs: Vital Signs Temp 98.2 F 08/16/20 13:59 Pulse 50 L 08/16/20 13:59 Resp 18 08/16/20 13:59 BP 136/59 08/16/20 13:59 Pulse Ox 98 08/16/20 13:59 Intake & Output 08/15/20 08/16/20 08/16/20 18:59 06:59 18:59 Intake Total 160 Output Total 250 500 500 Balance -90 -500 -500 Weight 79.832 kg Intake: IV 160 Sodium Chloride 0.9% 1, 160 000 ml @ 20 mls/hr IV . Q24H [facility] Rx#:[id number] Output: Urine 250 500 500 Other: Voiding Method Indwelling Catheter Indwelling Catheter Indwelling Catheter - Labs CBC & Chem 7: 08/15/20 08:59 08/14/20 16:41 Labs: Abnormal Lab Results - Last 24 Hours (Table) 08/16/20 Range/Units 14:01 POC Glucose (mg/dL) 106 H (75-99) mg/dL
[2020-08-16] MEDS ORDERED: ROCURONIUM 10 MG/ML (5 ML VIAL) IV ONE (15:56)
[2020-08-16] MEDS ORDERED: PROPOFOL 10 MG/ML 20 ML VIAL IV ONE (15:56)
[2020-08-16] MEDS ORDERED: SUCCINYLCHOLINE CHLORIDE 100 MG/5 ML SYR IV ONE (15:56)
[2020-08-16] MEDS ORDERED: KETAMINE 10 MG/ML 20 ML VIAL ONE (15:56)
[2020-08-16] MEDS ORDERED: NEOSTIGMINE 1 MG/ML 10 ML VIAL ONE (15:56)
[2020-08-16] MEDS ORDERED: GLYCOPYRROLATE 0.2 MG/ML 2 ML VIAL ONE (15:56)
[2020-08-16] MEDS ORDERED: PHENYLEPHRINE-0.9% NACL SYG 1,000 MCG/10 ML SYRINGE ONE (15:56)
[2020-08-16] MEDS ORDERED: fentaNYL (PF) 50 MCG/ML 2 ML AMP ONE (15:56)
[2020-08-16] MEDS ORDERED: ALBUTEROL HFA INHALER INHALATION ONE (15:56)
[2020-08-16] MEDS ORDERED: SODIUM CHLORIDE 0.9% 100 ML with ceFAZolin 2,000 MG IV ONE ×2 (16:15)
[2020-08-16] MEDS ORDERED: HYDROmorphone 0.5 MG/0.5 ML SYRINGE IVP PRN ×2 (17:27)
[2020-08-16] MEDS ORDERED: NALOXONE 0.4 MG/ML 1 ML VIAL IV PRN (17:27)
[2020-08-16] MEDS ORDERED: HYDROmorphone 0.2 MG/1 ML SYRINGE IVP PRN (17:27)
--- NOTE | 2020-08-16 17:27 | P.OP ---
Date of Procedure: 08/16/20 Preoperative Diagnosis: Left hip intertrochanteric fracture Postoperative Diagnosis: Left hip intertrochanteric fracture Procedure(s) Performed: Trochanteric nailing left hip Implants: Synthes SNF trochanteric nail 10 mm/130 degree angle with a 95 mm helical screw and a 36 mm 5.0 distal locking screw Anesthesia: CHIQUITA Surgeon: Constantino Aguilera Oceanologist #1: Landry French Estimated Blood Loss (ml): 20 Pathology: none sent Condition: stable Disposition: PACU Indications for Procedure: 65-year-old patient seen with a displaced left hip intertrochanteric fracture. I recommend intertrochanteric nailing. I discussed the procedure, risks, complications and recovery. Patient was agreeable. Consent was obtained. Clearances were obtained. Operative Findings: See description of procedure Description of Procedure: Patient was taken to the operative suite. Patient received preoperative IV antibiotics. Patient underwent a general anesthetic by the [facility] Patient was transferred to the Hammond table. The left lower extremity was placed in standard well leg sharpe with traction as well as adduction and internal rotation. The right lower extremity is placed in well-padded well-leg sharpe. C-arm brought in confirming adequate alignment of the fracture this point. C-arm was pulled out. The left hip was prepped and draped in the normal sterile orthopedic fashion. I made an incision proximal to the greater trochanter measuring approximately 5 cm sharply through skin. I carefully dissected down to the IT band. I made an incision through the IT band. I now placed a guidewire into the tip of the trochanter and introduced into the proximal femur. I confirmed on AP and lateral intraoperative imaging. I now used a proximal opening reamer. I now chose my Synthes trochanteric nail. It was slid over the guidewire. I tapped it down until it was adequately aligned. I now using the outrigger made another incision and then drilled a guide wire through the head neck complex. I confirmed under AP and lateral intraoperative imaging. Appropriate reaming was done over the guidewire. I introduced my helical screw with good arches noted. I now locked that in place. I now removed that guide. I now introduced the distal locking guide. An incision was made in that area. A drill hole was made through the distal locking screw hole. An appropriate length 5.0 screw was inserted part purchase noted. The entire Ramón was now removed. We had adequate alignment of fracture and good position of the internal fixation. Spot films were obtained to document that. The wounds were irrigated. The iliotibial band proximally was repaired with #1 Vicryl. The incisions were repaired with 2-0 Vicryl. The skin was prepped with skin shaylee. Sterile dressings were applied. The patient was awakened and transferred to recovery stable condition and tolerated procedure well. Blaise LEDESMA assisted procedure.
[2020-08-16] MEDS ORDERED: HYDROmorphone 0.5 MG/0.5 ML SYRINGE IVP ONE (17:46)
--- NOTE | 2020-08-16 18:57 | PN ---
PROGRESS NOTE CHIEF COMPLAINT: Left hip fracture. HISTORY OF PRESENT ILLNESS: This lady is going to the operating room today. She denies any chest pain, shortness of breath, fever, chills, etc. PHYSICAL EXAMINATION: Chest is clear. Cardiac exam is normal. Abdomen is soft and nontender. IMPRESSION: 1. Fracture of the left hip. 2. History of carcinoma of the breast. 3. Thrombocytopenia. 4. Elevated alkaline phosphatase. PLAN: Await surgery today and further evaluation regarding elevated alkaline phosphatases. MMODL / IJN: [id number] /
[2020-08-16] MEDS: SODIUM CHLORIDE 0.9% 1,000 ML IV SCH ×2 (19:02→19:03)
[2020-08-16] MEDS: SENNOSIDES-DOCUSATE SODIUM 1 EACH TAB PO SCH (19:50)
--- NOTE | 2020-08-16 22:03 | FL ---
EXAMINATION TYPE: FL guidance operating room, XR Hip Complete LT DATE OF EXAM: 08/16/2020 CLINICAL HISTORY: Left hip fracture. TECHNIQUE: Fluoroscopy. Intraoperative 2 views left hip. COMPARISON: Pelvic and hip xray 2 days ago.. FINDINGS: Fluoroscopic guidance was provided during open reduction internal fixation procedure perfo rmed by Dr. Aguilera. A total of 57 seconds of fluoroscopic time was utilized during the procedure and 2 spot images was acquired. Intraoperative images acquired show placement of intramedullary rhonda with proximal neck fixating screw and distal transverse exceeding screw through the intertrochanteric fracture left proximal femur. Im proved alignment is seen on intraoperative images obtained after reduction and fixation. IMPRESSION: As Above.
[2020-08-17 04:21] LABS: Basophils # (A) 0.02 X 10*3/uL (0.00-0.10); Basophils % (A) 0.2 %; Eosinophils # (A) 0.01 X 10*3/uL (0.04-0.35); Eosinophils % (A) 0.1 %; HCT 42.8 % (37.2-46.3); HGB 13.6 g/dL (12.0-15.0); Lymphocytes # (A) 0.55 X 10*3/uL (0.90-5.00); Lymphocytes % (A) 6.7 %; MCHC 31.8 g/dL (32.0-37.0); MCV 100.7 fL (80.0-97.0); Mean Platelet Volume 12.8 fL (9.5-12.2); Monocytes # (A) 0.57 X 10*3/uL (0.20-1.00); Neutrophils # (A) 6.98 X 10*3/uL (1.80-7.70); Neutrophils % (A) 85.5 %; Platelet Count 57 X 10*3/uL (140-440); RBC 4.25 X 10*6/uL (4.10-5.20); RDW 14.9 % (11.5-14.5); WBC 8.17 X 10*3/uL (4.50-10.00)
[2020-08-17] MEDS: SODIUM CHLORIDE 0.9% 1,000 ML IV SCH ×4 (04:51→22:36)
[2020-08-17] MEDS: HYDROmorphone 0.5 MG/0.5 ML SYRINGE IVP PRN ×2 (06:34→16:16)
[2020-08-17] MEDS ORDERED: ENOXAPARIN 30 MG/0.3 ML SYRINGE SQ SCH (09:00)
[2020-08-17] MEDS: HEPARIN SODIUM,PORCINE 5,000 UNIT/ML 1 ML VIAL SQ SCH (09:37)
[2020-08-17] MEDS: carvediloL 3.125 MG TAB PO SCH ×2 (09:38→20:16)
[2020-08-17] MEDS: HYDROcodone/APAP 5-325MG 1 EACH TAB PO PRN ×2 (09:38→22:38)
--- NOTE | 2020-08-17 12:34 | P.PN ---
Progress Note - Text Progress Note Date: 08/17/20 Patient is seen status post trochanteric nailing left hip. She is sitting up in a chair. She states that she is doing well. Incision stable. Thigh soft. Distal neurovascular exam intact. Impression: Status post trochanteric nailing left hip Plan: Medical management Physical therapy for walker ambulation Discharge planning
--- NOTE | 2020-08-17 13:46 | P.PN ---
Subjective This is a pleasant 65 year old female with history of COPD, DM, HLD, HTN, arthrtitis, CKD, CONSTANCE, tobacco abuse, breast cancer, gout, mild cardiomyopathy with EF 40%, complete heart block s/p dual chamber PPM who presents secondary to mechanical fall. Patient follows with Dr Low with last visit in 04/2020. She states she tripped on her grandchild walking in front of her. She was found to have a left hip fracture and cardiology was consulted for cardiac clearance. She is now POD #1 of Trochanteric nailing left hip. She is currently being maintained on Lovenox 30mg SQ, Lisinopril 2.5mg daily and coreg 3.125 mg BID. Patient is seen sitting up in chair. States she is doing well and that her pain is controlled. Denies chest pain, palpitations, shortness of breath, abdominal pain, nausea, or emesis. Laboratory data reviewed, from 08/15/20 WBC 8.1, Hgb 13.6, Platelets 57. BP 126/66 HR 51, afebrile, 97% on 2L NC. Patient not on bedside telemetry. 2D Echo 08/16/20- left ventricular systolic function is mild impaired EF 40-45%, left ventricular wall thickness is normal, mid inferior LV wall motion is hypokinetic, mild aortic valve sclerosis, mild to moderate mitral regurgitation is present, mild tricuspid regurgitation present PHYSICAL EXAMINATION CONSTITUTIONAL: Patient in no acute distress. +left eye deformity HEENT: Head is normocephalic. Pupils are equal, round. Sclerae anicteric. Mucous membranes of the mouth are moist. No JVD. No carotid bruit. CHEST EXAMINATION: Lungs are clear to auscultation. No chest wall tenderness is noted on palpation or with deep breathing. HEART EXAMINATION: Regular rate and rhythm. S1, S2 heard. No murmurs, gallops or rub. ABDOMEN: Soft, nontender. Positive bowel sounds. EXTREMITIES: 2+ peripheral pulses, no lower extremity edema and no calf tenderness. NEUROLOGIC EXAMINATION: Patient is awake, alert and oriented x3. ASSESSMENT Preoperative cardiovascular exam Hypertension Tobacco abuse COPD Complete heart block s/p permanent pacemaker Mild cardiomyopathy with EF 40% Chronic systolic heart failure with EF 40%, currently appears euvolemic Mechanical fall/ trip Displaced left hip intertrochanteric fracture s/p Trochanteric nailing left hip. PLAN -From a cardiology perspective, patient stable POD #1 of tronchanteric nailing of left hip. Would recommend resuming lisinopril 2.5mg daily, Coreg 3.125 mg BID, and VTE prophylaxis. -We will follow this patient on an as needed basis. -Patient can follow up with Dr. Low after discharge. Objective - Vital Signs Vital signs: Vital Signs Temp 98.4 F 08/17/20 01:43 Pulse 51 L 08/17/20 07:05 Resp 16 08/17/20 07:05 BP 126/66 08/17/20 01:43 Pulse Ox 97 08/17/20 01:43 Intake & Output 08/16/20 08/17/20 08/17/20 18:59 06:59 18:59 Intake Total 500 Output Total 770 300 300 Balance -270 -300 -300 Intake: IV 500 Output: Urine 750 300 300 Estimated Blood Loss 20 Other: Voiding Method Indwelling Catheter Indwelling Catheter Indwelling Catheter - Labs CBC & Chem 7: 08/16/20 20:27 08/14/20 16:41 Labs: Abnormal Lab Results - Last 24 Hours (Table) 08/16/20 08/16/20 Range/Units 14:01 20:27 MCV 100.7 H (80.0-97.0) fL MCHC 31.8 L (32.0-37.0) g/dL RDW 14.9 H (11.5-14.5) % Plt Count 57 L (140-440) X 10*3/uL Plt Count Comment DECREASED A MPV 12.8 H (9.5-12.2) fL Lymphocytes # 0.55 L (0.90-5.00) X 10*3/uL Eosinophils # 0.01 L (0.04-0.35) X 10*3/uL Immature Plt Fraction 6.4 H (1.1-6.1) % POC Glucose (mg/dL) 106 H (75-99) mg/dL
--- NOTE | 2020-08-17 17:03 | PN ---
PROGRESS NOTE DATE OF SERVICE: 08/15/2020 CHIEF COMPLAINT: Fracture of the hip. HISTORY OF PRESENT ILLNESS: This lady is fairly stable, and it was planned that she would go to the operating room today. This is now pending. PHYSICAL EXAMINATION: She is awake and alert and oriented. Head, ears, eyes, nose, mouth and throat are unchanged. Chest is clear. Cardiac exam is normal. Abdomen is soft and nontender. IMPRESSION: 1. Left hip fracture. 2. Chronic obstructive pulmonary disease. 3. Diabetes. 4. History of carcinoma of the breast. PLAN: Wait for surgical intervention for her hip fracture. MMODL / IJN: [id number] /
--- NOTE | 2020-08-17 17:52 | PN ---
PROGRESS NOTE DATE OF SERVICE: 08/17/2020 CHIEF COMPLAINT: Status post left hip fracture. HISTORY OF PRESENT ILLNESS: This lady is doing well. The surgery was completed yesterday. She is awake and alert and not particularly uncomfortable. PHYSICAL EXAMINATION: Chest is clear. Cardiac exam is normal. Abdomen is soft, nontender. Dressing is dry. IMPRESSION: Status post open reduction internal fixation of the left hip. PLAN: Continue to follow with Orthopedic Surgery. She will go to rehab. MMODL / TIFFANIEN: [id number] /
[2020-08-17] MEDS: SENNOSIDES-DOCUSATE SODIUM 1 EACH TAB PO SCH (20:50)
[2020-08-18] MEDS: carvediloL 3.125 MG TAB PO SCH ×2 (09:48→21:57)
[2020-08-18] MEDS: HYDROcodone/APAP 5-325MG 1 EACH TAB PO PRN (09:48)
[2020-08-18] MEDS: ENOXAPARIN 40 MG/0.4 ML SYRINGE SQ SCH (09:48)
[2020-08-18 11:33] LABS: Basophils # (A) 0.03 X 10*3/uL (0.00-0.10); Basophils % (A) 0.4 %; Eosinophils # (A) 0.22 X 10*3/uL (0.04-0.35); Eosinophils % (A) 3.2 %; HCT 36.9 % (37.2-46.3); HGB 11.8 g/dL (12.0-15.0); Lymphocytes # (A) 1.24 X 10*3/uL (0.90-5.00); Lymphocytes % (A) 17.8 %; MCH 32.4 pg (27.0-32.0); MCV 101.4 fL (80.0-97.0); Mean Platelet Volume 12.4 fL (9.5-12.2); Monocytes # (A) 0.93 X 10*3/uL (0.20-1.00); Monocytes % (A) 13.3 %; Neutrophils # (A) 4.53 X 10*3/uL (1.80-7.70); Neutrophils % (A) 64.9 %; Platelet Count 67 X 10*3/uL (140-440); RBC 3.64 X 10*6/uL (4.10-5.20); RDW 14.9 % (11.5-14.5); WBC 6.98 X 10*3/uL (4.50-10.00)
--- NOTE | 2020-08-18 12:00 | P.PN ---
Progress Note - Text Progress Note Date: 08/18/20 She is seen sitting up in chair. She has no new complaints. Her Hall has been discontinued. The incision appears stable. Her thigh is soft. Homans and Toni are both negative. Distal neurovascular exam is intact. Impression: Status post trochanteric nailing left hip Plan: Continue with physical therapy with progressive activities/ambulation as tolerated with walker Medical management Discharge to home versus rehab probably tomorrow
--- NOTE | 2020-08-18 18:08 | PN ---
PROGRESS NOTE DATE OF SERVICE: 08/18/2020 CHIEF COMPLAINT: Fractured hip on the left. HISTORY OF PRESENT ILLNESS: This lady is doing well and we are waiting for a discharge plan. PHYSICAL EXAMINATION: Her chest is clear. Cardiac exam is normal. Abdomen is soft and nontender. IMPRESSION: 1. Fracture of left hip, status post open reduction internal fixation. 2. Thrombocytopenia. PLAN: Physical therapy and rehab with expected discharge in the next day or two. MMODL / IJN: [id number] /
[2020-08-18] MEDS: SODIUM CHLORIDE 0.9% 1,000 ML IV SCH ×2 (19:26→20:21)
[2020-08-18] MEDS: SENNOSIDES-DOCUSATE SODIUM 1 EACH TAB PO SCH (21:57)
[2020-08-19] MEDS: SODIUM CHLORIDE 0.9% 1,000 ML IV SCH ×3 (08:40→19:29)
[2020-08-19] MEDS: ENOXAPARIN 40 MG/0.4 ML SYRINGE SQ SCH (08:48)
[2020-08-19] MEDS: carvediloL 3.125 MG TAB PO SCH ×2 (08:48→16:42)
--- NOTE | 2020-08-19 10:13 | P.PN ---
Progress Note - Text Progress Note Date: 08/19/20 Patient seen status post trochanteric nailing left hip. She reports some soreness in that hip but it is improving. She is able to ambulate with a walker. She has no other complaints. Incision area stable. Thigh soft. Homans and Toni or negative. Distal neurovascular exam is intact. Impression: Status post trochanteric nailing left hip Plan: Discharge to home today
--- NOTE | 2020-08-19 10:26 | P.DS ---
Providers Date of admission: 08/14/20 17:19 Expected date of discharge: 08/19/20 Attending physician: Constantino Aguilera Consults: 08/14/20 17:19 Consult Physician Urgent Consulting Provider: Paul Hanks Consult Reason/Comments: Medical clearance for hip fracture Do you want consulting provider notified?: Already Contacted 08/14/20 17:20 Consult Physician Urgent Consulting Provider: Krzysztof Tse Consult Reason/Comments: OR clearance Do you want consulting provider notified?: Yes Primary care physician: Paul Hanks Hospital Course: 65-year-old patient sustained a left hip intertrochanteric fracture. Medical and cardiac clearances were obtained. Patient was cleared for surgery. Patient was taken to the operative suite on 08/16/2020 and underwent trochanteric nailing of her left hip. The postoperative hospital course was unremarkable. She was found stable on postop day 3 and discharged home with appropriate discharge instructions, home physical therapy and home health care. She was given follow-up appointments with both her primary care physician and cardiology. Procedures: Trochanteric nailing left hip Patient Condition at Discharge: Fair Plan - Discharge Summary Discharge Rx Participant: No New Discharge Prescriptions: New Aspirin [Adult Low Dose Aspirin EC] 81 mg PO BID #60 tablet. Docusate [Colace] 100 mg PO DAILY #30 capsule HYDROcodone/APAP 5-325MG [[place] 5-325] 1 tab PO Q6HR PRN 7 Days #28 tab PRN Reason: Pain No Action Sertraline [Zoloft] 50 mg PO QAM Levothyroxine Sodium [Synthroid] 25 mcg PO QAM Montelukast [Singulair] 10 mg PO HS Atorvastatin [Lipitor] 80 mg PO HS lisinopriL [Zestril] 2.5 mg PO DAILY carvediloL [Coreg] 3.125 mg PO BID Calcium Acetate [PhosLo] 667 mg PO TID-W/MEALS #90 cap Colchicine [Mitigare] 0.6 mg PO BID Febuxostat [Uloric] 80 mg PO DAILY Furosemide [Lasix] 20 mg PO BID Perphenazine [Trilafon] 8 mg PO HS Discharge Medication List Levothyroxine Sodium [Synthroid] 25 mcg PO QAM 09/15/15 [History] Sertraline [Zoloft] 50 mg PO QAM 09/15/15 [History] Atorvastatin [Lipitor] 80 mg PO HS 12/10/17 [History] Montelukast [Singulair] 10 mg PO HS 12/10/17 [History] lisinopriL [Zestril] 2.5 mg PO DAILY 01/07/19 [History] carvediloL [Coreg] 3.125 mg PO BID 01/23/19 [History] Calcium Acetate [PhosLo] 667 mg PO TID-W/MEALS #90 cap 02/04/19 [Rx] Colchicine [Mitigare] 0.6 mg PO BID 08/14/20 [History] Febuxostat [Uloric] 80 mg PO DAILY 08/14/20 [History] Furosemide [Lasix] 20 mg PO BID 08/14/20 [History] Perphenazine [Trilafon] 8 mg PO HS 08/14/20 [History] Aspirin [Adult Low Dose Aspirin EC] 81 mg PO BID #60 tablet. 08/19/20 [Rx] Docusate [Colace] 100 mg PO DAILY #30 capsule 08/19/20 [Rx] HYDROcodone/APAP 5-325MG [[place] 5-325] 1 tab PO Q6HR PRN 7 Days #28 tab 08/19/20 [Rx] Follow up Appointment(s)/Referral(s): Riley Low MD [STAFF PHYSICIAN] - 2 Weeks Paul Hanks MD [Primary Care Provider] - 1-2 days [facility], [NON-STAFF] - As Needed Landry French PAC [PHYSICIAN PATIENT INSURANCE CLERK] - 09/01/20 1:40 pm Activity/Diet/Wound Care/Special Instructions: 1. Home physical therapy for walker ambulation weightbearing as tolerated 2. Home health care for wound checks 3. Patient may a bit with walker weightbearing as tolerated 4. Ice to the left hip area for pain or swelling 5. Follow-up as instructed 6. Contact office with any concerns/questions Discharge Disposition: HOME WITH HOME HEALTH SERVICES
[2020-08-19] MEDS: HYDROcodone/APAP 5-325MG 1 EACH TAB PO PRN ×2 (11:00→20:20)
--- NOTE | 2020-08-19 13:35 | PN ---
PROGRESS NOTE CHIEF COMPLAINT: Fracture of left hip. HISTORY OF PRESENT ILLNESS: This lady is doing well. She has had no problems. She has had no fever, chills, shortness of breath, chest pain, etc. PHYSICAL EXAMINATION: She is awake and alert. Vital signs are normal. Chest is clear. Cardiac exam is normal. Abdomen is soft, nontender. IMPRESSION: 1. Status post left hip fracture. 2. Status post carcinoma of the breast. 3. Thrombocytopenia. 4. Chronic obstructive pulmonary disease. PLAN: Continue with physical therapy and rehab and await discharge plan. MMODL / IJN: [id number] /
[2020-08-19 14:56] VITALS: BMI 32.1
[2020-08-19] MEDS: SENNOSIDES-DOCUSATE SODIUM 1 EACH TAB PO SCH (20:20)
[2020-08-20 07:43] VITALS: BP 117/71; PULSE 55; RESP 16; TEMP 98.3
[2020-08-20] MEDS: ENOXAPARIN 40 MG/0.4 ML SYRINGE SQ SCH (07:48)
[2020-08-20] MEDS: carvediloL 3.125 MG TAB PO SCH (07:48)
[2020-08-20] MEDS: SODIUM CHLORIDE 0.9% 1,000 ML IV SCH (09:03)
--- NOTE | 2020-08-21 16:34 | PN ---
PROGRESS NOTE DATE OF SERVICE: 08/20/2020 CHIEF COMPLAINT: Fracture of the hip. HISTORY OF PRESENT ILLNESS: This lady is doing well. She has had no problems. Her therapies have been started. PHYSICAL EXAMINATION: Chest is clear. Cardiac exam is normal. Abdomen is soft, nontender. VITAL SIGNS: Normal. She is afebrile. IMPRESSION: Status post fracture of the left hip. PLAN: She can go any time. I do not know if she is going to rehab or home. MMODL / IJN: [id number] /
== END 2020-08-20 09:37 | DRG 481 ==
LOC: EC 15:52 → 4SSUR 17:19
PROVIDERS: ADMIT Orthopaedic Surgery; ATTEND Orthopaedic Surgery
PROC: 0QS706Z Reposition Left Upper Femur with Intramedullary Internal Fixation Device, Open Approach (ICD-10-PCS; principal; 2020-08-16 08:40)
DX: S72.142A Displaced intertrochanteric fracture of left femur, initial encounter for closed fracture (principal); I44.2 Atrioventricular block, complete; I13.0 Hypertensive heart and chronic kidney disease with heart failure and stage 1 through stage 4 chronic kidney disease, or unspecified chronic kidney disease; I50.22 Chronic systolic (congestive) heart failure; I42.9 Cardiomyopathy, unspecified; D69.6 Thrombocytopenia, unspecified; E11.22 Type 2 diabetes mellitus with diabetic chronic kidney disease; N18.30 Chronic kidney disease, stage 3 unspecified; J44.9 Chronic obstructive pulmonary disease, unspecified; F31.9 Bipolar disorder, unspecified; Z20.822 Contact with and (suspected) exposure to COVID-19; E78.5 Hyperlipidemia, unspecified; I08.3 Combined rheumatic disorders of mitral, aortic and tricuspid valves; G47.33 Obstructive sleep apnea (adult) (pediatric); I83.90 Asymptomatic varicose veins of unspecified lower extremity; L40.9 Psoriasis, unspecified; M10.9 Gout, unspecified; F90.9 Attention-deficit hyperactivity disorder, unspecified type; E07.9 Disorder of thyroid, unspecified; R74.8 Abnormal levels of other serum enzymes; I25.2 Old myocardial infarction; M19.90 Unspecified osteoarthritis, unspecified site; F17.200 Nicotine dependence, unspecified, uncomplicated; Z71.6 Tobacco abuse counseling; Z79.890 Hormone replacement therapy; Z79.899 Other long term (current) drug therapy; Z87.01 Personal history of pneumonia (recurrent); Z90.12 Acquired absence of left breast and nipple; Z85.3 Personal history of malignant neoplasm of breast; Z92.21 Personal history of antineoplastic chemotherapy; Z90.49 Acquired absence of other specified parts of digestive tract; Z90.710 Acquired absence of both cervix and uterus; Z95.0 Presence of cardiac pacemaker; Z98.41 Cataract extraction status, right eye; Z98.890 Other specified postprocedural states; W03.XXXA Other fall on same level due to collision with another person, initial encounter; Z88.6 Allergy status to analgesic agent; Z88.0 Allergy status to penicillin; Z88.8 Allergy status to other drugs, medicaments and biological substances; Z80.0 Family history of malignant neoplasm of digestive organs
CPT/HCPCS: 51702; 71045; 73502; 80053; 85025; 85027; 85610; 85730; 86850; 86900; 86901; 87635; 93005; 93306; 96374; 99285

== ENCOUNTER 2021-02-03 18:59 | Inpatient (IN) | payer MEDICARE, OTHER ==
[2021-02-03 19:37] LABS: Glucose,Whole Blood 83 mg/dL (75-99)
[2021-02-03] MEDS ORDERED: SODIUM CHLORIDE 0.9% 1,000 ML IV STA (19:37)
[2021-02-03 19:59] LABS: Basophils % (A) 0 %; Eosinophils # (A) 0.2 k/uL (0-0.7); Eosinophils % (A) 2 %; HCT 35.3 % (34.0-46.0); HGB 12.1 gm/dL (11.4-16.0); Lymphocytes % (A) 13 %; MCH 35.2 pg (25.0-35.0); MCHC 34.3 g/dL (31.0-37.0); MCV 102.7 fL (80.0-100.0); Macrocytosis Moderate; Mean Platelet Volume 9.6; Monocytes # (A) 0.6 k/uL (0-1.0); Monocytes % (A) 7 %; Neutrophils % (A) 76 %; RBC 3.44 m/uL (3.80-5.40); RDW 15.8 % (11.5-15.5)
[2021-02-03 20:07] LABS: Albumin 2.4 g/dL (3.5-5.0); Calcium 7.9 mg/dL (8.4-10.2); Magnesium 2.1 mg/dL (1.6-2.3); Potassium 4.6 mmol/L (3.5-5.1); Total Bilirubin 1.5 mg/dL (0.2-1.3); Total Protein 5.8 g/dL (6.3-8.2)
[2021-02-03 20:12] LABS: INR 1.1 (<1.2); Partial Thromboplastin Time 24.7 sec (22.0-30.0); Prothrombin Time 11.7 sec (9.0-12.0)
--- NOTE | 2021-02-03 20:32 | XR ---
EXAMINATION TYPE: XR chest 2V DATE OF EXAM: 02/03/2021 COMPARISON: 08/14/2020 HISTORY: 65-year-old female cough and pain TECHNIQUE: AP and lateral views FINDINGS: Right anterior chest wall injection port. Catheter tip in the lower SVC. Heart is enlarged. Left ante rior chest wall pacemaker generator with right ventricular lead. Interstitial/vascular prominence but without consolidation or pleural effusion. IMPRESSION: Cardiomegaly and interstitial changes. Correlate for possible mild pulmonary vascular congestion. No pulmonary edema or focal infiltrate.
--- NOTE | 2021-02-03 20:36 | XR ---
EXAMINATION TYPE: XR Hip Complete LT DATE OF EXAM: 02/03/2021 COMPARISON: NONE HISTORY: 65 year-old female left hip pain TECHNIQUE: 2 views FINDINGS: Antegrade intramedullary nail with screw fixation. Mild degenerative change at the left hip. As nate red to 10/05/2020, there is medial displacement of the tip of the greater trochanter. Chronically disp laced fragment of the lesser trochanter. IMPRESSION: 1. Previous intertrochanteric fracture fixation with chronically displaced, ununited fragment of the lesser trochanter. 2. The tip of the greater trochanter shows interval medial displacement compared to 10/05/2020. This i s age indeterminate and probably progressive change that has occurred following 10/05/2020 rather than an acute injury. Clinically correlate. 3. Mild left hip OA.
[2021-02-03 20:39] LABS: Platelet Count 57 k/uL (150-450)
[2021-02-03 21:19] LABS: T4, Free (Free Thyroxine) 1.71 ng/dL (0.78-2.19)
--- NOTE | 2021-02-03 21:53 | CT ---
EXAMINATION TYPE: CT abdomen pelvis w con DATE OF EXAM: 02/03/2021 HISTORY: Elevated d-dimer, pain, hip pain CT DLP: 1736mGycm Automated Exposure Control for Dose Reduction was Utilized. CONTRAST: CT scan of the abdomen and pelvis is performed with IV Contrast, patient injected with 80 mL of Isovu e 370. COMPARISON: 12/27/2028 FINDINGS: LUNG BASES: No significant abnormality is appreciated. INCLUDED CARDIAC STRUCTURES: Partially seen dual cardiac device lead LIVER: Scattered tiny calcifications within the hepatic parenchyma similar to prior study suggesting remote granulomatous disease. No evidence of hepatic mass or abnormal intrahepatic biliary ductal dil atation. Hepatic contour is smooth. Few low attenuating lesions in the liver the largest in the right hepatic dome measuring up to 1 cm, the remaining are too small to visualize, likely on the basis of cysts. GALLBLADDER : Surgically removed BILIARY TREE: No abnormal biliary ductal dilatation PANCREAS: Age-related changes, within normal limit. SPLEEN: Scattered tiny calcifications within the splenic parenchyma similar to prior study suggesting remote granulomatous disease. The spleen is enlarged. ADRENALS: No significant abnormality is seen. KIDNEYS AND URETERS: , Slightly atrophic could be on the basis of medical renal disease correlate cli nically. Subcentimeter low attenuating lesion the right renal cortex likely on the basis of cyst. No evidence of nephrolithiasis hydronephrosis. URINARY BLADDER: Partially distended. ESOPHAGUS: No significant abnormality is seen. STOMACH: No significant abnormality is seen. SMALL BOWEL: No significant abnormality is seen. LARGE BOWEL: There is wall thickening in the cecum and ascending colon. There is a small amount of fl uid around the cecum and extends to the pelvis. There is a small amount of ascites in the right upper quadrant. There is descending and sigmoid diverticulosis. No evidence of intestinal obstruction. The re are 2 low attenuating lesions in the colon near the hepatic flexure series 601 image 36 image 34. APPENDIX: Not definitely identified. HERNIAS: No significant abnormality is seen. UTERUS/ADNEXA: Uterus is not seen. No abnormal adnexal mass seen. PERITONEUM/MESENTRY: No pneumoperitoneum. This the mesentery noted specifically in the upper and mid abdomen. LYMPH NODES: No enlarged retroperitoneal or pelvic lymph nodes are appreciated. MAJOR VASCULAR STRUCTURES: Nonaneurysmal aorta with atherosclerotic wall calcifications was extended to the common iliac arteries to OSSEOUS STRUCTURES: Mild scoliosis noted. No acute osseous abnormality. Mild degenerative changes are seen in the spine. Intramedullary rhonda seen in the proximal left femur. No significant soft tissue abnormality. Degenerative changes are seen in the wrists bilaterally. IMPRESSION: Thickening of the cecum and ascending colon with small amount of fluid around the cecum and right upp er quadrant and pelvis, findings could be on the basis of infectious or inflammatory disease such as colitis, less likely malignancy cannot be entirely excluded. Ischemic colitis should also be consider ed in the differential should also be considered. The appendix is not seen and I do not think these findings are related to an acute appendicitis, [place] elation with prior surgical history and physical examination recommended. 2 low attenuating lesions in the right colon near the hepatic flexure of unknown clinical significanc e, correlation with direct visualization should be considered. Diverticular disease without evidence of acute diverticulitis
--- NOTE | 2021-02-03 22:00 | ED ---
Weakness HPI - General Chief complaint: Weakness Stated complaint: Hip Pain/Dehydration Time Seen by Provider: 02/03/21 19:10 Source: patient, EMS Mode of arrival: EMS - History of Present Illness Initial comments: Patient is a 65-year-old female with past medical history of COPD, diabetes, hypertension, [place] who presents emergency Department with generalized weakness. Patient is a poor historian and cannot provide much history. States that she has been weak in her legs and has been unable to get up and ambulate. Patient comes in covered in feces. Daughters do present to bedside. States that she has had significant diarrhea. States that she hasn't been eating or drinking and believe that she "needs rehab again". She does complain of left hip pain. Patient was last treated at our facility after she had a left hip fracture and surgical repair. States shes continued to have left hip pain even after her surgery. Remained of the HPI is limited - Related Data Home Medications Medication Instructions Recorded Confirmed Levothyroxine Sodium [Synthroid] 25 mcg PO DAILY 09/15/15 02/03/21 Sertraline [Zoloft] 50 mg PO DAILY 09/15/15 02/03/21 Atorvastatin [Lipitor] 80 mg PO HS 12/10/17 02/03/21 Montelukast [Singulair] 10 mg PO HS 12/10/17 02/03/21 lisinopriL [Zestril] 2.5 mg PO DAILY 01/07/19 02/03/21 carvediloL [Coreg] 3.125 mg PO BID 01/23/19 02/03/21 Colchicine [Mitigare] 0.6 mg PO BID 08/14/20 02/03/21 Perphenazine [Trilafon] 8 mg PO HS 08/14/20 02/03/21 Ergocalciferol (Vitamin D2) 1,250 mcg PO WEEKLY 02/03/21 02/03/21 [Drisdol (50,000 Iu)] Famotidine 20 mg PO DAILY 02/03/21 02/03/21 Ferrous Sulfate [Feosol] 325 mg PO HS 02/03/21 02/03/21 Furosemide [Lasix] 80 mg PO DAILY 02/03/21 02/03/21 Loperamide [Imodium] 4 mg PO DAILY PRN 02/03/21 02/03/21 Ondansetron [Zofran] 4 mg PO Q8HR PRN 02/03/21 02/03/21 Previous Rx's Medication Instructions Recorded Calcium Acetate [PhosLo] 667 mg PO TID-W/MEALS #90 cap 02/04/19 Allergies Allergy/AdvReac Type Severity Reaction Status Date / Time oxybutynin Allergy Rash/Hives Verified 02/03/21 20:07 Penicillins Allergy Rash/Hives Verified 02/03/21 20:07 aspirin AdvReac Nausea & Verified 02/03/21 20:07 Vomiting Review of Systems ROS Statement: Those systems with pertinent positive or pertinent negative responses have been documented in the HPI. ROS Other: All systems not noted in ROS Statement are negative. Past Medical History Past Medical History: Cancer, Heart Failure, COPD, Diabetes Mellitus, Hyperlipidemia, Hypertension, Myocardial Infarction ([place]), Osteoarthritis (OA), Pneumonia, Renal Disease, Skin Disorder, Sleep Apnea/CPAP/BIPAP, Thyroid Dis order Additional Past Medical History / Comment(s): gout, varicose veins, psoriasis, anemia, stage III kidney disease, breast cancer- last chemo Feb 2018. SEE DR ARENAS'S HISTORY AND PHYSICAL FOR CARDIAC HISTORY , DIABETIC-DIET CONTROLLED. Healed/scarred sacral decub that had wound vac Last Myocardial Infarction Date:: 03/2012 History of Any Multi-Drug Resistant Organisms: None Reported Date of last positivie culture/infection: None C.diff toxin test negative MDRO Source:: None Past Surgical History: Breast Surgery, Cholecystectomy, Hysterectomy, Pacemaker Additional Past Surgical History / Comment(s): Left breast biopsy, left mastectomy, right cataract removed. Past Anesthesia/Blood Transfusion Reactions: Motion Sickness Additional Past Anesthesia/Blood Transfusion Reaction / Comment(s): denies problems with anesthesia Type of Cardiac Device: Permanent Pacemaker Device Placement Date:: Past Psychological History: ADD/ADHD, Bipolar, Depression Smoking Status: Current every day smoker Past Alcohol Use History: None Reported Past Drug Use History: None Reported - Past Family History Mother Family Medical History: Cancer Additional Family Medical History / Comment(s): stomach cancer General Exam Limitations: altered mental status General appearance: alert, in no apparent distress, other (disheveled, covered in feces) Head exam: Present: atraumatic, normocephalic Eye exam: Present: other (left globe enucleation) ENT exam: Present: mucous membranes dry Neck exam: Present: normal inspection. Absent: tenderness, meningismus, lymphadenopathy Respiratory exam: Present: normal lung sounds bilaterally. Absent: respiratory distress, wheezes, rales, rhonchi, stridor Cardiovascular Exam: Present: normal rhythm, bradycardia GI/Abdominal exam: Present: soft, normal bowel sounds. Absent: distended, tenderness, guarding, rebound, rigid Extremities exam: Present: normal inspection, full ROM, tenderness (left lateral hip), normal capillary refill. Absent: pedal edema, joint swelling, calf tenderness Neurological exam: Present: alert, other (poor historian, fatigued) Psychiatric exam: Present: flat affect Skin exam: Present: dry, pallor Course Vital Signs 02/03/21 02/03/21 02/03/21 19:07 19:30 20:00 Temperature 98.3 F Pulse Rate 66 50 L 50 L Respiratory 18 18 18 Rate Blood Pressure 82/57 85/42 96/65 O2 Sat by Pulse 98 98 98 Oximetry 02/03/21 02/03/21 02/03/21 20:30 21:00 21:30 Temperature 98.2 F 98.1 F Pulse Rate 50 L 51 L 52 L Respiratory 18 18 18 Rate Blood Pressure 105/48 90/40 96/44 O2 Sat by Pulse 98 97 98 Oximetry 02/03/21 02/03/21 02/04/21 22:30 23:30 00:00 Temperature 98.0 F Pulse Rate 50 L 54 L 49 L Respiratory 18 18 18 Rate Blood Pressure 106/49 116/59 101/49 O2 Sat by Pulse 98 98 97 Oximetry 02/04/21 02/04/21 02/04/21 00:20 00:52 07:10 Temperature 98 F 97.1 F L Pulse Rate 49 L 52 L 50 L Respiratory 18 18 16 Rate Blood Pressure 103/48 96/41 97/42 O2 Sat by Pulse 98 99 99 Oximetry EKG Findings - EKG Comments: EKG Findings:: EKG demonstrates a ventricularly paced rhythm with a rate of 54. QRS 178. QTC of 531. Pacemaker captures appropriately. Negative for sgarbossa criteria Procedures - [place] Protocol (Time Out) Nurse: Kitty Gupta Medical Decision Making - Medical Decision Making Upon arrival patient is placed into room 2. A thorough history and physical exam was performed. IV is established. Patient is given 2 L of normal saline with improvement in her blood pressures as she originally arrives hypotensive. Laboratory studies are ordered and reviewed. D-dimer 3.2. AST 454, CK 7855. Chest x-ray demonstrates some interstitial changes. X-ray of the left hip demonstrates previous IT fixation with chronically displaced ununited fragments. Tip of the greater trochanter shows interval medial displacement compared to previous. Probably a progressive change. CT of the chest demonstrates apparent small filling defects in the right lower and left upper a segmental english bsegmental pulmonary arteries concerning for acute pulmonary arterial embolism. Patient is initiated on a heparin drip. CT of the patient's abdomen and pelvis demonstrate thickening of the cecum and ascending colon with small amount of fluid which could be on the basis of infectious or inflammatory disease such as colitis. Patient initiated on Levaquin and Flagyl. She'll be continued on IV fluids. Called and spoke with Dr. Hanks who agreed to admit the patient. Will consult ortho, pulm, social work and case management - Lab Data Result diagrams: 02/04/21 04:26 02/04/21 04:26 Lab Results 02/03/21 02/03/21 02/03/21 Range/Units 19:35 19:49 19:49 WBC 8.0 (3.8-10.6) k/uL RBC 3.44 L (3.80-5.40) m/uL Hgb 12.1 (11.4-16.0) gm/dL Hct 35.3 (34.0-46.0) % MCV 102.7 H (80.0-100.0) fL MCH 35.2 H (25.0-35.0) pg MCHC 34.3 (31.0-37.0) g/dL RDW 15.8 H (11.5-15.5) % Plt Count 57 L (150-450) k/uL MPV 9.6 Neutrophils % 76 % Lymphocytes % 13 % Monocytes % 7 % Eosinophils % 2 % Basophils % 0 % Neutrophils # 6.0 (1.3-7.7) k/uL Lymphocytes # 1.0 (1.0-4.8) k/uL Monocytes # 0.6 (0-1.0) k/uL Eosinophils # 0.2 (0-0.7) k/uL Basophils # 0.0 (0-0.2) k/uL Macrocytosis Moderate PT 11.7 (9.0-12.0) sec INR 1.1 (<1.2) APTT 24.7 (22.0-30.0) sec D-Dimer 3.20 H (<0.60) mg/L FEU Sodium (137-145) mmol/L Potassium (3.5-5.1) mmol/L Chloride (98-107) mmol/L Carbon Dioxide (22-30) mmol/L Anion Gap mmol/L BUN (7-17) mg/dL Creatinine (0.52-1.04) mg/dL Est GFR (CKD-EPI)AfAm (>60 ml/min/1.73 sqM) Est GFR (CKD-EPI)NonAf (>60 ml/min/1.73 sqM) Glucose (74-99) mg/dL POC Glucose (mg/dL) 83 (75-99) mg/dL POC Glu Absorber Operator ID Fetterly, Kitty Plasma Lactic Acid Gaudencio (0.7-2.0) mmol/L Calcium (8.4-10.2) mg/dL Magnesium (1.6-2.3) mg/dL Total Bilirubin (0.2-1.3) mg/dL AST (14-36) U/L ALT (4-34) U/L Alkaline Phosphatase (38-126) U/L Creatine Kinase (30-135) U/L Troponin I (0.000-0.034) ng/mL Total Protein (6.3-8.2) g/dL Albumin (3.5-5.0) g/dL TSH (0.465-4.680) mIU/L Free T4 (0.78-2.19) ng/dL Urine Color Urine Appearance (Clear) Urine pH (5.0-8.0) Ur Specific [place] (1.001-1.035) Urine Protein (Negative) Urine Glucose (UA) (Negative) Urine Ketones (Negative) Urine Blood (Negative) Urine Nitrite (Negative) Urine Bilirubin (Negative) Urine Urobilinogen (<2.0) mg/dL Ur Leukocyte Esterase (Negative) Urine WBC (0-5) /hpf Urine WBC Clumps (None) /hpf Amorphous Sediment (None) /hpf Urine Bacteria (None) /hpf Urine Mucus (None) /hpf 08/26/21 08/26/21 08/26/21 Range/Units 19:49 19:49 19:49 WBC (3.8-10.6) k/uL RBC (3.80-5.40) m/uL Hgb (11.4-16.0) gm/dL Hct (34.0-46.0) % MCV (80.0-100.0) fL MCH (25.0-35.0) pg MCHC (31.0-37.0) g/dL RDW (11.5-15.5) % Plt Count (150-450) k/uL MPV Neutrophils % % Lymphocytes % % Monocytes % % Eosinophils % % Basophils % % Neutrophils # (1.3-7.7) k/uL Lymphocytes # (1.0-4.8) k/uL Monocytes # (0-1.0) k/uL Eosinophils # (0-0.7) k/uL Basophils # (0-0.2) k/uL Macrocytosis PT (9.0-12.0) sec INR (<1.2) APTT (22.0-30.0) sec D-Dimer (<0.60) mg/L FEU Sodium 135 L (137-145) mmol/L Potassium 4.6 (3.5-5.1) mmol/L Chloride 109 H (98-107) mmol/L Carbon Dioxide 22 (22-30) mmol/L Anion Gap 4 mmol/L BUN 25 H (7-17) mg/dL Creatinine 1.04 (0.52-1.04) mg/dL Est GFR (CKD-EPI)AfAm 65 (>60 ml/min/1.73 sqM) Est GFR (CKD-EPI)NonAf 57 (>60 ml/min/1.73 sqM) Glucose 87 (74-99) mg/dL POC Glucose (mg/dL) (75-99) mg/dL POC Glu Absorber Operator ID Plasma Lactic Acid Gaudencio 2.0 (0.7-2.0) mmol/L Calcium 7.9 L (8.4-10.2) mg/dL Magnesium 2.1 (1.6-2.3) mg/dL Total Bilirubin 1.5 H (0.2-1.3) mg/dL AST 454 H (14-36) U/L ALT 48 H (4-34) U/L Alkaline Phosphatase 186 H (38-126) U/L Creatine Kinase 7855 H* (30-135) U/L Troponin I (0.000-0.034) ng/mL Total Protein 5.8 L (6.3-8.2) g/dL Albumin 2.4 L (3.5-5.0) g/dL TSH 7.500 H (0.465-4.680) mIU/L Free T4 1.71 (0.78-2.19) ng/dL Urine Color Yellow Urine Appearance Cloudy H (Clear) Urine pH 5.5 (5.0-8.0) Ur Specific [place] 1.032 (1.001-1.035) Urine Protein 1+ H (Negative) Urine Glucose (UA) Negative (Negative) Urine Ketones Negative (Negative) Urine Blood Large H (Negative) Urine Nitrite Positive H (Negative) Urine Bilirubin Negative (Negative) Urine Urobilinogen <2.0 (<2.0) mg/dL Ur Leukocyte Esterase Small H (Negative) Urine WBC 18 H (0-5) /hpf Urine WBC Clumps Few H (None) /hpf Amorphous Sediment Rare H (None) /hpf Urine Bacteria Moderate H (None) /hpf Urine Mucus Rare H (None) /hpf 02/03/21 Range/Units 19:49 WBC (3.8-10.6) k/uL RBC (3.80-5.40) m/uL Hgb (11.4-16.0) gm/dL Hct (34.0-46.0) % MCV (80.0-100.0) fL MCH (25.0-35.0) pg MCHC (31.0-37.0) g/dL RDW (11.5-15.5) % Plt Count (150-450) k/uL MPV Neutrophils % % Lymphocytes % % Monocytes % % Eosinophils % % Basophils % % Neutrophils # (1.3-7.7) k/uL Lymphocytes # (1.0-4.8) k/uL Monocytes # (0-1.0) k/uL Eosinophils # (0-0.7) k/uL Basophils # (0-0.2) k/uL Macrocytosis PT (9.0-12.0) sec INR (<1.2) APTT (22.0-30.0) sec D-Dimer (<0.60) mg/L FEU Sodium (137-145) mmol/L Potassium (3.5-5.1) mmol/L Chloride (98-107) mmol/L Carbon Dioxide (22-30) mmol/L Anion Gap mmol/L BUN (7-17) mg/dL Creatinine (0.52-1.04) mg/dL Est GFR (CKD-EPI)AfAm (>60 ml/min/1.73 sqM) Est GFR (CKD-EPI)NonAf (>60 ml/min/1.73 sqM) Glucose (74-99) mg/dL POC Glucose (mg/dL) (75-99) mg/dL POC Glu Absorber Operator ID Plasma Lactic Acid Gaudencio (0.7-2.0) mmol/L Calcium (8.4-10.2) mg/dL Magnesium (1.6-2.3) mg/dL Total Bilirubin (0.2-1.3) mg/dL AST (14-36) U/L ALT (4-34) U/L Alkaline Phosphatase (38-126) U/L Creatine Kinase (30-135) U/L Troponin I 0.033 (0.000-0.034) ng/mL Total Protein (6.3-8.2) g/dL Albumin (3.5-5.0) g/dL TSH (0.465-4.680) mIU/L Free T4 (0.78-2.19) ng/dL Urine Color Urine Appearance (Clear) Urine pH (5.0-8.0) Ur Specific [place] (1.001-1.035) Urine Protein (Negative) Urine Glucose (UA) (Negative) Urine Ketones (Negative) Urine Blood (Negative) Urine Nitrite (Negative) Urine Bilirubin (Negative) Urine Urobilinogen (<2.0) mg/dL Ur Leukocyte Esterase (Negative) Urine WBC (0-5) /hpf Urine WBC Clumps (None) /hpf Amorphous Sediment (None) /hpf Urine Bacteria (None) /hpf Urine Mucus (None) /hpf Critical Care Time Critical Care Time: Yes Critical Care Time: 35 minute for initiation of heparin drip Disposition Clinical Impression: Unable to ambulate, Hypotension, Rhabdomyolysis, Diarrhea, Colitis, Transaminitis, Pulmonary embolism, Elevated d-dimer, Dehydration, Left hip pain, UTI (urinary tract infection) Disposition: ADMITTED IP TO THIS HOSP Condition: Serious Is patient prescribed a controlled substance at d/c from ED?: No Decision to Admit Reason: Admit from EC Decision Date: 02/03/21 Decision Time: 22:09
[2021-02-03] MEDS ORDERED: LEVOFLOXACIN 750MG-D5W PMX 750 MG in DEXTROSE/WATER 1 150ML.BAG IVPB STA (22:06)
--- NOTE | 2021-02-03 22:06 | CT ---
EXAMINATION TYPE: CT chest angio for PE DATE OF EXAM: 02/03/2021 COMPARISON: None HISTORY: Elevated d-dimer TECHNIQUE: CT scan of the chest performed with angiogram protocol for pulmonary embolism after intravenous injec tion of 100 mL of Isovue 370. CT DLP: 592.3 mGycm Automated exposure control for dose reduction was used. FINDINGS: Adequate opacification of the pulmonary trunk. There are nonocclusive filling defects in the right lo wer lobe segmental and subsegmental pulmonary arteries (series 501 image 77, 8589.) There are also qu estionable filling defects in the left upper lobe pulmonary artery (series 501 image 39). Evaluation of the pulmonary arteries is suboptimal due to motion which is mostly evident within the central pulm onary arteries. No focal airspace disease, pneumothorax or pleural effusion seen. No lung mass seen. Small pulmonary nodules cannot be entirely excluded due to motion. There are small air-filled cysts in the right uppe r lobe the largest measures up to 1.4 cm could represent a pneumatocele from prior infection. Evaluation for lymph nodes is limited by technique. No obvious hilar adenopathy seen. The trachea and central bronchial tree are patent. There is mild cardiomegaly without pericardial effusion. Cardiac device seen over the left chest wall with dual lead extending into the cardiac chambers. There is a linear sclerotic lesion posterior aspect of the right third rib. Small amount of free fluid is seen in the right upper quadrant, ascites. Cholecystectomy clips noted. The included aorta on this study does not appear to be aneurysmal. Atherosclerotic calcifications are seen in the wall of the aorta. Measurement of the pulmonary trunk diameter is difficult due to signi ficant motion. IMPRESSION: 1. APPARENT SMALL FILLING DEFECTS IN RIGHT LOWER AND LEFT UPPER SEGMENTAL/SUBSEGMENTAL PULMONARY ALTAF MILAN CONCERNING FOR ACUTE PULMONARY ARTERIAL EMBOLISM THOUGH THE PRESENCE OF SIGNIFICANT MOTION ARTIF ACT IS A LIMITING FACTOR AND COULD HAVE A SIMILAR APPEARANCE. 2. MILD CARDIOMEGALY. 3. LINEAR SCLEROTIC WELL-DEFINED LESION IN THE POSTERIOR RIGHT THIRD RIB UNKNOWN CLINICAL SIGNIFICANC E. 4. SMALL VOLUME ASCITES PARTIALLY SEEN IN THE RIGHT UPPER ABDOMEN.
[2021-02-03] MEDS ORDERED: IBUPROFEN 400 MG TAB PO PRN (22:10)
[2021-02-03] MEDS ORDERED: ACETAMINOPHEN TAB 325 MG TAB PO PRN (22:10)
[2021-02-03] MEDS ORDERED: NALOXONE 0.4 MG/ML 1 ML VIAL IV PRN (22:10)
[2021-02-03] MEDS ORDERED: LOPERAMIDE 2 MG CAP PO PRN (22:11)
[2021-02-03] MEDS ORDERED: HEPARIN SODIUM 1,000 UN/ML (10ML VL) IV ONE (22:15)
[2021-02-03] MEDS ORDERED: HEPARIN SODIUM 1,000 UN/ML (10ML VL) IV PRN (22:15)
[2021-02-03] MEDS: HEPARIN SOD,PORK IN 0.45% NACL 25,000 UNIT in 0.45% NACL 1 250ML.BAG IV SCH (23:06)
[2021-02-03 23:08] LABS: Amorphous Sediment,Urine Rare /hpf; Appearance,Urine Cloudy (Clear); Bacteria,Urine Moderate /hpf; Bilirubin,Urine Negative (Negative); Blood,Urine Large (Negative); Color,Urine Yellow; Glucose,Urine (UA) Negative (Negative); Ketones,Urine Negative (Negative); Leukocyte Esterase,Urine Small (Negative); Mucus,Urine Rare /hpf; Nitrite,Urine Positive (Negative); PH, Urine 5.5 (5.0-8.0); Protein,Urine 1+ (Negative); Specific Gravity,Urine 1.032 (1.001-1.035); Urobilinogen,Urine <2.0 mg/dL (<2.0); WBC,Urine 18 /hpf (0-5)
[2021-02-03] MEDS: SODIUM CHLORIDE 0.9% 1,000 ML IV SCH (23:13)
[2021-02-03] MEDS: PERPHENAZINE 4 MG TAB PO SCH (23:36)
[2021-02-03] MEDS: metroNIDAZOLE-NS PMX 500 MG in SALINE 1 100ML.BAG IVPB SCH (23:37)
[2021-02-03 23:51] LABS: INR 1.2 (<1.2); Prothrombin Time 12.6 sec (9.0-12.0)
[2021-02-04 05:24] LABS: Calcium 7.8 mg/dL (8.4-10.2); Potassium 4.5 mmol/L (3.5-5.1)
[2021-02-04 06:02] LABS: Anisocytosis Slight; HGB 11.2 gm/dL (11.4-16.0); MCH 34.9 pg (25.0-35.0); MCHC 34.1 g/dL (31.0-37.0); MCV 102.2 fL (80.0-100.0); Macrocytosis Slight; Platelet Count 55 k/uL (150-450); RBC 3.23 m/uL (3.80-5.40); RDW 16.1 % (11.5-15.5); WBC 7.4 k/uL (3.8-10.6)
[2021-02-04 06:43] LABS: Anisocytosis (M) Present; Eosinophils # (M) 0.07 k/uL (0-0.7); Lymphocytes # (M) 0.96 k/uL (1.0-4.8); Monocytes # (M) 0.15 k/uL (0-1.0); Neutrophils # (M) 6.22 k/uL (1.3-7.7); Neutrophils % (M) 84 %; Nucleated Red Blood Cells 0 /100 WBC (0-0); Total Cells Counted 100
[2021-02-04] MEDS: LEVOTHYROXINE 25 MCG TAB PO SCH (07:59)
[2021-02-04] MEDS: CALCIUM ACETATE 667 MG TAB PO SCH ×3 (07:59→18:15)
[2021-02-04] MEDS: FAMOTIDINE 20 MG TAB PO SCH (08:06)
[2021-02-04] MEDS: metroNIDAZOLE-NS PMX 500 MG in SALINE 1 100ML.BAG IVPB SCH ×3 (09:38→22:12)
[2021-02-04] MEDS: SODIUM CHLORIDE 0.9% 1,000 ML IV SCH ×2 (11:42→23:43)
--- NOTE | 2021-02-04 12:06 | P.CNOR ---
History of Present Illness - [facility] Consult date: 02/04/21 Requesting physician: Mariluz Muñoz Consult reason: other (left hip pain, previous left hip fx) History of present illness: Patient is a 65-year-old female presenting to the emergency department yesterday with generalized weakness. We will consult her previous left hip surgery left hip pain. Patient was seen at bedside in the emergency room this morning. Patient was lying supine in bed, nonresponsive to verbal stimuli. When asked questions patient is not answering questions. Patient did respond to some physical stimuli by mumbling something and groans/moans. Patient has limited due to patient's status. Patient did have intertrochanteric fracture in early August and IT nail was placed back on 08/16/2020. Past Medical History Past Medical History: Cancer, Heart Failure, COPD, Diabetes Mellitus, Hyperlipidemia, Hypertension, Myocardial Infarction ([place]), Osteoarthritis (OA), Pneumonia, Renal Disease, Skin Disorder, Sleep Apnea/CPAP/BIPAP, Thyroid Disorder Additional Past Medical History / Comment(s): gout, varicose veins, psoriasis, anemia, stage III kidney disease, breast cancer- last chemo Feb 2018. SEE DR ARENAS'S HISTORY AND PHYSICAL FOR CARDIAC HISTORY , DIABETIC-DIET CONTROLLED. Healed/scarred sacral decub that had wound vac Last Myocardial Infarction Date:: 03/2012 History of Any Multi-Drug Resistant Organisms: None Reported Year Discovered:: None C.diff toxin test negative MDRO Source:: None Past Surgical History: Breast Surgery, Cholecystectomy, Hysterectomy, Pacemaker Additional Past Surgical History / Comment(s): Left breast biopsy, left mastectomy, right cataract removed. Past Anesthesia/Blood Transfusion Reactions: Motion Sickness Additional Past Anesthesia/Blood Transfusion Reaction / Comm: denies problems with anesthesia Type of Cardiac Device: Permanent Pacemaker Device Placement Date:: Past Psychological History: ADD/ADHD, Bipolar, Depression Smoking Status: Current every day smoker Past Alcohol Use History: None Reported Past Drug Use History: None Reported - Past Family History Mother Family Medical History: Cancer Additional Family Medical History / Comment(s): stomach cancer Medications and Allergies Home Medications Medication Instructions Recorded Confirmed Type Levothyroxine Sodium [Synthroid] 25 mcg PO DAILY 09/15/15 02/03/21 History Sertraline [Zoloft] 50 mg PO DAILY 09/15/15 02/03/21 History Atorvastatin [Lipitor] 80 mg PO HS 12/10/17 02/03/21 History Montelukast [Singulair] 10 mg PO HS 12/10/17 02/03/21 History lisinopriL [Zestril] 2.5 mg PO DAILY 01/07/19 02/03/21 History carvediloL [Coreg] 3.125 mg PO BID 01/23/19 02/03/21 History Calcium Acetate [PhosLo] 667 mg PO TID-W/MEALS #90 cap 02/04/19 02/03/21 Rx Colchicine [Mitigare] 0.6 mg PO BID 08/14/20 02/03/21 History Perphenazine [Trilafon] 8 mg PO HS 08/14/20 02/03/21 History Ergocalciferol (Vitamin D2) 1,250 mcg PO WEEKLY 02/03/21 02/03/21 History [Drisdol (50,000 Iu)] Famotidine 20 mg PO DAILY 02/03/21 02/03/21 History Ferrous Sulfate [Feosol] 325 mg PO HS 02/03/21 02/03/21 History Furosemide [Lasix] 80 mg PO DAILY 02/03/21 02/03/21 History Loperamide [Imodium] 4 mg PO DAILY PRN 02/03/21 02/03/21 History Ondansetron [Zofran] 4 mg PO Q8HR PRN 02/03/21 02/03/21 History Allergies Allergy/AdvReac Type Severity Reaction Status Date / Time oxybutynin Allergy Rash/Hives Verified 02/03/21 20:07 Penicillins Allergy Rash/Hives Verified 02/03/21 20:07 aspirin AdvReac Nausea & Verified 02/03/21 20:07 Vomiting Physical Examination Left hip: inspection: Surgical scars present along the left hip and leg. Negative for any erythema, ecchymosis, purulence, from incision site. Incision appears clean, dry, intact. Sensation: Sensation appears to be intact palpating bilateral lower extremities. Patient does move during this Palpation: Left hip and leg is palpated along the incision and where hardware was placed and patient did not make a noise or complain of being on any pain. Range of motion: During hip flexion and external and internal rotation of left leg patient does not say that she is in any pain. Patient does not grimace either. Negative log roll maneuver Motor: Limited due to patient's status Neurovascular: Dorsalis pedis pulse present, 2+, intact. Cap refill under 3 seconds Special tests: Negative Homans bilaterally; negative clonus bilaterally Results - Labs Labs: Abnormal Lab Results - Last 24 Hours (Table) 02/03/21 02/03/21 02/03/21 Range/Units 19:49 19:49 19:49 RBC 3.44 L (3.80-5.40) m/uL Hgb (11.4-16.0) gm/dL Hct (34.0-46.0) % MCV 102.7 H (80.0-100.0) fL MCH 35.2 H (25.0-35.0) pg RDW 15.8 H (11.5-15.5) % Plt Count 57 L (150-450) k/uL Lymphocytes # (Manual) (1.0-4.8) k/uL PT (9.0-12.0) sec INR (<1.2) APTT (22.0-30.0) sec D-Dimer 3.20 H (<0.60) mg/L FEU Sodium (137-145) mmol/L Chloride (98-107) mmol/L BUN (7-17) mg/dL Calcium (8.4-10.2) mg/dL Total Bilirubin (0.2-1.3) mg/dL AST (14-36) U/L ALT (4-34) U/L Alkaline Phosphatase (38-126) U/L Creatine Kinase (30-135) U/L Total Protein (6.3-8.2) g/dL Albumin (3.5-5.0) g/dL TSH (0.465-4.680) mIU/L Urine Appearance Cloudy H (Clear) Urine Protein 1+ H (Negative) Urine Blood Large H (Negative) Urine Nitrite Positive H (Negative) Ur Leukocyte Esterase Small H (Negative) Urine WBC 18 H (0-5) /hpf Urine WBC Clumps Few H (None) /hpf Amorphous Sediment Rare H (None) /hpf Urine Bacteria Moderate H (None) /hpf Urine Mucus Rare H (None) /hpf 02/03/21 02/03/21 02/04/21 Range/Units 19:49 22:44 04:26 RBC (3.80-5.40) m/uL Hgb (11.4-16.0) gm/dL Hct (34.0-46.0) % MCV (80.0-100.0) fL MCH (25.0-35.0) pg RDW (11.5-15.5) % Plt Count (150-450) k/uL Lymphocytes # (Manual) (1.0-4.8) k/uL PT 12.6 H (9.0-12.0) sec INR 1.2 H (<1.2) APTT (22.0-30.0) sec D-Dimer (<0.60) mg/L FEU Sodium 135 L (137-145) mmol/L Chloride 109 H 112 H (98-107) mmol/L BUN 25 H 23 H (7-17) mg/dL Calcium 7.9 L 7.8 L (8.4-10.2) mg/dL Total Bilirubin 1.5 H (0.2-1.3) mg/dL AST 454 H (14-36) U/L ALT 48 H (4-34) U/L Alkaline Phosphatase 186 H (38-126) U/L Creatine Kinase 7855 H* (30-135) U/L Total Protein 5.8 L (6.3-8.2) g/dL Albumin 2.4 L (3.5-5.0) g/dL TSH 7.500 H (0.465-4.680) mIU/L Urine Appearance (Clear) Urine Protein (Negative) Urine Blood (Negative) Urine Nitrite (Negative) Ur Leukocyte Esterase (Negative) Urine WBC (0-5) /hpf Urine WBC Clumps (None) /hpf Amorphous Sediment (None) /hpf Urine Bacteria (None) /hpf Urine Mucus (None) /hpf 02/04/21 02/04/21 Range/Units 04:26 04:26 RBC 3.23 L (3.80-5.40) m/uL Hgb 11.2 L (11.4-16.0) gm/dL Hct 33.0 L (34.0-46.0) % MCV 102.2 H (80.0-100.0) fL MCH (25.0-35.0) pg RDW 16.1 H (11.5-15.5) % Plt Count 55 L (150-450) k/uL Lymphocytes # (Manual) 0.96 L (1.0-4.8) k/uL PT (9.0-12.0) sec INR (<1.2) APTT >200.0 H* (22.0-30.0) sec D-Dimer (<0.60) mg/L FEU Sodium (137-145) mmol/L Chloride (98-107) mmol/L BUN (7-17) mg/dL Calcium (8.4-10.2) mg/dL Total Bilirubin (0.2-1.3) mg/dL AST (14-36) U/L ALT (4-34) U/L Alkaline Phosphatase (38-126) U/L Creatine Kinase (30-135) U/L Total Protein (6.3-8.2) g/dL Albumin (3.5-5.0) g/dL TSH (0.465-4.680) mIU/L Urine Appearance (Clear) Urine Protein (Negative) Urine Blood (Negative) Urine Nitrite (Negative) Ur Leukocyte Esterase (Negative) Urine WBC (0-5) /hpf Urine WBC Clumps (None) /hpf Amorphous Sediment (None) /hpf Urine Bacteria (None) /hpf Urine Mucus (None) /hpf Microbiology - Last 24 Hours (Table) 02/03/21 19:49 Urine Culture - Preliminary Urine,Catheterized H & H 02/03/21 02/04/21 Range/Units 19:49 04:26 Hgb 12.1 11.2 L (11.4-16.0) gm/dL Hct 35.3 33.0 L (34.0-46.0) % Coagulation 02/03/21 02/03/21 Range/Units 19:49 22:44 INR 1.1 1.2 H (<1.2) Result Diagrams: 02/04/21 04:26 02/04/21 04:26 Assessment and Plan Assessment: 1. Generalized weakness 2. Multiple medical comorbidities 3. h/o left hip fracture and IT Nail Plan: 1. History of left hip fracture and IT Nail - x-rays of left hip were taken and reviewed. No significant changes are noticed in the left hip. Jeff and screws appear to be in place in good position without migration. We will continue to follow patient while in hospital 2. Appreciate medical management 3. Appreciate consult 4. GI prophylaxis - Pepcid 5. DVT prophylaxis - Heparin 6. Pain management - stable at this time Time with Patient: Less than 30
--- NOTE | 2021-02-04 17:13 | P.CNPUL ---
History of Present Illness Consult date: 02/04/21 Requesting physician: Paul Hanks Reason for consult: abnormal CXR/CT Chief complaint: Generalized weakness History of present illness: This is a 65-year-old female patient who follows with Dr. Audelia benson as her primary care provider. She has a history of hypothyroidism, hyperlipidemia, hypertension, depression, bipolar disorder, congestive heart failure, permanent pacemaker implantation, hypothyroidism, enucleation of the left eye, chronic and ongoing tobacco dependence, chronic obstructive pulmonary disease. He was brought into the emergency room yesterday after 3 day history of unable to get out of the bed related to dehydration and weakness according to the family. She was also having left hip pain. Computed tomography scan of the abdomen and pelvis reveals thickening of the cecum and ascending colon with small amount of fluid around the cecum and right upper quadrant and pelvis. Suspect infectious versus inflammatory disease such as colitis less likely malignancy not entirely excluded. Ischemic colitis should also be considered. Diverticular disease without evidence of diverticulitis. CT angiogram revealed a small filling defect in the right lower and left upper segmental pulmonary arteries concerning for possible pulmonary emboli. We are consulted for the same. She is seen today in consultation on the regular medical floor. She is currently resting c omfortably in bed. Awake, alert, no acute distress. Denies any chest pain, shortness of breath, cough or congestion. No hemoptysis. She is maintaining O2 saturations in the mid to upper 90s on room air. She's been afebrile. Hemodynamically stable. Urine culture pending. White count 7.4. Hemoglobin 11.2. D-dimer 3.2. Sodium 140. Potassium 4.5. Creatinine 1.00. AST 454. ALT 48. Alk phos 186. Creatinine kinase 7855. Troponin negative times one. ProBNP 1460. TSH 7.50. She was initiated on a heparin drip. She was also initiated on Flagyl and Levaquin. 0.9 normal saline at 75 ML's per hour. Review of Systems REVIEW OF SYSTEMS: CONSTITUTIONAL: Generalized weakness, fatigue. Denies any recent significant weight loss or weight gain. EYES: Denies change in vision. EARS, NOSE, MOUTH, THROAT: Denies headaches, denies sore throat. CARDIOVASCULAR: Denies chest pain, palpitations or syncopal episodes. RESPIRATORY: Denies shortness of breath, cough, congestion or hemoptysis. GASTROINTESTINAL: Denies change in appetite, denies abdominal pain GENITOURINARY: Denies hematuria, denies infections. MUSKULOSKELETAL: Denies pain, denies swelling. INTEGUMENTARY: Denies rash, denies eczema. NEUROLOGICAL: Denies recent memory loss, no recent seizure activity. PSYCHIATRIC: Denies anxiety, denies depression. HEMATOLOGIC/LYMPHATIC: Denies anemia, denies enlarged lymph nodes. Past Medical History Past Medical History: Cancer, Heart Failure, COPD, Diabetes Mellitus, Hyperlipidemia, Hypertension, Myocardial Infarction ([place]), Osteoarthritis (OA), Pneumonia, Renal Disease, Skin Disorder, Sleep Apnea/CPAP/BIPAP, Thyroid Disorder Additional Past Medical History / Comment(s): gout, varicose veins, psoriasis, anemia, stage III kidney disease, breast cancer- last chemo Feb 2018. SEE DR ARENAS'S HISTORY AND PHYSICAL FOR CARDIAC HISTORY , DIABETIC-DIET CONTROLLED. Healed/scarred sacral decub that had wound vac Last Myocardial Infarction Date:: 03/2012 History of Any Multi-Drug Resistant Organisms: None Reported Date of last positivie culture/infection: None C.diff toxin test negative MDRO Source:: None Past Surgical History: Breast Surgery, Cholecystectomy, Hysterectomy, Pacemaker Additional Past Surgical History / Comment(s): Left breast biopsy, left mastectomy, right cataract removed. Past Anesthesia/Blood Transfusion Reactions: Motion Sickness Additional Past Anesthesia/Blood Transfusion Reaction / Comment(s): denies problems with anesthesia Type of Cardiac Device: Permanent Pacemaker Device Placement Date:: Smoking Status: Current every day smoker - Past Family History Mother Family Medical History: Cancer Additional Family Medical History / Comment(s): stomach cancer Medications and Allergies Home Medications Medication Instructions Recorded Confirmed Type Levothyroxine Sodium [Synthroid] 25 mcg PO DAILY 09/15/15 02/03/21 History Sertraline [Zoloft] 50 mg PO DAILY 09/15/15 02/03/21 History Atorvastatin [Lipitor] 80 mg PO HS 12/10/17 02/03/21 History Montelukast [Singulair] 10 mg PO HS 12/10/17 02/03/21 History lisinopriL [Zestril] 2.5 mg PO DAILY 01/07/19 02/03/21 History carvediloL [Coreg] 3.125 mg PO BID 01/23/19 02/03/21 History Calcium Acetate [PhosLo] 667 mg PO TID-W/MEALS #90 cap 02/04/19 02/03/21 Rx Colchicine [Mitigare] 0.6 mg PO BID 08/14/20 02/03/21 History Perphenazine [Trilafon] 8 mg PO HS 08/14/20 02/03/21 History Ergocalciferol (Vitamin D2) 1,250 mcg PO WEEKLY 02/03/21 02/03/21 History [Drisdol (50,000 Iu)] Famotidine 20 mg PO DAILY 02/03/21 02/03/21 History Ferrous Sulfate [Feosol] 325 mg PO HS 02/03/21 02/03/21 History Furosemide [Lasix] 80 mg PO DAILY 02/03/21 02/03/21 History Loperamide [Imodium] 4 mg PO DAILY PRN 02/03/21 02/03/21 History Ondansetron [Zofran] 4 mg PO Q8HR PRN 02/03/21 02/03/21 History Allergies Allergy/AdvReac Type Severity Reaction Status Date / Time oxybutynin Allergy Rash/Hives Verified 02/03/21 20:07 Penicillins Allergy Rash/Hives Verified 02/03/21 20:07 aspirin AdvReac Nausea & Verified 02/03/21 20:07 Vomiting Physical Exam Vitals: Vital Signs Temp Pulse Pulse Resp BP BP Pulse Ox 02/04/21 14:06 97.7 F 53 L 16 105/46 97 02/04/21 11:41 97.1 F L 53 L 18 95/55 98 02/04/21 07:10 97.1 F L 50 L 16 97/42 99 02/04/21 00:52 98 F 52 L 18 96/41 99 02/04/21 00:20 49 L 18 103/48 98 02/04/21 00:00 49 L 18 101/49 97 02/03/21 23:30 54 L 18 116/59 98 02/03/21 22:30 98.0 F 50 L 18 106/49 98 02/03/21 21:30 98.1 F 52 L 18 96/44 98 02/03/21 21:00 51 L 18 90/40 97 02/03/21 20:30 98.2 F 50 L 18 105/48 98 02/03/21 20:00 50 L 18 96/65 98 02/03/21 19:30 50 L 18 85/42 98 02/03/21 19:07 98.3 F 66 18 82/57 98 Intake and Output 02/04/21 02/04/21 02/04/21 06:59 14:59 22:59 Intake Total 104.892 85.273 0 Balance 104.892 85.273 0 Intake: Intake, IV Titration 104.892 85.273 0 Amount Heparin Sod,Pork in 0.45% 104.892 85.273 0 NaCl 25,000 unit In 0.45 % NaCl 1 250ml.bag @ 18 UNITS/KG/HR 15.35 mls/hr IV .[id number] [facility] Rx#: [id number] Other: Voiding Method Bedpan Diaper Incontinent # Bowel Movements 1 Weight 85.275 kg GENERAL EXAM: Alert, pleasant, 65-year-old female patient, on room air, comfortable in no apparent distress. HEAD: Normocephalic. EYES: Enucleation of the left eye.. NOSE: Clear with pink turbinates. THROAT: No erythema or exudates. NECK: No masses, no JVD. CHEST: No chest wall deformity. LUNGS: Equal air entry with no crackles, wheeze, rhonchi or dullness. CVS: S1 and S2 normal with no audible murmur, regular rhythm. ABDOMEN: No hepatosplenomegaly, normal bowel sounds, no guarding or rigidity. SPINE: No scoliosis or deformity SKIN: No rashes CENTRAL NERVOUS SYSTEM: No focal deficits, tone is normal in all 4 extremities. EXTREMITIES: There is no peripheral edema. No clubbing, no cyanosis. Peripheral pulses are intact. Results - Laboratory Findings CBC and BMP: 02/04/21 04:26 02/04/21 04:26 PT/INR, D-dimer PT 12.6 sec (9.0-12.0) H 02/03/21 22:44 INR 1.2 (<1.2) H 02/03/21 22:44 D-Dimer 3.20 mg/L FEU (<0.60) H 02/03/21 19:49 Abnormal lab findings: Abnormal Labs 02/03/21 02/03/21 02/03/21 19:49 19:49 19:49 RBC 3.44 L Hgb Hct MCV 102.7 H MCH 35.2 H RDW 15.8 H Plt Count 57 L Lymphocytes # (Manual) PT INR APTT D-Dimer 3.20 H Sodium Chloride BUN Calcium Total Bilirubin AST ALT Alkaline Phosphatase Creatine Kinase Total Protein Albumin TSH Urine Appearance Cloudy H Urine Protein 1+ H Urine Blood Large H Urine Nitrite Positive H Ur Leukocyte Esterase Small H Urine WBC 18 H Urine WBC Clumps Few H Amorphous Sediment Rare H Urine Bacteria Moderate H Urine Mucus Rare H 02/03/21 02/03/21 02/04/21 19:49 22:44 04:26 RBC Hgb Hct MCV MCH RDW Plt Count Lymphocytes # (Manual) PT 12.6 H INR 1.2 H APTT D-Dimer Sodium 135 L Chloride 109 H 112 H BUN 25 H 23 H Calcium 7.9 L 7.8 L Total Bilirubin 1.5 H AST 454 H ALT 48 H Alkaline Phosphatase 186 H Creatine Kinase 7855 H* Total Protein 5.8 L Albumin 2.4 L TSH 7.500 H Urine Appearance Urine Protein Urine Blood Urine Nitrite Ur Leukocyte Esterase Urine WBC Urine WBC Clumps Amorphous Sediment Urine Bacteria Urine Mucus 02/04/21 02/04/21 02/04/21 04:26 04:26 11:25 RBC 3.23 L Hgb 11.2 L Hct 33.0 L MCV 102.2 H MCH RDW 16.1 H Plt Count 55 L Lymphocytes # (Manual) 0.96 L PT INR APTT >200.0 H* >200.0 H* D-Dimer Sodium Chloride BUN Calcium Total Bilirubin AST ALT Alkaline Phosphatase Creatine Kinase Total Protein Albumin TSH Urine Appearance Urine Protein Urine Blood Urine Nitrite Ur Leukocyte Esterase Urine WBC Urine WBC Clumps Amorphous Sediment Urine Bacteria Urine Mucus - Diagnostic Findings CT scan - chest: image reviewed Assessment and Plan Assessment: 1 Generalized weakness, rhabdomyolysis, dehydration 2 Left hip pain 3 Urinary tract infection, culture pending 4 Small subsegmental bilateral pulmonary emboli 5 History of falls 6 History of systolic congestive heart failure, ejection fraction 40-45% 7 Chronic and ongoing tobacco dependence 8 Chronic obstructive pulmonary disease, stable 9 Hypothyroidism 10 History of bipolar disorder 11 Hyperlipidemia 12 Hypertension Plan: The patient was seen and evaluated by Dr. García Continue heparin drip for now Repeat CT angiogram in the a.m. High risk for anticoagulation due to frequent falls Obtain Doppler of the lower extremities We will continue to follow and make further recommendations based on her clinical status I, the cosigning physician, performed a history & physical examination of the patient. Lungs sounds are clear. Maintaining good O2 saturations in the 90s on room air. I discussed the assessment and plan of care with my nurse practiti mary, Shasha Hopson. I attest to the above consultation as dictated by her. Time with Patient: Greater than 30
--- NOTE | 2021-02-04 17:31 | US ---
EXAMINATION TYPE: US venous doppler duplex LE DATE OF EXAM: 02/04/2021 4:45 PM COMPARISON: NONE CLINICAL HISTORY: ? PE. See CT angio chest; patient c/o bilateral leg swelling SIDE PERFORMED: Bilateral TECHNIQUE: The lower extremity deep venous system is examined utilizing real time linear array sonog daniel with graded compression, doppler sonography and color-flow sonography. VESSELS IMAGED: Common Femoral Vein Deep Femoral Vein Greater Saphenous Vein * Femoral Vein Popliteal Vein Proximal Calf Veins: left calf veins not seen longitudinally due to constant left leg motion (* superficial vessels) Right Leg: Negative for DVT Left Leg: Negative for DVT IMPRESSION: No evidence of deep vein thrombosis in both legs.
--- NOTE | 2021-02-04 20:21 | PN ---
PROGRESS NOTE DATE OF SERVICE: 02/04/2021 CHIEF COMPLAINT: Hypotension, dehydration and rhabdomyolysis. HISTORY OF PRESENT ILLNESS: This lady is fairly stable and she is being rehydrated. She is slightly more alert. She has no complaints. PHYSICAL EXAMINATION: Her chest is clear. Cardiac exam is normal. Abdomen is soft and nontender. Extremities are normal. IMPRESSION: 1. Dehydration. 2. Hypotension. 3. Rhabdomyolysis. 4. Chronic obstructive pulmonary disease. 5. History of carcinoma of the breast. PLAN: Continue with fluid resuscitation and wait for repeat laboratory studies. MMODL / IJN: [id number] /
--- NOTE | 2021-02-04 20:21 | HP ---
HISTORY AND PHYSICAL CHIEF COMPLAINT: Dehydration, hypotension and general debility. HISTORY OF PRESENT ILLNESS: This is another admission for this 65-year-old white female. She has a history of COPD, breast cancer and cardiac arrhythmia. She came into the hospital confused, lethargic, disheveled and covered with feces. She was hypotensive with a systolic blood pressure of 82. She stated that she was not being taken care of at home. This has been obvious for some time. She lives with her and daughter. She is usually very unkempt and dirty. She is usually covered with bedbugs as well. REVIEW OF SYSTEMS: She denies any headache, chest pain, abdominal pain, vomiting, melena, hematochezia, dysuria, hematuria, etc. Past medical history, family history, personal and social histories reveal that she is ALLERGIC TO OXYBUTYNIN, PENICILLIN AND ASPIRIN. She is on Singulair, Pepcid, Mitigare, lisinopril, vitamin D, , atorvastatin, carvedilol, calcium, sertraline, levothyroxine, Lomotil, Lasix and iron. Past medical history, family history, personal and social histories consist largely of her problems with COPD, carcinoma of the breast, congestive heart failure, hypertension and depression. She continues to smoke but does not drink. PHYSICAL EXAMINATION: Blood pressure is 82/55 with a pulse of 64, respirations were 33. She is afebrile. In general she appeared to be pale and chronically ill. She is dehydrated and poorly nourished. She was disheveled, with evidence of feces covering most of her body. Head, ears, eyes, nose, mouth and throat demonstrated the absence of a left eye, which is chronic. Chest demonstrated good breath sounds bilaterally. The cardiac exam sounded like sinus rhythm. The abdomen was soft with no masses. Chest revealed evidence of her prior mastectomy and radiation. Extremities are normal. Neurologically she is lethargic and somewhat delirious. She is admitted to the hospital with diagnosis: 1. Hypotension. 2. Dehydration. 3. Chronic obstructive pulmonary disease. 4. History of carcinoma of the breast. 5. Hypothyroidism. PLAN: 1. Bedrest. 2. IV fluids. 3. [employer]icker referral. MMODL / IJN: [id number] /
[2021-02-04] MEDS: HEPARIN SOD,PORK IN 0.45% NACL 25,000 UNIT in 0.45% NACL 1 250ML.BAG IV SCH (21:25)
[2021-02-04] MEDS: ATORVASTATIN 80 MG TAB PO SCH (22:12)
[2021-02-04] MEDS: MONTELUKAST 10 MG TAB PO SCH (22:12)
[2021-02-04] MEDS: FERROUS SULFATE 325 MG TAB PO SCH (22:12)
[2021-02-04] MEDS: PERPHENAZINE 4 MG TAB PO SCH (22:27)
[2021-02-04] MEDS: LEVOFLOXACIN 750MG-D5W PMX 750 MG in DEXTROSE/WATER 1 150ML.BAG IVPB SCH (23:36)
[2021-02-05] MEDS: LEVOTHYROXINE 25 MCG TAB PO SCH (06:04)
[2021-02-05] MEDS: CALCIUM ACETATE 667 MG TAB PO SCH ×3 (08:51→17:03)
[2021-02-05] MEDS: metroNIDAZOLE-NS PMX 500 MG in SALINE 1 100ML.BAG IVPB SCH ×3 (08:51→20:11)
[2021-02-05] MEDS: FAMOTIDINE 20 MG TAB PO SCH (08:51)
--- NOTE | 2021-02-05 10:48 | CT ---
EXAMINATION TYPE: CT angio chest DATE OF EXAM: 02/05/2021 COMPARISON: HISTORY: Acute hypotension, rhabdomyolysis CT DLP: 505.6 mGycm Automated exposure control for dose reduction was used. CONTRAST: CTA scan of the thorax is performed with IV Contrast, patient injected with 80 mL of Isovue 370, pulm onary embolism protocol. MIP images are created and reviewed. 3D reconstructed images are created o n an independent workstation and reviewed. FINDINGS: There is some motion on the exam. LUNGS: The lungs show no mass, there is no concerning parenchymal mass or nodule identified. There is no pneumothorax seen. Mild prominence interstitium, question some perihilar groundglass opacity. The tracheobronchial tree is patent. Minimal pleural effusions and associated basilar atelectasis not ed AORTA: No additional significant abnormality is seen. MEDIASTINUM: There is satisfactory enhancement of the pulmonary artery and its branches, there is no CT evidence for pulmonary embolism. There are no greater than 1 cm hilar or mediastinal lymph nodes. No pericardial effusion is seen. The heart is enlarged. There are coronary artery calcifications. OTHER: There is mild ascites. Nodular contour to the liver suggests underlying cirrhosis. Patient is post cholecystectomy. Spleen is enlarged. Punctate calcifications are present within the liver and s pleen. There is a generator in the left pectoral region, lead is present in the right ventricle. Low dense focus within the anterior right lobe of the liver, axial image 80 measures 11 mm and is indeter minate. There is a port in the right pectoral region. IMPRESSION: FINDINGS CONSISTENT WITH CIRRHOSIS, THERE IS SPLENOMEGALY WITH SMALL BASILAR EFFUSIONS AND ASSOCIATED ATELECTASIS. Cardiomegaly, consider interstitial edema, additional findings above
[2021-02-05 11:02] VITALS: BMI 33.3
--- NOTE | 2021-02-05 11:25 | P.PN ---
Subjective Progress Note Date: 02/05/21 Principal diagnosis: left hip pain Patient was seen at bedside this morning resting comfortably lying semirecumbent in bed. Patient states she is not having much hip pain. Patient says she is not up with physical therapy or anyone since she gets to the hospital yesterday.. Patient denies chest pain, fever, chest breath, nausea, vomiting, change in vision, loss of bowel/bladder control. Objective - Vital Signs Vital signs: Vital Signs Temp 97.8 F 02/05/21 04:26 Pulse 59 L 02/05/21 04:26 Resp 20 02/05/21 04:26 BP 106/64 02/05/21 04:26 Pulse Ox 99 02/05/21 04:26 Intake & Output 02/04/21 02/05/21 02/05/21 18:59 06:59 18:59 Intake Total 85.273 295.681 Output Total 1 Balance 85.273 294.681 Weight 85.275 kg Intake: Intake, IV Titration 85.273 95.681 Amount Heparin Sod,Pork in 0.45% 85.273 95.681 NaCl 25,000 unit In 0.45 % NaCl 1 250ml.bag @ 18 UNITS/KG/HR 15.35 mls/hr IV .[id number] [facility] Rx#: [id number] Oral 200 Output: Urine/Stool Mix 1 Other: Voiding Method Bedpan Bedpan Diaper Diaper Incontinent Incontinent # Voids 2 2 # Bowel Movements 1 1 - Exam Left hip: inspection: Surgical scars present along the left hip and leg. Negative for any erythema, ecchymosis, purulence, from incision site. Incision appears clean, dry, intact. Sensation: Sensation appears to be intact palpating bilateral lower extremities. Patient does move during this Palpation: Left hip and leg is palpated along the incision and where hardware was placed and patient did not make a noise or complain of being on any pain. Range of motion: During hip flexion and external and internal rotation of left leg patient does not say that she is in any pain. Patient does not grimace either. Negative log roll maneuver Motor: Limited due to patient's status Neurovascular: Dorsalis pedis pulse present, 2+, intact. Cap refill under 3 seconds Special tests: Negative Homans bilaterally; negative clonus bilaterally - Labs CBC & Chem 7: 02/04/21 04:26 02/04/21 04:26 Labs: Abnormal Lab Results - Last 24 Hours (Table) 02/04/21 02/04/21 02/05/21 Range/Units 11:25 19:07 03:07 APTT >200.0 H* 117.3 H* 73.5 H (22.0-30.0) sec Microbiology - Last 24 Hours (Table) 02/03/21 22:45 Blood Culture - Preliminary Blood No Growth after 24 hours Assessment and Plan Assessment: 1. Generalized weakness 2. Multiple medical comorbidities 3. h/o left hip fracture and IT Nail Plan: 1. History of left hip fracture and IT Nail - x-rays of left hip were taken and reviewed. No significant changes are noticed in the left hip. Jeff and screws appear to be in place in good position without migration. We will continue to follow patient while in hospital 2. Appreciate medical management 3. Appreciate consult 4. GI prophylaxis - Pepcid 5. DVT prophylaxis - Heparin 6. Pain management - stable at this time 7. PT/OT - WBAT with walker and needs assistance Time with Patient: Less than 30
--- NOTE | 2021-02-05 12:51 | P.PN ---
Subjective Progress Note Date: 02/05/21 Principal diagnosis: Rhabdomyolysis, dehydration This is a 65-year-old female patient who follows with Dr. Audelia benson as her primary care provider. She has a history of hypothyroidism, hyperlipidemia, hypertension, depression, bipolar disorder, congestive heart failure, permanent pacemaker implantation, hypothyroidism, enucleation of the left eye, chronic and ongoing tobacco dependence, chronic obstructive pulmonary disease. He was brought into the emergency room yesterday after 3 day history of unable to get out of the bed related to dehydration and weakness according to the family. She was also having left hip pain. Computed tomography scan of the abdomen and pelvis reveals thickening of the cecum and ascending colon with small amount of fluid around the cecum and right upper quadrant and pelvis. Suspect infectious versus inflammatory disease such as colitis less likely malignancy not entirely excluded. Ischemic colitis should also be considered. Diverticular disease without evidence of diverticulitis. CT angiogram revealed a small filling defect in the right lower and left upper segmental pulmonary arteries concerning for possible pulmonary emboli. We are consulted for the same. She is seen today in consultation on the regular medical floor. She is currently resting comfortably in bed. Awake, alert, no acute distress. Denies any chest pain, sh ortness of breath, cough or congestion. No hemoptysis. She is maintaining O2 saturations in the mid to upper 90s on room air. She's been afebrile. Hemodynamically stable. Urine culture pending. White count 7.4. Hemoglobin 11.2. D-dimer 3.2. Sodium 140. Potassium 4.5. Creatinine 1.00. AST 454. ALT 48. Alk phos 186. Creatinine kinase 7855. Troponin negative times one. ProBNP 1460. TSH 7.50. She was initiated on a heparin drip. She was also initiated on Flagyl and Levaquin. 0.9 normal saline at 75 ML's per hour. The patient is seen today 02/05/2021 in follow-up on the regular medical floor. She is currently laying flat in bed. No shortness of breath, cough or congestion. Maintaining good O2 saturations in the 90s on room air. 0.9 normal sinus 75 ML's per hour. Per drip per weight based protocol. She did undergo repeat CT angiogram that showed no evidence of pulmonary embolism. Some mild ascites suggestive of liver cirrhosis. Splenomegaly. Small basilar effusions with atelectasis. Urine culture positive for gram-negative bacilli, she is currently on Levaquin. Objective - Vital Signs Vital signs: Vital Signs Temp 97.8 F 02/05/21 04:26 Pulse 53 L 02/05/21 11:06 Resp 20 02/05/21 04:26 BP 106/64 02/05/21 04:26 Pulse Ox 99 02/05/21 04:26 Intake & Output 02/04/21 02/05/21 02/05/21 18:59 06:59 18:59 Intake Total 85.273 295.681 29.348 Output Total 1 Balance 85.273 294.681 29.348 Weight 85.275 kg 85.275 kg Intake: Intake, IV Titration 85.273 95.681 29.348 Amount Heparin Sod,Pork in 0.45% 85.273 95.681 29.348 NaCl 25,000 unit In 0.45 % NaCl 1 250ml.bag @ 18 UNITS/KG/HR 15.35 mls/hr IV .[id number] [facility] Rx#: [id number] Oral 200 Output: Urine/Stool Mix 1 Other: Voiding Method Bedpan Bedpan Bedpan Diaper Diaper Diaper Incontinent Incontinent Incontinent # Voids 2 2 # Bowel Movements 1 1 - Exam GENERAL EXAM: Alert, pleasant, 65-year-old female patient, on room air, comfortable in no apparent distress. HEAD: Normocephalic. EYES: Enucleation of the left eye.. NOSE: Clear with pink turbinates. THROAT: No erythema or exudates. NECK: No masses, no JVD. CHEST: No chest wall deformity. LUNGS: Equal air entry with no crackles, wheeze, rhonchi or dullness. CVS: S1 and S2 normal with no audible murmur, regular rhythm. ABDOMEN: No hepatosplenomegaly, normal bowel sounds, no guarding or rigidity. SPINE: No scoliosis or deformity SKIN: No rashes CENTRAL NERVOUS SYSTEM: No focal deficits, tone is normal in all 4 extremities. EXTREMITIES: There is no peripheral edema. No clubbing, no cyanosis. Peripheral pulses are intact. - Labs CBC & Chem 7: 02/04/21 04:26 02/04/21 04:26 Labs: Abnormal Lab Results - Last 24 Hours (Table) 02/04/21 02/04/21 02/05/21 Range/Units 11:25 19:07 03:07 APTT >200.0 H* 117.3 H* 73.5 H (22.0-30.0) sec 02/05/21 Range/Units 08:16 APTT 49.6 H (22.0-30.0) sec Microbiology - Last 24 Hours (Table) 02/03/21 19:49 Urine Culture - Preliminary Urine,Catheterized Gram Neg Bacilli 02/03/21 22:45 Blood Culture - Preliminary Blood No Growth after 24 hours Assessment and Plan Assessment: 1 Generalized weakness, rhabdomyolysis, dehydration, urinary tract infection 2 Left hip pain 3 Urinary tract infection, culture positive for gram-negative bacilli 4 Small subsegmental bilateral pulmonary emboli, follow-up CAT scan today revealed no evidence of pulmonary emboli, negative DVT of the lower extremities 5 History of falls 6 History of systolic congestive heart failure, ejection fraction 40-45% 7 Chronic and ongoing tobacco dependence 8 Chronic obstructive pulmonary disease, stable 9 Hypothyroidism 10 History of bipolar disorder 11 Hyperlipidemia 12 Hypertension Plan: The patient was seen and evaluated by Dr. García CT angiogram reviewed, no evidence of pulmonary embolism Doppler of the lower extremities negative for DVT Discontinue IV heparin We will follow as needed I, the cosigning physician, performed a history & physical examination of the patient. Lungs sounds are clear. Maintaining good O2 saturations in the 90s on room air. I discussed the assessment and plan of care with my nurse practitioner, Shasha Hopson. I attest to the above consultation as dictated by her.
--- NOTE | 2021-02-05 13:03 | ECHOF ---
Referral Reason:echocardiogram-CHF MEASUREMENTS -------- HEIGHT: 160.0 cm WEIGHT: 85.3 kg BP: 106/64 RVIDd: 3.8 cm (< 3.3) IVSd: 1.3 cm (0.6 - 1.1) LVIDd: 4.5 cm (3.9 - 5.3) LVPWd: 1.2 cm (0.6 - 1.1) IVSs: 1.5 cm LVIDs: 3.2 cm LVPWs: 1.5 cm LAESV Index (A-L): 31.44 ml/m Ao Diam: 3.0 cm (2.0 - 3.7) AV Cusp: 1.1 cm (1.5 - 2.6) LA Diam: 4.2 cm (2.7 - 3.8) MV EXCURSION: 15.965 mm (> 18.000) MV EF SLOPE: 64 mm/s (70 - 150) EPSS: 1.5 cm RAP: 5.00 mmHg RVSP: 36.61 mmHg FINDINGS -------- This was a technically adequate study. The left ventricular size is normal. There is mild concentric left ventricular hypertrophy. Overa ll left ventricular systolic function is mildly impaired with, an EF between 45 - 50 %. Mid inferio r LV wall motion is hypokinetic. The right ventricle is mildly enlarged. LA is midly dilated 29-33ml/m2. The right atrium is mildly enlarged. Interatrial and interventricular septum intact. There is no evidence of aortic regurgitation. There is no evidence of aortic stenosis. Edll-hi-ogrylkpo mitral regurgitation is present. Jtzw-qa-tuarjwap tricuspid regurgitation present. There is mild pulmonary hypertension. The right ventricular systolic pressure, as measured by Doppler, is 36.61mmHg. There is no pulmonic regurgitation present. The aortic root size is normal. The inferior vena cava is mildly dilated. There is no pericardial effusion. CONCLUSIONS -------- 1. The left ventricular size is normal. 2. There is mild concentric left ventricular hypertrophy. 3. Overall left ventricular systolic function is mildly impaired with, an EF between 45 - 50 %. 4. The right ventricle is mildly enlarged. 5. LA is midly dilated 29-33ml/m2. 6. The right atrium is mildly enlarged. 7. Hlpk-zl-zvdyqlbl mitral regurgitation is present. 8. Kaaf-be-szzbiqus tricuspid regurgitation present. 9. There is mild pulmonary hypertension. 10. The right ventricular systolic pressure, as measured by Doppler, is 36.61mmHg. 11. The inferior vena cava is mildly dilated. SHOPPING INSPECTOR: Penny Hawthorne RDCS
[2021-02-05] MEDS: HEPARIN SOD,PORK IN 0.45% NACL 25,000 UNIT in 0.45% NACL 1 250ML.BAG IV SCH (13:17)
--- NOTE | 2021-02-05 15:29 | PN ---
PROGRESS NOTE CHIEF COMPLAINT: Hypotension, dehydration, rhabdomyolysis, renal failure and neglect. HISTORY OF PRESENT ILLNESS: This lady is hydrating. She is not complaining of headache, chest pain, shortness of breath. D-dimer was extremely elevated. There is a question of a PE, but she is going down for a confirmatory CT. PHYSICAL EXAMINATION: Head, ears, eyes, nose and mouth are normal except for the abscess of the left eye. Neck veins are not distended. Chest demonstrates clear breath sounds bilaterally. Cardiac exam is normal. The abdomen is somewhat protuberant without masses or visceromegaly. CTA of the abdomen is normal. Extremities are normal. She does have overgrowth of nails with onychomycosis. IMPRESSION: 1. Hypotension. 2. Dehydration. 3. History of carcinoma of the breast. 4. Elevated D-dimer. 5. Possible pulmonary embolism. 6. Rule out sepsis. PLAN: 1. Await results of second CT. 2. Continue with fluid resuscitation. 3. Continue to monitor her renal function. 4. Report to Adult Protective Services. MMODL / IJN: [id number] /
[2021-02-05] MEDS: SODIUM CHLORIDE 0.9% 1,000 ML IV SCH (18:15)
[2021-02-05] MEDS: HEPARIN SODIUM,PORCINE/PF 5,000 UNIT/0.5 ML SYRINGE SQ SCH (20:10)
[2021-02-05] MEDS: FERROUS SULFATE 325 MG TAB PO SCH (20:10)
[2021-02-05] MEDS: ATORVASTATIN 80 MG TAB PO SCH (20:10)
[2021-02-05] MEDS: PERPHENAZINE 4 MG TAB PO SCH (20:10)
[2021-02-05] MEDS: MONTELUKAST 10 MG TAB PO SCH (20:10)
[2021-02-05] MEDS: LEVOFLOXACIN 750MG-D5W PMX 750 MG in DEXTROSE/WATER 1 150ML.BAG IVPB SCH (22:28)
[2021-02-06] MEDS: SODIUM CHLORIDE 0.9% 1,000 ML IV SCH ×2 (05:32→16:24)
[2021-02-06] MEDS: LEVOTHYROXINE 25 MCG TAB PO SCH (05:32)
[2021-02-06] MEDS: metroNIDAZOLE-NS PMX 500 MG in SALINE 1 100ML.BAG IVPB SCH ×3 (08:05→20:11)
[2021-02-06] MEDS: CALCIUM ACETATE 667 MG TAB PO SCH ×3 (08:06→17:19)
[2021-02-06] MEDS: HEPARIN SODIUM,PORCINE/PF 5,000 UNIT/0.5 ML SYRINGE SQ SCH ×2 (08:06→20:10)
[2021-02-06] MEDS: FAMOTIDINE 20 MG TAB PO SCH (08:06)
--- NOTE | 2021-02-06 08:34 | P.PN ---
Subjective Principal diagnosis: left hip pain Patient was seen at bedside this morning resting comfortably lying semirecumbent in bed. Patient states she is not having much hip pain. Patient says she is not up with physical therapy or anyone since she gets to the hospital yesterday.. Patient denies chest pain, fever, chest breath, nausea, vomiting, change in vision, loss of bowel/bladder control. Objective - Vital Signs Vital signs: Vital Signs Temp 98.2 F 02/06/21 04:31 Pulse 50 L 02/06/21 04:31 Resp 16 02/06/21 04:31 BP 90/51 02/06/21 04:31 Pulse Ox 97 02/06/21 04:31 Intake & Output 02/05/21 02/06/21 02/06/21 18:59 06:59 18:59 Intake Total 537.934 6027 Balance 341.111 7728 Weight 85.275 kg Intake: Intake, IV Titration 520.023 0093 Amount Heparin Sod,Pork in 0.45% 29.348 NaCl 25,000 unit In 0.45 % NaCl 1 250ml.bag @ 18 UNITS/KG/HR 15.35 mls/hr IV .[id number] [facility] Rx#: [id number] Levofloxacin 750Mg-D5w 150 Pmx 750 mg In Dextrose/ Water 1 150ml.bag @ 100 mls/hr IVPB Q24H [facility] Rx#: [id number] Sodium Chloride 0.9% 1, 750 000 ml @ 75 mls/hr IV . [id number] [facility] Rx#:[id number] metroNIDAZOLE-NS PMX 500 200 100 mg In Saline 1 100ml.bag @ 100 mls/hr IVPB TID [facility] Rx#:[id number] Oral 540 Other: Voiding Method Bedpan Bedpan Diaper Diaper Incontinent Incontinent - Exam Left hip: inspection: Surgical scars present along the left hip and leg. Negative for any erythema, ecchymosis, purulence, from incision site. Incision appears clean, dry, intact. Sensation: Sensation appears to be intact palpating bilateral lower extremities. Patient does move during this Palpation: Left hip and leg is palpated along the incision and where hardware was placed and patient did not make a noise or complain of being on any pain. Range of motion: During hip flexion and external and internal rotation of left leg patient does not say that she is in any pain. Patient does not grimace either. Negative log roll maneuver Motor: Limited due to patient's status Neurovascular: Dorsalis pedis pulse present, 2+, intact. Cap refill under 3 seconds Special tests: Negative Homans bilaterally; negative clonus bilaterally - Labs CBC & Chem 7: 02/04/21 04:26 02/04/21 04:26 Labs: Abnormal Lab Results - Last 24 Hours (Table) 02/05/21 Range/Units 08:16 APTT 49.6 H (22.0-30.0) sec Microbiology - Last 24 Hours (Table) 02/03/21 22:45 Blood Culture - Preliminary Blood No Growth after 48 hours 02/03/21 19:49 Urine Culture - Preliminary Urine,Catheterized Gram Neg Bacilli Assessment and Plan Assessment: 1. Generalized weakness 2. Multiple medical comorbidities 3. h/o left hip fracture and IT Nail Plan: 1. History of left hip fracture and IT Nail - x-rays of left hip were taken and reviewed. No significant changes are noticed in the left hip. Jeff and screws appear to be in place in good position without migration. No emergent surgical intervention planned at this time orthopedically. Patient is orthopedically stable for discharge home. At this time orthopedics signing off. Please do not hesitate to contact us if you have any further questions. 3. Appreciate consult 4. GI prophylaxis - Pepcid 5. DVT prophylaxis - Heparin 6. Pain management - stable at this time 7. PT/OT - WBAT with walker and needs assistance Time with Patient: Less than 30
[2021-02-06] MEDS: FERROUS SULFATE 325 MG TAB PO SCH (20:10)
[2021-02-06] MEDS: PERPHENAZINE 4 MG TAB PO SCH (20:10)
[2021-02-06] MEDS: ATORVASTATIN 80 MG TAB PO SCH (20:10)
[2021-02-06] MEDS: MONTELUKAST 10 MG TAB PO SCH (20:10)
[2021-02-06] MEDS: LEVOFLOXACIN 750MG-D5W PMX 750 MG in DEXTROSE/WATER 1 150ML.BAG IVPB SCH (23:55)
[2021-02-07] MEDS: SODIUM CHLORIDE 0.9% 1,000 ML IV SCH ×2 (05:25→11:42)
[2021-02-07] MEDS: LEVOTHYROXINE 25 MCG TAB PO SCH (05:25)
[2021-02-07] MEDS: HEPARIN SODIUM,PORCINE/PF 5,000 UNIT/0.5 ML SYRINGE SQ SCH ×2 (07:56→21:18)
[2021-02-07] MEDS: CALCIUM ACETATE 667 MG TAB PO SCH ×3 (07:56→17:53)
[2021-02-07] MEDS: FAMOTIDINE 20 MG TAB PO SCH (07:56)
[2021-02-07] MEDS: metroNIDAZOLE-NS PMX 500 MG in SALINE 1 100ML.BAG IVPB SCH ×3 (07:56→21:18)
--- NOTE | 2021-02-07 14:42 | CDI ---
Documentation Clarification Form Date: 02/07/2021 02:07:38 PM From: Alexandra Doherty RN, CCDS Admit Date: 02/03/2021 10:11:00 PM Patient Name: Olga Berumen Visit Number: [id number] Discharge Date: ATTENTION: The Clinical Documentation Specialists (CDI) and [facility] Coding Staff appreciate your assistance in clarifying documentation. Please respond to the clarification below the line at the bottom and electronically sign. The CDI & [facility] Coding staff will review the response and follow-up if needed. Please note: Queries are made part of the Legal Health Record. If you have any questions, please contact the author of this message via ITS. Dr. Paul Hanks The patients principal diagnosis the diagnosis that was chiefly responsible for the admission - has not been clearly identified and clarification is requested. The patient presented with the following confused, lethargic, hypotensive, disheveled, and covered in feces. 02/04, H&P. History/Risk factors: 65-year-old female presents to the ED via EMS unable to ambulate, covered in feces. Medical history: previous left hip fracture and surgical repair, COPD, DM, HTN and Sleep apnea. 02/03, Ed note. Clinical Indicators: Lab findings: 02/03 Rbc 3.44; Platelet count 57; D-dimer 3.20; Na 135; Bun 25; Calcium 7.9; Creatinine kinase 7855; Pro BNP 1460. UA Culture: 02/03 Klebsiella pneumoniae. Vital Signs: 02/03 B/P 82/57; HR 66; Temp 98.3; RR 18; SpO2 98% room air 02/05 Medicine progress note: Hypotension, dehydration, history of carcinoma of the breast, Elevated D-dimer, possible pulmonary embolism, Rule out sepsis. Treatment: 02/03 Levaquin 750mg IVPB x 1; Levaquin 750mg IVPB Q24H [facility] to current; 02/03 Metronidazole 500mg IVPB TID [facility]; 02/03 0.9NS 1L Bolus x 1. Consults: 02/05 Pulmonary progress note; Generalized weakness, rhabdomyolysis, dehydration, urinary tract infection. Urinary tract infection, culture positive for gram-negative bacilli. In your professional opinion, can you please clarify which diagnosis, after study, was the reason chiefly responsible for the admission? [ ] UTI [ ] Sepsis due to Uti [ ] Other, please specify [ ] Unable to determine (Template Last Revised: August 2020) MTDD
--- NOTE | 2021-02-07 14:54 | CDI ---
Documentation Clarification Form Date: 02/07/2021 02:01:43 PM From: Alexandra Doherty RN CCDS Admit Date: 02/03/2021 10:11:00 PM Patient Name: Olga Berumen Visit Number: [id number] Discharge Date: ATTENTION: The Clinical Documentation Specialists (CDI) and [facility] Coding Staff appreciate your assistance in clarifying documentation. Please respond to the clarification below the line at the bottom and electronically sign. The CDI & [facility] Coding staff will review the response and follow-up if needed. Please note: Queries are made part of the Legal Health Record. If you have any questions, please contact the author of this message via ITS. Dr. Paul Hanks Rhabdomyolysis is documented 02/04, Medicine progress note. Additional clarification regarding the type of rhabdomyolysis is requested. History/Risk Factors: 65-year-old female presents to the ED via EMS unable to ambulate, covered in feces. Medical history Left hip fracture with surgical repair, COPD, DM, HTN and CKD III. 02/03, ED note. Clinical Indicators: Lab: 02/03 Creatinine kinase 7855. Treatment: 02/03 Levaquin 750mg IVPB x 1; Levaquin 750mg IVPB Q24H [facility] to current; 02/03 Metronidazole 500mg IVPB TID [facility]; 02/03 0.9NS 1L Bolus x 1. Please clarify the type of rhabdomyolysis, if known: [ ] Traumatic rhabdomyolysis due to prolonged immobility [ ] Non traumatic rhabdomyolysis due to infection (please specify) [ ] Other, please specify [ ] Unable to Determine (Template Last Revised: August 2020) MTDD
[2021-02-07] MEDS: MONTELUKAST 10 MG TAB PO SCH (21:18)
[2021-02-07] MEDS: FERROUS SULFATE 325 MG TAB PO SCH (21:18)
[2021-02-07] MEDS: ATORVASTATIN 80 MG TAB PO SCH (21:18)
[2021-02-07] MEDS: PERPHENAZINE 4 MG TAB PO SCH (21:18)
--- NOTE | 2021-02-07 22:04 | PN ---
PROGRESS NOTE DATE OF SERVICE: 02/07/2021 CHIEF COMPLAINT: Dehydration and rhabdomyolysis with failure to thrive and general debility. HISTORY OF PRESENT ILLNESS: This lady's condition has been stable and she continues to slowly improve. PHYSICAL EXAMINATION: Her vital signs are normal. Her chest is clear. Cardiac exam is normal. Abdomen is soft, nontender. Hydration is improved and her activities are being improved. Neurologically she is intact. IMPRESSION: Dehydration, general debility and failure to thrive, rhabdomyolysis. PLAN: Continue efforts to rehabilitate and then, hopefully, discharge to a safer environment. MMODL / IJN: [id number] /
--- NOTE | 2021-02-07 22:04 | PN ---
PROGRESS NOTE DATE OF SERVICE: 02/06/2021 CHIEF COMPLAINT: Hypotension, dehydration, acute renal failure and rhabdomyolysis. HISTORY OF PRESENT ILLNESS: This lady is improving every day. She is fully awake and alert. She is not having any chest pain. Her numbers are improving. PHYSICAL EXAMINATION: Her chest is clear. Cardiac exam is normal. Abdomen is soft, nontender. Extremities are normal. IMPRESSION: 1. Dehydration. 2. Rhabdomyolysis. 3. Renal failure. 4. Chronic obstructive pulmonary disease. 5. History of carcinoma of the breast. 6. Diabetes mellitus. PLAN: Continue with current program while looking for discharge arrangement. This case has been reported to [facility]. MMODL / IJN: [id number] /
[2021-02-07] MEDS: LEVOFLOXACIN 750MG-D5W PMX 750 MG in DEXTROSE/WATER 1 150ML.BAG IVPB SCH (23:13)
[2021-02-08] MEDS: LEVOTHYROXINE 25 MCG TAB PO SCH (05:47)
[2021-02-08] MEDS: FAMOTIDINE 20 MG TAB PO SCH (08:26)
[2021-02-08] MEDS: CALCIUM ACETATE 667 MG TAB PO SCH ×3 (08:26→17:09)
[2021-02-08] MEDS: HEPARIN SODIUM,PORCINE/PF 5,000 UNIT/0.5 ML SYRINGE SQ SCH ×2 (08:29→20:04)
[2021-02-08] MEDS: metroNIDAZOLE-NS PMX 500 MG in SALINE 1 100ML.BAG IVPB SCH ×3 (08:29→21:40)
[2021-02-08 11:09] LABS: Anisocytosis Slight; Basophils % (A) 0 %; Eosinophils # (A) 0.2 k/uL (0-0.7); Eosinophils % (A) 2 %; HCT 35.1 % (34.0-46.0); HGB 11.8 gm/dL (11.4-16.0); Lymphocytes # (A) 0.9 k/uL (1.0-4.8); Lymphocytes % (A) 11 %; MCH 34.8 pg (25.0-35.0); MCHC 33.8 g/dL (31.0-37.0); Macrocytosis Moderate; Mean Platelet Volume 9.1; Monocytes # (A) 0.5 k/uL (0-1.0); Monocytes % (A) 7 %; Neutrophils # (A) 6.1 k/uL (1.3-7.7); Neutrophils % (A) 78 %; RDW 17.1 % (11.5-15.5); WBC 7.8 k/uL (3.8-10.6)
[2021-02-08 11:13] LABS: Platelet Count 61 k/uL (150-450)
[2021-02-08 11:23] LABS: ALT 49 U/L (4-34); AST 157 U/L (14-36); African American GFR (CKD) 62 (>60 ml/min/1.73 sqM); Albumin 2.3 g/dL (3.5-5.0); Albumin/Globulin Ratio 0.7; Alkaline Phosphatase 183 U/L (38-126); Anion Gap 4 mmol/L; Blood Urea Nitrogen 23 mg/dL (7-17); Carbon Dioxide 19 mmol/L (22-30); Chloride 107 mmol/L (98-107); Globulin 3.5 g/dL; Glucose 123 mg/dL (74-99); Non-African American GFR(CKD) 54 (>60 ml/min/1.73 sqM); Potassium 4.6 mmol/L (3.5-5.1); Sodium 130 mmol/L (137-145); Total Bilirubin 0.6 mg/dL (0.2-1.3); Total Protein 5.8 g/dL (6.3-8.2)
[2021-02-08] MEDS: SODIUM CHLORIDE 0.9% 1,000 ML IV SCH ×2 (13:05→22:56)
--- NOTE | 2021-02-08 14:03 | CDI ---
Documentation Clarification Form Date: 02/07/2021 02:01:43 PM From: Alexandra Doherty RN CCDS Admit Date: 02/03/2021 10:11:00 PM Patient Name: Olga Berumen Visit Number: [id number] Discharge Date: ATTENTION: The Clinical Documentation Specialists (CDI) and [facility] Coding Staff appreciate your assistance in clarifying documentation. Please respond to the clarification below the line at the bottom and electronically sign. The CDI & [facility] Coding staff will review the response and follow-up if needed. Please note: Queries are made part of the Legal Health Record. If you have any questions, please contact the author of this message via ITS. Dr. Paul Hanks Rhabdomyolysis is documented 02/04, Medicine progress note. Additional clarification regarding the type of rhabdomyolysis is requested. History/Risk Factors: 65-year-old female presents to the ED via EMS unable to ambulate, covered in feces. Medical history Left hip fracture with surgical repair, COPD, DM, HTN and CKD III. 02/03, ED note. Clinical Indicators: Lab: 02/03 Creatinine kinase 7855. Treatment: 02/03 Levaquin 750mg IVPB x 1; Levaquin 750mg IVPB Q24H JAMES to current; 02/03 Metronidazole 500mg IVPB TID JAMES; 02/03 0.9NS 1L Bolus x 1. Please clarify the type of rhabdomyolysis, if known: [ ] Traumatic rhabdomyolysis due to prolonged immobility [ ] Non traumatic rhabdomyolysis due to infection (please specify) [ ] Other, please specify [ ] Unable to Determine (Template Last Revised: August 2020) MTDD
--- NOTE | 2021-02-08 14:05 | CDI ---
Documentation Clarification Form Date: 02/07/2021 02:07:38 PM From: Alexandra Doherty RN, CCDS Admit Date: 02/03/2021 10:11:00 PM Patient Name: Olga Berumen Visit Number: [id number] Discharge Date: ATTENTION: The Clinical Documentation Specialists (CDI) and [facility] Coding Staff appreciate your assistance in clarifying documentation. Please respond to the clarification below the line at the bottom and electronically sign. The CDI & [facility] Coding staff will review the response and follow-up if needed. Please note: Queries are made part of the Legal Health Record. If you have any questions, please contact the author of this message via ITS. Dr. Paul Hanks The patients principal diagnosis the diagnosis that was chiefly responsible for the admission - has not been clearly identified and clarification is requested. The patient presented with the following confused, lethargic, hypotensive, disheveled, and covered in feces. 02/04, H&P. History/Risk factors: 65-year-old female presents to the ED via EMS an able to ambulate, covered in feces, previous left hip fracture and surgical repair. Medical history: COPD, DM, HTN and Sleep apnea. 02/03, Ed note. Clinical Indicators: Lab findings: 02/03 Rbc 3.44; Platelet count 57; D-dimer 3.20; Na 135; Bun 25; Calcium 7.9; Creatinine kinase 7855; Pro BNP 1460. UA Culture: 02/03 Klebsiella pneumoniae. Vital Signs: 02/03 B/P 82/57; HR 66; Temp 98.3; RR 18; SpO2 98% room air 02/05 Medicine progress note: Hypotension, dehydration, history of carcinoma of the breast, Elevated D-dimer, possible pulmonary embolism, Rule out sepsis. Treatment: 02/03 Levaquin 750mg IVPB x 1; Levaquin 750mg IVPB Q24H JAMES to current; 02/03 Metronidazole 500mg IVPB TID JAMES; 02/03 0.9NS 1L Bolus x 1. Consults: 02/05 Pulmonary progress note; Generalized weakness, rhabdomyolysis, dehydration, urinary tract infection. Urinary tract infection, culture positive for gram-negative bacilli. In your professional opinion, can you please clarify which diagnosis, after study, was the reason chiefly responsible for the admission? [ ] UTI [ ] Sepsis due to Uti [ ] Other, please specify [ ] Unable to determine (Template Last Revised: August 2020) MTDD
--- NOTE | 2021-02-08 18:00 | PN ---
PROGRESS NOTE DATE OF SERVICE: 02/08/2021 CHIEF COMPLAINT: Hypotension, dehydration, rhabdomyolysis, failure to thrive. HISTORY OF PRESENT ILLNESS: This lady is about the same. She is sitting up. She is still quite dehydrated. She is alert. PHYSICAL EXAMINATION: Her chest is clear. Cardiac exam is normal. Abdomen is soft, nontender. IMPRESSION: 1. Dehydration. 2. Hypotension. 3. Renal failure. 4. Rhabdomyolysis. 5. Chronic obstructive pulmonary disease. 6. History of carcinoma of the breast. PLAN: Continue with rehabilitation efforts while looking for rehab placement. MMODL / IJN: [id number] /
--- NOTE | 2021-02-08 19:44 | MISC ---
MISCELLANOUS REPORT Regarding sepsis: Unable to determine. MMODL / IJN: [id number] /
--- NOTE | 2021-02-08 19:50 | MISC ---
MISCELLANOUS REPORT Rhabdomyolysis: Unable to determine. MMODL / IJN: [id number] /
[2021-02-08] MEDS: PERPHENAZINE 4 MG TAB PO SCH (20:04)
[2021-02-08] MEDS: FERROUS SULFATE 325 MG TAB PO SCH (20:04)
[2021-02-08] MEDS: MONTELUKAST 10 MG TAB PO SCH (20:04)
[2021-02-08] MEDS: ATORVASTATIN 80 MG TAB PO SCH (20:04)
[2021-02-08] MEDS: LEVOFLOXACIN 750MG-D5W PMX 750 MG in DEXTROSE/WATER 1 150ML.BAG IVPB SCH (22:52)
[2021-02-09 05:14] VITALS: PULSE 50
[2021-02-09] MEDS: LEVOTHYROXINE 25 MCG TAB PO SCH (06:01)
[2021-02-09 06:20] LABS: African American GFR (CKD) 62 (>60 ml/min/1.73 sqM); Albumin 2.1 g/dL (3.5-5.0); Anion Gap 2 mmol/L; Blood Urea Nitrogen 24 mg/dL (7-17); Calcium 7.9 mg/dL (8.4-10.2); Carbon Dioxide 18 mmol/L (22-30); Chloride 110 mmol/L (98-107); Globulin 3.2 g/dL; Glucose 87 mg/dL (74-99); Non-African American GFR(CKD) 54 (>60 ml/min/1.73 sqM); Potassium 4.6 mmol/L (3.5-5.1); Sodium 130 mmol/L (137-145); Total Protein 5.3 g/dL (6.3-8.2)
[2021-02-09 06:21] LABS: ALT 40 U/L (4-34); AST 102 U/L (14-36); Albumin/Globulin Ratio 0.7; Alkaline Phosphatase 171 U/L (38-126); Total Bilirubin 0.6 mg/dL (0.2-1.3)
[2021-02-09 07:08] VITALS: BP 91/52; RESP 18; TEMP 98.2
[2021-02-09] MEDS: FAMOTIDINE 20 MG TAB PO SCH (07:41)
[2021-02-09] MEDS: HEPARIN SODIUM,PORCINE/PF 5,000 UNIT/0.5 ML SYRINGE SQ SCH (07:41)
[2021-02-09] MEDS: CALCIUM ACETATE 667 MG TAB PO SCH ×2 (07:41→13:05)
[2021-02-09] MEDS: metroNIDAZOLE-NS PMX 500 MG in SALINE 1 100ML.BAG IVPB SCH (07:42)
--- NOTE | 2021-02-09 13:40 | P.DS ---
Providers Date of admission: 02/03/21 22:11 Expected date of discharge: 02/09/21 Attending physician: Paul Hanks Consults: 02/03/21 22:19 Consult Physician Urgent Consulting Provider: Zita García Consult Reason/Comments: possible pe on ct Do you want consulting provider notified?: Yes Consult Physician Urgent Consulting Provider: Constantino Aguilera Consult Reason/Comments: left hip pain, previous left hip fx Do you want consulting provider notified?: Yes Primary care physician: Paul Hanks Hospital Course: Final diagnosis Dehydration Hypotension secondary to possible sepsis, present on admission Acute renal failure Chronic kidney disease stage III Acute urinary tract infection, present on admission with culture showing Klebsiella pneumonia Rhabdomyolysis Gait dysfunction Generalized weakness Diabetes mellitus Hypertension Chronic obstructive pulmonary disease History of breast carcinoma History of left hip fracture DVT prophylaxis GI prophylaxis Full code Discharge disposition Patient is being discharged in a stable condition with guarded prognosis to [facility] for continued PT/OT therapy. Patient will follow-up with Dr. Hanks in the outpatient setting upon discharge. Patient is to continue with oral antibiotics in the form of Levaquin and Flagyl for the next one week to complete the course. Total time taken is greater than 35 minutes. Hospital course This is a 65-year-old female who was recently admitted altered mental status, weakness, lethargy and was being closely monitored. Patient follows with Dr. Hanks in the outpatient setting. Patient was started on IV antibiotics and had acute urinary tract infection with cultures showing klebsiella pneumonia and will continue with oral antibiotics in the form of Levaquin and Flagyl for 7 days to complete the course. Patient continues to be weak and will be going to [facility] for continued PT-OT therapy. Currently no reports of chest pain, shortness of breath, or palpitations. Patient is afebrile. No reports of nausea or vomiting and patient is tolerating diet. Patient will be going to [facility] today. On exam vital signs are stable. Cardio S1, S2 are muffled. Respiratory system shows diminished breath sounds at the bases with no wheezing or rhonchi noted. Abdomen is soft and obese, and nontender. Nervous system shows diffuse weakness. Please refer to medication reconciliation sheet for a list of medications. Patient Condition at Discharge: Stable Plan - Discharge Summary New Discharge Prescriptions: New Heparin Sodium,Porcine [Heparin Sodium] 5,000 unit SQ Q12HR #60 each Acetaminophen Tab [Tylenol] 650 mg PO Q6HR PRN tab PRN Reason: Mild Pain Or Fever > 100.5 metroNIDAZOLE [Flagyl] 500 mg PO TID 7 Days #21 tab Levofloxacin [Levaquin] 750 mg PO Q48H 7 Days #14 tab Ibuprofen [Motrin] 400 mg PO Q6HR PRN tab PRN Reason: Mild Pain Or Fever > 100.5 Continue Levothyroxine Sodium [Synthroid] 25 mcg PO DAILY Montelukast [Singulair] 10 mg PO HS Atorvastatin [Lipitor] 80 mg PO HS Calcium Acetate [PhosLo] 667 mg PO TID-W/MEALS #90 cap Perphenazine [Trilafon] 8 mg PO HS Loperamide [Imodium] 4 mg PO DAILY PRN PRN Reason: Diarrhea Ferrous Sulfate [Iron (65 MG Elemental)] 325 mg PO HS Famotidine 20 mg PO DAILY Ondansetron [Zofran] 4 mg PO Q8HR PRN PRN Reason: Nausea Ergocalciferol (Vitamin D2) [Drisdol (50,000 Iu)] 1,250 mcg PO WEEKLY Discontinued Sertraline [Zoloft] 50 mg PO DAILY lisinopriL [Zestril] 2.5 mg PO DAILY carvediloL [Coreg] 3.125 mg PO BID Colchicine [Mitigare] 0.6 mg PO BID Furosemide [Lasix] 80 mg PO DAILY Discharge Medication List Levothyroxine Sodium [Synthroid] 25 mcg PO DAILY 09/15/15 [History] Atorvastatin [Lipitor] 80 mg PO HS 12/10/17 [History] Montelukast [Singulair] 10 mg PO HS 12/10/17 [History] Calcium Acetate [PhosLo] 667 mg PO TID-W/MEALS #90 cap 02/04/19 [Rx] Perphenazine [Trilafon] 8 mg PO HS 08/14/20 [History] Ergocalciferol (Vitamin D2) [Drisdol (50,000 Iu)] 1,250 mcg PO WEEKLY 02/03/21 [History] Famotidine 20 mg PO DAILY 02/03/21 [History] Ferrous Sulfate [Iron (65 MG Elemental)] 325 mg PO HS 02/03/21 [History] Loperamide [Imodium] 4 mg PO DAILY PRN 02/03/21 [History] Ondansetron [Zofran] 4 mg PO Q8HR PRN 02/03/21 [History] Acetaminophen Tab [Tylenol] 650 mg PO Q6HR PRN tab 02/09/21 [Rx] Heparin Sodium,Porcine [Heparin Sodium] 5,000 unit SQ Q12HR #60 each 02/09/21 [Rx] Ibuprofen [Motrin] 400 mg PO Q6HR PRN tab 02/09/21 [Rx] Levofloxacin [Levaquin] 750 mg PO Q48H 7 Days #14 tab 02/09/21 [Rx] metroNIDAZOLE [Flagyl] 500 mg PO TID 7 Days #21 tab 02/09/21 [Rx] Follow up Appointment(s)/Referral(s): Paul Hanks MD [Primary Care Provider] - 1-2 days Ambulatory/Diagnostic Orders: Basic Metabolic Panel [LAB.AMB] Time Frame: 3 Days, Location: None Selected Activity/Diet/Wound Care/Special Instructions: Patient is going to [place] Activity as tolerated Continue with antibiotics for 7 days until finished Continue dysphasia 3 chopped diet consistent carb and heart healthy Continue Glucerna 3 times a day with meals Recommend repeat BMP in 2-3 days Discharge Disposition: TRANSFER TO SNF/ECF
[2021-02-09] MEDS: SODIUM CHLORIDE 0.9% 1,000 ML IV SCH (14:46)
[2021-02-09] MEDS ORDERED: metroNIDAZOLE 500 MG TAB PO SCH (16:00)
[2021-02-10] MEDS ORDERED: LEVOFLOXACIN 750 MG TAB PO SCH (21:00)
== END 2021-02-09 15:50 | DRG 872 ==
LOC: EC 18:59 → 5NMEDONC 22:11
PROVIDERS: ADMIT Family Medicine; ATTEND Family Medicine
DX: A41.59 Other Gram-negative sepsis (principal); I50.22 Chronic systolic (congestive) heart failure; N39.0 Urinary tract infection, site not specified; M62.82 Rhabdomyolysis; N17.9 Acute kidney failure, unspecified; I13.0 Hypertensive heart and chronic kidney disease with heart failure and stage 1 through stage 4 chronic kidney disease, or unspecified chronic kidney disease; E86.0 Dehydration; M25.552 Pain in left hip; I25.2 Old myocardial infarction; F31.9 Bipolar disorder, unspecified; F17.200 Nicotine dependence, unspecified, uncomplicated; Z80.0 Family history of malignant neoplasm of digestive organs; I95.9 Hypotension, unspecified; Z85.3 Personal history of malignant neoplasm of breast; E03.9 Hypothyroidism, unspecified; F90.9 Attention-deficit hyperactivity disorder, unspecified type; S72.002D Fracture of unspecified part of neck of left femur, subsequent encounter for closed fracture with routine healing; E78.5 Hyperlipidemia, unspecified; N18.30 Chronic kidney disease, stage 3 unspecified; E11.22 Type 2 diabetes mellitus with diabetic chronic kidney disease; R62.7 Adult failure to thrive; J44.9 Chronic obstructive pulmonary disease, unspecified; B96.1 Klebsiella pneumoniae [K. pneumoniae] as the cause of diseases classified elsewhere; R26.9 Unspecified abnormalities of gait and mobility; Z79.890 Hormone replacement therapy; Z79.899 Other long term (current) drug therapy; Z90.710 Acquired absence of both cervix and uterus; Z91.81 History of falling; Z90.12 Acquired absence of left breast and nipple
CPT/HCPCS: 36415; 71046; 71275; 73502; 74177; 80048; 80053; 81001; 82550; 82565; 83605; 83735; 83880; 84439; 84443; 84484; 85025; 85379; 85610; 85730; 87040; 87077; 87086; 87186; 93005; 93306; 93970; 96360; 96361; 99291

== ENCOUNTER 2021-04-06 14:05 | Inpatient (IN) | payer MEDICARE, OTHER ==
[2021-04-06 14:55] LABS: Basophils # (A) 0.1 k/uL (0-0.2); Basophils % (A) 1 %; Eosinophils # (A) 0.2 k/uL (0-0.7); Eosinophils % (A) 3 %; HCT 43.1 % (34.0-46.0); HGB 13.6 gm/dL (11.4-16.0); Lymphocytes % (A) 15 %; MCH 33.3 pg (25.0-35.0); MCHC 31.6 g/dL (31.0-37.0); MCV 105.5 fL (80.0-100.0); Macrocytosis Moderate; Mean Platelet Volume 8.2; Monocytes # (A) 0.6 k/uL (0-1.0); Monocytes % (A) 10 %; Neutrophils # (A) 4.4 k/uL (1.3-7.7); Neutrophils % (A) 70 %; RBC 4.08 m/uL (3.80-5.40); RDW 14.9 % (11.5-15.5); WBC 6.4 k/uL (3.8-10.6)
[2021-04-06 15:04] LABS: Albumin 2.6 g/dL (3.5-5.0); Calcium 8.5 mg/dL (8.4-10.2); Magnesium 2.2 mg/dL (1.6-2.3); Total Bilirubin 1.6 mg/dL (0.2-1.3); Total Protein 7.2 g/dL (6.3-8.2)
[2021-04-06 15:05] LABS: INR 1.1 (<1.2); Partial Thromboplastin Time 26.3 sec (22.0-30.0); Platelet Count 81 k/uL (150-450); Prothrombin Time 11.3 sec (9.0-12.0)
--- NOTE | 2021-04-06 15:42 | XR ---
EXAMINATION TYPE: XR chest 2V DATE OF EXAM: 04/06/2021 COMPARISON: 02/03/2021 INDICATION: Difficulty breathing, dyspnea TECHNIQUE: Frontal and lateral views of the chest are obtained. FINDINGS: The heart size is prominent. The pulmonary vasculature is prominent. Streak opacities at the right base compatible with atelectasis. Port is present on the right with the tip in the superior vena cava region. Left-sided pacemaker is present.. IMPRESSION: 1. Clinical correlation recommended for volume overload. 2. Streak atelectasis right lung base
--- NOTE | 2021-04-06 15:50 | XR ---
KUB HISTORY: Pain for 4 days Frontal KUB submitted on 3 images and correlated to CT 02/03/2021 Surgical clips are present in the right upper quadrant. Leads are present within the right atrium and ventricle. There is no evident pneumoperitoneum or bowel obstruction. Probable phleboliths are prese nt within the pelvis. Postoperative changes noted in the proximal left femur. There are dense vascula r calcifications present along the iliac distribution. impression: Nonspecific bowel gas pattern. Follow-up as indicated.
--- NOTE | 2021-04-06 15:52 | ED ---
General Adult HPI - General Chief complaint: Recheck/Abnormal Lab/Rx Stated complaint: abnormal labs Time Seen by Provider: 04/06/21 14:11 Source: patient, EMS, RN notes reviewed, old records reviewed Mode of arrival: EMS Limitations: no limitations - History of Present Illness Initial comments: 65-year-old female who had been transferred from the group home for evaluation of increased abdominal distention, ultrasound evidence of a large volume asci farzana. Patient states that she's had some increased abdominal distention and weight gain. She is also had increased dyspnea. She is currently on supplemental oxygen which she does not normally wear. denies significant abdominal pain. She denies chest pain. - Related Data Home Medications Medication Instructions Recorded Confirmed Levothyroxine Sodium [Synthroid] 25 mcg PO DAILY 09/15/15 02/03/21 Atorvastatin [Lipitor] 80 mg PO HS 12/10/17 02/03/21 Montelukast [Singulair] 10 mg PO HS 12/10/17 02/03/21 Perphenazine [Trilafon] 8 mg PO HS 08/14/20 02/03/21 Ergocalciferol (Vitamin D2) 1,250 mcg PO WEEKLY 02/03/21 02/03/21 [Drisdol (50,000 Iu)] Famotidine 20 mg PO DAILY 02/03/21 02/03/21 Ferrous Sulfate [Iron (65 MG 325 mg PO HS 02/03/21 02/03/21 Elemental)] Ondansetron [Zofran] 4 mg PO Q8HR PRN 02/03/21 02/03/21 Previous Rx's Medication Instructions Recorded Calcium Acetate [PhosLo] 667 mg PO TID-W/MEALS #90 cap 02/04/19 Allergies Allergy/AdvReac Type Severity Reaction Status Date / Time oxybutynin Allergy Rash/Hives Verified 04/06/21 16:09 Penicillins Allergy Rash/Hives Verified 04/06/21 16:09 aspirin AdvReac Nausea & Verified 04/06/21 16:09 Vomiting Review of Systems ROS Statement: Those systems with pertinent positive or pertinent negative responses have been documented in the HPI. ROS Other: All systems not noted in ROS Statement are negative. Past Medical History Past Medical History: Cancer, Heart Failure, COPD, Diabetes Mellitus, Hyperlipidemia, Hypertension, Myocardial Infarction ([place]), Osteoarthritis (OA), Pneumonia, Renal Disease, Skin Disorder, Sleep Apnea/CPAP/BIPAP, Thyroid Disorder Additional Past Medical History / Comment(s): gout, varicose veins, psoriasis, anemia, stage III kidney disease, breast cancer- last chemo Feb 2018. SEE DR ARENAS'S HISTORY AND PHYSICAL FOR CARDIAC HISTORY , DIABETIC-DIET CONTROLLED. Healed/scarred sacral decub that had wound vac Last Myocardial Infarction Date:: 03/2012 History of Any Multi-Drug Resistant Organisms: None Reported Date of last positivie culture/infection: None C.diff toxin test negative MDRO Source:: None Past Surgical History: Breast Surgery, Cholecystectomy, Hysterectomy, Pacemaker Additional Past Surgical History / Comment(s): Left breast biopsy, left mastectomy, right cataract removed. Past Anesthesia/Blood Transfusion Reactions: Motion Sickness Additional Past Anesthesia/Blood Transfusion Reaction / Comment(s): denies problems with anesthesia Type of Cardiac Device: Permanent Pacemaker Device Placement Date:: Past Psychological History: ADD/ADHD, Bipolar, Depression Smoking Status: Current every day smoker, Former smoker Past Alcohol Use History: None Reported Past Drug Use History: None Reported - Past Family History Mother Family Medical History: Cancer Additional Family Medical History / Comment(s): stomach cancer General Exam Limitations: no limitations General appearance: alert, in no apparent distress Head exam: Present: atraumatic, normocephalic Eye exam: Present: other (Left eye s/p removal) ENT exam: Present: normal exam Respiratory exam: Present: respiratory distress, wheezes, decreased breath sounds Cardiovascular Exam: Present: regular rate, normal rhythm GI/Abdominal exam: Present: distended. Absent: tenderness, guarding, rebound Extremities exam: Present: normal capillary refill, pedal edema Neurological exam: Present: alert. Absent: motor sensory deficit Course Vital Signs 04/06/21 14:07 Temperature 98 F Pulse Rate 64 Respiratory 18 Rate Blood Pressure 112/61 O2 Sat by Pulse 93 L Oximetry EKG Findings - EKG Comments: EKG Findings:: Ventricular paced rhythm, rate of 65, QRS duration 146, QTC 576 Medical Decision Making - Medical Decision Making 65-year-old female had been sent in from the group home for evaluation of abdominal distention and difficulty breathing. Patient does have moderate respiratory distress. She has both wheezing and rales on exam. Chest x-ray is concerning for pulmonary vascular congestion. Additionally she was evaluated for increased abdominal girth and weight gain. She had an ultrasound as an outpatient which was significant for large volume ascites. She does have a minimally elevated bilirubin, and alkaline phosphatase. She will be admitted for IV diuresis, evaluation by interventional radiology. Case discussed with Dr. Hanks who will admit. - Lab Data Result diagrams: 04/06/21 14:37 04/06/21 14:37 Lab Results 04/06/21 04/06/21 04/06/21 Range/Units 14:37 14:37 14:37 WBC 6.4 (3.8-10.6) k/uL RBC 4.08 (3.80-5.40) m/uL Hgb 13.6 (11.4-16.0) gm/dL Hct 43.1 (34.0-46.0) % MCV 105.5 H (80.0-100.0) fL MCH 33.3 (25.0-35.0) pg MCHC 31.6 (31.0-37.0) g/dL RDW 14.9 (11.5-15.5) % Plt Count 81 L (150-450) k/uL MPV 8.2 Neutrophils % 70 % Lymphocytes % 15 % Monocytes % 10 % Eosinophils % 3 % Basophils % 1 % Neutrophils # 4.4 (1.3-7.7) k/uL Lymphocytes # 1.0 (1.0-4.8) k/uL Monocytes # 0.6 (0-1.0) k/uL Eosinophils # 0.2 (0-0.7) k/uL Basophils # 0.1 (0-0.2) k/uL Macrocytosis Moderate PT 11.3 (9.0-12.0) sec INR 1.1 (<1.2) APTT 26.3 (22.0-30.0) sec Sodium 139 (137-145) mmol/L Potassium 4.0 (3.5-5.1) mmol/L Chloride 107 (98-107) mmol/L Carbon Dioxide 26 (22-30) mmol/L Anion Gap 6 mmol/L BUN 10 (7-17) mg/dL Creatinine 0.83 (0.52-1.04) mg/dL Est GFR (CKD-EPI)AfAm 86 (>60 ml/min/1.73 sqM) Est GFR (CKD-EPI)NonAf 75 (>60 ml/min/1.73 sqM) Glucose 89 (74-99) mg/dL Calcium 8.5 (8.4-10.2) mg/dL Magnesium 2.2 (1.6-2.3) mg/dL Total Bilirubin 1.6 H (0.2-1.3) mg/dL AST 56 H (14-36) U/L ALT 25 (4-34) U/L Alkaline Phosphatase 261 H (38-126) U/L Total Protein 7.2 (6.3-8.2) g/dL Albumin 2.6 L (3.5-5.0) g/dL Disposition Clinical Impression: COPD (chronic obstructive pulmonary disease), Congestive heart failure, Ascites Disposition: ADMITTED IP TO THIS HOSP Condition: Stable Is patient prescribed a controlled substance at d/c from ED?: No Referrals: Paul Hanks MD [Primary Care Provider] - 1-2 days Decision to Admit Reason: Admit from EC Decision Date: 04/06/21 Decision Time: 16:15
[2021-04-06] MEDS ORDERED: MORPHINE SULFATE 4 MG/ML SYRINGE IV PRN (16:10)
[2021-04-06] MEDS ORDERED: NALOXONE 0.4 MG/ML 1 ML VIAL IV PRN (16:10)
[2021-04-06] MEDS ORDERED: ACETAMINOPHEN TAB 325 MG TAB PO PRN (16:10)
[2021-04-06] MEDS ORDERED: FUROSEMIDE 10 MG/ML 4 ML VIAL IV STA (16:10)
[2021-04-06] MEDS ORDERED: predniSONE 50 MG TAB PO STA (16:12)
[2021-04-06] MEDS ORDERED: IPRATROPIUM-ALBUTEROL 3 ML NEB INHALATION PRN (16:13)
--- NOTE | 2021-04-06 18:41 | HP ---
HISTORY AND PHYSICAL CHIEF COMPLAINT: Abdominal distention and pain. HISTORY OF PRESENT ILLNESS: This is another admission for this 65-year-old female who has a history of cirrhosis with ascites. She has also had a history of type 2 NIDDM and COPD. She has had a previous CVA as well. She comes from [facility]. She was brought over because of increasing abdominal pain and ascites for paracentesis. REVIEW OF SYSTEMS: She denies any chest pain, shortness of breath, nausea, vomiting, hematemesis, diarrhea, melena, hematochezia, etc. Past medical history, family history, and personal and social histories reveal that she is ALLERGIC TO PENICILLIN, ASPIRIN AND OXYBUTYNIN. Medications can be found in the medication record from [facility]. She has had a prior history of cardiac arrhythmia, for which she has a pacemaker. She has had hypertension, congestive heart failure, hyperlipidemia, COPD and hypothyroidism as well as hypertension. She does smoke. She has had carcinoma of the breast. PHYSICAL EXAMINATION: Blood pressure is 120/68 with a pulse of 60 and regular, respirations of 18, and she is afebrile. In general she appeared to be chronically ill in appearance. Left eye was surgically absent. Neck veins are not distended. The chest is clear. The cardiac exam demonstrated normal sinus rhythm. The abdomen was protuberant with ascites. She had some generalized mild tenderness. Bowel sounds are heard. Extremities are normal. Neurologically she is intact. She is admitted to the hospital with the diagnoses: 1. Ascites. 2. Cirrhosis. 3. History of carcinoma of the breast. 4. Chronic obstructive pulmonary disease. 5. Hypertension. 6. History of type 2 [id number] diabetes mellitus. 7. Congestive heart failure. 8. Previous cerebrovascular accident. 9. Hypothyroidism. PLAN: Consult with Interventional Radiology for paracentesis, after which she can return to the detention. MMODL / IJN: [id number] /
[2021-04-06] MEDS: FUROSEMIDE 10 MG/ML 4 ML VIAL IV SCH (21:34)
[2021-04-07 07:18] VITALS: TEMP 95
[2021-04-07] MEDS: FUROSEMIDE 10 MG/ML 4 ML VIAL IV SCH (08:58)
[2021-04-07] MEDS ORDERED: predniSONE 50 MG TAB PO SCH (09:00)
[2021-04-07] MEDS ORDERED: ONDANSETRON 4 MG TAB PO PRN (10:11)
[2021-04-07 11:58] VITALS: RESP 16
[2021-04-07 12:38] VITALS: BP 105/57; PULSE 50
[2021-04-07] MEDS: ALBUMIN HUMAN 25% 50 ML in EMPTY BAG 1 BAG IVPB SCH ×3 (13:33→14:36)
--- NOTE | 2021-04-07 14:51 | US ---
EXAMINATION TYPE: US paracentesis abd w/image DATE OF EXAM: 04/07/2021 COMPARISON: NONE HISTORY: Ascites. PROCEDURE: Maximal barrier technique was utilized. The skin overlying a suitable pocket of fluid was localized with ultrasound and the overlying skin was prepped and draped. Ultrasound was utilized with sterile technique. Lidocaine was used for local anesthesia and a skin maryse made with a scalpel. Catheter was advanced under direct ultrasound guidance into a suitable pocket of fluid and approximately 6.5 liter s of serous fluid were removed. Catheter was withdrawn and hemostasis achieved. There is no immedia te complication; the patient is discharged in stable condition. IMPRESSION: STATUS POST ULTRASOUND GUIDED PARACENTESIS FOR PALLIATION OF ASCITES. THIS PROCEDURE WA S PERFORMED BY THE UNDERSIGNED. Specimen sent for laboratory analysis.
--- NOTE | 2021-04-07 14:57 | DS ---
DISCHARGE SUMMARY CHIEF COMPLAINT: Abdominal distention. HISTORY OF PRESENT ILLNESS AND PHYSICAL EXAMINATION: Details of this lady's history and physical can be found in the initial workup. LABORATORY STUDIES: While she was in the hospital she had laboratory studies, details of which can be found in the laboratory section of her chart. COURSE IN THE HOSPITAL: After admission she was placed on bedrest, started on intravenous fluids and was seen by Interventional Radiology. She was taken for paracentesis and roughly 4 L was removed. She received a dose of IV albumin, and it was felt that she could go back to [facility] on April 07. She will go there on her usual diet and activity with the addition of Lasix 20 mg once a day and Aldactone 25 mg once a day. The fluid that was removed was sent for cytology. FINAL DIAGNOSES: 1. Intractable ascites. 2. History of carcinoma of the breast. 3. Chronic obstructive pulmonary disease. 4. History of type 2 diabetes mellitus. 5. Status post removal of left eye. OPERATION: Paracentesis. CONSULTATION: Interventional Radiology. She is improved. MMODL / IJN: [id number] /
[2021-04-07 20:22] LABS: Appearance,BF Hazy; Nucleated Cells, Body Fluid 50 /uL; RBC, Body Fluid 2200 /uL
[2021-04-07 20:52] LABS: Mononuclear WBC,Body Fluid 54 %; Polynuclear WBC,Body Fluid 45 %; Total Cells Counted,Body Fluid 100
[2021-04-07] MEDS ORDERED: LEVOTHYROXINE 25 MCG TAB PO SCH (21:00)
[2021-04-07] MEDS ORDERED: SPIRONOLACTONE 25 MG TAB PO SCH (21:00)
[2021-04-07] MEDS ORDERED: PERPHENAZINE 4 MG TAB PO SCH (21:00)
[2021-04-07] MEDS ORDERED: MONTELUKAST 10 MG TAB PO SCH (21:00)
[2021-04-08 06:44] LABS: LDH, Body Fluid Source Paracentesis Fluid; Total Protein, Body Fluid 787 mg/dL
[2021-04-08] MEDS ORDERED: FUROSEMIDE 20 MG TAB PO SCH (09:00)
[2021-04-08] MEDS ORDERED: FAMOTIDINE 20 MG TAB PO SCH (09:00)
== END 2021-04-07 15:57 | DRG 433 ==
LOC: EC 14:05 → 5NMEDONC 16:11 → EEVIPCON 16:11 → 5NMEDONC 17:28 → 6NMEDSUR 04-07 02:18
PROVIDERS: ADMIT Family Medicine; ATTEND Family Medicine
PROC: 0W9G3ZZ Drainage of Peritoneal Cavity, Percutaneous Approach (ICD-10-PCS; principal; 2021-04-07)
DX: K74.60 Unspecified cirrhosis of liver (principal); R18.8 Other ascites; E11.9 Type 2 diabetes mellitus without complications; E78.5 Hyperlipidemia, unspecified; F17.200 Nicotine dependence, unspecified, uncomplicated; Z20.822 Contact with and (suspected) exposure to COVID-19; F31.9 Bipolar disorder, unspecified; F32.9 Major depressive disorder, single episode, unspecified; I11.0 Hypertensive heart disease with heart failure; I25.2 Old myocardial infarction; I50.9 Heart failure, unspecified; J44.9 Chronic obstructive pulmonary disease, unspecified; Z79.890 Hormone replacement therapy; Z79.899 Other long term (current) drug therapy; Z80.0 Family history of malignant neoplasm of digestive organs; Z85.3 Personal history of malignant neoplasm of breast; Z86.73 Personal history of transient ischemic attack (TIA), and cerebral infarction without residual deficits; Z90.12 Acquired absence of left breast and nipple; Z90.710 Acquired absence of both cervix and uterus; M19.90 Unspecified osteoarthritis, unspecified site; I83.90 Asymptomatic varicose veins of unspecified lower extremity; L40.9 Psoriasis, unspecified; M10.9 Gout, unspecified
CPT/HCPCS: 36415; 49083; 71046; 74018; 80053; 83615; 83735; 84157; 85025; 85610; 85730; 87070; 87075; 87077; 87186; 87205; 87635; 89050; 93005; 99285